=== PATIENT | male | born 1950 | race Caucasian/White ===

== ENCOUNTER → 2017-12-18 01:50 | Outpatient (CLI) | payer OTHER, SELFPAY ==
--- NOTE | 2017-12-18 01:50 | DT_ITS ---
This patient was seen during an EMR downtime December 15, 2017 - December 22, 2017. This patient may have a combination of paper and electronic documentation or all paper documentation. All documentation is viewable within the e-chart portion of [employer] for each patient visit.
[2017-12-23 05:34] LABS: ALB/GLOB Ratio 1.2 RATIO (0.9-2.4); AST(SGOT) 17 U/L (15-37); Alanine Aminotransfer ALT/SGPT 27 U/L (16-61); Albumin, Serum 3.9 g/dL (3.2-5.0); Alkaline Phosphatase 80 U/L (45-117); Anion Gap 7 (5-15); BUN 13 mg/dL (7-18); BUN/Creat Ratio 15.5 RATIO (10-20); Calcium,Total 8.7 mg/dL (8.5-10.1); Chloride 106 mmol/L (98-107); Creatinine, Serum 0.84 mg/dL (0.70-1.30); EST Glomerular Filtration Rate 97 mL/min (>60); Est Glom Filt Rate - Afr Amer 118 mL/min (>60); Globulin 3.2 g/dL (2.2-4.2); Glucose 94 mg/dL (74-106); Potassium 3.9 mmol/L (3.5-5.1); Protein, Total 7.1 g/dL (6.4-8.2); Sodium Level 142 mmol/L (136-145); Thyroid Stim Hormone (TSH) 1.54 uIU/mL (0.358-3.74)
[2017-12-23 05:51] LABS: Red Blood Count 4.94 M/mm3 (4.6-6.2); White Blood Count 6.1 K/mm3 (4.4-11.0)
[2017-12-23 05:52] LABS: Basophil% 0.2 % (0-1); Eosinophils% 3.3 % (0-5); Hematocrit 45.7 % (40-54); Lymphocyte # 1.53 X10^3/ul (4.0); Lymphocyte % 24.9 % (19-41); Mean Corpuscular Hgb 32.4 pg (27.0-32.0); Mean Corpuscular Volume 92.5 fL (80-94); Mean Platelet Vol. 10.1 fl (6.2-12.0); Monocyte% 12.2 % (0-10); Neutrophil # 3.63 X10^3/uL (2.7-7.7); Neutrophil % 59.1 % (47-70); POSITIVE COUNT NO; POSITIVE DIFFERENTIAL NO; POSITIVE MORPHOLOGY NO; Platelet Count 179 K/mm3 (150-450); RBC Distribution Width CV 12.5 % (11.6-14.6)
[2017-12-23 05:53] LABS: Absolute Lymphocyte Count 1.53 X10^3/ul (0.83-4.51); Absolute Neutrophil Count 3.6 X10^3/uL (2.0-7.7); Basophil# 0.01 X10^3/uL; Monocyte# 0.75 X10^3/uL
[2017-12-23 09:49] LABS: Vitamin D,25 Hydroxy 25.2 ng/mL (29.95-100.01)
== END ==
PROVIDERS: Family Provider Family Medicine Geriatric Medicine; PCP Family Medicine Geriatric Medicine; Visit Provider Family Medicine Geriatric Medicine
DX: E55.9 Vitamin D deficiency, unspecified (principal); R53.83 Other fatigue
CPT/HCPCS: 36415; 80053; 82306; 84443; 85025

== ENCOUNTER 2017-12-30 05:42 | Day surgery (SDC) | payer OTHER, SELFPAY ==
[2017-12-30 06:06] VITALS: BP 122/61; PULSE 54; RESP 16; TEMP 36.3; O2SAT 96; BMI 26.4
--- NOTE | 2017-12-30 06:52 | PCM.OPRPT ---
Problem List (1) Screening for intestinal cancer Status: Acute Report of Operation Date of Procedure: 12/30/17 Pre-Operative Diagnosis: Screening for intestinal cancer Post-Operative Diagnosis: Normal colonoscopy Surgery/Procedure Performed:: Colonoscopy Description of Surgical Findings:: Timeout and informed consent was obtained. 67-year-old gentleman was taken to the endoscopy suite. He was placed in a left lateral decubitus position. Throughout the procedure in aliquots he received a total of 100 mg Demerol and 2.5 mg of Versed is intravenous sedation. Digital rectal exam performed. Moderate internal hemorrhoids. 3+ enlarged smooth prostate. Flexible colonoscope inserted the rectum advanced through a tortuous sigmoid colon. With unwinding that loop the scope was advanced to the transverse colon with some transabdominal pressure cyst and then by placing the patient supine the scope was advanced to the cecum. Bowel prep was good there was some liquid stool that could be aspirated. The cecum ileocecal valve area was nicely achieved. The scope was carefully withdrawn from the cecum ascending colon transverse colon descending colon and sigmoid colon without abnormality noted. Tortuosity was noted. The scope was retroflexed within the rectum anorectal verge inspected the hemorrhoidal changes noted. Excess fluid and air was aspirated free and the procedure was completed with the patient tolerating it well. Impression Normal examination. Next screening examination recommended in 10 years. Previous colonoscopy was noted by the patient to be very remote greater than 10 years. Cc: Dr. Gutierrez Medications were given at 0630. Procedure was started 0633. The cecum was reached at 0642.21. Examination was completed at 0645.3 Charles Sosa M.D., F.A.C.S. Type of Anesthesia:: IV Sedation
[2017-12-30 06:55] VITALS: BP 122/61; BP 132/78; PULSE 66; RESP 18; TEMP 36.8; O2SAT 97
[2017-12-30 07:00] VITALS: BP 122/61; BP 129/62; PULSE 66; RESP 18; O2SAT 96
[2017-12-30 07:05] VITALS: BP 122/61; BP 129/79; PULSE 52; RESP 18; O2SAT 95
[2017-12-30 07:10] VITALS: BP 122/61; BP 132/78; PULSE 62; RESP 18; TEMP 37; O2SAT 99
[2017-12-30 07:15] VITALS: BP 122/61
== END 2017-12-30 07:59 | disposition home or self-care (01) ==
LOC: EN 05:42 → AC 05:43
PROVIDERS: Family Provider Family Medicine Geriatric Medicine; PCP Family Medicine Geriatric Medicine; Visit Provider Surgery
PROC: 0DJD8ZZ Inspection of Lower Intestinal Tract, Via Natural or Artificial Opening Endoscopic (ICD-10-PCS; CPT 45378; principal; 2017-12-30 06:25)
DX: Z12.11 Encounter for screening for malignant neoplasm of colon (principal); K59.00 Constipation, unspecified; K64.8 Other hemorrhoids; N40.0 Benign prostatic hyperplasia without lower urinary tract symptoms; I48.91 Unspecified atrial fibrillation
CPT/HCPCS: 45378; 99152; 99153; J7120

== ENCOUNTER 2018-01-12 05:24 | Day surgery (SDC) | payer OTHER, SELFPAY ==
--- NOTE | 2018-01-08 11:32 | EKG12_ITS ---
Test Reason : PRE-OP Blood Pressure : / mmHG Vent. Rate : 049 BPM Atrial Rate : 049 BPM P-R Int : 166 ms QRS Dur : 106 ms QT Int : 412 ms P-R-T Axes : 040 055 000 degrees QTc Int : 372 ms Marked sinus bradycardia with sinus arrhythmia Incomplete right bundle branch block Abnormal ECG Confirmed by ALEXANDRIA GRIGGS, BLANCO ([id number]), movie editor CHYNA ROCHE ([id number]) on 01/15/2018 3:27:44 PM Referred By: Charles Sosa Confirmed By:BLANCO IBRAHIM MD
[2018-01-08 13:26] LABS: Hematocrit 46.5 % (40-54); Hemoglobin 16.1 g/dl (13.0-16.5); Mean Corp Hgb Conc 34.6 g/gl (32-36); Mean Corpuscular Hgb 32.3 pg (27.0-32.0); Mean Corpuscular Volume 93.2 fL (80-94); Mean Platelet Vol. 10.4 fl (6.2-12.0); Platelet Count 173 K/mm3 (150-450); RBC Distribution Width CV 12.7 % (11.6-14.6); Red Blood Count 4.99 M/mm3 (4.6-6.2); White Blood Count 5.9 K/mm3 (4.4-11.0)
[2018-01-08 13:27] LABS: Scan Indicated on CBC? Y/N NO
[2018-01-08 13:39] LABS: Anion Gap 8 (5-15); BUN 13 mg/dL (7-18); Calcium,Total 8.6 mg/dL (8.5-10.1); Chloride 104 mmol/L (98-107); Creatinine, Serum 0.87 mg/dL (0.70-1.30); EST Glomerular Filtration Rate 93 mL/min (>60); Est Glom Filt Rate - Afr Amer 113 mL/min (>60); Glucose 90 mg/dL (74-106); Potassium 3.8 mmol/L (3.5-5.1); Sodium Level 141 mmol/L (136-145)
[2018-01-12] VITALS (7 sets, daily range): BP systolic 119–143; BP diastolic 72–93; PULSE 50–83; RESP 16; TEMP 36.3–37.1; O2SAT 93–98; BMI 27.1
[2018-01-12] MEDS: Cefazolin 2 GM in 0.9% Normal Saline 100 ML IV (07:11)
--- NOTE | 2018-01-12 07:15 | LIP_PTH ---
PATIENT: MONTRELL NICKERSON LOC: [facility] [place]#:[id number] AGE/SX: 67/M ROOM: RE01/12/[address]: Dr. Charles Sosa MD : [id number] BED: DIS: 01/12/2018 SPEC #: [id number] RECD: 01/12/18 09:51 STATUS: IVETH RAHCELLE #: [id number] MARTIN: 01/12/18 07:[address]: Charles Sosa DEPT: SURGICAL PATHOLOGY RECD BY: Romario Macias ENTERED: 01/12/18 10:13 SP TYPE: LIPOMA OTHR DR: Dr. Alon Gutierrez MD Tissues: Soft tissues, NOS Procedures: Surgery Specimen Level III HEADER OPERATION: Right inguinal hernia repair with mesh PRE-OP DIAGNOSIS: Right inguinal hernia TISSUE SUBMITTED: Right cord lipoma MICROSCOPIC DIAGNOSIS Right cord lipoma, excision: Fragments of benign fibrofatty tissue. AM:sp 01/13/18 MICROSCOPIC DESCRIPTION Slides are reviewed. GROSS DESCRIPTION Received in fixative is one container labeled with the patient's name and designated right cord lipoma. The specimen consists of a piece of finch- yellow focally congested piece of adipose tissue measuring 5 x 1 x 1 cm. Sections reveal yellow adipose cut surfaces without area of necrosis or cystic degeneration. Warranty Administrator sections are submitted in one cassettes. EMMANUELLE:jemima 01/12/18 TC: 1 CPT: 28955
--- NOTE | 2018-01-12 07:17 | PCM.DC.GS ---
Discharge Diet: Light diet - advance as tolerated - if you have questions about your diet instructions, please talk to you doctor. Discharge Activity: May Not Drive - for 1 week or while taking narcotic pain medicine. May shower in (days): 1 Lifting Restrictions: 10 pounds Call your doctor if your incision/area has: Continuous Slow Oozing, Sudden Increased Bleeding, Increased Pain/ Swelling, Increased Redness, Foul Smelling Discharge Call your doctor if you observe: Fever of 101 or Higher Suture Line Care: Avoid Pulling/Pushing, Avoid Pinching/Bending Additional Dressing/Incision Instructions:: Change or remove dressing in 4 days. Leave steri-strips in place for 1 week. Allergies/Adverse Reactions: Allergies No Known Allergies Allergy (Verified 01/06/18 08:57) Medications to take at Discharge Cholecalciferol (Vitamin D3) [Vitamin D3] 1,000 unit PO QODAY 12/30/17 Tamsulosin HCl [Flomax] 1 tab PO QHS 12/30/17 Docusate Sodium [Colace] 50 mg PO DAILY 01/06/18 Hydrocodone Bitart/Apap 5-325 [[place] 5MG-325MG] 1 tablet PO Q4H PRN PRN 3 Days #10 tablet 01/12/18 The following prescriptions were given: Hydrocodone Bitart/Apap 5-325 [[place] 5MG-325MG] 1 tablet PO Q4H PRN PRN 3 Days #10 tablet PRN Reason: Pain Primary Care Physician: Alon Gutierrez Chi, MD [Primary Care Provider] - Please Follow Up With: Charles Sosa MD - [phone] When: Call to make an appointment to be seen in about 10 days.
[2018-01-12] MEDS: Bupivacaine Mpf 0.5% 30 ML VIAL (08:12)
--- NOTE | 2018-01-12 08:12 | PCM.OPRPT ---
Problem List (1) Right inguinal hernia Status: Acute Report of Operation Date of Procedure: 01/12/18 Pre-Operative Diagnosis: Right inguinal hernia Post-Operative Diagnosis: Indirect right inguinal hernia with cord lipoma Surgery/Procedure Performed:: Dianna right inguinal herniorrhaphy with excision cord lipoma Description of Surgical Findings:: Timeout informed consent was obtained. 67-year-old gentleman was taken to the operating room. He was placed on the table. Ancef 2 g are given intravenously preoperatively. He underwent monitored anesthesia care local anesthetic. The right groin was sterilely prepped and draped. 1% lidocaine mixed 50-50 with 0.5% Marcaine was used as a local anesthetic. Throughout the procedure total 25 cc was used. Local was instilled. A transverse incision was created in the right groin. Sharp dissection carried down through the substance tissue. The external oblique identified as well as the external ring. The external oblique was incised the lingual nerve identified and protected. Circumferential control was obtained of the cord structures. The cord was dissected free identifying an indirect hernia Cord lipoma lipoma was identified it was dissected free and high ligated with a Vicryl. Having completely inverted the hernia then approximated the transversalis fascia from the pubic tubercle to the internal ring with a running 3-0 Ethibond. I felt that I had good securement. I then utilized a Bard mesh appreciate with keyhole size 10 x 4.5 cm lot number [id number] reference #[id number] expiry date 06/02/2022 to perform the repair. This was placed around the internal ring. It was secured to itself laterally with 3-0 Ethibond. The tails were slightly shortened and tucked beneath the external oblique. The mesh was secured to the pubic tubercle shelving edge of Poupart's and aponeurosis of the internal/external oblique with interrupted 3-0 Ethibond. Good positioning and securement was achieved. The external oblique was approximated with a running 2-0 Vicryl. Subdermal tissues approximated with interrupted 2-0 Vicryl. The skin edges proximate running septic or 4 Monocryl. Steri-Strips Telfa and OpSite dressings applied. Sponge and instrument and needle counts were reported the surgeon be correct. Specimens include cord lipoma. Drains none. Blood loss minimal. He was taken to the recovery area in satisfactory condition without apparent complication Charles Sosa M.D., F.A.C.S. Type of Anesthesia:: Local MAC Anesthesiologist: Shelly Vallejo
--- NOTE | 2018-01-12 08:16 | OP.PCM_ITS ---
Problem List (1) Right inguinal hernia Status: Acute Report of Operation Date of Procedure: 01/12/18 Pre-Operative Diagnosis: Right inguinal hernia Post-Operative Diagnosis: Indirect right inguinal hernia with cord lipoma Surgery/Procedure Performed:: Dianna right inguinal herniorrhaphy with excision cord lipoma Description of Surgical Findings:: Timeout informed consent was obtained. 67-year-old gentleman was taken to the operating room. He was placed on the table. Ancef 2 g are given intravenously preoperatively. He underwent monitored anesthesia care local anesthetic. The right groin was sterilely prepped and draped. 1% lidocaine mixed 50-50 with 0.5 % Marcaine was used as a local anesthetic. Throughout the procedure total 25 cc was used. Local was instilled. A transverse incision was created in the right groin. Sharp dissection carried down through the substance tissue. The external oblique identified as well as the external ring. The external oblique was incised the lingual nerve identified and protected. Circumferential control was obtained of the cord structures. The cord was dissected free identifying an indirect hernia Cord lipoma lipoma was identified it was dissected free and high ligated with a Vicryl. Having completely inverted the hernia then approximated the transversalis fascia from the pubic tubercle to the internal ring with a running 3-0 Ethibond. I felt that I had good securement. I then utilized a Bard mesh appreciate with keyhole size 10 x 4.5 cm lot number [id number] reference #[id number] expiry date 06/02/2022 to perform the repair. This was placed around the internal ring. It was secured to itself laterally with 3-0 Ethibond. The tails were slightly shortened and tucked beneath the external oblique. The mesh was secured to the pubic tubercle shelving edge of Poupart's and aponeurosis of the internal/external oblique with interrupted 3-0 Ethibond. Good positioning and securement was achieved. The external oblique was approximated with a running 2-0 Vicryl. Subdermal tissues approximated with interrupted 2-0 Vicryl. The skin edges proximate running septic or 4 Monocryl. Steri-Strips Telfa and OpSite dressings applied. Sponge and instrument and needle counts were reported the surgeon be correct. Specimens include cord lipoma. Drains none. Blood loss minimal. He was taken to the recovery area in satisfactory condition without apparent complication Charles Sosa M.D., F.A.C.S. Type of Anesthesia:: Local MAC Anesthesiologist: Shelly Vallejo
== END 2018-01-12 10:23 | disposition home or self-care (01) ==
LOC: SDC 05:26 → AC 05:27
PROVIDERS: Family Provider Family Medicine Geriatric Medicine; PCP Family Medicine Geriatric Medicine; Visit Provider Surgery
PROC: (CPT 49505; principal; 2018-01-12 07:00)
DX: K40.90 Unilateral inguinal hernia, without obstruction or gangrene, not specified as recurrent (principal); D17.79 Benign lipomatous neoplasm of other sites; N40.0 Benign prostatic hyperplasia without lower urinary tract symptoms; R25.1 Tremor, unspecified; G47.30 Sleep apnea, unspecified; Z85.828 Personal history of other malignant neoplasm of skin; Z87.891 Personal history of nicotine dependence; Z79.899 Other long term (current) drug therapy
CPT/HCPCS: 49505; 36415; 80048; 85027; 88304; 93005; J7120; C1781; J2405

== ENCOUNTER → 2018-10-15 14:44 | Outpatient (CLI) | payer OTHER, SELFPAY ==
[2018-01-12 05:49] VITALS: BMI 27.1
--- NOTE | 2018-10-15 14:48 | RAD_ITS ---
STUDY: X-RAY CHEST REASON FOR EXAM: Male, 68 years old. Cough, fever. TECHNIQUE: PA and lateral views of the chest. COMPARISON: June 23, 2015 FINDINGS: The lungs are clear and expanded. There is no demonstrated pleural abnormality. Normal size heart. There is stable left perihilar fullness. Normal visualized aortic arch and descending thoracic aorta. There are diffuse degenerative changes of the visualized thoracic spine. Normal visualized ribs, clavicles, and shoulders. There is no demonstrated abnormality of the visualized soft tissue structures of the upper abdomen. RAD/Chest PA and Lateral IMPRESSION: No acute cardiopulmonary process. Electronically Signed: Emi Bennett MD at 18:22 EDT Tel , Service support ,
== END ==
PROVIDERS: Family Provider Family Medicine Geriatric Medicine; PCP Family Medicine Geriatric Medicine; Referring Provider Family Medicine Geriatric Medicine; Visit Provider Family Medicine Geriatric Medicine
DX: R05 Cough (principal); R50.9 Fever, unspecified
CPT/HCPCS: 71046; 87633

== ENCOUNTER → 2019-01-25 | Outpatient (CLI) | payer OTHER, SELFPAY ==
[2018-01-12 05:49] VITALS: BMI 27.1
[2019-01-25 11:29] LABS: PSA,Total - Annual Screen 1.69 ng/mL (0.00-4.00)
== END | disposition home or self-care (01) ==
LOC: LAB.FUTURE 09:02
PROVIDERS: Family Provider Internal Medicine Rheumatology; PCP Internal Medicine Rheumatology; Referring Provider Urology; Visit Provider Urology
DX: Z12.5 Encounter for screening for malignant neoplasm of prostate (principal)
CPT/HCPCS: 36415; 84153; G0103

== ENCOUNTER → 2020-02-22 06:42 | Outpatient (CLI) | payer MEDICARE, OTHER, SELFPAY ==
[2020-02-07 13:31] VITALS: BMI 27.1
--- NOTE | 2020-02-22 06:43 | ECHOD_ITS ---
Reason For Study: Murmur Procedure This was a 2D Doppler, Color Flow transthoracic echocardiogram. Exam performed in department. Left Ventricle Normal LV size. Left ventricular systolic function is normal. The estimated ejection fraction is 60 %. No evidence for diastolic dysfunction. No regional wall motion abnormalities noted. Right Ventricle Normal RV size. Normal systolic function. Atria Normal left atrium. Normal right atrium. No doppler evidence for ASD. Mitral Valve There is no mitral annular calcification. Normal mitral valve. Mild (1+) mitral valve insufficiency. Tricuspid Valve Normal tricuspid valve. Trivial tricuspid valve insufficiency. Right ventricular systolic pressure estimated to be 21 mmHg. Aortic Valve Trisinus/trileaflet aortic valve. Mild diffuse aortic valve thickening. Pulmonic Valve The pulmonic valve is not well visualized. Great Vessels Normal aortic root. Pericardium/Pleural No pericardial effusion. MMode/2D Measurements & Calculations LVIDd: 3.8 cm IVSd: 1.0 cm Ao root diam: 3.3 cm LVIDs: 2.6 cm LVPWd: 0.96 cm RVDd: 3.4 cm FS: 30.9 % LAV(MOD-bp): 48.7 ml LA A4 area: 12.2 cm2 LA dimension(2D): 3.3 cm LAV(MOD-bp) Indexed: 25.6 ml/m2 LAV(MOD-sp2): 64.9 ml LAV(MOD-sp4): 29.6 ml RA A4 area: 12.4 cm2 Doppler Measurements & Calculations MV E max jeffry: 89.8 cm/sec Lat Peak E' Jeffry: 9.8 cm/sec Med Peak E' Jeffry: 6.5 cm/sec MV A max jeffry: 93.1 cm/sec E/E' lat: 9.2 E/E' med: 13.9 MV E/A: 0.97 Ao V2 max: 142.5 cm/sec LV V1 max: 120.8 cm/sec PA V2 max: 122.1 cm/sec Ao max P.1 mmHg LV V1 max P.8 mmHg TR max jeffry: 212.9 cm/sec TR max P.1 mmHg Interpretation Summary Left ventricular systolic function is normal. The estimated ejection fraction is 60 %. Mild (1+) mitral valve insufficiency. Trivial tricuspid valve insufficiency. Mild diffuse aortic valve thickening. Right ventricular systolic pressure estimated to be 21 mmHg. No evidence for diastolic dysfunction. Ordering Physician: Alden Albarran Referring Physician: Leobardo Pollard M.D. Performed By: Tami Mark RDCS
--- NOTE | 2020-02-22 08:48 | STRESSREP ---
Stress Test Report Date: 02-22-2020 Procedure: Exercise tolerance test/imaging study Indications: Chest pain; dyspnea on exertion; bradycardia Consent: Per the patient Procedure: The patient exercised on a Cayden protocol for 9 minutes completing Stage III achieving a peak heart rate of 130 bpm (85 % predicted maximal heart rate) with a peak blood pressure 168/72 mmHg and a peak MET capacity of 10 METs. The baseline ECG demonstrated normal sinus rhythm. The peak exercise ECG demonstrated no obvious ECG changes. There was an isolated PVC during exercise. The functional capacity was considered good. There was no complaint of chest discomfort during exercise or recovery. The examination was discontinued secondary to dyspnea. Impression: 1. Technically adequate (percent predicted maximal heart rate greater than 85%) exercise tolerance test 2. Peak exercise ECG with no obvious ECG changes 3. There was an isolated PVC during exercise 4. Nuclear images pending Myocardial perfusion imaging study: Technique: The patient was injected with 11.6 mCi of technetium 99m Cardiolite and subsequently rest SPECT Cardiolite nuclear imaging was obtained in the horizontal long, vertical long, and short axis views. The patient exercised on a Cayden protocol for 9 minutes completing Stage III achieving a peak heart rate of 130 bpm (85 % predicted maximal heart rate) with a peak blood pressure 168/72 mmHg and a peak MET capacity of 10 METs. The patient was injected with 33.9 mCi of technetium 99m Cardiolite and subsequently stress SPECT Cardiolite nuclear imaging was obtained in the horizontal long, vertical long, and short axis views. A gated Cardiolite study at peak stress was obtained. Interpretation: Rest and stress SPECT Cardiolite nuclear imaging status post realignment, normalization, and attenuation correction, demonstrates the appearance of body motion during image acquisition and status post stress the appearance of diminished tracer uptake in the mid anterior segments. There is end systolic thickening and brightening. The gated Cardiolite study demonstrates myocardial thickening and inward wall motion. The reported LVEF is 70 %. Impression: 1. Rest and stress SPECT Cardiolite nuclear imaging demonstrate the appearance of body motion during image acquisition and status post stress the appearance of diminished tracer uptake in the mid anterior segments concerning for an area of stress-induced myocardial ischemia however, shifting soft tissue attenuation/artifact from body motion during image acquisition cannot necessarily be excluded. 2. The gated Cardiolite study reports an LVEF of 70 %. This note was generated with [employer] software. It may contain incorrect words, spelling, and punctuation that were not noted in checking the note before signing.
== END ==
PROVIDERS: PCP Internal Medicine; Referring Provider Internal Medicine Cardiovascular Disease; Visit Provider Internal Medicine Cardiovascular Disease
DX: R06.00 Dyspnea, unspecified (principal); R07.9 Chest pain, unspecified
CPT/HCPCS: 78452; 93017; 93306; A9500; A4216

== ENCOUNTER 2020-03-14 08:01 | Day surgery (SDC) | payer MEDICARE, OTHER, SELFPAY ==
[2020-02-07 13:31] VITALS: BMI 27.1
--- NOTE | 2020-03-07 04:52 | HP_ITS ---
HPI HPI History of Present Illness Surgical H&P: Yes Details: MONTRELL NICKERSON, is a 69 year old white male who presents to the office today for a cardiovascular outpatient follow-up with a history of bradycardia, cardiac mumur, and chest pain now superimposed on an abnormal stress nuclear imaging study. As you recall, he had noted an episode following exertion of dull chest discomfort as he points to his precordium. He states that after he rested for period of time the symptoms seem to disappear. It did not radiate nor was it associated with any acute dyspnea, nausea, emesis, or diaphoresis. He has had no episodes of orthopnea or PND or peripheral pitting edema. There has been no near syncope or syncope. At the moment he believes he is doing well. He states he has not had recurrent chest/precordial discomfort as he noted earlier. As part of his evaluation he did undergo a transthoracic echocardiogram and a stress nuclear imaging study. The results are noted below. They were discussed with him at great length. 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 Accompanied by: Allergies No Known Allergies Allergy (Verified 03/07/20 15:28) Medications triamcinolone acetonide 55 mcg nasal spray aerosol 1 spray INTRANASAL DAILY 02/07/20 [History Confirmed 03/07/20] aspirin 81 mg tablet,delayed release 81 mg PO DAILY 03/07/20 [History Confirmed 03/07/20] clopidogrel 75 mg tablet 75 mg PO DAILY #30 tab 03/07/20 [Rx Confirmed 03/07/20] ON LICENSE OF [facility] Medical History Constipation (Acute) Right groin pain (Acute) Screening for intestinal cancer (Acute) Asymptomatic peripheral vascular disease (Chronic) Murmur, cardiac (Chronic) Fatigue (Acute) Chest pain (Acute) GERD (gastroesophageal reflux disease) (Suspected) Elevated d-dimer (Acute) Bradycardia (Acute) Fatigue (Acute) Surgical History History of colonoscopy (Acute ~12/2017) H/O hernia repair (Resolved) Family History Father CAD (coronary artery disease) Sister CAD (coronary artery disease) Social History (Updated 03/07/20 @ 16:[address] Alden Albarran MD) Smoking Status: Former smoker alcohol intake: current alcohol intake frequency: holidays/special occasions only ROS Const Const: Negative for fatigue, weakness, frequent falls, excessive sweating, weight gain or weight loss Eyes Eyes: Negative for transient loss of vision, blurry vision or change in vision ENT ENT: Negative for dizziness or balance problems Cardio Chest Pain: No Palpitations: Yes (occasional) feels like its: irregular Edema: None Muscle aches with walking: None Resp Respiratory: Negative for SOB with activity or SOB at rest GI GI: Negative vomiting or vomiting blood/hematemesis : Negative for hematuria Musc Musc: Negative for muscle aches/ myalgia, muscle weakness, joint pain or balance problems Skin Skin: Negative non-healing lesions or rash Neuro Neuro: Negative for dizziness, lightheadedness, orthostatic symptoms, frequent falls, weakness or blurry vision José Luis Hematologic/Lymphatic: Negative for easy bleeding Endo Endo: Negative for fatigue or excessive sweating Psych Psych: Negative for anxiety or depression Allergy Allergy/Immunology: Negative for hives, Negative for rash Cardiology Exam Const Appearance: cooperative, healthy appearing, comfortable, no acute distress, well developed and well groomed Nutritional Appearance: average body habitus Orientation: alert, awake and oriented x3 Head Head: normal to inspection, normocephalic and atraumatic Ears: hearing grossly normal bilaterally Nose: external nose normal Face and Sinus: face symmetric Eyes Eyelids: eyelids normal Conjunctivae: conjunctivae normal Pupils: PERRL EOM: EOM intact bilaterally Neck Neck: normal visual inspection, full ROM and no JVD Carotids: normal carotid upstroke Chest Chest inspection: normal inspection of the chest, symmetric chest movement and normal respiratory effort; negative cough Auscultation: Bilateral: Clear to Auscultation Cardio Rate: regular rate Rhythm: regular rhythm Heart sounds: S1 normal and S2 normal; negative rub or gallop Murmur: Grade 2/6, soft, mid systolic, LLSB, apex, LVOT and sternal notch GI GI: normal to inspection, soft and bowel sounds present Neuro General: alert, awake, oriented x3 and moves all extremities Skin Skin: no rashes or lesions noted Extremities Pulses: Normal: Right Posterior Tibial Pulse, Left Posterior Tibial Pulse, Right Radial Pulse, Left Radial Pulse Lower Extremity Edema: None: Bilateral Psych Psychological: normal affect Assessment & Plan 1. Abnormal stress test R94.39 Plan Normal stress nuclear imaging study. It is unclear as to whether the his findings are underlying CAD with myocardial ischemia versus possibly a somatic/motion artifact defect. Based upon his symptoms and his findings it was felt reasonable he be considered for further evaluation with a diagnostic cardiac catheterization. The procedure and risks were discussed with him, with his spouse present, at great length. At the present time, after the discussion, he stated he wanted to proceed with this evaluation. In the interim he will initiate medical therapy with aspirin a 1 mg p.o. daily and clopidogrel/Plavix at 75 mg p.o. daily. If his study is unremarkable and he has a false positive stress test then he will not necessarily need to continue antiplatelet therapy on a daily basis. He would need to continue his dietary modifications, exercise, etc. and follow-up as deemed. 2. Chest pain, unspecified type R07.9 Plan Again the patient had an episode of chest discomfort. He is undergone noninvasive valuation. This is now led to consideration for further evaluation with diagnostic cardiac catheterization. As noted above, after discussion, the patient has elected to proceed in this manner. 3. Bradycardia R00.1 Plan The patient will continue to have his heart rate followed based upon concerns of bradycardia. At the moment he is on no rate limiting medication. Depending upon his findings, if there are other medications needed, his history of bradycardia would have to be taken into consideration. Plan Detail Other Medications New: aspirin (Adult Low Dose Aspirin) 81 mg PO DAILY clopidogrel For Cardiac Cath 75 mg PO DAILY 30 tabs 3RF Discontinued: aspirin Discontinued Reason: Order Changed 325 mg PO DAILY PRN Additional Comments Thank you for allowing me to participate in the care of your patient. Please don't hesitate to call if any issues arise. This note was generated using a voice recognition system and there may be incorrect words, spelling or punctuation that were not noted when reviewing the office note prior to saving. Follow Up 01/24/21 (with PFM as scheduled) Coding Level of Care Code Off vis,est,level 5 Diagnoses Abnormal stress test R94.39 Chest pain, unspecified type R07.9 ??Chest pain type: unspecified Bradycardia R00.1 Coding Level of Care Code Off vis,est,level 5 Diagnoses Abnormal stress test R94.39 Chest pain, unspecified type R07.9 ??Chest pain type: unspecified Bradycardia R00.1 Supplemental Info Supplemental Information Echocardiogram: Interpretation Summary Left ventricular systolic function is normal. The estimated ejection fraction is 65 %. Mild (1+) mitral valve insufficiency. Trivial tricuspid valve insufficiency. Mild focal aortic valve thickening. Right ventricular systolic pressure estimated to be 18 mmHg. Echocardiogram: 02/22/2020 Interpretation Summary Left ventricular systolic function is normal. The estimated ejection fraction is 60 %. Mild (1+) mitral valve insufficiency. Trivial tricuspid valve insufficiency. Mild diffuse aortic valve thickening. Right ventricular systolic pressure estimated to be 21 mmHg. No evidence for diastolic dysfunction. DATE OF SERVICE: 06/24/2015 EXERCISE TOLERANCE TEST: The patient exercised on a Cayden protocol for 9 minutes 15 seconds completing stage 3 and 15 seconds of stage 4, achieving a peak heart rate of 141 beats per minute (89% predicted maximum heart rate) and a peak blood pressure of 182/78 mmHg and a peak MET capacity of approximately 10 METs. The baseline ECG demonstrated sinus bradycardia. The peak exercise ECG demonstrated no obvious ECG changes. There was an isolated PVC and an isolated ventricular couplet (x2) at peak exercise. The functional capacity was considered good. The patient noted vague chest discomfort with associated dyspnea peak exercise with spontaneous resolution recovery. The examination was discontinued secondary to chest discomfort. IMPRESSION: 1. Technically adequate (percent predicted maximum heart rate greater than 85%), exercise tolerance test. 2. Peak exercise ECG with no obvious ECG changes. 3. Isolated PVC and an isolated ventricular couplet (x2) at peak exercise. 4. Nuclear images pending. MYOCARDIAL PERFUSION IMAGING STUDY: TECHNIQUE: The patient was injected with 11.6 mCi of Tc99m Cardiolite and subsequently rest SPECT Cardiolite nuclear imaging was obtained in the horizontal long, vertical long and short axes views. The patient exercised on a Cayden protocol for 9 minutes 15 seconds completing stage 3 and 15 seconds of stage 4, achieving a peak heart rate of 141 beats per minute (89% predicted maximum heart rate) and a peak blood pressure of 182/78 mmHg and a peak MET capacity of 10 METs. The patient was injected with 36.2 mCi of Tc99m Cardiolite and subsequently stress SPECT Cardiolite nuclear imaging was obtained in the horizontal long, vertical long and short axes views. A gated Cardiolite study at peak stress was obtained. INTERPRETATION: Rest and stress SPECT Cardiolite nuclear imaging, status post realignment and normalization, demonstrate at rest diminished tracer uptake in portions of the basal inferoseptal/basal inferior segments, which appears to be similar and/or somewhat more prominent compared to post-stress. At rest, there is also an area of diminished tracer uptake in the mid inferior segments, which appears to improve and/or normalize following stress. At rest, there is an area of diminished tracer uptake in the mid to distal anteroseptal segments, which appears to improve and normalize following stress. There are similar type findings on the resting and stress polar map images. There is notation of end systolic thickening and brightening. The gated Cardiolite study demonstrates myocardial thickening and inward wall motion. The reported LVEF was 60%. The aforementioned findings appear compatible with the effects of shifting soft tissue attenuation/artifact and/or gastrointestinal tracer uptake/detraction being more prominent at rest as opposed to stress with no myocardial perfusion changes considered diagnostic for stress-induced myocardial ischemia or previous myocardial injury/infarction. IMPRESSION: 1. Rest and stress SPECT Cardiolite nuclear imaging demonstrate myocardial perfusion changes appearing compatible with the effects of shifting soft tissue attenuation/artifact and/or gastrointestinal tracer uptake/detraction being more prominent at rest as opposed to stress with no myocardial perfusion changes considered diagnostic for stress- induced myocardial ischemia or previous myocardial injury/infarction. 2. The gated Cardiolite study reports an LVEF of 60%. Stress Test Report Date: 02-22-2020 Procedure: Exercise tolerance test/imaging study Indications: Chest pain; dyspnea on exertion; bradycardia Consent: Per the patient Procedure: The patient exercised on a Cayden protocol for 9 minutes completing Stage III achieving a peak heart rate of 130 bpm (85 % predicted maximal heart rate) with a peak blood pressure 168/72 mmHg and a peak MET capacity of 10 METs. The baseline ECG demonstrated normal sinus rhythm. The peak exercise ECG demonstrated no obvious ECG changes. There was an isolated PVC during exercise. The functional capacity was considered good. There was no complaint of chest discomfort during exercise or recovery. The examination was discontinued secondary to dyspnea. Impression: 1. Technically adequate (percent predicted maximal heart rate greater than 85%) exercise tolerance test 2. Peak exercise ECG with no obvious ECG changes 3. There was an isolated PVC during exercise 4. Nuclear images pending Myocardial perfusion imaging study: Technique: The patient was injected with 11.6 mCi of technetium 99m Cardiolite and subsequently rest SPECT Cardiolite nuclear imaging was obtained in the horizontal long, vertical long, and short axis views. The patient exercised on a Cayden protocol for 9 minutes completing Stage III achieving a peak heart rate of 130 bpm (85 % predicted maximal heart rate) with a peak blood pressure 168/72 mmHg and a peak MET capacity of 10 METs. The patient was injected with 33.9 mCi of technetium 99m Cardiolite and subsequently stress SPECT Cardiolite nuclear imaging was obtained in the horizontal long, vertical long, and short axis views. A gated Cardiolite study at peak stress was obtained. Interpretation: Rest and stress SPECT Cardiolite nuclear imaging status post realignment, normalization, and attenuation correction, demonstrates the appearance of body motion during image acquisition and status post stress the appearance of diminished tracer uptake in the mid anterior segments. There is end systolic thickening and brightening. The gated Cardiolite study demonstrates myocardial thickening and inward wall motion. The reported LVEF is 70 %. Impression: 1. Rest and stress SPECT Cardiolite nuclear imaging demonstrate the appearance of body motion during image acquisition and status post stress the appearance of diminished tracer uptake in the mid anterior segments concerning for an area of stress-induced myocardial ischemia however, shifting soft tissue attenuation/artifact from body motion during image acquisition cannot necessarily be excluded. 2. The gated Cardiolite study reports an LVEF of 70 %. Labs LDL Cholesterol 130 mg/dL (0-130) 06/24/15 HDL Cholesterol 45 mg/dL (40-) 06/24/15 Triglycerides 74 mg/dL (-199) 06/24/15 VLDL Cholesterol 15 mg/dL (5-40) 06/24/15 Diagnostics Electrocardiogram 01/08/18 Echocardiogram 02/22/20 Stress Test Nuclear Medicine 02/22/20 Stress Test 02/22/20 Chest X-Ray 10/15/18 COVID (Procedure Consent) Procedure Criteria Procedure Criteria: Yes Elective The surgeon/proceduralist and patient have discussed in detail the risk of exposure to and/or potential harm posed by the COVID-19 virus with having a surgery/procedure at this time versus the risk of? delaying the surgery/procedure. It is not possible to know either the risk of delaying the surgery or procedure or chance of getting an infection with perfect accuracy, but a joint decision was made between the patient and the surgeon/proceduralist ?to proceed at this time with the scheduled surgery/procedure as indicated on the consent form. 03/07/20 1652 <Electronically signed by Alden haque MD> Date _ Alden Albarran MD I have re-examined the patient. There are no clinical changes since date of exam.
[2020-03-07 15:25] VITALS: BMI 26.9
--- NOTE | 2020-03-07 17:08 | RAD_ITS ---
STUDY: X-RAY CHEST REASON FOR EXAM: Male, 69 years old. Preop cardiac catheter. No chest complaints. TECHNIQUE: PA and lateral views of the chest. COMPARISON: 10/15/2018. FINDINGS: The lungs are clear and expanded. There is no demonstrated pleural abnormality. Normal size heart. Normal mediastinum and arturo. Normal visualized pulmonary arteries. Normal visualized aortic arch and descending thoracic aorta. There are diffuse degenerative changes of the visualized thoracic spine. Normal visualized ribs, clavicles, and shoulders. There is no demonstrated abnormality of the visualized soft tissue structures of the upper abdomen. RAD/Chest PA and Lateral IMPRESSION: Degenerative changes, as described above. No demonstrated acute cardiopulmonary process. There is no interval change. Electronically Signed: Domenic Tejada DO at 21:51 EDT Tel [phone], Service support ,
[2020-03-08 16:44] LABS: Hematocrit 45.5 % (40-54); Hemoglobin 15.5 g/dL (13.0-16.5); Mean Corp Hgb Conc 34.1 g/dL (32-36); Mean Corpuscular Hgb 32.1 pg (27.0-32.0); Mean Corpuscular Volume 94.2 fL (80-94); Mean Platelet Vol. 10.2 fl (6.2-12.0); Platelet Count 170 K/mm3 (150-450); RBC Distribution Width CV 12.1 % (11.6-14.6); RBC Distribution Width SD 41.8 fl (35.1-43.9); Red Blood Count 4.83 M/mm3 (4.6-6.2); White Blood Count 5.9 K/mm3 (4.4-11.0)
[2020-03-08 17:27] LABS: Anion Gap 5 (5-15); BUN 14 mg/dL (7-18); BUN/Creat Ratio 17.3 RATIO (10-20); Calcium,Total 8.8 mg/dL (8.5-10.1); Chloride 105 mmol/L (98-107); Creatinine, Serum 0.81 mg/dL (0.70-1.30); EST Glomerular Filtration Rate 101 mL/min (>60); Est Glom Filt Rate - Afr Amer 122 mL/min (>60); Glucose 90 mg/dL (74-106); Potassium 3.7 mmol/L (3.5-5.1); Sodium Level 139 mmol/L (136-145)
[2020-03-08 17:31] LABS: International Normalized Ratio 1.1; Prothrombin Time (Protime)PT. 13.4 SECONDS (11.7-14.9)
[2020-03-08 17:33] LABS: Partial Thromboplast Time 28.5 Seconds (24.1-36.2)
[2020-03-13 11:50] VITALS: BMI 26.9
--- NOTE | 2020-03-14 11:15 | CL.D_ITS ---
Patient Name: MONTRELL NICKERSON Study Date: 03/14/2020 Performing: Alden Albarran MD Ht: 66.92 inches 170 cm : 1950 Wt: 171.96 lbs 78 kg Age: 69 Gender: male BSA: 1.89 PROCEDURE(S) PERFORMED [id number]/COR/LV [id number], CORONARY OR GRAFT, INITIAL VESSEL CLINICAL PROFILE AND INDICATIONS Indications: Suspected CAD Heart Failure: None Stress/Imaging Date: 02/22/2020Stress Test with SPECT MPI: Indeterminant Angina Classification Anginal Classification w/in 2 Weeks: CCS II CAD Presentations: Stable angina. CONCLUSIONS Normal Left Ventricular End Diastolic Pressure Normal LV size, wall motion,and systolic function LVEF: by LV gram 60 % [place] Multivessel CAD RECOMMENDATIONS Risk factor modification Medical therapy Staged for FFR DESCRIPTION OF PROCEDURE The patient arrived to the procedure lab. The risks and benefits of the procedure as well as a full d escription of our services here and current unavailability of surgical backup were fully explained to the patient and/or their significant other prior to the catheterization. The Timeout was completed, verifying the correct patient and procedure. The patient's procedural site was prepped and draped in the usual fashion. Local anesthetic was given subcutaneously to right radial region with Lidocaine 2% . Using a modified Seldinger technique, arterial access was obtained via the right radial artery, a 6 Fr sheath was inserted. Right Coronary Artery selective angiography was then performed in multiple v iews using a 5 Fr. 4.0 Borger catheter. Left Coronary Artery selective angiography was performed in mu ltiple views using a 5 Fr. JL3.5 catheter. Left Ventriculography was performed in MARSH projection usin g a 5 Fr. Pigtail catheter. LV to AO pullback pressures were then recorded.The arterial sheath was pulled and a TR Band was applied for hemostasis CORONARY ANGIOGRAPHY DOMINANCE: Right Dominant LEFT HEART ASSESSMENT Left Ventricular Ejection Fraction: by LV Gram 60 % Normal LV wall motion Normal Left Ventricular End Diastolic Pressure LVEDP: 15 mmHg LEFT MAIN: Proximal: mild luminal irregularities, Distal: large; somewhat ectatic / aneurysmal appear ing with no angiographically significant appearing disease LEFT ANTERIOR DESCENDING ARTERY: MID LAD: eccentric: hazy: 50 - 75 % Stenosis CIRCUMFLEX ARTERY: PROX CIRC: Mild luminal irregularities RIGHT CORONARY ARTERY: PROX RCA: Mild luminal irregularities AORTIC ROOT: Angiographically normal COMPLICATIONS No Complications PROCEDURE MEDICATIONS Versed 1 mg IV Fentanyl 50 mcg IV Versed 1 mg IV Fentanyl 50 mcg IV Oxygen: 2 L/min via nasal cannula Adenosine drip for FFR 21.6 ml IV @ 03/14/2020 10:49:49 SUMMARY OF HEMODYNAMIC DATA Time AIR REST ECG 08:22:32 AO 134/66 (96) SA 09:54:37 LV 152/-16, 19 10:08:35 LV 149/-14, 15 10:08:41 LV 154/-20, 17 10:09:32 LV 152/-21, 14 10:09:38 LVp 148/-20, 13 10:09:43 AOp 144/59 (95) 10:09:48 Signed By Alden Albarran MD On 03/14/2020 11:14:33 Alden Albarran MD
--- NOTE | 2020-03-15 16:41 | CL.I_ITS ---
Patient Name: MONTRELL NICKERSON Study Date: 03/14/2020 Performing: Danay Gray MD Ht: 67 inches 170 cm : 1950 Wt: 172.2 lbs 78 kg Age: 69 Gender: male BSA: 1.89 PROCEDURE(S) PERFORMED [id number], CORONARY OR GRAFT, INITIAL VESSEL CLINICAL PROFILE AND CO-MORBIDITIES Indications: Suspected CAD Heart Failure: None Stress/Imaging Date: 02/22/2020 Stress Test with SPECT MPI: Indeterminant Angina Classification Anginal Classification w/in 2 Weeks: CCS II CAD Presentations: Stable angina. CONCLUSIONS FFR in the LAD was 0.94 which is consistent with stenoses that can be treated medically at this time RECOMMENDATIONS DESCRIPTION OF PROCEDURE The patient arrived to the procedure lab. The risks and benefits of the procedure as well as a full d escription of our services here and current unavailability of surgical backup were fully explained to the patient and/or their significant other prior to the catheterization. The Timeout was completed, verifying the correct patient and procedure. The patient's procedural site was prepped and draped in the usual fashion. Local anesthetic was given subcutaneously to right radial region with Lidocaine 2% Using a modified Seldinger technique,arterial access was obtained via the right radial artery, a 6Fr sheath was inserted. Right Coronary Artery selective angiography was then performed in multiple view s using a 5 Fr. 4.0 [place] catheter. Left Coronary Artery selective angiography was performed in multi ple views using a 5 Fr. JL3.5 catheter. Left Ventriculography was performed in MARSH projection using a 5 Fr. Pigtail catheter. LV to AO pullback pressures were then recorded.The images were reviewed and options discussed. A decision was then made to proceed with an Intervention, IVUS or oth er adjunct procedure. The FFR/iFR wire was inserted. Adenosine was then given per protocol. Pressures and FFR/iFR were then recorded. FFR Ratio Baseline: .97 FFR Ratio post Adenosine: .94 The FFR/iFR wire was then remove d. The arterial sheath was pulled and a TR Band was applied for hemostasis INTERVENTION INFORMATION LESION SITE: LAD (Mid) COMPLICATIONS No Complications PROCEDURE MEDICATIONS Versed 1 mg IV Fentanyl 50 mcg IV Versed 1 mg IV Fentanyl 50 mcg IV Oxygen: 2 L/min via nasal cannula Adenosine drip for FFR 21.6 ml IV @ 03/14/2020 10:49:49 SUMMARY OF HEMODYNAMIC DATA Time AIR REST ECG 08:22:32 AO 134/66 (96) SA 09:54:37 LV 152/-16, 19 10:08:35 LV 149/-14, 15 10:08:41 LV 154/-20, 17 10:09:32 LV 152/-21, 14 10:09:38 LVp 148/-20, 13 10:09:43 AOp 144/59 (95) 10:09:48 Signed By Danay Gray MD On 03/15/2020 16:40:48 Danay Gray MD
== END 2020-03-14 13:00 | disposition home or self-care (01) ==
PROVIDERS: PCP Internal Medicine; Referring Provider Internal Medicine Cardiovascular Disease; Visit Provider Internal Medicine Cardiovascular Disease
DX: R07.9 Chest pain, unspecified (principal); R94.39 Abnormal result of other cardiovascular function study; R00.1 Bradycardia, unspecified; I73.9 Peripheral vascular disease, unspecified; Z79.02 Long term (current) use of antithrombotics/antiplatelets; Z79.899 Other long term (current) drug therapy; Z87.891 Personal history of nicotine dependence
CPT/HCPCS: 36415; 71046; 80048; 85027; 85610; 85730; 93458; 93571; 99152; 99153; J0153; J7040; Q9967; C1769; C1887; C1894

== ENCOUNTER → 2020-09-05 10:42 | Outpatient (CLI) | payer MEDICARE, OTHER, SELFPAY ==
[2020-03-13 11:50] VITALS: BMI 26.9
[2020-09-05 12:19] LABS: PSA,Total - Annual Screen 5.77 ng/mL (0.00-4.00)
== END ==
PROVIDERS: PCP Internal Medicine; Referring Provider Urology; Visit Provider Urology
DX: Z12.5 Encounter for screening for malignant neoplasm of prostate (principal)
CPT/HCPCS: 36415; 84153; G0103

== ENCOUNTER → 2020-10-11 15:58 | Outpatient (CLI) | payer MEDICARE, OTHER, SELFPAY ==
[2020-03-13 11:50] VITALS: BMI 26.9
[2020-09-18 11:08] VITALS: BMI 27.6
[2020-10-11 17:31] LABS: PSA,Total - Annual Screen 1.74 ng/mL (0.00-4.00)
== END ==
PROVIDERS: PCP Internal Medicine; Referring Provider Urology; Visit Provider Urology
DX: Z12.5 Encounter for screening for malignant neoplasm of prostate (principal)
CPT/HCPCS: 36415; 84153; G0103

== ENCOUNTER 2021-05-16 05:59 | Day surgery (SDC) | payer MEDICARE, OTHER, SELFPAY ==
--- NOTE | 2021-05-07 10:00 | EKG12_ITS ---
Test Reason : PRE OP Blood Pressure : / mmHG Vent. Rate : 041 BPM Atrial Rate : 041 BPM P-R Int : 178 ms QRS Dur : 100 ms QT Int : 430 ms P-R-T Axes : 030 066 081 degrees QTc Int : 354 ms Marked sinus bradycardia with marked sinus arrhythmia Abnormal ECG Confirmed by ALEXANDRIA GRIGGS, BLANCO ([id number]), publishing editor DAVIS COSTELLO ([id number]) on 05/08/2021 11:06:14 AM Referred By: Charles Sosa Confirmed By:BLANCO IBRAHIM MD
[2021-05-07 10:28] LABS: Hematocrit 45.1 % (40-54); Hemoglobin 15.4 g/dL (13.0-16.5); Mean Corp Hgb Conc 34.1 g/dL (32-36); Mean Corpuscular Hgb 32.3 pg (27.0-32.0); Mean Corpuscular Volume 94.5 fL (80-94); Mean Platelet Vol. 9.9 fl (6.2-12.0); Platelet Count 172 K/mm3 (150-450); RBC Distribution Width CV 12.1 % (11.6-14.6); RBC Distribution Width SD 42.1 fl (35.1-43.9); Red Blood Count 4.77 M/mm3 (4.6-6.2); White Blood Count 4.5 K/mm3 (4.4-11.0)
[2021-05-07 10:37] LABS: Partial Thromboplast Time 29.2 Seconds (24.1-36.2)
[2021-05-07 11:05] LABS: Anion Gap 4 (5-15); BUN 14 mg/dL (7-18); BUN/Creat Ratio 17.4 RATIO (10-20); Calcium,Total 9.1 mg/dL (8.5-10.1); Chloride 105 mmol/L (98-107); Creatinine, Serum 0.81 mg/dL (0.70-1.30); EST Glomerular Filtration Rate 101 mL/min (>60); Est Glom Filt Rate - Afr Amer 122 mL/min (>60); Glucose 98 mg/dL (74-106); Potassium 3.9 mmol/L (3.5-5.1); Sodium Level 140 mmol/L (136-145)
[2021-05-07 11:11] LABS: AST(SGOT) 18 U/L (15-37); Alanine Aminotransfer ALT/SGPT 22 U/L (16-61); Albumin, Serum 3.8 g/dL (3.2-5.0); Alkaline Phosphatase 86 U/L (45-117); Bilirubin, Direct 0.21 mg/dL (0.00-0.30); Globulin 3.1 g/dL (2.2-4.2); Protein, Total 6.9 g/dL (6.4-8.2)
[2021-05-16] VITALS (9 sets, daily range): BP systolic 114–148; BP diastolic 52–86; PULSE 42–61; RESP 16; TEMP 36.4–36.9; O2SAT 95–100; BMI 25.6
--- NOTE | 2021-05-16 06:24 | HP.PCM_ITS ---
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: No Is patient in pain?: No Allergies atorvastatin Adverse Reaction (Severe, Verified 05/07/21 09:11) Severe myalgias Medications triamcinolone acetonide 55 mcg nasal spray aerosol 1 spray INTRANASAL DAILY 02/07/20 [History Confirmed 05/07/21] cholecalciferol (vitamin D3) 25 mcg (1,000 unit) tablet 1,000 unit PO DAILY tab 09/18/20 [History Confirmed 05/07/21] multivitamin 1 tab PO DAILY 04/05/21 [History Confirmed 05/07/21] [facility] Medical History (Updated 05/04/21 @ 14:48 by Beverly Bernal) Alcohol use Arthritis Asymptomatic peripheral vascular disease Atherosclerotic heart disease of [place] coronary artery without angina pectoris Back pain Bradycardia Cancer Cardiology follow-up encounter Chest pain Constipation Degenerative arthritis Easy bruising Elevated d-dimer Excessive bleeding Fatigue Fatigue GERD (gastroesophageal reflux disease) Heartburn High cholesterol History of echocardiogram History of left heart catheterization (LHC) (~03/14/20) History of stress test Hx of sinus bradycardia Left inguinal pain Migraine headache Murmur, cardiac Non-smoker Prostate disease Right groin pain Screening for intestinal cancer Sleep apnea Syncope Wears glasses Surgical History (Updated 05/04/21 @ 14:48 by Beverly Bernal) History of colonoscopy (~12/2017) History of inguinal hernia repair (~2017) History of umbilical hernia repair (~2011) Hx of colonoscopy Family History Father CAD (coronary artery disease) Leukemia Sister CAD (coronary artery disease) Mother Osteoporosis CVA (cerebral vascular accident) Social History Smoking Status: Former smoker how long ago did patient quit smokin + years ago alcohol intake: current alcohol intake frequency: 0-2 drinks per day Alcohol type: wine substance use type: does not use caffeine: Yes Type: coffee Number of servings: 3 HPI HPI HPI: MONTRELL NICKERSON, is a 70 M who presents to the office today for an update history and physical. Patient denies recent hospitalizations or illnesses since his last visit with our office. Patient denies recent bowel habit changes. He denies previous cardiac and pulmonary concerns. he has recently stopped taking his prophylactic aspirin. He has had a previous hernia repair on the right side and umbilical hernia. Patient's previous history per Dr. Sosa: MONTRELL NICKERSON, is a 70 M who presents to the office today for surgical consultation regarding new onset of a bulge and discomfort in his left groin. The patient does not recall a distinct accident. He is extraordinarily active. He swims daily. Many of his outside activities yard work etc. he does by hand rather than using Blowers etc. He hand mows his lawn. He is in very good condition for age 70. He notes that when he is active the left groin bulge does not seem to hurt him but that it is more uncomfortable both in the mornings and the evenings. He still is able to reduce the area. It is of additional note that he has had a remote umbilical herniorrhaphy and that was done with mesh. My most recent visit with him was on December 23, 2019 when he had noted discomfort from her previous right inguinal hernia repair from 2018. That was a Dianna repair January 12, 2018. There was an indirect right inguinal hernia and a cord lipoma. It is of additional note that he had a screening colonoscopy December 30, 2017 with follow-up in 10 years recommended. On my clinical examination of December 23, 2019 I could detect no evidence that would suggest a recurrent right inguinal hernia. Conservative measures were recommended. If need be pain specialty referral will be made. ROS General General: Yes fatigue; No weight change, appetite, colon cancer, breast cancer or weakness HEENT HEENT: No difficulty swallowing, eye injury, eye surgery, swollen glands or hoarseness Endo Endocrine: No thyroid disease, diabetes mellitus, thyroid cancer, Hair loss, heat intolerance or cold intolerance Skin Skin: Yes changing moles; No rash Musc Musculoskeletal: Yes back problems and arthritis; No rheumatoid arthritis, gout or joint pain Cardio Cardiovascular: Yes murmur; No pacemaker, heart disease, atrial fibrillation, high blood pressure, heart attack, heart stent, palpitations, shortness of breat with exertion or chest pain Psych Psychiatric: No depression, anxiety or hearing voices Resp Respiratory: No shortness of breath, Yes sleep apnea, No cough, No COPD, No asthma, No emphysema and No wheezing Gastro Gastrointestinal: No abdominal pain, No nausea or vomiting, No diarrhea, No constipation, No blood in stool, No acid reflux, Yes hemorrhoids, No ulcers, No gallbladder problem and No black,tarry stools José Luis Hematologic: No blood thinners, No blood disorders, No bleeding, No anemia and No blood clots Neuro Neurologic: No weakness Exam Const General: cooperative, healthy appearing, comfortable and no acute distress [facility] Head: normal to inspection Eyes General: appearance normal, both eyes and all related structures Neck Neck: normal visual inspection Neck mass: No Resp Effort & Inspection: normal respiratory effort Auscultation: clear to auscultation bilaterally Cardio Rate: regular rate Rhythm: regular rhythm GI Inspection: normal to inspection Palpation: hernia (left inguinal hernia, reducible ) Auscultation: normal bowel sounds Musc Cervical Spine: normal cervical lordosis Skin General: no rashes or lesions noted Neuro General: no focal motor deficits and CN's II-XI intact bilaterally Extrem General: normal to inspection Psych Appearance: grossly normal Affect: normal affect Assessment and Plan Assessment and Plan (1) Left inguinal pain: Status: Acute Plan - Betsy ALBRECHT PA-C: Dr. Sosa will plan to perform an open left inguinal hernia repair with mesh. Procedure details, risks and benefits have been reviewed. Patient has had the opportunity to ask and have questions answered. Patient verbally understands and agrees with the plan. Patient did make notation that his last hernia repair on the right side, the anesthesia was slightly rough when he was put to sleep. He states normally this is more of a gentle relaxation and the last surgery was more abrupt. Coding Level of Care Code No Charge Diagnoses Left inguinal pain R10.32 Comment Update H&P 05/07/21 9280<Electronically signed by Betsy ALBRECHT PA-C>Date Betsy ALBRECHT PA-C I had previously seen this patient in January 2021. He was very physically active for his age with swimming and walking and yard work. He wanted to delay his left inguinal hernia repair to some of those activities became less frequent. He presents now for planned Dianna left inguinal herniorrhaphy. I have assisted him previously with a similar repair on the right. He is also previously had an umbilical hernia repair with mesh. There has been no acute change in his general health. He has had an opportunity to ask and have questions answered. We will proceed as noted. Charles Sosa M.D., F.A.C.S.
[2021-05-16] MEDS: Lactated Ringers 1,000 ML 100 ML IV (06:49)
--- NOTE | 2021-05-16 07:12 | EX.PCM.DISCH ---
Discharge Instructions Procedure General Surgery Diet Discharge Diet: Light diet - advance as tolerated (if you have questions about your diet instructions, please talk to you doctor.) Activity Discharge Activity: May Not Drive (for 3-5 days or while taking narcotic pain medicine.) May shower in (days): 1 Lifting Restrictions: 10 pounds Dressing / Incision Call your doctor if your incision/area has: Continuous Slow Oozing, Sudden Increased Bleeding, Increased Pain/ Swelling, Increased Redness and Foul Smelling Discharge Call your doctor if you observe: Fever of 101 or Higher Suture Line Care: Avoid Pulling/Pushing and Avoid Pinching/Bending Additional Dressing/Incision Instructions:: Change or remove dressing in 4 days. Leave steri-strips in place for 1 week. Follow Up Care Please Follow Up With: Charles Sosa MD When: Call [phone] to make an appointment to be seen in about 10 days. Test Results: Test results from this visit will be discussed in further detail at your follow-up appointment, if applicable. Discharge Plan Admission Primary Reason for Your Visit: Left inguinal hernia Attending Provider: Charles Sosa Primary Care Provider: Leobardo Pollard Discharge Orders/Prescriptions Prescriptions: Continued triamcinolone acetonide [Nasacort] 55 mcg aerosol,spray 1 spray INTRANASAL DAILY RF: 0 cholecalciferol (vitamin D3) 25 mcg (1,000 unit) tablet 1,000 unit PO DAILY RF: 0 multivitamin Tablet 1 tab PO DAILY RF: 0 Other Ambulatory Orders: 12 Lead EKG (Routine) Timeframe: [id number] Location: None Selected Ordered By: Dr. Charles Sosa Referrals / Follow Up: Leobardo Pollard MD [Primary Care Provider] - Disposition Disposition (needs filled in before D/C Order can be placed): Home, Self Care
[2021-05-16] MEDS: Cefazolin 2 GM in 0.9% Normal Saline 100 ML IV (07:25)
--- NOTE | 2021-05-16 08:31 | OP.PCM_ITS ---
Problems Associated Problem List Diagnoses (1) Left inguinal pain: Report of Operation Date of Procedure: 05/16/21 Pre-Operative Diagnosis: Indirect left inguinal hernia Post-Operative Diagnosis: Same Surgery/Procedure Performed:: Dianna left inguinal herniorrhaphy Bard appreciate keyhole mesh. 10 x 4.5 cm. Lot number [id number], reference [id number], expiry date 07/10/2025 Description of Surgical Findings:: Timeout informed consent was obtained. 70-year-old gentleman was taken to the operating place upon the table underwent monitored anesthesia care. Clean procedure. Ancef 2 g given intravenously because of prosthetic. Left groin was sterilely prepped and draped. 1% lidocaine mixed 50-50 with 0.5% Marcaine was used as a local anesthetic. A total of 33 cc was used. A transverse incision was created in the left groin sharp dissection carried down through the subtenons tissue hemostasis and electrocautery. The external oblique was identified incised along with his fascia ileal nerve identified and protected circumferential control was obtained of the cord structures and indirect cord lipoma combined with sac was dissected free and completely inverted. The transversalis fascia from the pubic tubercle to the internal ring was imbricated with a running 3-0 Ethibond suture. The internal ring was reached secured. And a printed sheet of Bard keyhole mesh was placed was to cover the pubic tubercle direct space around the indirect hernia site and cord and it was secured to itself laterally with 3-0 Ethibond. The tails were trimmed to length and placed beneath the external oblique. Excellent positioning was achieved. The mesh was secured to the pubic tubercle the aponeurosis of the internal/external oblique and the shelving edge of Poupart's with interrupted 3-0 Ethibond. Excellent positioning and securement was achieved. The external oblique which had been opened was closed with running 3- 0 Vicryl. Skin subdermal tissues approximated up to 3-0 Vicryl. Skin edges approximated running subicular 4-0 Monocryl. Steri-Strips Telfa OpSite dressings applied. Sponge and instrument and needle counts were reported to the surgeon to be correct. Specimens none. Drains none. Blood loss minimal. The patient was taken to recovery room in satisfactory addition without apparent complication Charles Sosa M.D., F.A.C.S. Surgeon: Charles Sosa Type of Anesthesia: Local MAC Anesthesiologist: Shelly Vallejo
[2021-05-16] MEDS: HYDROcodone Bitartrate/Apap 5/325 Tablet PO (10:10)
== END 2021-05-16 12:24 | disposition home or self-care (01) ==
LOC: SDC 06:01 → AC 06:01
PROVIDERS: Anesthesiology; PCP Internal Medicine; Referring Provider Surgery; Visit Provider Surgery
PROC: (CPT 49505; principal; 2021-05-16 07:15)
DX: K40.90 Unilateral inguinal hernia, without obstruction or gangrene, not specified as recurrent (principal); M19.90 Unspecified osteoarthritis, unspecified site; I25.10 Atherosclerotic heart disease of native coronary artery without angina pectoris; K21.9 Gastro-esophageal reflux disease without esophagitis; Z87.891 Personal history of nicotine dependence
CPT/HCPCS: 00830; 49505; 36415; 80048; 80076; 85027; 85610; 85730; 93005; J7120; C1781; J2405

== ENCOUNTER → 2021-11-07 | Outpatient (CLI) | payer MEDICARE, OTHER, SELFPAY ==
[2021-11-07 17:11] LABS: Hematocrit 44.2 % (40-54); Hemoglobin 15.3 g/dL (13.0-16.5); Mean Corp Hgb Conc 34.6 g/dL (32-36); Mean Corpuscular Hgb 32.8 pg (27.0-32.0); Mean Corpuscular Volume 94.8 fL (80-94); Mean Platelet Vol. 10.4 fl (6.2-12.0); Platelet Count 170 K/mm3 (150-450); RBC Distribution Width CV 12.4 % (11.6-14.6); RBC Distribution Width SD 42.7 fl (35.1-43.9); Red Blood Count 4.66 M/mm3 (4.6-6.2); White Blood Count 5.6 K/mm3 (4.4-11.0)
[2021-11-07 17:54] LABS: Anion Gap 4 (5-15); BUN 16 mg/dL (7-18); BUN/Creat Ratio 20.5 RATIO (10-20); Calcium,Total 9.2 mg/dL (8.5-10.1); Chloride 104 mmol/L (98-107); Creatinine, Serum 0.78 mg/dL (0.70-1.30); EST Glomerular Filtration Rate 105 mL/min (>60); Est Glom Filt Rate - Afr Amer 127 mL/min (>60); Glucose 66 mg/dL (74-106); Magnesium 2.5 mg/dL (1.6-2.6); Potassium 3.9 mmol/L (3.5-5.1); Sodium Level 139 mmol/L (136-145); T4 Total, Thyroxin 9.1 ug/dL (4.5-12.1)
== END | disposition home or self-care (01) ==
LOC: LAB 16:09
PROVIDERS: PCP Internal Medicine; Referring Provider Internal Medicine Cardiovascular Disease; Visit Provider Internal Medicine Cardiovascular Disease
DX: R06.02 Shortness of breath (principal); I49.9 Cardiac arrhythmia, unspecified; R53.83 Other fatigue
CPT/HCPCS: 36415; 80048; 83735; 84436; 84443; 85027

== ENCOUNTER → 2021-11-26 | Outpatient (CLI) | payer MEDICARE, OTHER, SELFPAY | END | disposition home or self-care (01) | LOC: PSN 09:02 | PROVIDERS: PCP Internal Medicine; Visit Provider Internal Medicine Cardiovascular Disease | DX: I49.9 Cardiac arrhythmia, unspecified (principal); I25.10 Atherosclerotic heart disease of native coronary artery without angina pectoris; R01.1 Cardiac murmur, unspecified | CPT/HCPCS: 93225; 93226 ==

== ENCOUNTER 2022-03-10 10:43 | Emergency (ER) | payer MEDICARE, OTHER, SELFPAY ==
[2022-03-10 10:43] VITALS: BP 158/58; PULSE 45; RESP 18; TEMP 36.7; O2SAT 100; BMI 24.7
--- NOTE | 2022-03-10 10:57 | EKG12_ITS ---
Test Reason : Blood Pressure : / mmHG Vent. Rate : 043 BPM Atrial Rate : 043 BPM P-R Int : 184 ms QRS Dur : 100 ms QT Int : 458 ms P-R-T Axes : 020 029 061 degrees QTc Int : 387 ms Marked sinus bradycardia Abnormal ECG Confirmed by ALBIN GRIGGS, EZ ([id number]), senior editor ALICIA BRYAN ([id number]) on 03/12/2022 6:20:14 AM Referred By: JIM Confirmed By:EZ TALAMANTES MD
--- NOTE | 2022-03-10 10:57 | CT_ITS ---
STUDY: CTA CHEST REASON FOR EXAM: Male, 71 years old. Chest and back pain RADIATION DOSAGE (If Supplied By Facility): CTDIvol = ( 11.71 ) mGy, DLP = ( 415.80 ) mGycm TECHNIQUE: The examination was performed with the intravenous administration of IV 100mL Isovue-370. Post-processing of the angiographic images was performed, with multiplanar reformation and 3D reconstruction. Individualized dose optimization techniques were used for this CT. COMPARISON: 06/23/2015, chest x-ray earlier today FINDINGS: Normal enhancement of the main pulmonary artery and right and left pulmonary arteries. Normal enhancement of the bilateral peripheral pulmonary arteries. There is no demonstrated pulmonary embolism. Normal thoracic aorta and visualized great vessels. There is no demonstrated aortic dissection. Normal heart and pericardium. Normal mediastinum. Normal hilar regions. Normal visualized trachea and bronchi. The lungs are well expanded. Mild bilateral apical scarring. Normal pleura. Normal chest wall structures. Normal osseous structures. Normal visualized upper abdomen. CT/CTA Chest W/WO Contrast IMPRESSION: Normal CTA chest examination, without a demonstrated pulmonary embolism or arterial dissection. Electronically Signed: Romario Alex MD at 12:09 EDT ,
--- NOTE | 2022-03-10 10:59 | EX.ED.DYSGE1 ---
HPI History of Present Illness Chief Complaint: General Illness Narrative Narrative: 71-year-old male presents with his because of intrascapular back pain that he has had for the last few weeks but has been increasing over the last few days to the point where it is almost constant. He has past medical history of bradycardia, with irregular heart rhythm. He states that he is unsure if he has sick sinus syndrome but is seeing an educational therapy teacher in [place] and is due to have a pacemaker placed. He became concerned because over the last few days he has had intrascapular pain that has been worsening with exertion. Sometimes it sharp and stabbing and other times can be dull and achy. It seems to be worse with different activities that he does. He has had nausea with it, but no extreme shortness of breath or diaphoresis. He has not vomited. He denies any leg swelling. No other exacerbating or alleviating factors except for it seems to be worse with his exertional activities. 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 He and his are concerned about his heart. [facility] Medical History Alcohol use Arthritis Asymptomatic peripheral vascular disease Atherosclerotic heart disease of [place] coronary artery without angina pectoris Back pain Bradycardia Cancer Cardiology follow-up encounter Chest pain Constipation Degenerative arthritis Easy bruising Elevated d-dimer Excessive bleeding Fatigue Fatigue GERD (gastroesophageal reflux disease) Heartburn High cholesterol History of echocardiogram History of left heart catheterization (LHC) (~03/14/20) History of stress test Hx of sinus bradycardia Idioventricular rhythm Left inguinal hernia Left inguinal hernia Left inguinal pain Migraine headache Murmur, cardiac Non-smoker Prostate disease Right groin pain Screening for intestinal cancer Sinus bradycardia Sleep apnea Syncope Wears glasses Home Medications triamcinolone acetonide 55 mcg nasal spray aerosol (Nasacort) 1 spray intranasal DAILY 02/07/20 [History Last Taken Unknown] cholecalciferol (vitamin D3) 25 mcg (1,000 unit) tablet 1,000 unit PO DAILY 09/18/20 [History Last Taken Unknown] multivitamin 1 tab PO DAILY 04/05/21 [History Last Taken Unknown] Allergy/AdvReac Type Severity Reaction Status Date / Time atorvastatin AdvReac Severe Severe Verified 03/10/22 10:45 myalgias Family History Father CAD (coronary artery disease) Leukemia Sister CAD (coronary artery disease) Mother Osteoporosis CVA (cerebral vascular accident) Surgical History History of colonoscopy (~12/2017) History of hernia repair History of inguinal hernia repair (~2017) History of umbilical hernia repair (~2011) Hx of colonoscopy Social History Smoking Status: Former smoker how long ago did patient quit smokin + years ago alcohol intake: current alcohol intake frequency: 0-2 drinks per day Alcohol type: wine substance use type: does not use caffeine: Yes Type: coffee Number of servings: 3 ROS ROS ED ROS Narrative Constitutional: No fever, no chills. HEENT: No sore throat. No neck pain. No loss of vision. No rhinorrhea. Cardiovascular: No chest pain, but intrascapular back pain. No palpitations. No pedal edema. Respiratory: No cough, no shortness of breath. Abdominal: No abdominal pain. Mild nausea. No vomiting. Genitourinary: No dysuria. No hematuria. Musculoskeletal: No myalgias. No arthralgias. Neurologic: No headaches. No dizziness. No lightheadedness. Skin: No rash. No change in color. Psychiatric: No depression. No anxiety. EXAM Physical Exam Narrative Exam Narrative: Afebrile. Vital signs noted. HEENT: Normocephalic. Atraumatic. PERRL, EOMI. Neck soft and supple. No point tenderness or step off. Cardiovascular: Positive bradycardia in the 40s, no murmurs, rubs, or gallops appreciated. Respiratory: No tachypnea. Lungs clear to auscultation bilaterally. Gastrointestinal: Abdomen soft, nontender, with normoactive bowel sounds. No rebound or guarding. Neurological: Awake. Alert. Nonfocal, nonlateralizing. Skin: No rash. Normal color. No pallor. Musculoskeletal: No pedal edema. Full range of motion extremities. Const Vital Signs: 03/10/22 10:43 03/10/22 10:59 03/10/22 11:00 Temperature 98.1 F Temperature Source Temporal Pulse Rate 45 L Respiratory Rate 18 Respiratory Effort Normal Non-Labored Respiratory Pattern Normal Blood Pressure 158/58 H Blood Pressure Mean 91 Pulse Ox 100 Oxygen Delivery Method Room Air Room Air Oxygen Flow Rate (L/min) 99 03/10/22 12:56 Temperature Temperature Source Pulse Rate 44 L Respiratory Rate 16 Respiratory Effort Respiratory Pattern Blood Pressure 137/47 H Blood Pressure Mean Pulse Ox 98 Oxygen Delivery Method Oxygen Flow Rate (L/min) MDM MDM MDM Narrative Medical decision making narrative: Comprehensive work-up was pursued. I will obtain an EKG along with basic laboratory work including troponins/high-sensitivity. With his intrascapular back pain, I am more concerned about any type of aortic dissection versus aneurysm. I will obtain CTA imaging of his chest. EKG interpreted by myself shows sinus bradycardia at [address] changes. Chest x-ray interpreted by myself in 1 view shows no acute process. His CBC is grossly normal with a normal white count of 5.0 and hemoglobin 16.1, normal platelet count of 158. Electrolyte panel is grossly unremarkable. High-sensitivity troponin is 7 but not elevated above 72. As this is greater than a 6-hour troponin because he has been having the back pain for days to weeks, I feel he has been ruled out by biomarkers. CTA of the chest shows no evidence of pulmonary embolism and no aneurysm of his thoracic aorta, or dissection. At this point in time, I feel he can be discharged safely home with follow-up. He will follow-up with his import manager and his educational therapy teacher. He does state that he wore a Holter monitor before and his bradycardia was as low as the 20s. He has a sustainable blood pressure currently. His thoracic intrascapular pain may be secondary to a musculoskeletal problem. Return instructions to the emergency department were reviewed. Patient and are comfortable with the plan. Disposition is discharged home in stable condition. Lab Data Attestation: I reviewed the patient's lab results. Labs: Laboratory Results - last 24 hr 03/10/22 03/10/22 11:05 11:05 WBC 5.0 RBC 4.94 Hgb 16.1 Hct 46.3 MCV 93.7 MCH 32.6 H MCHC 34.8 RDW Std Deviation 43.4 RDW Coeff of Swapnil 12.7 Plt Count 158 MPV 9.9 Immature Gran % (Auto) 0.400 Neut % (Auto) 60.9 Lymph % (Auto) 23.9 [place] % (Auto) 12.2 H Eos % (Auto) 2.2 Baso % (Auto) 0.4 Absolute Neuts (auto) 3.1 Absolute Lymphs (auto) 1.20 Nucleated RBC % 0 Sodium 139 Potassium 4.1 Chloride 105 Carbon Dioxide 31.0 Anion Gap 3 L BUN 13 Creatinine 0.85 Estim Creat Clear Calc 75.60 Est GFR (MDRD) Af Amer 114 Est GFR (MDRD) Non-Af 94 BUN/Creatinine Ratio 15.3 Glucose 103 Calcium 9.2 Troponin I High Sens 7 Radiography Diagnostic Testing: Clinical Impression(s) from Imaging Studies Chest CTA 03/10/22 10:57 IMPRESSION: Normal CTA chest examination, without a demonstrated pulmonary embolism or arterial dissection. Electronically Signed: Romario Alex MD at 12:09 EDT Reading Location ID and State: [email or web address] / [place] [employer] Tel , Service support , Chest X-Ray 03/10/22 11:45 IMPRESSION: Normal x-ray examination of the chest. Electronically Signed: Romario Alex MD at 12:02 EDT Reading Location ID and State: [email or web address] / [place] Tel , Service support , Discharge Plan Triage Chief Complaint: General Illness ED Provider: Sandro Chen Dx/Rx/DC Orders Clinical Impression: Bradycardia, Interscapular pain, Back pain Instructions: ED Bradycardia, ED Pain, Acute, Uncertain Cause Prescriptions: No Action triamcinolone acetonide [Nasacort] 55 mcg aerosol,spray 1 spray INTRANASAL DAILY Rx Instructions: administer into each nostril cholecalciferol (vitamin D3) 25 mcg (1,000 unit) tablet 1,000 unit PO DAILY multivitamin Tablet 1 tab PO DAILY Primary Care Provider: Leobardo Pollard Referrals: Alden Albarran MD [Med Staff - Active Staff] - 1 Day Leobardo Pollard MD [Primary Care Provider] - As soon as possible Disposition Disposition: Home, Self Care Discharge Date/Time: 03/10/22 12:57
[2022-03-10] MEDS: Aspirin 81 MG TAB.CHEW 324 MG PO (11:02)
[2022-03-10] MEDS: 0.9% Normal Saline 1,000 ML 1000 ML IV (11:13)
[2022-03-10 11:14] LABS: Absolute Neutrophil Count 3.1 X10^3/uL (2.0-7.7); Basophil# 0.02 X10^3/uL; Basophil% 0.4 % (0-1); Eosinophil# 0.11 X10^3/uL; Eosinophils% 2.2 % (0-5); Hematocrit 46.3 % (40-54); Hemoglobin 16.1 g/dL (13.0-16.5); Lymphocyte % 23.9 % (19-41); Mean Corp Hgb Conc 34.8 g/dL (32-36); Mean Corpuscular Hgb 32.6 pg (27.0-32.0); Mean Corpuscular Volume 93.7 fL (80-94); Mean Platelet Vol. 9.9 fl (6.2-12.0); Monocyte# 0.61 X10^3/uL; Monocyte% 12.2 % (0-10); NRBC Flagged by Analyzer 0 % (0-5); Neutrophil # 3.06 X10^3/uL (2.7-7.7); Neutrophil % 60.9 % (47-70); Platelet Count 158 K/mm3 (150-450); RBC Distribution Width CV 12.7 % (11.6-14.6); RBC Distribution Width SD 43.4 fl (35.1-43.9); Red Blood Count 4.94 M/mm3 (4.6-6.2)
[2022-03-10 11:34] LABS: Anion Gap 3 (5-15); BUN 13 mg/dL (7-18); BUN/Creat Ratio 15.3 RATIO (10-20); Calcium,Total 9.2 mg/dL (8.5-10.1); Chloride 105 mmol/L (98-107); Creatinine, Serum 0.85 mg/dL (0.70-1.30); EST Glomerular Filtration Rate 94 mL/min (>60); Est Glom Filt Rate - Afr Amer 114 mL/min (>60); Glucose 103 mg/dL (74-106); Potassium 4.1 mmol/L (3.5-5.1); Sodium Level 139 mmol/L (136-145); Troponin-I HS (w/2H Reflex) 7 pg/mL (3.0-78.0)
--- NOTE | 2022-03-10 11:45 | RAD_ITS ---
STUDY: X-RAY CHEST REASON FOR EXAM: Male, 71 years old. chest pain TECHNIQUE: Single AP portable view of the chest. COMPARISON: 03/07/2020 FINDINGS: The lungs are clear and expanded. There is no demonstrated pleural abnormality. Normal size heart. Normal mediastinum and arturo. Normal visualized pulmonary arteries. Normal visualized aortic arch and descending thoracic aorta. Normal visualized thoracic spine. Normal visualized ribs, clavicles, and shoulders. There is no demonstrated abnormality of the visualized soft tissue structures of the upper abdomen. RAD/Chest 1 View (Portable) IMPRESSION: Normal x-ray examination of the chest. Electronically Signed: Romario Alex MD at 12:02 EDT ,
[2022-03-10 12:56] VITALS: BP 137/47; PULSE 44; RESP 16; O2SAT 98
[2022-03-10 13:09] LABS: Reflex Troponin-HS? (from REC) Y
== END 2022-03-10 12:57 | disposition home or self-care (01) ==
PROVIDERS: Emergency Provider Emergency Medicine; PCP Internal Medicine; Visit Provider Emergency Medicine
DX: R00.1 Bradycardia, unspecified (principal); M54.9 Dorsalgia, unspecified; I25.10 Atherosclerotic heart disease of native coronary artery without angina pectoris; E78.00 Pure hypercholesterolemia, unspecified; R11.0 Nausea; M19.90 Unspecified osteoarthritis, unspecified site; Z87.891 Personal history of nicotine dependence
CPT/HCPCS: 71045; 71275; 80048; 84484; 85025; 93005; 96360; 96361; 99284; J7030; Q9967; A4216

== ENCOUNTER → 2022-03-26 | Outpatient (CLI) | payer MEDICARE, OTHER, SELFPAY ==
--- NOTE | 2022-03-26 08:11 | STRESSREP ---
Stress Test Report Date: Procedure: Exercise tolerance test/imaging study Indications: Chest pain; CAD; cardiac dysrhythmia; preoperative cardiovascular evaluation Consent: Per the patient Procedure: The patient exercised on a Cayden protocol for 10 minutes and 30 seconds completing Stage III and 1 minute and 30 seconds of Stage IV achieving a peak heart rate of 117 bpm (78% predicted maximal heart rate) with a peak blood pressure 164/70 mmHg and a peak MET capacity of 13 METs. The baseline ECG demonstrated marked sinus bradycardia. The peak exercise ECG demonstrated no obvious ECG changes. There was a rare PVC during exercise. The functional capacity was considered good. There was mild chest discomfort at peak exercise with spontaneous resolution and recovery. The examination was discontinued secondary to fatigue. Impression: 1. Technically inadequate (percent predicted maximal heart rate less than 85%) exercise tolerance test 2. Peak exercise ECG with no obvious ECG changes the heart rate achieved 3. There was a rare PVC during exercise 4. Nuclear images pending Myocardial perfusion imaging study: Technique: The patient was injected with 11.8 mCi of technetium 99m Cardiolite and subsequently rest SPECT Cardiolite nuclear imaging was obtained in the horizontal long, vertical long, and short axis views. The patient exercised on a Cayden protocol for 10 minutes and 30 seconds minutes completing Stage III and 1 minute and 30 seconds of Stage IV achieving a peak heart rate of 117 bpm (78% predicted maximal heart rate) with a peak blood pressure 164/70 mmHg and a peak MET capacity of 13 METs. The patient was injected with 32.3 mCi of technetium 99m Cardiolite and subsequently stress SPECT Cardiolite nuclear imaging was obtained in the horizontal long, vertical long, and short axis views. A gated Cardiolite study at peak stress was obtained. Interpretation: Rest and stress SPECT Cardiolite nuclear imaging status post realignment, normalization, and attenuation correction, demonstrates the appearance of relative uniform tracer uptake and myocardial perfusion appearing within normal limits. There is end systolic thickening and brightening. The gated Cardiolite study demonstrates myocardial thickening and inward wall motion. The reported LVEF is 68%. Impression: 1. Rest and stress SPECT Cardiolite nuclear imaging demonstrate relative uniform tracer uptake and myocardial perfusion appearing within normal limits at the heart rate achieved. 2. The gated Cardiolite study reports an LVEF of 68%. This note was generated with [employer] software. It may contain incorrect words, spelling, and punctuation that were not noted in checking the note before signing.
== END | disposition home or self-care (01) ==
PROVIDERS: PCP Internal Medicine; Referring Provider Internal Medicine Cardiovascular Disease; Visit Provider Internal Medicine Cardiovascular Disease
DX: I25.10 Atherosclerotic heart disease of native coronary artery without angina pectoris (principal); R07.9 Chest pain, unspecified
CPT/HCPCS: 78452; 93017; A9500; A4216

== ENCOUNTER 2022-05-23 18:00 | Observation (INO) | payer MEDICARE, OTHER, SELFPAY ==
[2022-05-16 10:42] LABS: Bacteria 0 SEEN /hpf (None Seen); Mucous, Urine 0 SEEN /hpf (<or=2+); Red Blood Cells-Urine 0 SEEN /hpf (0-5); Squamous Epithelial Cells - UA 0 SEEN /hpf (0-5); White Blood Cells 0 SEEN /hpf (0-5)
[2022-05-16 11:33] LABS: Hematocrit 44.7 % (40-54); Hemoglobin 15.8 g/dL (13.0-16.5); Mean Corp Hgb Conc 35.3 g/dL (32-36); Mean Corpuscular Hgb 33.3 pg (27.0-32.0); Mean Corpuscular Volume 94.1 fL (80-94); Mean Platelet Vol. 10.7 fl (6.2-12.0); Platelet Count 163 K/mm3 (150-450); RBC Distribution Width CV 12.5 % (11.6-14.6); RBC Distribution Width SD 42.9 fl (35.1-43.9); Red Blood Count 4.75 M/mm3 (4.6-6.2); White Blood Count 8.5 K/mm3 (4.4-11.0)
[2022-05-16 11:35] LABS: Color, Urine Yellow (Yellow); Glucose, Dipstick Normal (Normal); Ketone-Dipstick Negative (Negative); Leukocyte Esterase-Dipstick Negative /ul (Negative); Nitrite-Dipstick Negative (Negative); Occult Blood-Urine Negative /ul (Negative); Protein-Dipstick Negative (Negative); Specific Gravity, Urine 1.005 (1.002-1.030); Urine Bilirubin Dipstick Negative (Negative); Urine Clarity Sl. Cloudy (Clear); Urine Urobilinogen Normal (Normal)
[2022-05-16 12:02] LABS: Anion Gap 3 (5-15); BUN 15 mg/dL (7-18); BUN/Creat Ratio 18.7 RATIO (10-20); Calcium,Total 9.1 mg/dL (8.5-10.1); Chloride 104 mmol/L (98-107); EST Glomerular Filtration Rate 101 mL/min (>60); Est Glom Filt Rate - Afr Amer 122 mL/min (>60); Glucose 98 mg/dL (74-106); Sodium Level 138 mmol/L (136-145)
[2022-05-16 12:29] LABS: Prothrombin Time (Protime)PT. 13.1 SECONDS (11.7-14.9)
[2022-05-22 10:29] VITALS: BMI 24.7
[2022-05-23] VITALS (12 sets, daily range): BP systolic 116–136; BP diastolic 54–77; PULSE 48–63; RESP 16–20; TEMP 36–36.7; O2SAT 96–100; BMI 24.3
--- NOTE | 2022-05-23 13:58 | EX.PACEMAKER ---
Pacemaker Procedure Note Pacemaker Procedure Note Diagnosis: SYMPTOMATIC BRADYCARDIA - DUAL CHAMBER PACEMAKER Preoperative diagnosis implantation of DUAL CHAMBER PACEMAKER Postoperative diagnosis same as above After informed consent and IV antibiotics the patient was brought to the [facility] [place] catheterization laboratory. The LEFT side of the chest was prepped and draped in the usual sterile manner. The patient was sedated with intermittent boluses of IV Versed and fentanyl as well as subcutaneous 1% lidocaine. An incision was made inferior to the clavicle to accommodate the size of the hardware device. The pocket was created using blunt and Bovie dissection. Hemostasis was obtained. Using the Seldinger technique the axillary vein was cannulated twice and guidewires were advanced under fluoroscopic guidance. Over the guidewire a sheath was advanced. Through this sheath, the electrode was positioned under fluoroscopic guidance into the right ventricle and was actively fixated. Once actively fixated, the lead was tested to check for proper sensing, capture threshold, impedance and to exclude diaphragmatic stimulation. The second sheath was inserted and through this sheath, an atrial lead was positioned under fluoroscopic guidance and actively fixated in right atrial appendage. Once actively fixated, the lead was tested to check for proper sensing, capture threshold, impedance and to exclude diaphragmatic stimulation. Once the leads were implanted and all electrical parameters were confirmed to be functioning normally with appropriate values, the leads were then sutured to the pectoralis muscle with 2-0 silk on the Silastic collar ?2. The sponge and needle count were correct. Hemostasis was obtained. Antibiotic solution was used to flush the pocket. The new device was brought to the field. The leads were placed in the appropriate position of the header of the device and were secured by the setscrews and confirmed by the tug test. The device and the leads were then placed in the pocket. Pocket was closed with a deep layer of running 2-0 Vicryl, superficial layer of running 4-0 Vicryl and skin with Steri-Strips that were covered with a rolled 4 x 4's and Tegaderm. The patient left the lab with the device programmed to chronic parameters. There were no complications. Implanted system is a dual chamber [employer] pacemaker Lead and device serial and model numbers are available in the chart documents provided by the device company mortician supplies sales representative procedure summary.
--- NOTE | 2022-05-23 18:10 | RAD_ITS ---
STUDY: X-RAY CHEST REASON FOR EXAM: Male, 71 years old. do within 1-2 hours of conclusion of procedure TECHNIQUE: XR Chest 1 View COMPARISON: 8. FINDINGS: There is atherosclerotic calcification of the aortic arch with tortuosity. There are diffuse degenerative changes of the visualized thoracic spine. There is degenerative osteoarthritis of the bilateral shoulders. There is no demonstrated pleural abnormality. There is a left sided pacemaker batterypack. Normal size heart. Normal mediastinum and arturo. Normal visualized pulmonary arteries. There is no demonstrated abnormality of the visualized soft tissue structures of the upper abdomen. RAD/Chest 1 View (Portable) IMPRESSION: There are no acute findings. Electronically Signed: Anthony Cano MD at 18:41 EST ,
[2022-05-23] MEDS: Acetaminophen 325 MG Tablet PO (18:17)
--- NOTE | 2022-05-23 19:14 | PN.CARD_ITS ---
Subjective Subjective The patient is now status post PPM placement. He appears to be resting comfortably. Objective Data Vital Signs: Vital Signs Temp Pulse Resp BP Pulse Ox O2 Del Method 98.1 F 60 16 130/54 H 100 Room Air 05/23/22 15:52 05/23/22 18:30 05/23/22 16:30 05/23/22 18:30 05/23/22 17:14 05/23/22 17:14 Oxygen Delivery Method Room Air Weight: 159 lb 13.362 oz Body Mass Index (BMI) 24.3 Intake & Output: Intake and Output for Last 24 Hours 05/21/22 05/22/22 05/23/22 23:59 23:59 23:59 Intake Total 420 / 420 Output Total 500 / 500 Balance -80 / -80 Lab / Micro Data Result Diagrams: 05/16/22 10:40 05/16/22 10:40 Cardiology Labs/Tests Rhythm: Electronic atrial paced rhythm; intermittent electronic ventricular paced rhythm Radiography Diagnostic Testing: Radiology Impression Chest X-Ray 05/23/22 18:10 IMPRESSION: There are no acute findings. Electronically Signed: Anthony Cano MD at 18:41 EST Reading Location ID and State: [facility] / [place] , Service support , Physical Exam Const alert, oriented x3, no apparent distress and healthy appearing Orientation / Consciousness: awake HEENT normocephalic, head/scalp atraumatic and hearing grossly normal bilaterally Eyes PERRL, EOMs intact bilaterally, conjunctivae normal and no scleral icterus Neck full ROM, supple and no JVD Carotids: normal carotid upstroke Chest Chest: left pectoral incision Resp normal respiratory effort and clear to auscultation bilaterally Cardio regular rate, regular rhythm, S1 normal heart sound and S2 normal heart sound Heart Sounds: murmur systolic II/ soft mid left sternal border, LVOT and sternal notch GI normal to inspection, nondistended, normoactive bowel sounds Extremity no pedal edema Skin no rashes or lesions noted Psych mental status grossly normal Assessment & Plan Assessment/Plan (1) Sick sinus syndrome: PLAN: The patient has a history of cardiovascular cardiac dysrhythmias and conduction system issues thought compatible with an underlying sick sinus syndrome. He is now status post permanent pacemaker placement. He will continue to be monitored. He will continue with his pacemaker follow-up. (2) S/P placement of cardiac pacemaker: PLAN: The patient underwent permanent pacemaker placement this day by Dr. Colon. He received an he [employer] Essentio MR PPM the dual-chamber device) without obvious complication. He will continue with post pacemaker follow-up. (3) Atherosclerotic heart disease of [place] coronary artery without angina pectoris: QUALIFIERS: [place] vs. transplanted heart: [place] heart Qualified Code(s): I25.10 - Atherosclerotic heart disease of [place] coronary artery without angina pectoris PLAN: The patient does have a history of underlying CAD. He has been evaluated for this noninvasively and invasively. He has not required revascularization therapy. He will continue risk factor modification medical therapy as deemed appropriate. He has chosen to do this naturally based upon diet and activity and avoid medications thus far. Addt'l Comments The patient's case has been discussed and reviewed with the patient. This note was generated using a voice recognition system and there may be in correct words, spelling or punctuation that were not noted when reviewing the office note prior to saving. Procedure Criteria Type of Procedure Procedure Type: Elective Elective Risks - COVID COVID Risk Discussion: The surgeon/proceduralist and patient have discussed in detail the risk of exposure to and/or potential harm posed by the COVID-19 virus with having a surgery/procedure at this time versus the risk of delaying the surgery/procedure. It is not possible to know either the risk of delaying the surgery or procedure or chance of getting an infection with perfect accuracy, but a joint decision was made between the patient and the surgeon/proceduralist to proceed at this time with the scheduled surgery/procedure as indicated on the consent form.
[2022-05-24 03:00] VITALS: PULSE 60
[2022-05-24 04:26] VITALS: BP 151/73; PULSE 60; RESP 20; TEMP 36.4; O2SAT 98
[2022-05-24] MEDS: Acetaminophen 325 MG Tablet PO ×2 (04:27→10:12)
--- NOTE | 2022-05-24 05:10 | RAD_ITS ---
EXAM: XR CHEST, 2 VIEWS CLINICAL INDICATION: Post permanant ICD/Pacemaker -- inspiration/expiration. Arms Down. Wet read to MD TECHNIQUE: Frontal and lateral views of the chest. This report was created using [employer] report generation technology. COMPARISON: XR Chest dated 05/23/2022 FINDINGS: LUNGS AND PLEURAL SPACES: Normal. No consolidation or edema. No pneumothorax. No effusion. HEART: Stable normal heart size. MEDIASTINUM: No mediastinal or hilar mass. BONES/JOINTS: No acute abnormality. SOFT TISSUES: Normal. TUBES, LINES AND DEVICES: Automatic implantable cardioverter defibrillator (AICD). RAD/Chest PA and Lateral IMPRESSION: No acute cardiopulmonary abnormality. No interval change. Electronically Signed: Jose Enrique Coats MD at 9:31 EST ,
--- NOTE | 2022-05-24 05:55 | EKG12_ITS ---
Test Reason : AM EKG Blood Pressure : / mmHG Vent. Rate : 060 BPM Atrial Rate : 060 BPM P-R Int : 172 ms QRS Dur : 104 ms QT Int : 408 ms P-R-T Axes : 000 021 073 degrees QTc Int : 408 ms Electronic atrial pacemaker Confirmed by ALBIN GRIGGS, ALDEN ([id number]), technical editor DAVIS COSTELLO ([id number]) on 05/29/2022 8:00:40 AM Referred By: Alden Talamantes Confirmed By:ALDEN TALAMANTES MD
[2022-05-24 06:33] LABS: Absolute Lymphocyte Count 1.03 X10^3/uL (0.83-4.51); Absolute Neutrophil Count 5.2 X10^3/uL (2.0-7.7); Basophil# 0.03 X10^3/uL; Basophil% 0.4 % (0-1); Eosinophils% 1.4 % (0-5); Hematocrit 44.8 % (40-54); Hemoglobin 15.6 g/dL (13.0-16.5); Lymphocyte # 1.03 X10^3/ul (0.83-4.51); Lymphocyte % 14.7 % (19-41); Mean Corp Hgb Conc 34.8 g/dL (32-36); Mean Corpuscular Hgb 32.4 pg (27.0-32.0); Mean Corpuscular Volume 92.9 fL (80-94); Mean Platelet Vol. 10.3 fl (6.2-12.0); Monocyte# 0.66 X10^3/uL; Monocyte% 9.4 % (0-10); NRBC Flagged by Analyzer 0 % (0-5); Neutrophil # 5.15 X10^3/uL (2.7-7.7); Neutrophil % 73.8 % (47-70); Platelet Count 160 K/mm3 (150-450); RBC Distribution Width SD 41.1 fl (35.1-43.9); Red Blood Count 4.82 M/mm3 (4.6-6.2)
[2022-05-24 06:55] LABS: Anion Gap 6 (5-15); BUN 15 mg/dL (7-18); BUN/Creat Ratio 20.6 RATIO (10-20); Calcium,Total 8.8 mg/dL (8.5-10.1); Chloride 105 mmol/L (98-107); Creatinine, Serum 0.73 mg/dL (0.70-1.30); EST Glomerular Filtration Rate 113 mL/min (>60); Est Glom Filt Rate - Afr Amer 137 mL/min (>60); Glucose 98 mg/dL (74-106); Potassium 3.7 mmol/L (3.5-5.1); Sodium Level 140 mmol/L (136-145)
[2022-05-24 07:00] VITALS: PULSE 61
--- NOTE | 2022-05-24 09:16 | DCINST_ITS ---
Discharge Instructions Diet Discharge Diet: Low fat / Low cholesterol Activity Lifting Restrictions: Please see written post pacemaker instructions Additional Activity Instructions:: Please see written post pacemaker instructions Dressing / Incision Call your doctor if your incision/area has: - (Please see written post pacemaker instructions) Call your doctor if you observe: Fever of 101 or Higher, Fainting spells, Chest pain, Increased palpitations (irregular heartbeat) and Uncontrolled pain Suture Line Care: Avoid Pulling/Pushing Additional Dressing/Incision Instructions:: Please see written post pacemaker instructions Follow Up Care Please Follow Up With: Nishi Soto When: 06/04/2022 at 10:00 AM Test Results: Test results from this visit will be discussed in further detail at your follow- up appointment, if applicable. Discharge Plan Admission Admit Date/Time: 05/23/22 18:00 Primary Reason for Your Visit: PPM Attending Provider: Alden Albarran Primary Care Provider: Leobardo Pollard Discharge Orders/Prescriptions Prescriptions: Continued triamcinolone acetonide [Nasacort] 55 mcg aerosol,spray 1 spray INTRANASAL DAILY PRN (Reason: Congestion) Rx Instructions: administer into each nostril cholecalciferol (vitamin D3) 25 mcg (1,000 unit) tablet 1,000 unit PO DAILY multivitamin Tablet 1 tab PO DAILY ascorbic acid (vitamin C) 1,000 mg tablet 1 g PO DAILY calcium carbonate 600 mg calcium (1,500 mg) tablet 600 mg PO DAILY folic acid 400 mcg tablet 0.4 mg PO DAILY Referrals / Follow Up: Leobardo Pollard MD [Primary Care Provider] - Alden Albarran MD [Med Staff - Active Staff] - Disposition Disposition (needs filled in before D/C Order can be placed): Home, Self Care
--- NOTE | 2022-05-24 09:21 | PCM.DC.SUM ---
Providers Date of Admission: 05/23/22 Date of Discharge: 05/24/22 Primary Care Physician: Dr. Leobardo Pollard MD Reason For Visit: PACEMAKER INSERT Diagnosis Discharge Diagnosis (1) Sick sinus syndrome: Status: Acute Code(s): I49.5 - Sick sinus syndrome Plan: The patient has a history of cardiovascular cardiac dysrhythmias and conduction system issues thought compatible with an underlying sick sinus syndrome. He is now status post permanent pacemaker placement. He will continue to be monitored. He will continue with his pacemaker follow-up. (2) S/P placement of cardiac pacemaker: Status: Acute Code(s): Z95.0 - Presence of cardiac pacemaker Plan: The patient underwent permanent pacemaker placement this day by Dr. Colon. He received an he [employer] Essentio MR PICKENS PPM the dual-chamber device) without obvious complication. He will continue with post pacemaker follow-up. (3) Atherosclerotic heart disease of [place] coronary artery without angina pectoris: Status: Chronic Code(s): I25.10 - Atherosclerotic heart disease of [place] coronary artery without angina pectoris Qualifiers: [place] vs. transplanted heart: [place] heart Qualified Code(s): I25.10 - Atherosclerotic heart disease of [place] coronary artery without angina pectoris Plan: The patient does have a history of underlying CAD. He has been evaluated for this noninvasively and invasively. He has not required revascularization therapy. He will continue risk factor modification medical therapy as deemed appropriate. He has chosen to do this naturally based upon diet and activity and avoid medications thus far. Medications at Discharge Home Medications cholecalciferol (vitamin D3) 25 mcg (1,000 unit) tablet 1,000 unit PO DAILY 09/18/20 multivitamin 1 tab PO DAILY 04/05/21 ascorbic acid (vitamin C) 1,000 mg tablet 1 g PO DAILY 05/01/22 calcium carbonate 600 mg calcium (1,500 mg) tablet 600 mg PO DAILY 05/01/22 folic acid 400 mcg tablet 0.4 mg PO DAILY 05/01/22 triamcinolone acetonide 55 mcg nasal spray aerosol (Nasacort) 1 spray intranasal DAILY PRN Congestion 05/01/22 Hospital Course Procedures - (Permanent pacemaker placement: Dual-chamber) Summary of Care Provided Minutes Spent on Discharge: 45 Physical Exam Const alert, oriented x3, no apparent distress, healthy appearing and well nourished General Appearance: cooperative, comfortable, well kempt and well developed Orientation / Consciousness: awake HEENT normocephalic, head/scalp atraumatic and hearing grossly normal bilaterally Eyes PERRL, EOMs intact bilaterally, conjunctivae normal and no scleral icterus Neck full ROM, supple and no JVD Carotids: normal carotid upstroke Chest Chest: left pectoral incision Resp normal respiratory effort and clear to auscultation bilaterally Cardio regular rate, regular rhythm, S1 normal heart sound and S2 normal heart sound Palpation: normal PMI Rate: regular rate Rhythm: regular rhythm Heart Sounds: murmur systolic II/ soft mid left sternal border, LVOT and sternal notch GI normal to inspection, nondistended, normoactive bowel sounds Extremity no pedal edema Skin no rashes or lesions noted Neuro oriented x3, moves all extremities, no focal motor deficits and no sensory deficits noted Psych mental status grossly normal Weight / BMI Weight Weight: 159 lb 13.362 oz Body Mass Index (BMI) 24.3 ABG / Lab / Microbiology Data Result Diagrams: 05/24/22 06:17 05/24/22 06:17 Laboratory: Laboratory Results - last 24 hr 05/24/22 06:17: WBC 7.0, RBC 4.82, Hgb 15.6, Hct 44.8, MCV 92.9, MCH 32.4 H, MCHC 34.8, RDW Std Deviation 41.1, RDW Coeff of Swapnil 12.0, Plt Count 160, MPV 10.3, Immature Gran % (Auto) 0.300, Neut % (Auto) 73.8 H, Lymph % (Auto) 14.7 L, [place] % (Auto) 9.4, Eos % (Auto) 1.4, Baso % (Auto) 0.4, Absolute Neuts (auto) 5.2, Absolute Lymphs (auto) 1.03, Nucleated RBC % 0 05/24/22 06:17: Sodium 140, Potassium 3.7, Chloride 105, Carbon Dioxide 29.0, Anion Gap 6, BUN 15, Creatinine 0.73, Estim Creat Clear Calc 66.50, Est GFR (MDRD) Af Amer 137, Est GFR (MDRD) Non-Af 113, BUN/Creatinine Ratio 20.6 H, Glucose 98, Calcium 8.8 Radiography Diagnostic Testing: Radiology Impression Chest X-Ray 05/23/22 18:10 IMPRESSION: There are no acute findings. Electronically Signed: Anthony Cano MD at 18:41 EST , D/C Instructions Discharge Diet: Low fat / Low cholesterol Additional Activity Instructions: Please see written post pacemaker instructions Call your doctor if your incision/area has: - (Please see written post pacemaker instructions) Call your doctor if you observe: Fever of 101 or Higher, Fainting spells, Chest pain, Increased palpitations (irregular heartbeat) and Uncontrolled pain Suture Line Care: Avoid Pulling/Pushing Additional Dressing/Incision Instructions: Please see written post pacemaker instructions Please Follow Up With: Nishi Soto When: 06/04/2022 at 10:00 AM Meaningful Use Info Meaningful Use Diagnoses (Choose all that apply): None applicable Discharge Plan Admission Admit Date/Time: 05/23/22 18:00 Primary Reason for Your Visit: PPM Attending Provider: Alden Albarran Primary Care Provider: Leobardo Pollard Discharge Orders/Prescriptions Prescriptions: Continued triamcinolone acetonide [Nasacort] 55 mcg aerosol,spray 1 spray INTRANASAL DAILY PRN (Reason: Congestion) Rx Instructions: administer into each nostril cholecalciferol (vitamin D3) 25 mcg (1,000 unit) tablet 1,000 unit PO DAILY multivitamin Tablet 1 tab PO DAILY ascorbic acid (vitamin C) 1,000 mg tablet 1 g PO DAILY calcium carbonate 600 mg calcium (1,500 mg) tablet 600 mg PO DAILY folic acid 400 mcg tablet 0.4 mg PO DAILY Referrals / Follow Up: Alden Albarran MD [Med Staff - Active Staff] - Leobardo Pollard MD [Primary Care Provider] - Disposition Disposition (needs filled in before D/C Order can be placed): Home, Self Care
--- NOTE | 2022-05-24 09:25 | CASEMGMT ---
RN REJI NOTE: Pt being discharged today. RN CM to room. Introduced self and role. @ bedside. Pt and deny having discharge planning needs or concerns. Roger MAJANON BRAD MENDOZA
== END 2022-05-24 09:19 | disposition home or self-care (01) ==
LOC: CLSP 18:33 → PCU 18:33
PROVIDERS: Admitting Provider Internal Medicine Cardiovascular Disease; PCP Internal Medicine; Referring Provider Internal Medicine Cardiovascular Disease; Visit Provider Internal Medicine Cardiovascular Disease
DX: Z45.018 Encounter for adjustment and management of other part of cardiac pacemaker (principal); I49.5 Sick sinus syndrome; Z79.899 Other long term (current) drug therapy; I25.10 Atherosclerotic heart disease of native coronary artery without angina pectoris; M19.90 Unspecified osteoarthritis, unspecified site; K21.9 Gastro-esophageal reflux disease without esophagitis; E78.00 Pure hypercholesterolemia, unspecified; Z86.79 Personal history of other diseases of the circulatory system; Z86.2 Personal history of diseases of the blood and blood-forming organs and certain disorders involving the immune mechanism; R01.1 Cardiac murmur, unspecified; Z87.891 Personal history of nicotine dependence; R00.1 Bradycardia, unspecified
CPT/HCPCS: 33208; 36415; 71045; 71046; 80048; 81001; 85025; 85027; 85610; 93005; 99152; 99153; 99218; J7050; C1894; G0378

== ENCOUNTER → 2023-03-05 | Outpatient (CLI) | payer MEDICARE, OTHER, SELFPAY | END | disposition home or self-care (01) | LOC: PSN 07:49 | PROVIDERS: PCP Internal Medicine; Referring Provider Nurse Practitioner Family; Visit Provider Nurse Practitioner Family | DX: Z95.0 Presence of cardiac pacemaker (principal) | CPT/HCPCS: 93225; 93226 ==

== ENCOUNTER 2023-11-01 10:24 | Emergency (ER) | payer MEDICARE, OTHER, SELFPAY ==
[2023-11-01 10:24] VITALS: BP 155/54; PULSE 60; RESP 16; TEMP 36.2; O2SAT 100; BMI 25.3
--- NOTE | 2023-11-01 10:35 | EKG12_ITS ---
Test Reason : PALPS Blood Pressure : / mmHG Vent. Rate : 060 BPM Atrial Rate : 060 BPM P-R Int : 232 ms QRS Dur : 104 ms QT Int : 396 ms P-R-T Axes : 005 001 059 degrees QTc Int : 396 ms Atrial-paced rhythm with prolonged AV conduction Abnormal ECG Confirmed by Ab Oconnor ([id number]), copy editor ALICIA BRYAN ([id number]) on 11/03/2023 9:50:28 AM Referred By: DEVIN/STEPHANY Confirmed By:Ab Oconnor
--- NOTE | 2023-11-01 10:35 | RAD_ITS ---
INDICATION: chest pain EXAMINATION/TECHNIQUE: X-RAY - XR Chest 1 View COMPARISON: No relevant prior comparison study available FINDINGS: LINES/DEVICES: There is a dual-lead cardiac pacer device leads with intact leads terminating within the expected region of the right atrium and right ventricle. LUNGS: No consolidation, edema or effusion. No pneumothorax. MEDIASTINUM AND CARDIOVASCULAR STRUCTURES: Cardiac silhouette not enlarged. Central airways and mediastinal contour are unremarkable. BONES AND SOFT TISSUES: Unremarkable. RAD/Chest 1 View (Portable) IMPRESSION: No radiographic evidence of acute cardiopulmonary disease. Electronically Signed: Emi Bennett MD at 11:17 EDT ,
--- NOTE | 2023-11-01 10:48 | EX.ED.DYSGE1 ---
HPI History of Present Illness Chief Complaint: Palpitations Informant: patient Onset/Context/Timing Onset: Days Context: Gradual Onset Timing: Intermittent Current Severity: Gone Maximum Severity: Mild Narrative Narrative: 73-year-old male history of sick sinus syndrome. He has had a pacemaker placed May 2022. He just recently had his pacemaker interrogated on 10/15/2023 and everything was good. And the battery was not 100% with 8 more years of life expectancy of the pacemaker. He states he has been feeling fine. Denies any recent illness. No nausea, vomiting or diarrhea. No fever or chills. No chest pain or melena. States when he is ending in the exertional situation he just does not feel like the pacemaker might be keeping up. He says if he is to walk he does fine but is to walk an incline he gets short of breath. But denies any chest pain. Prior similar symptoms: No Recent Illness/Hospitalization: No PFSH PFSH Medical History Alcohol use Arthritis Asymptomatic peripheral vascular disease Atherosclerotic heart disease of [place] coronary artery without angina pectoris Back pain Bradycardia Cancer Cardiology follow-up encounter Chest pain Constipation Degenerative arthritis Easy bruising Elevated d-dimer Excessive bleeding Fatigue Fatigue GERD (gastroesophageal reflux disease) Heartburn High cholesterol History of echocardiogram History of left heart catheterization (LHC) (~03/14/20) History of stress test Hx of sinus bradycardia Idioventricular rhythm Left inguinal hernia Left inguinal hernia Left inguinal pain Migraine headache Murmur, cardiac Non-smoker Presence of permanent cardiac pacemaker (~05/23/22) Prostate disease Right groin pain Screening for intestinal cancer Sick sinus syndrome Sinus bradycardia Sleep apnea Syncope Wears glasses Home Medications cholecalciferol (vitamin D3) 25 mcg (1,000 unit) tablet 1,000 unit PO DAILY 09/18/20 [History Last Taken Unknown] multivitamin 1 tab PO DAILY 04/05/21 [History Last Taken Unknown] ascorbic acid (vitamin C) 1,000 mg tablet 1 g PO DAILY 05/01/22 [History Last Taken Unknown] calcium carbonate 600 mg PO DAILY 05/01/22 [History Last Taken Unknown] folic acid 400 mcg tablet 0.4 mg PO DAILY 05/01/22 [History Last Taken Unknown] Allergy/AdvReac Type Severity Reaction Status Date / Time atorvastatin AdvReac Severe Severe Verified 11/01/23 10:27 myalgias Family History Father CAD (coronary artery disease) Leukemia Sister CAD (coronary artery disease) Mother Osteoporosis CVA (cerebral vascular accident) Surgical History History of colonoscopy (~12/2017) History of hernia repair History of inguinal hernia repair (~2017) History of umbilical hernia repair (~2011) Hx of colonoscopy S/P placement of cardiac pacemaker Social History Smoking Status: Former smoker how long ago did patient quit smokin + years ago alcohol intake: current alcohol intake frequency: 0-2 drinks per day Alcohol type: wine substance use type: does not use caffeine: Yes Type: coffee Number of servings: 3 ROS ROS ED ROS Narrative Denies recent illness. He has exertional dyspnea at times. Review of Systems ROS Unobtainable: Denies due to encephalopathy Constitutional Constitutional ED: Denies chills or fever(s) Eyes Eyes: Denies blurry vision ENT ENT ED: Denies ear pain Cardiovascular Cardiovascular: Denies chest pain Respiratory/Chest Respiratory/Chest: Reports dyspnea and dyspnea on exertion; Denies cough Gastrointestinal Gastrointestinal: Denies abdominal pain Genitourinary Genitourinary ED: Denies dysuria or hematuria Musculoskeletal Musculoskeletal: Denies arthralgias, back pain, myalgias or neck pain Integumentary Denies abscess or Abrasions Neurologic Neurologic: Denies headache(s) Psychiatric Psychiatric: Denies anxiety or depression Endocrine Endocrinology: Denies cold intolerance Hematologic/Lymphatic Hematologic/Lymphatic: Reports none Allergic/Immunologic Allergic/Immunologic ED: Denies mouth swelling, tongue swelling or urticaria EXAM Physical Exam Narrative Exam Narrative: Well-appearing 73-year-old male. Vital signs are stable afebrile. Pulse ox 100% on room air no signs of hypoxia. H EENT exam normal. Neck nontender no JVD. Lungs clear to auscultation bilaterally. Heart regular rhythm paced at 60. Left-sided pacemaker. Abdomen soft nontender. Normal bowel sounds no peritoneal signs. Moving all 4 extremities. Calves are nontender without edema or cords. Equal symmetrical radial pulses. Neurologically is awake and alert with no focal motor deficit. Currently he is symptom-free and has a benign normal exam. Const Vital Signs: 11/01/23 10:24 11/01/23 10:24 11/01/23 10:43 Temperature 97.2 F L Temperature Source Temporal Pulse Rate 60 Respiratory Rate 16 Respiratory Effort Normal Blood Pressure 155/54 H Blood Pressure Mean 87 Pulse Ox 100 Oxygen Delivery Method Room Air Room Air Positive well nourished and well developed; Negative for obese, cachectic, contractures or unkempt General Appearance ED: well developed and NAD; Negative for unkempt, cachectic, contractures, cyanotic, diaphoretic or pallor Nutritional Appearance: Negative for cachectic or obese HEENT Reports moist mucous membranes; Denies dry mucous membranes Negative for trauma or tenderness Mouth ED: No dry mucous membranes Mouth: No dry mucous membranes Eyes PERRL and EOMs intact bilaterally General Eye ED: Negative for pale conjunctiva, scleral icterus or other Neck no lymphadenopathy, supple and no JVD General: Negative for tenderness Lymph Lymphatic: Negative for other Chest Wall inspection of chest normal and palpation of chest normal Chest: Negative for other Resp normal respiratory effort and clear to auscultation bilaterally Effort and Inspection: Negative for retractions Auscultation: Negative for rales, rhonchi, wheezes or diminished lung sounds Cardio regular rate, regular rhythm, S1 normal heart sound, S2 normal heart sound and no murmurs Palpation: Negative for palpable S3 or palpable S4 Rate: Negative for bradycardia or tachycardic Rhythm: Negative for abnormal rhythm GI normal to inspection, nondistended, normoactive bowel sounds, non-tender, non-distended and no masses Inspection: Negative for abdominal distention Auscultation: normoactive bowel sounds Palpation: soft; Negative for tender or guarding Back/Spine no CVA tenderness General Back: Negative for CVA tenderness Cervical Spine: Negative for cervical spine tenderness Thoracic Spine / Upper Back: Negative for thoracic spinal tenderness or paraspinal muscle tenderness Lumbar Spine / Lower Back: Negative for lumbar spinal tenderness Extremity normal to inspection General Extremety ED: Negative for edema or tenderness General Extremity: Negative for edema Neuro oriented x3 and CN's II-XII intact bilaterally Sensorium / Orientation: alert; Negative for orientation impaired, lethargic or stuporous Motor Exam: strength 5/5 throughout Psych mental status grossly normal Appearance: Negative for unkempt Attitude: No agitated Mood & Affect: Negative for depressed, anxious or tearful Skin no rashes or lesions noted, no wounds and skin turgor normal General Skin Exam: Negative for jaundice or pallor Lesions: No lesion noted Rashes: No rashes noted Trauma: Negative for abrasion Wounds: Negative for wounds noted MDM MDM MDM Narrative Medical decision making narrative: Well-appearing 73-year-old male with a pacemaker is having some exertional dyspnea. No chest pain. Denies recent illness. Had a recent pacemaker evaluation was unremarkable about 2 to 3 weeks ago. Repeat exam patient is doing well at 12 PM. We went over all his test results. He is comfortable being discharged home. He will follow-up with the [email or web address] pacemaker personnel and the pacemaker clinic here to see if they can work on adjusting his pacemaker for demand settings when he needs it with exertion. He also knows that that does not improve the problem he may need a stress test but he had one several years ago which was negative. He is not having any chest pain with exertion. History & Record Review Discussion w/independent historian: Patient and Family (Accompanied by his [id number].) Additional record(s) reviewed:: Prior inpatient record, Prior outpatient record, Prior ED visit and Prior labs Lab Data Attestation: I reviewed the patient's lab results. Lab results narrative: CBC normal. White count of 6. H&H is 16 and 48. Platelets 181. Electrolytes unremarkable. Gap 4. Normal BUN and creatinine is 0.86. Glucose 116. Troponin 6. Chest x-ray unremarkable. EKG paced. Labs: Laboratory Results - last 24 hr 11/01/23 10:40 WBC 6.6 RBC 5.20 Hgb 16.3 Hct 48.4 MCV 93.1 MCH 31.3 MCHC 33.7 RDW Std Deviation 42.2 RDW Coeff of Swapnil 12.3 Plt Count 181 MPV 9.5 Immature Gran % (Auto) 0.500 Neut % (Auto) 64.4 Lymph % (Auto) 21.1 [place] % (Auto) 9.9 Eos % (Auto) 3.5 Baso % (Auto) 0.6 Absolute Neuts (auto) 4.2 Absolute Lymphs (auto) 1.38 Nucleated RBC % 0 Sodium 139 Potassium 4.1 Chloride 107 Carbon Dioxide 28.0 Anion Gap 4 L BUN 17 Creatinine 0.86 Estim Creat Clear Calc 75.12 Est GFR (MDRD) Af Amer 112 Est GFR (MDRD) Non-Af 93 BUN/Creatinine Ratio 19.7 Glucose 116 H Calcium 8.9 Troponin I High Sens 6 Radiography Chest X-Ray - ED: 1 View, Read by ED Physician, Read by Radiologist, Heart, Lungs, Mediastinum, Bony Structures, No Acute Disease and Chronic Changes Diagnostic Testing: Clinical Impression(s) from Imaging Studies Chest X-Ray 11/01/23 10:35 IMPRESSION: No radiographic evidence of acute cardiopulmonary disease. Electronically Signed: Emi Bennett MD at 11:17 EDT , Chest x-ray, portable, single view, interpreted by myself and the radiologist shows no acute abnormality. Normal cardiac silhouette. Normal lung peters. Left-sided pacemaker. No effusions. Rhythm Strip Rhythm Strip: paced Rate: 60 Ectopy: None EKG Initial EKG: Attestation: I personally reviewed and interpreted this EKG as follows: Interpretation: Sinus Rhythm and No Acute Injury Pattern Comments: Paced rhythm rate is 60 no acute signs of ME or ischemia. Discharge Plan Triage Chief Complaint: Palpitations ED Provider: Austin Sullivan Dx/Rx/DC Orders Clinical Impression: History of pacemaker, Exertional dyspnea Instructions: ED Dyspnea Prescriptions: No Action cholecalciferol (vitamin D3) 25 mcg (1,000 unit) tablet 1,000 unit PO DAILY multivitamin Tablet 1 tab PO DAILY ascorbic acid (vitamin C) 1,000 mg tablet 1 g PO DAILY calcium carbonate 600 mg calcium (1,500 mg) tablet 600 mg PO DAILY folic acid 400 mcg tablet 0.4 mg PO DAILY Primary Care Provider: Leobardo Pollard Referrals: Ab Oconnor MD [Med Staff - Active Staff] - As soon as possible Leobardo Pollard MD [Primary Care Provider] - Activity Restrictions/Additional Instructions: Your labs, EKG, chest x-ray exam and they were all normal. Call and follow-up with the pacemaker clinic on Friday morning. They may have to adjust your settings so you have a higher heart rate with exertion. That may be the cause of your exertional shortness of breath. If that does not work you may need a stress test. Follow-up with your educational speech language clinician. If you start having exertional chest pain you need to return to be reevaluated. Disposition Disposition: Home, Self Care
[2023-11-01 10:54] LABS: Absolute Lymphocyte Count 1.38 X10^3/uL (0.83-4.51); Absolute Neutrophil Count 4.2 X10^3/uL (2.0-7.7); Basophil# 0.04 X10^3/uL; Basophil% 0.6 % (0-1); Eosinophil# 0.23 X10^3/uL; Eosinophils% 3.5 % (0-5); Hematocrit 48.4 % (40-54); Hemoglobin 16.3 g/dL (13.0-16.5); Lymphocyte # 1.38 X10^3/ul (0.83-4.51); Lymphocyte % 21.1 % (19-41); Mean Corp Hgb Conc 33.7 g/dL (32-36); Mean Corpuscular Hgb 31.3 pg (27.0-32.0); Mean Corpuscular Volume 93.1 fL (80-94); Mean Platelet Vol. 9.5 fl (6.2-12.0); Monocyte# 0.65 X10^3/uL; Monocyte% 9.9 % (0-10); NRBC Flagged by Analyzer 0 % (0-5); Neutrophil # 4.22 X10^3/uL (2.7-7.7); Neutrophil % 64.4 % (47-70); Platelet Count 181 K/mm3 (150-450); RBC Distribution Width CV 12.3 % (11.6-14.6); RBC Distribution Width SD 42.2 fl (35.1-43.9); White Blood Count 6.6 K/mm3 (4.4-11.0)
[2023-11-01 11:07] LABS: Anion Gap 4 (5-15); BUN 17 mg/dL (7-18); BUN/Creat Ratio 19.7 RATIO (10-20); Calcium,Total 8.9 mg/dL (8.5-10.1); Chloride 107 mmol/L (98-107); Creatinine, Serum 0.86 mg/dL (0.70-1.30); EST Glomerular Filtration Rate 93 mL/min (>60); Est Glom Filt Rate - Afr Amer 112 mL/min (>60); Estimated Creatinine Clearance 75.12 ml/min; Glucose 116 mg/dL (74-106); Potassium 4.1 mmol/L (3.5-5.1); Sodium Level 139 mmol/L (136-145); Troponin-I HS 6 pg/mL (3.0-78.0)
[2023-11-01 11:24] VITALS: BP 134/78; PULSE 60; RESP 18; O2SAT 95
[2023-11-01 12:00] VITALS: PULSE 60; RESP 14; O2SAT 96
[2023-11-01 12:11] VITALS: BP 134/78; PULSE 60; RESP 18; TEMP 36.4; O2SAT 100
== END 2023-11-01 12:13 | disposition home or self-care (01) ==
PROVIDERS: Emergency Provider Emergency Medicine; PCP Internal Medicine; Visit Provider Emergency Medicine
DX: R06.09 Other forms of dyspnea (principal); R00.2 Palpitations; Z95.0 Presence of cardiac pacemaker; Z87.891 Personal history of nicotine dependence; K21.9 Gastro-esophageal reflux disease without esophagitis; E78.00 Pure hypercholesterolemia, unspecified
CPT/HCPCS: 71045; 80048; 84484; 85025; 93005; 99284; A4216

== ENCOUNTER → 2023-12-16 | Outpatient (CLI) | payer MEDICARE, OTHER, SELFPAY ==
--- NOTE | 2023-12-16 10:00 | ECHOD_ITS ---
Reason For Study: DYSPNEA Procedure This was a 2D Doppler, Color Flow transthoracic echocardiogram. Exam performed in department. Left Ventricle Normal LV size. Left ventricular systolic function is normal. The left ventricular ejection fraction is 65 %. No regional wall motion abnormalities noted. Right Ventricle Normal RV size. ICD or pacer leads identified within the right ventricle. Normal systolic function. Atria Normal left atrium. Normal right atrium. Mitral Valve Normal mitral valve. Tricuspid Valve Normal tricuspid valve. Mild tricuspid valve insufficiency. Pulmonary artery systolic pressure is 22 mmHg. Aortic Valve Trisinus/trileaflet aortic valve. Pulmonic Valve Normal pulmonic valve. Great Vessels Normal aortic root. The pulmonary artery is normal size. Inferior vena cava collapse with respiration. Pericardium/Pleural No pericardial effusion. MMode/2D Measurements & Calculations LVIDd: 4.1 cm IVSd: 1.1 cm LVOT diam: 2.1 cm LVIDs: 2.6 cm LVPWd: 0.85 cm LVOT area: 3.6 cm2 RVDd: 3.5 cm FS: 37.0 % Ao root diam: 3.9 cm LAV(MOD-bp): 47.2 ml LVAd ap4: 30.4 cm2 LAV(MOD-bp) Indexed: 25.1 ml/m2 LVLd ap4: 8.0 cm LAV(MOD-sp2): 58.2 ml EDV(MOD-sp4): 91.8 ml LAV(MOD-sp4): 34.1 ml EDV(sp4-el): 97.5 ml LVAs ap4: 14.7 cm2 LVLs ap4: 6.8 cm ESV(MOD-sp4): 26.9 ml ESV(sp4-el): 27.0 ml EF(MOD-sp4): 70.7 % EF(sp4-el): 72.3 % LVAd ap2: 30.1 cm2 SV(MOD-sp4): 64.9 ml SV(MOD-sp2): 64.5 ml LVLd ap2: 8.4 cm EDV(MOD-sp2): 88.3 ml EDV(sp2-el): 91.8 ml LVAs ap2: 13.7 cm2 LVLs ap2: 6.6 cm ESV(MOD-sp2): 23.8 ml ESV(sp2-el): 24.2 ml EF(MOD-sp2): 73.1 % SV(sp4-el): 70.5 ml LA dimension(2D): 3.8 cm LA A4 area: 13.8 cm2 RA A4 area: 13.0 cm2 TAPSE: 2.1 cm Time Measurements MV dec time: 0.24 sec Doppler Measurements & Calculations MV E max jeffry: 93.9 cm/sec Lat Peak E' Jeffry: 11.3 cm/sec Med Peak E' Jeffry: 8.3 cm/sec MV A max jeffry: 83.3 cm/sec E/E' lat: 8.3 E/E' med: 11.3 MV E/A: 1.1 Ao V2 max: 154.1 cm/sec LV V1 max: 131.5 cm/sec MV dec slope: 384.1 cm/sec2 Ao max P.5 mmHg LV V1 max P.9 mmHg Ao V2 mean: 104.5 cm/sec LV V1 mean P.9 mmHg Ao mean P.1 mmHg LV V1 mean: 92.9 cm/sec Ao V2 VTI: 36.2 cm LV V1 VTI: 31.1 cm AV (velocity ratio): 0.86 MIKA(I,D): 3.1 cm2 MIKA(V,D): 3.1 cm2 SV(LVOT): 112.2 ml PA V2 max: 144.8 cm/sec TR max jeffry: 218.6 cm/sec PA max PG (full): 6.2 mmHg TR max P.1 mmHg PA V2 mean: 87.1 cm/sec PA mean PG (full): 2.4 mmHg ECHO/Echo Complete Interpretation Summary Normal LV size. Left ventricular systolic function is normal. The left ventricular ejection fraction is 65 %. Structurally normal valves. Ordering Physician: Fredy Rosenthal Referring Physician: Leobardo Pollard M.D. Performed By: Katlin Mendez RDCS
== END | disposition home or self-care (01) ==
LOC: CVS 09:55
PROVIDERS: PCP Internal Medicine; Referring Provider Nurse Practitioner Family; Visit Provider Nurse Practitioner Family
DX: R06.09 Other forms of dyspnea (principal); I49.5 Sick sinus syndrome; I25.10 Atherosclerotic heart disease of native coronary artery without angina pectoris; Z95.0 Presence of cardiac pacemaker
CPT/HCPCS: 93306

== ENCOUNTER 2024-02-07 16:28 | Observation (INO) | payer MEDICARE, OTHER, SELFPAY ==
[2024-02-07 16:28] VITALS: BP 139/63; PULSE 59; RESP 18; TEMP 36.6; O2SAT 97; BMI 26.5
--- NOTE | 2024-02-07 16:59 | EKG12_ITS ---
Test Reason : NUERO Blood Pressure : / mmHG Vent. Rate : 060 BPM Atrial Rate : 060 BPM P-R Int : 240 ms QRS Dur : 100 ms QT Int : 400 ms P-R-T Axes : 000 003 076 degrees QTc Int : 400 ms Atrial-paced rhythm with prolonged AV conduction Low voltage QRS Abnormal ECG Confirmed by FRANCISCO JAVIER GRIGGS, ROSANNA ([id number]), industrial editor DORON LANGFORD ([id number]) on 02/10/2024 2:17:20 PM Referred By: Confirmed By:JOHNNY MCINTYRE MD
--- NOTE | 2024-02-07 17:00 | RAD_ITS ---
INDICATION: chest pain EXAMINATION/TECHNIQUE: X-RAY - XR Chest 1 View COMPARISON: November 01, 2023 FINDINGS: LINES/DEVICES: There is a dual-lead cardiac pacer device in place with intact leads terminating within the expected region of the right atrium and right ventricle. LUNGS: No consolidation, edema or effusion. No pneumothorax. MEDIASTINUM AND CARDIOVASCULAR STRUCTURES: Cardiac silhouette not enlarged. Central airways and mediastinal contour are unremarkable. BONES AND SOFT TISSUES: Unremarkable. RAD/Chest 1 View (Portable) IMPRESSION: No radiographic evidence of acute cardiopulmonary disease. Electronically Signed: Emi Bennett MD at 17:24 EDT ,
--- NOTE | 2024-02-07 17:01 | EX.ED.DYSGE1 ---
HPI History of Present Illness Chief Complaint: Numb/Ting Informant: patient and spouse/S.O. Narrative Narrative: Patient presents with tingling in his left arm. Goes from his shoulder down to his wrist. Today it has occurred about 5 times and was exertional every time with light exertion while he was pushing his lawnmower around the yard. He states he would get this from time to time in the past 5 weeks or so, but it seems random, and without any chest discomfort or lightheadedness, and he would be able to get it to go away with doing things and moving around including his left arm. Today however, he would put his arm on his mower and push it and then mcc through the strip start getting the tingling in his left arm and feel lightheaded and dyspneic. He would rest and it would go away after several minutes. This occurred 5 different times before he decided to come to the emergency department (it is friday). In addition he has a history of feeling an occasional palpitation that feels like a missed beat followed by a prominent 1, and that has been much more frequent in the last 2 or 3 days. Denies any syncope. States he has a pacemaker due to SSS, and he had a heart cath couple years ago that showed a blockage but had good collateral flow and he is being treated medically and they are watching this, he has had no stents. The patient also states that his doctor's office contacted him 4 weeks ago or so regarding the fact that his pacemaker transmitted information to their office regarding an episode of ventricular tachycardia that was captured. The patient states that he believes he was asymptomatic with this, whenever it occurred. [facility] Medical History Presence of permanent cardiac pacemaker (~05/23/22) Sick sinus syndrome Sinus bradycardia Idioventricular rhythm Left inguinal hernia Left inguinal hernia Wears glasses Cancer Alcohol use Prostate disease Arthritis High cholesterol Easy bruising Excessive bleeding Back pain Migraine headache Syncope Heartburn Non-smoker History of echocardiogram History of stress test Hx of sinus bradycardia Cardiology follow-up encounter Sleep apnea Degenerative arthritis Left inguinal pain Atherosclerotic heart disease of [place] coronary artery without angina pectoris History of left heart catheterization (LHC) (~03/14/20) Constipation Right groin pain Screening for intestinal cancer Fatigue Asymptomatic peripheral vascular disease Murmur, cardiac Fatigue Chest pain GERD (gastroesophageal reflux disease) Elevated d-dimer Bradycardia Home Medications ?Medication ?Instructions ?Recorded ?Last Taken ?Type cholecalciferol (vitamin D3) 25 1,000 unit PO DAILY 09/18/20 Unknown History mcg (1,000 unit) tablet multivitamin 1 tab PO DAILY 04/05/21 Unknown History ascorbic acid (vitamin C) 1,000 mg 1 g PO DAILY 05/01/22 Unknown History tablet calcium carbonate 600 mg PO DAILY 05/01/22 Unknown History folic acid 400 mcg tablet 0.4 mg PO DAILY 05/01/22 Unknown History Allergy/AdvReac Type Severity Reaction Status Date / Time atorvastatin AdvReac Severe Severe Verified 02/07/24 16:28 myalgias Family History Father CAD (coronary artery disease) Leukemia Sister CAD (coronary artery disease) Mother Osteoporosis CVA (cerebral vascular accident) Surgical History History of bilateral cataract extraction History of colonoscopy (~12/2017) History of hernia repair History of inguinal hernia repair (~2017) History of umbilical hernia repair (~2011) Hx of colonoscopy S/P placement of cardiac pacemaker Social History Smoking Status: Former smoker how long ago did patient quit smokin + years ago alcohol intake: current alcohol intake frequency: 0-2 drinks per day Alcohol type: wine substance use type: does not use caffeine: Yes Type: coffee Number of servings: 3 ROS ROS ED Constitutional Constitutional ED: Denies chills, fever(s) or sweats Eyes Eyes: Denies change in vision or diplopia ENT ENT ED: Denies rhinorrhea or sore throat Cardiovascular Cardiovascular: Reports as per HPI, lightheadedness and palpitations; Denies chest pain or syncope Respiratory/Chest Respiratory/Chest: Denies cough or dyspnea Gastrointestinal Gastrointestinal: Denies abdominal pain, diarrhea, nausea or vomiting Genitourinary Genitourinary ED: Denies dysuria or hematuria Musculoskeletal Musculoskeletal: Denies back pain or neck pain Integumentary Denies abscess or rash Neurologic Neurologic: Reports paresthesias LUE; Denies headache(s) or weakness Psychiatric Psychiatric: Denies anxiety or suicidal thoughts EXAM Physical Exam Const Vital Signs: 02/07/24 16:28 02/07/24 16:59 Temperature 97.9 F Temperature Source Temporal Pulse Rate 59 L Respiratory Rate 18 Blood Pressure 139/63 H Blood Pressure Mean 88 Pulse Ox 97 Oxygen Delivery Method Room Air Room Air Positive well nourished and well developed General Appearance ED: well developed and NAD HEENT Reports moist mucous membranes normocephalic and atraumatic Eyes PERRL and EOMs intact bilaterally Neck full ROM and supple Neck Narrative: Not able to elicit any neurologic symptoms with moving head/neck around. Resp normal respiratory effort and clear to auscultation bilaterally Cardio regular rate and regular rhythm Heart Sounds: murmur systolic I/ soft left sternal border Peripheral Pulses: pulses 2+ throughout and radial pulses present bilateral 2+ (And symmetric) GI non-tender and non-distended Auscultation: normoactive bowel sounds Palpation: soft Back/Spine no CVA tenderness General Back: other FROM Extremity normal to inspection General Extremety ED: Negative for edema, pulses abnormal or tenderness General Extremity: Negative for edema or pulses abnormal Neuro oriented x3, CN's II-XII intact bilaterally and no sensory deficits noted Neuro Narrative: No focal neurologic deficits subjectively or objectively at this time. Sensorium / Orientation: awake and alert Motor Exam: strength 5/5 throughout Psych mental status grossly normal Skin no rashes or lesions noted and no wounds MDM MDM MDM Narrative Medical decision making narrative: Rest patient has no symptoms and is doing well now. His EKG shows atrial pacing but is otherwise unremarkable, no repolarization abnormalities, his initial troponin measurement is normal at 7. He was given aspirin 324 mg. Chest x-ray 1 view of mitral rotation is normal. Vital signs are stable arrest. I discussed with Dr. Gray, he agrees with admitting him and he will consult. Advises heparin only if his second set of enzymes are elevated. History & Record Review Additional record(s) reviewed:: Prior outpatient record (last cardiology visit, 11/14/23) Lab Data Attestation: I reviewed the patient's lab results. Labs: Laboratory Results - last 24 hr 02/07/24 17:00 WBC 5.8 RBC 4.72 Hgb 15.0 Hct 43.6 MCV 92.4 MCH 31.8 MCHC 34.4 RDW Std Deviation 42.7 RDW Coeff of Swapnil 12.5 Plt Count 162 MPV 9.5 Immature Gran % (Auto) 0.500 Neut % (Auto) 62.9 Lymph % (Auto) 22.6 [place] % (Auto) 10.3 H Eos % (Auto) 3.4 Baso % (Auto) 0.3 Absolute Neuts (auto) 3.7 Absolute Lymphs (auto) 1.32 Nucleated RBC % 0 Sodium 138 Potassium 4.1 Chloride 107 Carbon Dioxide 27.0 Anion Gap 4 L BUN 17 Creatinine 0.85 Estim Creat Clear Calc 73.44 Est GFR (MDRD) Af Amer 114 Est GFR (MDRD) Non-Af 94 BUN/Creatinine Ratio 20.0 Glucose 132 H Calcium 9.1 Troponin I High Sens 7 Radiography Diagnostic Testing: Clinical Impression(s) from Imaging Studies Chest X-Ray 02/07/24 17:00 IMPRESSION: No radiographic evidence of acute cardiopulmonary disease. Electronically Signed: Emi Bennett MD at 17:24 EDT Reading Location ID and State: [facility] / [place] Tel , Service support , Rhythm Strip Rhythm Strip: atrial pacing Rate: 60 Ectopy: None EKG Initial EKG: Attestation: I personally reviewed and interpreted this EKG as follows: Management Discussion w/another healthcare provider: Hospitalist and [employer] Crop [employer] (cardiology) Discharge Plan Triage Chief Complaint: Numb/Ting Other Complaint: Dizziness ED Provider: Dallas Nolasco Dx/Rx/DC Orders Clinical Impression: Anginal equivalent Prescriptions: No Action cholecalciferol (vitamin D3) 25 mcg (1,000 unit) tablet 1,000 unit PO DAILY multivitamin Tablet 1 tab PO DAILY ascorbic acid (vitamin C) 1,000 mg tablet 1 g PO DAILY calcium carbonate 600 mg calcium (1,500 mg) tablet 600 mg PO DAILY folic acid 400 mcg tablet 0.4 mg PO DAILY Primary Care Provider: Leobardo Pollard Referrals: Leobardo Pollard MD [Primary Care Provider] - Print Language: Green[place]ic Disposition Disposition: Acute Care [facility]
[2024-02-07] MEDS: Aspirin 81 MG TAB.CHEW 324 MG PO (17:09)
[2024-02-07 17:10] LABS: Absolute Lymphocyte Count 1.32 X10^3/uL (0.83-4.51); Absolute Neutrophil Count 3.7 X10^3/uL (2.0-7.7); Basophil# 0.02 X10^3/uL; Basophil% 0.3 % (0-1); Eosinophils% 3.4 % (0-5); Hematocrit 43.6 % (40-54); Lymphocyte # 1.32 X10^3/ul (0.83-4.51); Lymphocyte % 22.6 % (19-41); Mean Corp Hgb Conc 34.4 g/dL (32-36); Mean Corpuscular Hgb 31.8 pg (27.0-32.0); Mean Corpuscular Volume 92.4 fL (80-94); Mean Platelet Vol. 9.5 fl (6.2-12.0); Monocyte% 10.3 % (0-10); NRBC Flagged by Analyzer 0 % (0-5); Neutrophil # 3.66 X10^3/uL (2.7-7.7); Neutrophil % 62.9 % (47-70); Platelet Count 162 K/mm3 (150-450); RBC Distribution Width CV 12.5 % (11.6-14.6); RBC Distribution Width SD 42.7 fl (35.1-43.9); Red Blood Count 4.72 M/mm3 (4.6-6.2); White Blood Count 5.8 K/mm3 (4.4-11.0)
[2024-02-07 17:29] LABS: Anion Gap 4 (5-15); BUN 17 mg/dL (7-18); Calcium,Total 9.1 mg/dL (8.5-10.1); Chloride 107 mmol/L (98-107); Creatinine, Serum 0.85 mg/dL (0.70-1.30); EST Glomerular Filtration Rate 94 mL/min (>60); Est Glom Filt Rate - Afr Amer 114 mL/min (>60); Estimated Creatinine Clearance 73.44 ml/min; Glucose 132 mg/dL (74-106); Potassium 4.1 mmol/L (3.5-5.1); Sodium Level 138 mmol/L (136-145); Troponin-I HS (w/2H Reflex) 7 pg/mL (3.0-78.0)
[2024-02-07 17:54] VITALS: BP 137/78; PULSE 60; RESP 18; O2SAT 94
--- NOTE | 2024-02-07 18:02 | PCM.HP.STD ---
HPI - General General Date of Admission: 02/07/24 Date of Service: 02/07/24 Chief Complaint: Exertional dyspnea, Lightheadedness, Diaphoresis, LUE Paresthesias. HPI Narrative The patient is a 73 y/o M w/ PMHx: Hx Sick Sinus Syndrome s/p pacemaker status, Migraine Headaches, GERD, Nonobstructive CAD, Former tobacco use, BEVERLY who presents to the [facility] ED on 02/07/2024 with history of being outside in the hot weather using a lawnmower approximately 3 to 4 hours prior to ED arrival with onset then of dizziness as well as left-sided upper extremity numbness with dyspnea, improving with rest prompting eventual ED evaluation to be cautious. In the past several weeks he notes that he is had this from time to time with no chest discomfort or lightheadedness with improvement even just with moving reportedly. He notes that when he was pushing his mower today aside from the paresthesias and lightheadedness he also became dyspneic and when he would rest it would dissipate and occurred approximately 5 times before eventually decided to present to the ED for evaluation. He does report occasional palpitations. He does report that with a couple of the prior episodes he did have transient nausea without emesis and diaphoresis but not with the episodes today prior to decision to present to the ED. He notes he has remained very active and swims routinely. Workup in the ED included T97.9, heart rate 59, BP 139/63, respiratory rate 18, 97% on room air, CBC with WC 5.8, hemoglobin 15, platelet 162 without marked shift, BMP with glucose 132 otherwise unremarkable, troponin 7, chest x-ray with no acute cardiopulmonary finding, EKG with atrial pacing with no acute evidence of ischemia. ED discussed case with cardiology given atypical presentation and Dr. Gray will evaluate patient. Per ED report he noted administration of therapeutic heparin drip only if enzymes become elevated. In the ED patient ministered full-strength aspirin therapy. [facility] Medical History Presence of permanent cardiac pacemaker (~05/23/22) Sick sinus syndrome Sinus bradycardia Idioventricular rhythm Left inguinal hernia Left inguinal hernia Wears glasses Cancer Alcohol use Prostate disease Arthritis High cholesterol Easy bruising Excessive bleeding Back pain Migraine headache Syncope Heartburn Non-smoker History of echocardiogram History of stress test Hx of sinus bradycardia Cardiology follow-up encounter Sleep apnea Degenerative arthritis Left inguinal pain Atherosclerotic heart disease of [place] coronary artery without angina pectoris History of left heart catheterization (LHC) (~03/14/20) Constipation Right groin pain Screening for intestinal cancer Fatigue Asymptomatic peripheral vascular disease Murmur, cardiac Fatigue Chest pain GERD (gastroesophageal reflux disease) Elevated d-dimer Bradycardia Home Medications ?Medication ?Instructions ?Recorded ?Last Taken ?Type cholecalciferol (vitamin D3) 25 1,000 unit PO DAILY 09/18/20 Unknown History mcg (1,000 unit) tablet multivitamin 1 tab PO DAILY 04/05/21 Unknown History ascorbic acid (vitamin C) 1,000 mg 1 g PO DAILY 05/01/22 Unknown History tablet calcium carbonate 600 mg PO DAILY 05/01/22 Unknown History folic acid 400 mcg tablet 0.4 mg PO DAILY 05/01/22 Unknown History Allergy/AdvReac Type Severity Reaction Status Date / Time atorvastatin AdvReac Severe Severe Verified 02/07/24 16:28 myalgias Family History Father CAD (coronary artery disease) Leukemia Sister CAD (coronary artery disease) Mother Osteoporosis CVA (cerebral vascular accident) Surgical History History of bilateral cataract extraction S/P placement of cardiac pacemaker History of hernia repair Hx of colonoscopy History of inguinal hernia repair (~2017) History of umbilical hernia repair (~2011) History of colonoscopy (~12/2017) Social History Smoking Status: Former smoker how long ago did patient quit smokin + years ago alcohol intake: current alcohol intake frequency: 0-2 drinks per day Alcohol type: wine substance use type: does not use caffeine: Yes Type: coffee Number of servings: 3 ROS ROS Narrative Admission Review of Systems: CONSTITUTIONAL: No weight loss, fever, chills, + weakness or fatigue. HEENT: + Lightheadedness, dizziness. Eyes: No visual loss, blurred vision, double vision or yellow sclerae. Ears, Nose, Throat: No hearing loss, sneezing, congestion, runny nose or sore throat. SKIN: No rash or itching, lesions, wounds. CARDIOVASCULAR: + Occasional palpitations, exertional dyspnea with lightheadedness/dizziness as noted. No chest pain, chest pressure or chest discomfort, edema, orthopnea, syncopal events. RESPIRATORY: + Exertional dyspnea. No cough or sputum, wheezing, hemoptysis. GASTROINTESTINAL: + Transient nausea. No anorexia, vomiting or diarrhea, abdominal pain, melena, BRBPR. GENITOURINARY: No dysuria, frequency, urgency or retention. NEUROLOGICAL: + Positional left upper extremity paresthesias, lightheadedness, dizziness, chronic history of migraine headache. No syncope, paralysis, ataxia, numbness or tingling in the extremities, focal weakness, change in bowel or bladder control, seizure. MUSCULOSKELETAL: + muscle, back pain, joint pain or stiffness. HEMATOLOGIC: No anemia. + Easy bleeding/bruising. ENDOCRINOLOGIC: + reports of sweating. No cold or heat intolerance. No polyuria or polydipsia. ALLERGIES: No history of asthma, hives, eczema or rhinitis. Vital Signs Vital Signs Vital Signs: 02/07/24 16:28 02/07/24 16:59 02/07/24 17:54 Temperature 97.9 F Temperature Source Temporal Pulse Rate 59 L 60 Respiratory Rate 18 18 Blood Pressure 139/63 H 137/78 H Blood Pressure Mean 88 97 Pulse Ox 97 94 Oxygen Delivery Method Room Air Room Air Room Air Weight Weight: 169 lb 8.568 oz Body Mass Index (BMI) 26.5 Physical Exam Narrative Physical Examination: General: Awake, alert, oriented x 3 and cooperative, seated upright in the ED bed, fatigued otherwise no acute distress Skin: Normal color, normal turgor, no icterus, no cyanosis except occasional staged ecchymoses, abrasion. HEENT: AT/NC, EOMI, PERRLA, MMM, no carotid bruits or JVD noted. Lungs: Diminished, greater bases, appropriate effort, no rales, ronchi or wheezing. Heart: Mildly bradycardic with regular rhythm; no gallop, rub audible, + SM. Abdomen: Soft, NTTP, ND, normal BS, no HSM. Extremities: No cyanosis, clubbing, or edema. Neurological: Patient awake, alert, oriented as noted, cognitive function intact; pupils equally reactive to light and accommodation, cranial nerves grossly normal, moving all 4 extremities, no focal deficits, currently sensation appropriate left upper extremity, strength preserved. Psychiatric: Affect appears fatigued otherwise normal, no acute evidence of depressive or anxiety feelings. Results Lab / Micro Data 02/07/24 17:00 02/07/24 17:00 Labs: Laboratory Results - last 24 hr 02/07/24 17:00: WBC 5.8, RBC 4.72, Hgb 15.0, Hct 43.6, MCV 92.4, MCH 31.8, MCHC 34.4, RDW Std Deviation 42.7, RDW Coeff of Swapnil 12.5, Plt Count 162, MPV 9.5, Immature Gran % (Auto) 0.500, Neut % (Auto) 62.9, Lymph % (Auto) 22.6, [place] % (Auto) 10.3 H, Eos % (Auto) 3.4, Baso % (Auto) 0.3, Absolute Neuts (auto) 3.7, Absolute Lymphs (auto) 1.32, Nucleated RBC % 0, Sodium 138, Potassium 4.1, Chloride 107, Carbon Dioxide 27.0, Anion Gap 4 L, BUN 17, Creatinine 0.85, Estim Creat Clear Calc 73.44, Est GFR (MDRD) Af Amer 114, Est GFR (MDRD) Non-Af 94, BUN/Creatinine Ratio 20.0, Glucose 132 H, Calcium 9.1, Troponin I High Sens 7 Rhythm Strip Rhythm Strip: atrial pacing Rate: 60 Ectopy: None Imaging Radiology Impression Chest X-Ray 02/07/24 17:00 IMPRESSION: No radiographic evidence of acute cardiopulmonary disease. Electronically Signed: Emi Bennett MD at 17:24 EDT , Assessment & Plan Assessment/Plan (1) Anginal equivalent: PLAN: Plan The patient is a 73 y/o M w/ PMHx: Hx Sick Sinus Syndrome s/p pacemaker status, Migraine Headaches, GERD, Nonobstructive CAD, Former tobacco use, BEVERLY who presents to the [facility] ED on 02/07/2024 with history of being outside in the hot weather using a lawnmower approximately 3 to 4 hours prior to ED arrival with onset then of dizziness as well as left-sided upper extremity numbness with dyspnea, improving with rest. #1. Transient dizziness, lightheadedness, exertional dyspnea with left-sided upper extremity atypical sensation/paresthesias concerning for anginal equivalent: EKG in ED atrial paced rhythm with no acute evidence of ischemia, CXR w/ no acute cardiopulmonary findings, initial trop 7. Will admit to PCU, place on a monitored bed to assure no acute myocardial infarction with serial cardiac enzymes and EKGs. Echocardiogram requested. Will request interrogation of pacemaker device additionally. Magnesium level requested. FLP in AM. Cardiology consultation initiated per ED and will continue therefore at this time will defer immediately ordering stress testing and await their input and recommendation. #2. Sick sinus syndrome: Status post pacemaker status, reportedly had pacemaker accelerometer turned off by [facility] per most recent cardiology note 11/14/2023, encourage continued outpatient follow-up with cardiology and interrogation as previously arranged with last noted report 01/14/2024, repeat interrogation requested as noted. #3. Nonobstructive CAD: Continue aspirin, per current list not on statin therapy (severe myalgia side effect listed) or any hypertensive medicines including BRADLEY inhibitor/ARB or beta-susan therapy (likely secondary to bradycardic history reported in chart). FLP in AM. Magnesium level requested. #4. Former tobacco use: Encourage continued tobacco cessation. #5. GERD: Will have as needed Mylanta regimen. #6. Migraine headaches: Noted history, not on any chronic regimen, no recent significant headaches reported. #7. BEVERLY: CPAP nightly. #8. DVT prophylaxis: Lovenox. #9. CODE status: Patient FERNANDO is his who is present and living will is currently in place. Discussed CODE status at length including difference between FULL code, DNR-CCA and DNR-CC status. Following discussions about the differences in these status, requested Full Code status. Advanced Care Planning Face to Face Time: 16 minutes. Charges/Coding Visit Charges Inpatient E&M: 74400 Init Hosp L2 Procedures Hospitalists Procedures: 70923 Advncd Care Plan 30 Min
[2024-02-07 18:36] VITALS: BP 163/66; PULSE 60; RESP 18; TEMP 36.6; O2SAT 97
[2024-02-07 18:51] LABS: Magnesium 2.3 mg/dL (1.6-2.6)
[2024-02-07 19:05] LABS: Reflex Troponin-HS? (from REC) Y
[2024-02-07 19:57] LABS: Troponin-I HS 8 pg/mL (3.0-78.0)
[2024-02-07 20:05] VITALS: BMI 26.2
[2024-02-07 20:16] VITALS: BP 156/71; PULSE 60; RESP 16; TEMP 36.3; O2SAT 99
--- NOTE | 2024-02-07 22:22 | EKG12_ITS ---
Test Reason : CP ADMIT Blood Pressure : / mmHG Vent. Rate : 060 BPM Atrial Rate : 060 BPM P-R Int : 256 ms QRS Dur : 102 ms QT Int : 400 ms P-R-T Axes : 000 006 070 degrees QTc Int : 400 ms Atrial-paced rhythm with prolonged AV conduction Low voltage QRS Abnormal ECG When compared with ECG of 07-FEB-2024 17:11, MANUAL COMPARISON REQUIRED, DATA IS UNCONFIRMED Confirmed by FRANCISCO JAVIER GRIGGS, ROSANNA ([id number]), magazine editor ALICIA BRYAN ([id number]) on 02/13/2024 9:48:24 AM Referred By: RICH Confirmed By:JOHNNY MCINTYRE MD
--- NOTE | 2024-02-07 22:24 | CPS ---
PATIENT REFUSED PAP THERAPY FOR THE NIGHT. PATIENT STATED HE DOESN'T WEAR ONE AT HOME, AND HAS NEVER BEEN DIAGNOSED WITH SLEEP APNEA.
[2024-02-07 23:00] VITALS: PULSE 80
[2024-02-08 00:13] LABS: Troponin-I HS 6 pg/mL (3.0-78.0)
[2024-02-08 02:15] VITALS: BP 134/54; PULSE 62; RESP 12; TEMP 36.4; O2SAT 98
[2024-02-08 05:13] LABS: Absolute Lymphocyte Count 1.22 X10^3/uL (0.83-4.51); Absolute Neutrophil Count 2.9 X10^3/uL (2.0-7.7); Basophil# 0.03 X10^3/uL; Basophil% 0.6 % (0-1); Eosinophil# 0.19 X10^3/uL; Eosinophils% 3.8 % (0-5); Hemoglobin 14.7 g/dL (13.0-16.5); Lymphocyte # 1.22 X10^3/ul (0.83-4.51); Lymphocyte % 24.6 % (19-41); Mean Corp Hgb Conc 34.2 g/dL (32-36); Mean Corpuscular Hgb 31.7 pg (27.0-32.0); Mean Corpuscular Volume 92.9 fL (80-94); Mean Platelet Vol. 9.8 fl (6.2-12.0); Monocyte# 0.62 X10^3/uL; Monocyte% 12.5 % (0-10); NRBC Flagged by Analyzer 0 % (0-5); Neutrophil # 2.88 X10^3/uL (2.7-7.7); Neutrophil % 58.1 % (47-70); Platelet Count 146 K/mm3 (150-450); RBC Distribution Width CV 12.4 % (11.6-14.6); RBC Distribution Width SD 42.2 fl (35.1-43.9); Red Blood Count 4.63 M/mm3 (4.6-6.2)
[2024-02-08 05:39] LABS: ALB/GLOB Ratio 1.3 RATIO (0.9-2.4); AST(SGOT) 18 U/L (15-37); Alanine Aminotransfer ALT/SGPT 20 U/L (16-61); Albumin, Serum 3.4 g/dL (3.2-5.0); Alkaline Phosphatase 79 U/L (45-117); Anion Gap 4 (5-15); BUN 17 mg/dL (7-18); BUN/Creat Ratio 21.9 RATIO (10-20); Calcium,Total 8.6 mg/dL (8.5-10.1); Chloride 107 mmol/L (98-107); Cholesterol 157 mg/dL (200); Creatinine, Serum 0.78 mg/dL (0.70-1.30); EST Glomerular Filtration Rate 104 mL/min (>60); Est Glom Filt Rate - Afr Amer 126 mL/min (>60); Estimated Creatinine Clearance 78.03 ml/min; Globulin 2.6 g/dL (2.2-4.2); Glucose 92 mg/dL (74-106); High Density Lipoprotein 42 mg/dL; Potassium 3.6 mmol/L (3.5-5.1); Sodium Level 139 mmol/L (136-145); Triglycerides 71 mg/dL; Very Low Density Lipoprotein 14 mg/dL (5-40)
[2024-02-08 06:00] VITALS: BMI 26.2
[2024-02-08 07:29] VITALS: O2SAT 94
[2024-02-08 08:01] VITALS: BP 130/70; PULSE 60; RESP 18; TEMP 36.7; O2SAT 99
[2024-02-08] MEDS: Aspirin E.C. 81 MG Tablet PO (08:06)
--- NOTE | 2024-02-08 10:41 | DCINST_ITS ---
Discharge Instructions Diet Discharge Diet: No restrictions (limit cholesterol) Activity Discharge Activity: Return to Normal Activity May resume sexual activity in: No Restrictions Follow Up Care Test Results: Test results from this visit will be discussed in further detail at your follow- up appointment, if applicable. Discharge Plan Admission Admit Date/Time: 02/07/24 18:04 Primary Reason for Your Visit: Dyspnea, left arm paresthesias Attending Provider: Medardo Jiménez Primary Care Provider: Leobardo Pollard Consulting Providers: Ayesha Bueno Instructions Additional Instructions / Restrictions: Your medical reception specialist office will call you to schedule your stress test, if you do not hear from them by Friday of this week, contact them Discharge Orders/Prescriptions Prescriptions: New pravastatin 20 mg tablet 20 mg PO DAILY Qty: 30 1RF ezetimibe [Zetia] 10 mg tablet 10 mg PO DAILY Qty: 30 1RF Continued cholecalciferol (vitamin D3) 25 mcg (1,000 unit) tablet 1,000 unit PO DAILY multivitamin Tablet 1 tab PO DAILY ascorbic acid (vitamin C) 1,000 mg tablet 1 g PO DAILY calcium carbonate 600 mg calcium (1,500 mg) tablet 600 mg PO DAILY folic acid 400 mcg tablet 0.4 mg PO DAILY Referrals / Follow Up: Leobardo Pollard MD [Primary Care Provider] - See Referral Note (At your neck scheduled office visit) Disposition Disposition (needs filled in before D/C Order can be placed): Home, Self Care
--- NOTE | 2024-02-08 10:44 | PCM.DC.SUM ---
Providers Date of Admission: 02/07/24 Date of Discharge: 02/08/24 Primary Care Physician: Dr. Leobardo Pollard MD Reason For Visit: ANGINAL EQUIVALENT Diagnosis Discharge Diagnosis (1) Anginal equivalent: Status: Acute Code(s): I20.89 - Other forms of angina pectoris Plan 1. Dyspnea-etiology unclear #2 left forearm paresthesias-etiology unclear #3 coronary artery disease #4 hyperlipidemia Medications at Discharge Home Medications cholecalciferol (vitamin D3) 25 mcg (1,000 unit) tablet 1,000 unit PO DAILY supplement 09/18/20 multivitamin 1 tab PO DAILY supplement 04/05/21 ascorbic acid (vitamin C) 1,000 mg tablet 1 g PO DAILY supplement 05/01/22 calcium carbonate 600 mg PO DAILY supplement 05/01/22 folic acid 400 mcg tablet 0.4 mg PO DAILY supplement 05/01/22 ezetimibe 10 mg tablet (Zetia) 10 mg PO DAILY #30 tabs 02/08/24 pravastatin 20 mg tablet 20 mg PO DAILY #30 tabs 02/08/24 Hospital Course Operations None Procedures None Summary of Care Provided Minutes Spent on Discharge: 31 Hospital Course: This 73-year-old white male was seen in the emergency room at [facility] with complaints of tingling in his left forearm, patient also complained of lightheadedness as though he was going to pass out and he also complained of dyspnea. This occurred when the patient was mowing the lawn yesterday. Patient denied any actual chest pain, he denied any pain in his neck or jaw. Workup in the emergency room included cardiac enzymes which were unremarkable, EKG showed an atrial paced rhythm, CBC was unremarkable, chest x-ray was unremarkable, and chemistry panel was unremarkable. Cardiology was contacted by the emergency room physician, he advised admitting the patient and cycling the cardiac enzymes and cardiology agreed to see him in consultation. There was some question whether the patient's symptoms were anginal equivalent, this examiner did not feel that this was the case after examining the patient and reviewing his medical record. The etiology of the patient's left forearm paresthesias was unclear. Patient's cardiac enzymes remain normal during his hospitalization, he did not have any more episodes of dyspnea, lightheadedness, or tingling in his left arm. On 02/08/2024, patient was seen and examined: On examination he appeared in good health and spirits. Vital signs as documented. Skin warm and dry and without overt rashes. Neck without JVD, neck was supple, trachea midline, thyroid was normal. Lungs clear bilaterally, normal air movement was noted. Heart exam notable for regular rhythm, normal sounds and absence of murmurs, rubs or gallops. Abdomen unremarkable and without evidence of organomegaly, masses, or abdominal aortic enlargement. Bowel sounds are present, abdomen is not distended. Extremities nonedematous, no cyanosis was noted, no clubbing was noted. Neuro: Cranial nerves II through XII are grossly intact, no focal motor deficits were noted, sensation to light touch and pinprick intact, motor exam 5/5 throughout. Psych: Patient is alert and oriented x3, he does not appear anxious or depressed, he does not appear agitated. Patient requested discharge home on 02/08/2024, I discussed the case with cardiology and they were not against this. Patient knows he has to have an outpatient stress test performed and he does not want to stay in the hospital to have it done on 02/09/2024. Patient and the patient's are aware that there is some risk to this but that he may get the stress test performed as an outpatient. Cardiology did not feel there was a need to see the patient before he left the hospital, on 01/31/2024, patient was discharged home in stable condition. As a further note, I agreed to contact the patient's practice management consultant on 02/09/2024 and arrange for them to call the patient to set up an outpatient stress test. I also talked to the patient at length about the fact that he did have hyperlipidemia and he did have a history of coronary artery disease although it was nonocclusive in the past, I discussed this with the patient and the patient's and I recommended the patient go on something for hyperlipidemia-his LDL cholesterol that was drawn during this hospitalization was 101, patient has agreed to try Pravachol 20 mg once a day along with Zetia 10 mg once a day. Weight / BMI Weight Weight: 75.9 kg Body Mass Index (BMI) 26.2 ABG / Lab / Microbiology Data 02/08/24 04:40 02/08/24 04:40 Laboratory: Laboratory Results - last 24 hr 02/07/24 17:00: WBC 5.8, RBC 4.72, Hgb 15.0, Hct 43.6, MCV 92.4, MCH 31.8, MCHC 34.4, RDW Std Deviation 42.7, RDW Coeff of Swapnil 12.5, Plt Count 162, MPV 9.5, Immature Gran % (Auto) 0.500, Neut % (Auto) 62.9, Lymph % (Auto) 22.6, [place] % (Auto) 10.3 H, Eos % (Auto) 3.4, Baso % (Auto) 0.3, Absolute Neuts (auto) 3.7, Absolute Lymphs (auto) 1.32, Nucleated RBC % 0, Sodium 138, Potassium 4.1, Chloride 107, Carbon Dioxide 27.0, Anion Gap 4 L, BUN 17, Creatinine 0.85, Estim Creat Clear Calc 73.44, Est GFR (MDRD) Af Amer 114, Est GFR (MDRD) Non-Af 94, BUN/Creatinine Ratio 20.0, Glucose 132 H, Calcium 9.1, Magnesium 2.3, Troponin I High Sens 7 02/07/24 19:19: Troponin I High Sens 8 02/07/24 23:05: Troponin I High Sens 6 02/08/24 04:40: WBC 5.0, RBC 4.63, Hgb 14.7, Hct 43.0, MCV 92.9, MCH 31.7, MCHC 34.2, RDW Std Deviation 42.2, RDW Coeff of Swapnil 12.4, Plt Count 146 L, MPV 9.8, Immature Gran % (Auto) 0.400, Neut % (Auto) 58.1, Lymph % (Auto) 24.6, [place] % (Auto) 12.5 H, Eos % (Auto) 3.8, Baso % (Auto) 0.6, Absolute Neuts (auto) 2.9, Absolute Lymphs (auto) 1.22, Nucleated RBC % 0, Sodium 139, Potassium 3.6, Chloride 107, Carbon Dioxide 28.0, Anion Gap 4 L, BUN 17, Creatinine 0.78, Estim Creat Clear Calc 78.03, Est GFR (MDRD) Af Amer 126, Est GFR (MDRD) Non-Af 104, BUN/Creatinine Ratio 21.9 H, Glucose 92, Calcium 8.6, Total Bilirubin 0.40, AST 18, ALT 20, Alkaline Phosphatase 79, Total Protein 6.0 L, Albumin 3.4, Globulin 2.6, Albumin/Globulin Ratio 1.3, Triglycerides 71, Cholesterol 157, LDL Cholesterol 101, VLDL Cholesterol 14, HDL Cholesterol 42 Radiography Diagnostic Testing: Radiology Impression Chest X-Ray 02/07/24 17:00 IMPRESSION: No radiographic evidence of acute cardiopulmonary disease. Electronically Signed: Emi Bennett MD at 17:24 EDT , D/C Instructions Discharge Diet: No restrictions (limit cholesterol) May resume sexual activity in: No Restrictions Meaningful Use Info Meaningful Use Meaningful Use Diagnoses (Choose all that apply): None applicable Ischemic Stroke Statin Dosing Therapy Reference: STATIN DOSE THERAPY REFERENCE: * Patients > 75 years receive moderate or high dose statin therapy. * Patients 75 years or YOUNGER should receive HIGH intensity statin dose unless contraindicated. You will be required to document reason for non-treatment if statin daily dose does not meet guidelines. HIGH DOSE STATIN THERAPY DAILY Atorvastatin > than or = to 40 mg Rosuvastatin > than or = to 20 mg Amlodipine + Atorvastatin > than or = to 2.5/40 mg Ezetimibe + Simvastatin 10/80 mg Simvastatin 80mg Discharge Plan Admission Admit Date/Time: 02/07/24 18:04 Primary Reason for Your Visit: Dyspnea, left arm paresthesias Attending Provider: Medardo Jiménez Primary Care Provider: Leobardo Pollard Consulting Providers: Ayesha Bueno Instructions Additional Instructions / Restrictions: Your practice management consultant office will call you to schedule your stress test, if you do not hear from them by Friday of this week, contact them Discharge Orders/Prescriptions Prescriptions: New pravastatin 20 mg tablet 20 mg PO DAILY Qty: 30 1RF ezetimibe [Zetia] 10 mg tablet 10 mg PO DAILY Qty: 30 1RF Continued cholecalciferol (vitamin D3) 25 mcg (1,000 unit) tablet 1,000 unit PO DAILY multivitamin Tablet 1 tab PO DAILY ascorbic acid (vitamin C) 1,000 mg tablet 1 g PO DAILY calcium carbonate 600 mg calcium (1,500 mg) tablet 600 mg PO DAILY folic acid 400 mcg tablet 0.4 mg PO DAILY Referrals / Follow Up: Leobardo Pollard MD [Primary Care Provider] - See Referral Note (At your neck scheduled office visit) Disposition Disposition (needs filled in before D/C Order can be placed): Home, Self Care Charges/Coding Visit Charges Inpatient E&M: 73776 Disch Hosp >30min
== END 2024-02-08 10:44 | disposition home or self-care (01) ==
LOC: ED 18:43 → PCU 18:50
PROVIDERS: Admitting Provider Family Medicine; Emergency Provider Emergency Medicine; PCP Internal Medicine; Visit Provider Internal Medicine
DX: I25.118 Atherosclerotic heart disease of native coronary artery with other forms of angina pectoris (principal); I49.5 Sick sinus syndrome; Z87.891 Personal history of nicotine dependence; E78.00 Pure hypercholesterolemia, unspecified; K21.9 Gastro-esophageal reflux disease without esophagitis; Z95.0 Presence of cardiac pacemaker; G47.33 Obstructive sleep apnea (adult) (pediatric); Z79.899 Other long term (current) drug therapy
CPT/HCPCS: 36415; 71045; 80048; 80053; 80061; 83735; 84484; 85025; 93005; 94668; 99221; 99252; 99285; A4216; G0378; G0463

== ENCOUNTER → 2024-02-11 | Outpatient (CLI) | payer MEDICARE, OTHER, SELFPAY ==
--- NOTE | 2024-02-12 14:35 | STRESSREP_ITS ---
Stress Test Report Date: 02/11/24 Procedure: Exercise tolerance test/imaging study Indications: [Nonsustained V. tach] Consent: Per the patient Procedure: The patient exercised on a [place] protocol for 11 minutes and 10 seconds achieving a peak heart rate of 120 bpm (81% predicted maximal heart rate) with a peak blood pressure 160/80 mmHg and a peak MET capacity of 13.4 METs. The baseline ECG demonstrated normal sinus rhythm. The peak exercise ECG demonstrated normal sinus rhythm with occasional PACs and PVCs with 1 3 beat run of nonsustained V. tach. No significant ischemic changes. EKG during recovery revealed no significant ischemic changes [There were no cardiac dysrhythmias pretest, during exercise, or recovery]. The functional capacity was considered excellent for age. Patient had 4/10 chest pain at peak exercise. The examination was discontinued secondary to shortness of breath, chest pressure. Impression: 1. Inability to reach 85% of maximal age-predicted heart rate decreases the sensitivity of this test 2. Stress test is negative for exercise-induced EKG changes of ischemia 3. The test test is positive for exercise-induced chest pain 4. Functional capacity is excellent for age 5. Nuclear images pending Myocardial perfusion imaging study: Technique: The patient was injected with 13.1 mCi of technetium 99m Cardiolite and subsequently rest SPECT Cardiolite nuclear imaging was obtained in the horizontal long, vertical long, and short axis views. The patient exercised on a [place] protocol. Please see above for details. The patient was injected with 41 mCi of technetium 99m Cardiolite and subsequently stress SPECT Cardiolite nuclear imaging was obtained in the horizontal long, vertical long, and short axis views. A gated Cardiolite study at peak stress was obtained. Interpretation: Rest and stress SPECT Cardiolite nuclear imaging status post realignment, normalization, and attenuation correction, demonstrates no evidence of significant ischemia or infarction. The gated Cardiolite study demonstrates no significant regional wall motion abnormalities. The reported LVEF is greater t aguilar 70%. Impression: 1. There is no evidence of significant ischemia or infarction. 2. The gated Cardiolite study reports an LVEF of greater than 70%. This note was generated with [employer] software. It may contain incorrect words, spelling, and punctuation that were not noted in checking the note before signing.
== END | disposition home or self-care (01) ==
LOC: CVS 07:00
PROVIDERS: PCP Internal Medicine; Referring Provider Nurse Practitioner Family; Visit Provider Nurse Practitioner Family
DX: I47.29 Other ventricular tachycardia (principal); I25.10 Atherosclerotic heart disease of native coronary artery without angina pectoris; R06.02 Shortness of breath; Z95.0 Presence of cardiac pacemaker
CPT/HCPCS: 78452; 93017; A9500; A4216

== ENCOUNTER → 2024-07-28 | Outpatient (CLI) | payer MEDICARE, OTHER, SELFPAY ==
--- NOTE | 2024-07-28 08:44 | CT_ITS ---
STUDY: CT ABDOMEN AND PELVIS WITHOUT CONTRAST REASON FOR EXAM: Male, 73 years old. Hematuria -- no h/o hematuria prior to last night''s event. Dysuria. Frequent urination. RADIATION DOSAGE (If Supplied By Facility): CTDIvol = ( 7.38 ) mGy, DLP = ( 342.84 ) mGycm TECHNIQUE: Transaxial images were obtained from the dome of the diaphragm to the symphysis pubis without oral contrast, and without intravenous contrast. Sagittal and coronal images were reconstructed. Individualized dose optimization techniques were used for this CT. COMPARISON: None. FINDINGS: The visualized lung bases are unremarkable. A dual-chamber pacemaker is seen. No significant coronary artery calcification present. Normal liver. Normal gallbladder and extrahepatic biliary system. Normal spleen. Normal pancreas. Normal bilateral adrenal glands. Normal right kidney. There is a 1.7 cm x 1.1 cm hypodense nodule in the posterior aspect of the left kidney suggestive of a small cyst. Tiny nonobstructive left intrarenal calculus in the lower pole calyx. Normal visualized stomach. Normal small intestine. Normal colon. The appendix is visualized and appears normal. There is scattered atherosclerotic calcification of the abdominal aorta, without a demonstrated aneurysm. Normal inferior vena cava. Normal retroperitoneum. Mild degree of diffuse bladder wall thickening. Prostatic enlargement with indentation at the bladder base. The prostate measures 3.9 cm x 5.6 cm. Central prostatic calcifications are seen. Normal abdominal wall. There are diffuse degenerative changes of the visualized lumbar spine. Mild retrolisthesis of L3 on L4. CT/Abdomen/Pelvis without Cont IMPRESSION: Findings she has a very small cyst in the posterior aspect of the left kidney. Tiny nonobstructive left intrarenal calculus. Mild degree of diffuse bladder wall thickening and prostatic enlargement with indentation of the bladder base. Electronically Signed: David Almanza MD at 9:33 EST ,
== END | disposition home or self-care (01) ==
PROVIDERS: PCP Internal Medicine; Referring Provider Physician Assistant; Visit Provider Physician Assistant
DX: R31.9 Hematuria, unspecified (principal); R30.0 Dysuria
CPT/HCPCS: 74176; 87086

== ENCOUNTER → 2024-09-01 | Outpatient (CLI) | payer MEDICARE, OTHER, SELFPAY ==
--- NOTE | 2024-09-01 16:08 | CT_ITS ---
PROCEDURE: ABDOMEN/PELVIS WITH CONTRAST REASON FOR EXAM: Gross hematuria. Prior hernia repair. TECHNIQUE: Abdomen and pelvis CT with intravenous contrast. No oral contrast. IV CONTRAST: 97 mL of Isovue-300. COMPARISON: Comparison is made with prior study dated July 28, 2024. FINDINGS: Lung bases: Clear Liver: Unremarkable. Gallbladder: Unremarkable. Spleen: Unremarkable. Pancreas: Unremarkable. Adrenals: Unremarkable. Kidneys: Stable 1.4 cm cyst in the posterior lower pole of the left kidney. Tiny punctate calcification in the lower pole of the left kidney. Bladder: Mild degree of bladder wall thickening. Stable enlargement of the prostate with indentation of the bladder base. Central prostatic calcifications. Reproductive Organs: Unremarkable. Bowel: Scattered sigmoid diverticula. Appendix: Normal. Lymph nodes: No suspicious lymph node enlargement. Vasculature: Mild diffuse atherosclerotic calcifications are noted. Peritoneum / Retroperitoneum: No ascites. No free air. Bones: Degenerative changes of the spine. CT/Abdomen/Pelvis WITH Contrast IMPRESSION: Small left renal cyst. Nonobstructive punctate calculus in a lower pole calyx of the left kidney. Prostatic enlargement with indentation of the bladder base. Mild degree of nata dder wall thickening. One or more dose reduction techniques were used (e.g., Automated exposure contr ol, adjustment of the mA and/or kV according to patient size, use of iterative reconstruction technique). Reading Location: [id number]
== END | disposition home or self-care (01) ==
LOC: CT 15:55
PROVIDERS: PCP Internal Medicine; Referring Provider Urology; Visit Provider Urology
DX: R31.0 Gross hematuria (principal)
CPT/HCPCS: 74177

== ENCOUNTER → 2024-10-28 | Outpatient (CLI) | payer MEDICARE, OTHER, SELFPAY ==
[2024-10-28 13:10] LABS: Absolute Lymphocyte Count 1.73 X10^3/uL (0.83-4.51); Absolute Neutrophil Count 1.4 X10^3/uL (2.0-7.7); Basophil# 0.03 X10^3/uL; Basophil% 0.8 % (0-1); Eosinophils% 2.6 % (0-5); Hematocrit 42.9 % (40-54); Hemoglobin 15.1 g/dL (13.0-16.5); Lymphocyte # 1.73 X10^3/ul (0.83-4.51); Lymphocyte % 44.8 % (19-41); Mean Corp Hgb Conc 35.2 g/dL (32-36); Mean Corpuscular Hgb 32.6 pg (27.0-32.0); Mean Corpuscular Volume 92.7 fL (80-94); Mean Platelet Vol. 9.6 fl (6.2-12.0); Monocyte# 0.61 X10^3/uL; Monocyte% 15.8 % (0-10); NRBC Flagged by Analyzer 0 % (0-5); Neutrophil # 1.38 X10^3/uL (2.7-7.7); Neutrophil % 35.7 % (47-70); POSITIVE MORPHOLOGY YES; Platelet Count 145 K/mm3 (150-450); RBC Distribution Width CV 12.8 % (11.6-14.6); RBC Distribution Width SD 43.6 fl (35.1-43.9); Red Blood Count 4.63 M/mm3 (4.6-6.2); White Blood Count 3.9 K/mm3 (4.4-11.0)
[2024-10-28 13:14] LABS: Differential Indicated SCAN CRITERIA MET
[2024-10-28 13:51] LABS: Anion Gap 9 (5-15); BUN 13 mg/dL (4-19); BUN/Creat Ratio 14.4 RATIO (10-20); Calcium,Total 9.1 mg/dL (7.6-11.0); Carbon Dioxide 26.9 mmol/L (21.0-32.0); Chloride 103 mmol/L (98-108); Creatinine, Serum 0.88 mg/dL (0.70-1.20); EST Glomerular Filtration Rate 91 (>60); Glucose 142 mg/dL (70-99); Potassium 4.2 mmol/L (3.3-5.1); Pro- Brain NATRIURETIC PEPTIDE 66 pg/mL (<=900); Sodium Level 139 mmol/L (133-145)
[2024-10-28 14:08] LABS: Reactive Lymphocyte 1+
== END | disposition home or self-care (01) ==
LOC: LAB 12:38
PROVIDERS: PCP Internal Medicine; Referring Provider Nurse Practitioner Family; Visit Provider Nurse Practitioner Family
DX: R42 Dizziness and giddiness (principal); R07.89 Other chest pain; R06.02 Shortness of breath; R53.83 Other fatigue; I25.10 Atherosclerotic heart disease of native coronary artery without angina pectoris
CPT/HCPCS: 36415; 80048; 83880; 85025

== ENCOUNTER → 2024-12-20 | Outpatient (CLI) | payer MEDICARE, OTHER, SELFPAY ==
--- NOTE | 2024-12-20 14:05 | PCM.CR.HP2 ---
CR - History & Physical General Arrival date:: 12/20/24 Arrival time:: 14:05 Date of Referral:: 12/09/24 Date of CR Evaluation:: 12/20/24 Referring Physician: Dr. Youssef Primary Diagnosis: PCI History of Present Cardiac Event Onset Date PTCA or coronary stenting:: Yes (onset 11/30/2024) Vessel: LAD Medications Ambulatory Orders ?Medication ?Instructions ?Recorded multivitamin 1 tab PO DAILY supplement 04/05/21 ascorbic acid (vitamin C) 1,000 mg 1 g PO DAILY supplement 05/01/22 tablet calcium carbonate 600 mg PO DAILY supplement 05/01/22 folic acid 400 mcg tablet 0.4 mg PO DAILY supplement 05/01/22 cholecalciferol (vitamin D3) 25 2,000 unit PO DAILY supplement 05/19/24 mcg (1,000 unit) tablet aspirin 81 mg tablet,delayed 81 mg PO QDAY #90 tabs 12/16/24 release (Adult Aspirin Regimen) clopidogrel 75 mg tablet 75 mg PO QDAY 12/16/24 ezetimibe 10 mg tablet 10 mg PO QDAY 12/16/24 Allergies Allergies atorvastatin Adverse Reaction (Severe, Verified 12/16/24 11:02) Severe myalgias rosuvastatin Adverse Reaction (Severe, Verified 12/16/24 11:02) muscle pain and leg fatigue Sleep Disorder Evaluation Hx of Sleep Apnea: Yes Do you snore loudly (louder than talking or can be heard through closed doors)?: No Do you often feel tired/ fatigued/ sleepy during daytime?: No Has anyone observed you stop breathing during sleep?: No History of Hypertension (for STOP score): No STOP Results: Negative Advanced Directives Advanced Directives Do you have a Healthcare Power of [employer] Supervisor?: Yes Living Will: Yes Advance Directives Information Provided: No Advance Directives on File: No Past Medical History Covid-19 Screening Physicial Symptoms Other Clinical Concerns Exposure Risk Pertinent Comorbidities 65 years or older:: Yes Has a serious heart condition:: Yes Past Medical Illness Medical History Hematuria Anginal equivalent Presence of permanent cardiac pacemaker (~05/23/22) Sick sinus syndrome Sinus bradycardia Idioventricular rhythm Left inguinal hernia Left inguinal hernia Wears glasses Cancer Alcohol use Prostate disease Arthritis High cholesterol Easy bruising Excessive bleeding Back pain Migraine headache Syncope Heartburn Non-smoker History of echocardiogram History of stress test Hx of sinus bradycardia Cardiology follow-up encounter Sleep apnea Degenerative arthritis Left inguinal pain Atherosclerotic heart disease of [place] coronary artery without angina pectoris History of left heart catheterization (LHC) (~03/14/20) Constipation Right groin pain Screening for intestinal cancer Fatigue Asymptomatic peripheral vascular disease Murmur, cardiac Fatigue Chest pain GERD (gastroesophageal reflux disease) Elevated d-dimer Bradycardia Past Surgical History Surgical History Stented coronary artery (11/30/24) History of bilateral cataract extraction S/P placement of cardiac pacemaker History of hernia repair Hx of colonoscopy History of inguinal hernia repair (~2017) History of umbilical hernia repair (~2011) History of colonoscopy (~12/2017) Surgical History: no surgical history Family History Summary Family History Father CAD (coronary artery disease) Leukemia Sister CAD (coronary artery disease) Mother Osteoporosis CVA (cerebral vascular accident) Social History Alcohol Use Alcohol Usage: Yes (rare) Occupation Occupation (List type of work in comments):: Retired Social Environment Status Marital Status: Current Living Arrangements Living Environment:: Spouse Children How many children do you have?: 2 Do any of your children live nearby?: Yes Safety Do you feel safe in your surroundings?: Yes Assistance Do you need any assistance at home?: no Review of Systems Review of Systems Hints Review of Present Symptoms: Reports PVD, Heart Arrhythmia/Irregularities, Appetite - Normal, Appetite - Special Diet and Sleep - Normal; Denies Shortness of Breath at Rest, Shortness of Breath with Exertion, Operative Discomfort, Angina, Wound Healing, Dizziness/Lightheadedness, Fatigue or Sexual Changes Pain Is Patient Pain Free?: Yes Risk Factor Assessment Chief Complaint Chief Complaint: PCI Vital Signs Pulse Ox: 99 Blood Pressure: 130/62 Pulse Pulse Rate: 60 Pulse Rhythm: Regular Obesity Height: 5 ft 7 in Weight:: 166 lb Weight in Pounds: 166.0 lbs Body Mass Index (BMI): 25.9 Physical Inactivity Physical Inactivity: Reg Exercise 30 min/day Risk Stratification Risk Guidelines: Lowest Risk: Risk Factor for Smoking, Moderate Risk: Risk Factor for Diabetes, Risk Factor for Obesity, Risk Factor for Hypertension, Risk Factor for Sedentary Lifestyle and Risk Factor for Depression and Highest Risk: Risk Factor for Dyslipidemia For Smoking Smoking Risk Guidelines For Dyslipidemia Dyslipidemia Risk Guidelines For Diabetes Mellitus Diabetes Risk Guidelines For Obesity/Overweight Obesity/Overweight Risk Guidelines For Hypertension Hypertension Risk Guidelines For Sedentary Lifestyle Sedentary Lifestyle Risk Guidelines For Depression Depression Risk Guidelines Family History Family History Father CAD (coronary artery disease) Leukemia Sister CAD (coronary artery disease) Mother Osteoporosis CVA (cerebral vascular accident) Motivation Motivation to Participate On a scale of 1 to 10, how prepared are you to commit to attending program?: 8 What do you see as barriers to successfully being able to complete the program?: nothing What do you see as the benefits of succesfully completing the program? In other words, what do you hope to get out of participating in the program?: heart being on a monitor Are there issues you are dealing with that will interfere with completing the program?: no Do you have a spouse or signficant other, family or friends who will help support you to complete the program?: yes
--- NOTE | 2024-12-20 14:12 | CR.ITP_ITS ---
Diagnosis General Information Admitting Diagnosis: PCI Personal Learning Style:: Audio/Visual Barriers to Learning: Cognitive/Learning Impairment, Cultural/Spiritual, Decreased Motivation, Emotional/Anxiety, Hearing Impairment, Language, Low Literacy, Mental Status, No Barriers, Physical Condition/Sensory Deficit and Vision Impairment Stage of change r/t lifestyle modifications:: Contemplation Gave educational material for:: Treating Heart Disease, How The Heart Works, What it means to have Heart Disease, How Coronary Artery Disease is Diagnosed, Heart Procedures, What Heart Medications Do, Risk Factors & Modifications, Living an Active Life, Nutrition, Emotions & Heart Disease, Stress Management & Relaxation and Sleep Disorders & Heart Disease Education/Goals Cardiac Rehabilitation Goals Personal Goals: Initial Assessment: Improve energy level, Improve knowledge of cardiac disease, Improve muscle strength and endurance and Control risk factors (learn risk factor modification) Scale for measuring improvement of personal goals Diagnosis & Disease Process Outcomes/Goals: Pt IDs own risk factors & lifestyle modifications by Session 10, Verbalizes symptoms of angina & response by session 3., Pt independently manages and Other Additional Outcomes/Goals: Plan/Interventions: Assist Pt to ID & engage in lifestyle modification to reduce CVD risk, Instruct on individual risk factors, Review symptoms of angina & emergency actions, Review secondary diagnosis & identify educational needs. and Other see comment 30 day Reassessments:: Not Met 30 day Reassessments:: Not Met 30 day Reassessments:: Not Met 30 day Reassessments:: Not Met Final Reassessments:: Not Met Safety Referral to Physical Therapy: No Referral to [facility] Case Management: No Fall Risk Assessed:: Yes Assistive Devices:: None Exercise - Initial Assessment Visit Date of Eval: 12/20/24 (initial eval ) Mets: Pre-: >3 METS for 30 minutes by discharge, >5 METS for 30 minutes by discharge, >7 METS for 30 minutes by discharge and Unable to meet goal due to: (see comment below) Physician Prescribed Exercise Modalities: Treadmill, Rower, Schwinn Airdyne AD-7, SciFit Stepper, SciFit Pro- II Ergometer and SciFit Lateral Fire Protection Engineering Technician Frequency: 3x/week for 12 weeks [36 sessions] Intensity: 60-80% of age predicted maximum heart rate reserve Duration: 30 - 45 minutes Current METSs:: 3 Target Heart Rate:: 95-110 Resting Blood Pressure: 130/62 EKG Type: atrial paced w/ prolonged AV conduction Outcomes & Goals Goals:: Verbalizes understanding of THR, RPE & goal METS by session 6, Documents in home exercise log/reports 30 min aerobic 5 day/wk by DC, Demonstrates accurate pulse taking by DC and Other additional outcome/goals: see below Intervention & Plan Exercise Program Goals: Instruct on personal THR & RPE, Instruct on MET level & personal MET goal, Show patient to take own pulse /validate performance until accurate, Instruct on home exercise and Other additional plan/int Physical Activity Home Exercise Physical Activity - Home Exercise: Safe Exercise, Warm-up, Self-monitoring, Cool-Down, Home Exercise > 30 min Daily and Sitting Time <3 hours/daily Outcomes & Goals Outcomes/Goals: Demonstrates correct Warm-up/exercise Cool-Down (S3) if = 2.5 METs, Verbalizes symptoms of exercise intolerance by Session 3 (S3), Demonstrate safe equipment use (S3) & follows exercise prescrition (6) and Other: See below Intervention & Plan Plan/Intervention: Instruct warm-up & cool-down if exercising at > 2 METs, Instruct on symptoms of exercise intolerance & actions to take, Instruct & monitor on saf, Assess intial functional capacity & safety risk and Other See below Nutrition - Initial Assessment Program Goals Nutrition Program Goals Patient has diagnosis of Hyperlipidemia (ICD E78)?: Yes Visit Date of Eval: 12/20/24 (initial eval ) Cholesterol/Lipids (Other Core Measures) Determine presence & major risk factors that modify LDL goal: Hypertension or hypertensive medication, Low HDL cholesterol <40 mg/dL*, Family history of premature CHD in Male < 55 years: female <65 yearsFa and Age men > 45 years; women >/= 55 years Outcomes/Goals: Pt IDs own risk factors & lifestyle modifications by Session 10, Verbalizes symptoms of angina & response by session 3., Pt independently manages and Other Additional Outcomes/Goals: Intervention/Plan: Advocate for lipid panel cholesterol medication if applicable, Instruct on personal lipid levels & lipid goals/NCEP guidelines, Instruct on cholesterol and Other additional plan/int Referral to dietitian:: No Diabetes (Other Core Measures) Diabetes Type: Not Applicable Weight Mgt (Other Care) Height: 5 ft 7 in Weight:: 166 lb BMI: 25.9 Diagnosis Overweight/Obesity BMI> 30% ICD-10 E66: No Diagnosis High BMI/Morbid Obesity BMI> 35% ICD-10 Z68: No Outcomes/Goals: Pt sets, maintains & shows weight loss goal & trend during rehab and Other additional outcomes/goals Intervention/Plan: Instruct on ideal BMI & set weight loss goal w/patient, Assist pt to ID & incorporate diet changes for weight loss by S9, Refer to Structured Weight Loss program as appropriate, Encourage goal of using 250- 300dcal per session for weight loss and Other additional plan/interventions Healthy Eating Habits Will attend diet classes:: Yes Outcomes/Goals:: Consume diet rich in vegs,fruits,whole grain/high fiber,fish,lean meat, Limit sat/trans fats,cholesterol & added salts & sugars and Other additional outcome/goals: Intervention/Plan:: Assess current eating habits and Other Additional plan/interventions Education Gave educational materials for:: Signs & symptoms of hypoglycemia, Signs & sy mptoms of hyperglycemia, Relate diabetes to coronary artery disease and Healthy eating Core - Initial Assessment Visit Date of Eval: 12/20/24 (initial eval ) Medication Compliance Preventative Medication(s):: Aspirin and Clopidogrel/P2Y12 inhibit H/O mental health issues: depression, anxiety, or addiction?: No Doesn?t believe in the benefits of treatment?: No Believes medications are unnecessary or harmful?: No Has a concern about medication side effects?: No Expresses concern over the cost of medications?: No Outcomes/Goals: Verbalizes medications,desired effect & common side effects @ DC, Pt self-reports following medication regimen, Keeps card in wallet w/medications listed by DC and Other additional outcome/goals: Interventions/plans: Instruct on medication effects & side effects, Review medication list w/patient every two weeks, Instruct importance of taking meds as ordered & assist problem solving and Other additional Tobacco Use Tobacco Use: Non-smoker Hypertension Resting Blood Pressure:: 130/62 [place] [employer] Hypertension Guidelines Outcomes/Goals: Able to verbalize/achieve optimal blood pressure <130/80, Incorporates diet changes & exercise for blood pressure control by DC and Other additional outcomes/goals Interventions/plan: Instruct on optimal blood pressure, hypertension & medications, Instruct on effects of sodium, alcohol, stress, exercise &hypertension and Other additional plan/interventions Tobacco Cessation Referral Smoking Cessation Referral:: No Individual Education/Counseling:: No Education Schedule Given:: Yes Psychosocial - Initial Assess VIsit Date of Eval: 12/20/24 (initial eval ) History of previous Mental disease:: No Target Goals Target Goals Psychosocial Test Tool Used:: PHQ-9 Questionnaire phq-9 Severity See PHQ-9 Score: 1 Referral to Behavioral Health PS - Interventions: Yes: Attend Stress Management Classes Outcomes/Goals: See list Psychosocial Outcomes/Goals:: ID's personal stressors & 2 strategies to manage stress by discharge and Other Additional outcome/goals: Intervention/Plan: See List Interventions/Plan:: Assess stressors,coping strategies & signs of derpression on admission, Instruct/assist pt to develop coping & personal stress Mgt strategies, Refer to Behavioral Health if appropriate, Refer to Physician if appropriate, Instruct patient to recognize signs & symptoms of depression, Instruct patient to recog and Other additional plan/intervention Patient Health Questionnaire PHQ-9 Screening Initial Assessment: 1. Little interest or pleasure in doing things: Not at all 2. Feeling down, depressed, or hopeless: Not at all 3. Trouble falling or staying asleep, or sleeping too much: Not at all 4. Feeling tired or having little energy: Several days 5. Poor appetite or overeating: Not at all 6. Feeling bad about yourself -- or that you are a failure or have let yourself or your family down: Not at all 7. Trouble concentrating on things, such as reading the newspaper or watching television: Not at all 8. Moving or speaking so slowly that other people could have noticed. Or the opposite - being so fidgety or restless that you have been moving around a lot more than usual: Not at all 9. Thoughts that you would be better off , or of hurting yourself in some way: Not at all How difficult have these problems made it for you to do your work, take care of things at home, or get along with other people?: Not difficult at all Total Score: 1 IKE-[employer] SV Test Statements CAD is a disease of the arteries in the heart: True Examples of risk factors for heart disease: True Angina is chest pain or discomfort: False The benefits of resistance training include: True Eating more meat and dairy products: False Anti-platelet medications such as aspirin are important: True The only effective way to manage stress: False An exercise warm-up slowly increases heart rate: I Don't Know Prepared, processed foods usually have high sodium: True Depression is common after a heart attack: I Don't Know The statin medications lower cholesterol: True To control blood pressure, lower the amount of sodium: True If someone gets chest discomfort during walking: False Transfats are partially hydrogenated vegetable oils: True Sleep apnea that is not treated increases the risk: True To control cholesterol, one should become a vegetarian: I Don't Know Someone knows if he/she is exercising at the right level: I Don't Know Diabetes cannot be prevented with exercise & health eating: False Stress is a large risk for heart attack: True A diet that can help lower blood pressure is rich in: True Total Score Total Correct Responses: 13 Self-Efficacy 6-Item Scale Initial Assessment: We would like to know how confident you are in doing certain activities. Please select your confidence level for: Fatigue Select Number: 9 Physical Discomfort or Pain Select Number: 9 Emotional Distress Select Number: 9 Other Symptoms or Health Problems Select Number: 8 Different Tasks and Activities Select Number: 10 Medication Select Number: 10 Total Score:: 9 Nutrition Survey Nutrition Survey Instructions Scoring Instructions Nutrition Survey Initial: Have you lost >10 lbs over the past 2 months without trying?: No Are you following a special diet at home for diabetes, low fat, or low salt?: Yes Are you interested in meeting with a dietitian for help understanding your diet?: No Do you eat less than 3 meals a day?: No Do you eat fatty meats (good, sausage, ribs, etc), fried foods, desserts, large amounts of salad dressings, margarine, butter, or cheese most days?: Yes Do you have food allergies? [Enter types in comment field]: No Do you eat in restaurants more than 3 times a week?: No Do you season food with salt, seasoning salt, or garlic salt?: Yes Do you used canned, boxed, frozen meals, or soups, seasoning packets?: No Total Score:: 3 Exercise - 30-day Assessment Physician Prescribed Exercise Modalities: Treadmill, Rower, Pauloinn Airdyne AD-7, SciFit Stepper, SciFit Pro- II Ergometer and SciFit Lateral Fire Protection [employer] Technician Exercise - 60-day Assessment Physician Prescribed Exercise Modalities: Treadmill, Rower, Schwinn Airdyne AD-7, SciFit Stepper, SciFit Pro- II Ergometer and SciFit Lateral [employer] Protection [employer] Technician Exercise - 90-day Assessment Physician Prescribed Exercise Modalities: Treadmill, Rower, Schwinn Airdyne AD-7, SciFit Stepper, SciFit Pro- II Ergometer and SciFit Lateral [place] Exercise - Final/Discharge Physician Prescribed Exercise Modalities: Treadmill, GarrickerJose Airdyne AD-7, SciFit Stepper, SciFit Pro- II Ergometer and SciFit Lateral [place] Frequency: 3x/week for 12 weeks [36 sessions] Intensity: 60-80% of age predicted maximum heart rate reserve Current METSs:: 3 Target Heart Rate:: 95-110 Nutrition - 30-Day Assessment Weight Mgt (Other Care) Height: 5 ft 7 in Weight:: 166 lb BMI: 25.9 Nutrition - 60-Day Assessment Weight Mgt (Other Care) Height: 5 ft 7 in Weight:: 166 lb BMI: 25.9 Core - Final Assessment Hypertension Resting Blood Pressure:: 130/62 [place] [employer] Hypertension Guidelines Core - 60-Day Assessment Hypertension Resting Blood Pressure:: 130/62 [place] [employer] Hypertension Guidelines Psychosocial - 30-Day Assess Target Goals Target Goals Referral to Behavioral Health PS - Interventions: Yes: Attend Stress Management Classes Psychosocial - 60-Day Assess Target Goals Target Goals Referral to Behavioral Health PS - Interventions: Yes: Attend Stress Management Classes Psychosocial - 90-Day Assess Target Goals Target Goals Referral to Behavioral Health PS - Interventions: Yes: Attend Stress Management Classes Psychosocial - Final Assessmen Target Goals Target Goals Psychosocial Test phq-9 Severity See PHQ-9 Score: 1 Referral to Behavioral Health PS - Interventions: Yes: Attend Stress Management Classes Nutrition - 90-Day Assessment Weight Mgt (Other Care) Height: 5 ft 7 in Weight:: 166 lb BMI: 25.9 Nutrition - Final Assessment Program Goals Patient has diagnosis of Hyperlipidemia (ICD E78)?: Yes Weight Mgt (Other Care) Height: 5 ft 7 in Weight:: 166 lb BMI: 25.9
[2024-12-20 14:26] VITALS: BP 130/62; PULSE 60; O2SAT 99
[2024-12-20 15:06] VITALS: BP 130/62; BMI 25.9
[2024-12-20 15:07] VITALS: BMI 25.9
== END | disposition home or self-care (01) ==
PROVIDERS: PCP Internal Medicine
DX: Z95.5 Presence of coronary angioplasty implant and graft (principal)

== ENCOUNTER 2025-01-10 10:15 | Outpatient (RCR) | payer MEDICARE, OTHER, SELFPAY ==
[2024-12-20 15:06] VITALS: BMI 25.9
== END 2025-01-10 23:59 ==
LOC: CR 10:15
PROVIDERS: PCP Internal Medicine
DX: Z95.5 Presence of coronary angioplasty implant and graft (principal)
CPT/HCPCS: 93798

== ENCOUNTER 2025-01-28 20:52 | Emergency (ER) | payer MEDICARE, OTHER, SELFPAY ==
[2025-01-18 08:01] VITALS: BMI 25.7
[2025-01-28 20:54] VITALS: BP 117/60; PULSE 60; RESP 14; TEMP 36.7; O2SAT 98; BMI 25.9
[2025-01-28 22:32] LABS: Hematocrit 41.9 % (40-54); Hemoglobin 14.7 g/dL (13.0-16.5); Immature Granulocytes Count 0.020 X10^3/uL (0.0-0.0); Mean Corp Hgb Conc 35.1 g/dL (32-36); Mean Corpuscular Volume 91.3 fL (80-94); Mean Platelet Vol. 9.6 fl (6.2-12.0); NRBC Flagged by Analyzer 0 % (0-5); Platelet Count 159 K/mm3 (150-450); RBC Distribution Width CV 12.8 % (11.6-14.6); RBC Distribution Width SD 42.5 fl (35.1-43.9); Red Blood Count 4.59 M/mm3 (4.6-6.2); White Blood Count 5.1 K/mm3 (4.4-11.0)
--- NOTE | 2025-01-28 22:32 | RAD_ITS ---
PROCEDURE: CHEST PA AND LATERAL 01/28/2025 REASON FOR EXAM: CHEST PAIN TECHNIQUE: CHEST PA AND LATERAL COMPARISON: 02/07/2024 FINDINGS: Normal heart size. Status post coronary stenting. Unremarkable cardiac device. Well inflated lungs. No consolidation, effusion, or pneumothorax. RAD/Chest PA and Lateral IMPRESSION: No acute findings Reading Location: [facility]-
[2025-01-28 22:44] VITALS: O2SAT 100
[2025-01-28 22:54] VITALS: BP 142/73; PULSE 60; RESP 19; O2SAT 99
[2025-01-28 23:09] LABS: Anion Gap 10 (5-15); BUN 14 mg/dL (4-19); BUN/Creat Ratio 18.2 RATIO (10-20); Calcium,Total 9.3 mg/dL (7.6-11.0); Carbon Dioxide 25.8 mmol/L (21.0-32.0); Chloride 103 mmol/L (98-108); Estimated Creatinine Clearance 76.89 ml/min (50-250); Glucose 139 mg/dL (70-99); Potassium 4.4 mmol/L (3.3-5.1); Troponin T High Sensitivity 9 ng/L (<=22)
--- NOTE | 2025-01-28 23:32 | EX.ED.GENINJ ---
HPI History of Present Illness Chief Complaint: Other, Pain/Inj Narrative Narrative: Chief complaint and HPI: Neck pain. 74-year-old male with past medical history of sick sinus syndrome with permanent pacemaker, CAD, status post PCI in November on Plavix and aspirin. Presents for evaluation of neck pain. Patient states since this morning he has been having intermittent neck pain that radiates into his shoulders. States it is sharp. States he was leaving cardiac rehab when he developed a brief episode of lightheadedness, palpitations, shortness of breath while walking to his car. He states he has history of this in the past which is not abnormal for him. States he was concerned it may be his heart which is why he presents for evaluation. Patient is currently asymptomatic. He denies any fever, chills, URI symptoms, shortness of breath, cough, chest pain abdominal pain, nausea, vomiting. Review of systems: See HPI Medications: As listed on the chart Allergies: As listed on the chart PFSH: Per chart Vital signs: As listed on the chart. Reviewed. Physical exam: Gen: A&O x3, NAD Head: Normocephalic, atraumatic Eyes: No sclera icterus, conjunctiva clear ENT: Moist mucous membranes Neck: Trachea midline, No JVD CV: RRR, no murmurs, no peripheral edema, + pacemaker Resp: Lungs CTA BL, no w/r/c GI: Abd soft, non-distended, non-tender, no r/r/g Musc: Full ROM, no deformity, superior portion of the trapezius muscle is tender to palpation on the right-recreates his pain, radial pulses +2 bilaterally Skin: Warm, dry Neuro: Alert, oriented, grossly intact, sensation intact Psych: Cooperative, appropriate mood and affect [facility] Medical History Hematuria Anginal equivalent Presence of permanent cardiac pacemaker (~05/23/22) Sick sinus syndrome Sinus bradycardia Idioventricular rhythm Left inguinal hernia Left inguinal hernia Wears glasses Cancer Alcohol use Prostate disease Arthritis High cholesterol Easy bruising Excessive bleeding Back pain Migraine headache Syncope Heartburn Non-smoker History of echocardiogram History of stress test Hx of sinus bradycardia Cardiology follow-up encounter Sleep apnea Degenerative arthritis Left inguinal pain Atherosclerotic heart disease of [place] coronary artery without angina pectoris History of left heart catheterization (LHC) (~03/14/20) Constipation Right groin pain Screening for intestinal cancer Fatigue Asymptomatic peripheral vascular disease Murmur, cardiac Fatigue Chest pain GERD (gastroesophageal reflux disease) Elevated d-dimer Bradycardia Home Medications ?Medication ?Instructions ?Recorded ?Last Taken ?Type multivitamin 1 tab PO DAILY supplement 04/05/21 Unknown History ascorbic acid (vitamin C) 1,000 mg 1 g PO DAILY supplement 05/01/22 Unknown History tablet calcium carbonate 600 mg PO DAILY supplement 05/01/22 Unknown History folic acid 400 mcg tablet 0.4 mg PO DAILY supplement 05/01/22 Unknown History cholecalciferol (vitamin D3) 25 2,000 unit PO DAILY supplement 05/19/24 Unknown History mcg (1,000 unit) tablet aspirin 81 mg tablet,delayed 81 mg PO QDAY #90 tabs 12/16/24 Unknown Rx release (Adult Aspirin Regimen) clopidogrel 75 mg tablet 75 mg PO QDAY 12/16/24 Unknown History ezetimibe 10 mg tablet 10 mg PO QDAY 12/16/24 Unknown History Allergy/AdvReac Type Severity Reaction Status Date / Time atorvastatin AdvReac Severe Severe Verified 01/28/25 20:54 myalgias rosuvastatin AdvReac Severe muscle Verified 01/28/25 20:54 pain and leg fatigue Family History Father CAD (coronary artery disease) Leukemia Sister CAD (coronary artery disease) Mother Osteoporosis CVA (cerebral vascular accident) Surgical History Stented coronary artery (11/30/24) History of bilateral cataract extraction S/P placement of cardiac pacemaker History of hernia repair Hx of colonoscopy History of inguinal hernia repair (~2017) History of umbilical hernia repair (~2011) History of colonoscopy (~12/2017) Social History Smoking Status: Former smoker how long ago did patient quit smokin + years ago alcohol intake: current alcohol intake frequency: 0-2 drinks per day Alcohol type: wine substance use type: does not use caffeine: Yes Type: coffee Number of servings: 3 EXAM Physical Exam Const Vital Signs: 01/28/25 20:54 01/28/25 22:42 01/28/25 22:44 Temperature 98.0 F Temperature Source Oral Pulse Rate 60 Respiratory Rate 14 Respiratory Effort Normal Non-Labored Respiratory Pattern Normal Blood Pressure 117/60 Blood Pressure Mean 79 Pulse Ox 98 100 Oxygen Delivery Method Room Air Room Air 01/28/25 22:54 01/29/25 00:00 Temperature Temperature Source Pulse Rate 60 60 Respiratory Rate 19 H 16 Respiratory Effort Respiratory Pattern Blood Pressure 142/73 H 156/82 H Blood Pressure Mean 96 106 Pulse Ox 99 99 Oxygen Delivery Method Room Air Room Air MDM MDM MDM Narrative Medical decision making narrative: 74-year-old male with past medical history of sick sinus syndrome with permanent pacemaker, CAD, status post PCI in November on Plavix and aspirin presents for evaluation of intermittent neck pain and a brief episode of lightheadedness, palpitations, shortness of breath. Currently asymptomatic. Was concerned for his heart which is why he presented. 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 Has been taking all of his medication. On chart review, and unable to find the records for his cardiac catheterization. Differential diagnosis includes but is not limited to myofascial spasm, electrolyte abnormality, dehydration, JESUSITA, arrhythmia, PE, suspect less likely ACS as patient had no chest pain and just recently had a cardiac catheterization. Patient currently asymptomatic therefore no treatment ordered. He had protocol labs ordered in triage which I agree with. I did add on a D-dimer and will interrogate his pacemaker. EKG and chest x-ray reviewed see below. CBC unremarkable without leukocytosis or anemia. BMP unremarkable. Troponin unremarkable x 2. D-dimer unremarkable. Pacemaker interrogation without any cardiac events. On reevaluation, patient is still asymptomatic. I suspect his neck pain is secondary to a myofascial spasm. Recommended Tylenol, rest, heating pad as needed. Follow-up with primary care physician. No clear etiology for his episode of lightheadedness, palpitations, shortness of breath. States he has a history of this in the past. Recommend following up with his PCP. Low suspicion for ACS as patient has had an unremarkable cardiac workup and just recently had a cardiac catheterization in November. He has been taking all of his medication. Him and his are updated of all the results and the plan. They confirmed understand the plan. Return precautions explained. Patient stable to discharge home. EKG: Interpreted by me/EM physician: EKG shows atrial paced rhythm with prolonged AV conduction. Heart rate 60. No acute ischemic changes Diagnostic: Interpreted by me/EM physician: Chest x-ray without pneumonia, effusion, cardiomegaly, pneumothorax. Radiology in agreement. Impression: 1. Episodic neck pain, suspect myofascial spasm 2. Brief episode of lightheadedness, palpitations, shortness of breath-unclear etiology Lab Data Labs: Laboratory Results - last 24 hr 01/28/25 01/28/25 22:24 23:30 WBC 5.1 RBC 4.59 L Hgb 14.7 Hct 41.9 MCV 91.3 MCH 32.0 MCHC 35.1 RDW Std Deviation 42.5 RDW Coeff of Swapnil 12.8 Plt Count 159 MPV 9.6 Immature Gran % (Auto) 0.400 Neut % (Auto) 62.0 Lymph % (Auto) 22.5 [place] % (Auto) 11.2 H Eos % (Auto) 3.5 Baso % (Auto) 0.4 Absolute Neuts (auto) 3.2 Absolute Lymphs (auto) 1.15 Nucleated RBC % 0 D-Dimer Quant (PE/DVT) 0.35 Sodium 139 Potassium 4.4 Chloride 103 Carbon Dioxide 25.8 Anion Gap 10 BUN 14 Creatinine 0.78 Estim Creat Clear Calc 76.89 Est GFR (MDRD) Non-Af 94 BUN/Creatinine Ratio 18.2 Glucose 139 H Calcium 9.3 Troponin T High Sens 9 Troponin T Hi Sens 2 Hr 12 Radiography Diagnostic Testing: Clinical Impression(s) from Imaging Studies Chest X-Ray 01/28/25 22:32 IMPRESSION: No acute findings Reading Location: [place] [id number] Discharge Plan Triage Chief Complaint: Other, Pain/Inj Other Complaint: General Illness ED Provider: Carlito Anderson Dx/Rx/DC Orders Clinical Impression: Neck pain Instructions: ED Neck Pain Prescriptions: No Action cholecalciferol (vitamin D3) 25 mcg (1,000 unit) tablet 2,000 unit PO DAILY multivitamin Tablet 1 tab PO DAILY ascorbic acid (vitamin C) 1,000 mg tablet 1 g PO DAILY calcium carbonate 600 mg calcium (1,500 mg) tablet 600 mg PO DAILY folic acid 400 mcg tablet 0.4 mg PO DAILY ezetimibe 10 mg tablet 10 mg PO QDAY Rx Instructions: Hasn't started yet. Waiting for side effects from rosuvastatin to resolve aspirin [Adult Aspirin Regimen] 81 mg tablet,delayed release (DR/EC) 81 mg PO QDAY Qty: 90 3RF clopidogrel 75 mg tablet 75 mg PO QDAY Primary Care Provider: Leobardo Pollard Referrals: Leobardo Pollard MD [Primary Care Provider] - 3-5 Days Activity Restrictions/Additional Instructions: I suspect your neck pain is secondary to a muscle spasm. Recommend Tylenol, rest, heating pad as needed. Follow-up with your primary care physician. Return back to the ED if symptoms change or worsen. Print Language: Romansh Disposition Disposition: Home, Self Care
--- OUTSIDE RECORDS SUMMARY | 2025-01-28 23:49 | XMS RPT_ITS | CCD ---
Author Organization [facility] Care Team Providers Care Human Geography Instructor Name Role Phone Alden Albarran MD Unavailable Germán Pablo Unavailable Unavailable Leobardo Pollard MD Primary Care Provider Alden Albarran Unavailable Dr. Leobardo Pollard Primary Care Provider Dr. Leobardo Pollard Referring Provider HELIO Trivedi Attending Provider Leobardo Pollard MD Primary Care Provider Alden Albarran Unavailable Dr. Leobardo Pollard Primary Care Provider Dr. Leobardo Pollard Referring Provider Velia Zambrano Attending Provider Unavailable Dr. Alden Albarran Attending Provider Dr. Alden Albarran Referring Provider Dr. Alden Albarran Other Provider Alden Albarran Unavailable ALDEN ALBARRAN Referring Unavailable LEOBARDO POLLADR Primary Care Unavailable AMANDA LOPEZ Attending Unavailable LEOBARDO POLLARD Primary Care Unavailable GREGORY WASSERMAN Attending Unavailable LEOBARDO POLLARD Primary Care Unavailable AMANDA LOPEZ Admitting Unavailable AMANDA LOPEZ Attending Unavailable Dr. Leobardo Pollard Primary Care Provider Dr. Leobardo Pollard Referring Provider Dr. Alden Albarran Attending Provider Dr. Alden Albarran Referring Provider Deion, Dr. Ruano Other Provider Nishi Soto Attending Provider Unavailable Deion, Dr. Ruano Admit Provider [phone] Leobardo Pollard MD Primary Care Provider Deion, Alden F Unavailable Atul, Dr. Booth Primary Care Provider Dr. Goran Ariza Attending Provider [phone] Annita, Dr. Zimmer Referring Provider [phone] LEOBARDO POLLARD Primary Care Unavailable JACOB BENJAMIN Referring Unavailable Atul, Dr. Booth Primary Care Provider Dr. Goran Ariza Attending Provider [phone] Annita, Dr. Zimmer Referring Provider [phone] Leobardo Pollard MD Primary Care Provider Deion GRIGGS, Alden F Unavailable Monica BATT PACKER.Kathie SCOTT Unavailable Leobardo Pollard MD Primary Care Provider KATHIE MORENO Attending Unavailable ATUL, LEOBARDO Hernandez Primary Care Unavailable POLLARDLEOBARDO SANTOS Referring Unavailable POLLARD, LEOBARDO Hernandez Primary Care Unavailable LEOBARDO POLLARD Attending Unavailable ATUL, LEOBARDO Hernandez Primary Care Unavailable LEOBARDO POLLARD Referring Unavailable POLLARD, LEOBARDO Hernandez Primary Care Unavailable ATUL, LEOBARDO Hernandez Attending Unavailable ATUL, LEOBARDO Hernandez Primary Care Unavailable POLLARD, LEOBARDO Hernandez Attending Unavailable POLLARD, LEOBARDO Hernandez Primary Care Unavailable KATHIE MORENO Referring Unavailable POLLARD, LEOBARDO Hernandez Primary Care Unavailable KATHIE MORENO Referring Unavailable LEOBARDO POLLARD Primary Care Unavailable Dr. Leobardo Pollard MD Primary Care Provider Nikhil GRIGGS, Dr. Salvador Harley Attending Provider Nikhil GRIGGS, Dr. Salvador Harley Referring Provider Annita GRIGGS, Dr. Zimmer Attending Provider Roof LOGGING CREW SUPERVISOR-C, Fredy H Attending Provider Roof LOGGING CREW SUPERVISOR-C, Fredy Hernandez Referring Provider Atul GRIGGS, Dr. Booth Referring Provider Nishi Soto Attending Provider Unavailable DIONNA GREER Attending Provider [phone] DIONNA GREER Referring Provider [phone] SATHYA HORTON Attending Unavailable LEOBARDO POLLARD Referring Unavailable LEOBARDO POLLARD Primary Care Unavailable LEOBARDO POLLARD Primary Care Unavailable MOODISPAWALDEN Referring Unavailable MOODISPAWALDEN Attending Unavailable MOODALDEN MORAN Referring Unavailable MOODISPAW, ALDEN Sorensen Attending Unavailable LEOBARDO POLLARD Primary Care Unavailable MOODALDEN MORAN Referring Unavailable LALO YOUSSEF Attending Unavailable LALO YOUSSEF Admitting Unavailable Atul GRIGGS, Dr. Booth Primary Care Provider Annita GRIGGS, Dr. Zimmer Referring Provider [phone] Atul GRIGGS, Dr. Booth Referring Provider Salvador Tejeda Referring Unavailable Salvador Tejeda Attending Unavailable Leobardo Pollard Primary Care Unavailable Goran Ariza Attending Unavailable Goran Ariza Referring Unavailable Leobardo Pollard Primary Care Unavailable Leobardo Pollard Referring Unavailable Roof LOGGING CREW SUPERVISOR, Fredy H Attending Unavailable Leobardo Pollard Primary Care Unavailable Leobardo Pollard Referring Unavailable Ernie Dorado Attending Unavailable Leobardo Pollard Primary Care Unavailable Roof LOGGING CREW SUPERVISOR, Fredy Hernandez Attending Unavailable Leobardo Pollard Primary Care Unavailable Roof LOGGING CREW SUPERVISOR, Fredy H Referring Unavailable Ernie Dorado Referring Unavailable Ernie Dorado Attending Unavailable Leobardo Pollard Primary Care Unavailable White, Ayesha L Consulting Unavailable White, Ayesha L Admitting Unavailable Tereletsky, Medardo Attending Unavailable Pollard, Leobardo Primary Care Unavailable Pollard, Leobardo Primary Care Unavailable VIVEK, MAR Referring Unavailable VIVEK, MAR Attending Unavailable Pollard, Leobardo Primary Care Unavailable Annita, Millington Attending Unavailable Pollard, Leobardo Primary Care Unavailable VIVEK, MAR Referring Unavailable VIVEK, MAR Attending Unavailable Pollard, Leobardo Primary Care Unavailable VIVEK, MAR Referring Unavailable VIVEK, MAR Attending Unavailable Pollard, Leobardo Primary Care Unavailable Annita, Goran Attending Unavailable Annita, Millington Attending Unavailable Annita, Millington Referring Unavailable Pollard, Leobardo Primary Care Unavailable Roof LOGGING CREW SUPERVISOR, Fredy H Referring Unavailable Nagajothi, Nagapradee Attending Unavailabl e Pollard, Leobardo Primary Care Unavailable Nagajothi, Nagapradee Attending Unavailabl e Pollard, Leobardo Primary Care Unavailable Roof LOGGING CREW SUPERVISOR, Fredy H Consulting Unavailable Roof LOGGING CREW SUPERVISOR, Fredy H Referring Unavailable White, Ayesha L Attending Unavailable Pollard, Leobardo Primary Care Unavailable White, Ayesha L Consulting Unavailable White, Ayesha L Admitting Unavailable Pollard, Leobardo Primary Care Unavailable Tereletsky, Medardo Attending Unavailable Tereletsky, Medardo Consulting Unavailable Annita, Millington Referring Unavailable Annita, Goran Attending Unavailable Pollard, Leobardo Primary Care Unavailable Roof LOGGING CREW SUPERVISOR, Fredy H Attending Unavailable Pollard, Leobardo Referring Unavailable Pollard, Leobardo Primary Care Unavailable Annita, Goran Attending Unavailable Annita, Milling[place] Referring Unavailable Pollard, Leobardo Primary Care Unavailable Roof LOGGING CREW SUPERVISOR, Fredy H Referring Unavailable Roof LOGGING CREW SUPERVISOR, Fredy H Attending Unavailable Pollard, Leobardo Primary Care Unavailable Allergies Allergy Classification Reported Allergen(s) Allergy Type Date of Onset Reaction(s) Facility (20 sources) atorvastatin; Translations: [ATORVASTATIN] Drug Allergy 09-18-2020 Myalgia [facility] Work Phone: (8 sources) atorvastatin Drug Allergy 09-18-2020 Myalgia [facility] (8 sources) rosuvastatin; Translations: [ROSUVASTATIN] Drug Allergy 12-08-2024 Myalgia [facility] (1 source) atorvastatin Drug Allergy 12-16-2024 [facility] Repository (1 source) rosuvastatin Drug Allergy 12-16-2024 [facility] Repository Medications Current Medications Medication Drug Class(es) Dates Sig (Normalized) Sig (Original) amoxicillin 875 mg oral tablet (1 source) Penicillin-class Antibacterial Start: 11-23-2021 End: 11-30-2021 take 1 tablet by mouth twice daily amoxicillin (AMOXIL) 875 mg tablet Take 1 tablet by mouth twice daily for 7 days. 14 tablet 0 11/23/2021 11/30/2021 Active Comment on above: Take 1 tablet by ahmet th twice daily for 7 days. ascorbic acid 1000 mg oral tablet (20 sources) Start: 05-01-2022 take 1 g by mouth once daily Ascorbic Acid (Vitamin C) 1,000 mg tablet Active 1 g PO DAILY May 01, 2022 12:00am supplement Start: 05-01-2022 take 1 g by mouth once daily A scorbic Acid (Vitamin C) Active 1 GM PO DAILY May 01, 2022 12:00am Start: 05-01-2022 take 1 g by mouth once daily A scorbic Acid (Vitamin C) Active 1 GM PO DAILY April 30, 2022 11:00pm Start: 09-18-2020 End: 01-30-2021 take 1 g by mouth once daily Ascorbic Acid (Vitamin C) 1,000 mg tablet Discontinued 1 g PO DAILY September 18, 2020 1:00am January 30, 2021 1:49pm Start: 09-18-2020 End: 01-30-2021 take 1 g by mouth once daily Ascorbic Acid (Vitamin C) Discontinued 1 GM PO DAILY September 18, 2020 1:00am January 30, 2021 1:49pm - Worsening control - Counseled on healthy diet and regular exercise - See #4. Leobardo Pollard MD [facility] 12-08-2024 History of Present illness Narrative This note was created using [employer]. Subjective Montrell Mancuso is a 74 year old male here with his . His arteriosclerotic heart disease progressed and he saw Dr. Albarran at [facility] who referred him for heart catheterization and MALORIE to the LAD. He noted significant improvement in stamina and leg weakness immediately. He was scheduled to start cardiac rehab. He again did not tolerate Crestor and will start Zetia when Crestor side effects resolve. Review of Systems Constitutional: Negative for fatigue and fever. HENT: Positive for nosebleeds. Respiratory: Negative for shortness of breath. Cardiovascular: Negative for chest pain, palpitations and leg swelling. Gastrointestinal: Positive for constipation. Negative for abdominal pain. Genitourinary: Negative for difficulty urinating. Musculoskeletal: Positive for myalgias. Negative for arthralgias. Skin: Positive for wound. Neurological: Negative for dizziness and headaches. ACTIVE PROBLEM LIST Mixed Hyperlipidemia Actinic Keratosis Vitamin D Deficiency Chronic Bilateral Low Back Pain Without Sciatica History of Umbilical Hernia Repair Osteoarthrosis Asymptomatic Peripheral Vascular Disease Atrioventricular Block Cardiac Pacemaker in Situ Statin Myopathy Coronary Artery Disease Involving [place] Coronary Artery of [place] Heart Without Angina Pectoris S/P Drug Eluting Coronary Stent Placement Social History Tobacco Use Smoking status: Former Current packs/day: 0.00 Types: Cigarettes Quit date: 06/24/1967 Years since quittin.4 Smokeless tobacco: Never Vaping Use Vaping status: Never Used Substance Use Topics Alcohol use: Yes Alcohol/week: 3.0 standard drinks of alcohol Types: 3 Cans of Beer (12oz) per week Drug use: No Current Outpatient Medications Medication Sig ezetimibe (ZETIA) 10 mg tablet Take 10 mg by mouth once daily. (Patient taking differently: Take 10 mg by mouth once daily. Currently Held) Aspirin 81 mg tab Take 81 mg by mouth once daily. clopidogrel (PLAVIX) 75 mg tablet Take 75 mg by mouth once daily. folic acid 400 mcg tablet Take 400 mcg by mouth once daily. [id number] (CALTRATE 600-D PLUS MINERALS) 600 mg calcium- 800 unit-50 mg tab Take 1 tablet by mouth once daily. Multivitamin capsule Take 1 capsule by mouth once daily. Cholecalciferol, Vitamin D3, 25 mcg (1,000 unit) cap Take 1,000 Units by mouth once daily. Ascorbic Acid 1,000 mg tablet Take 1,000 mg by mouth once daily. triamcinolone acetonide (NASACORT) 55 mcg nasal inhaler Use 2 Sprays in the nose once daily. No current facility-administered medications for this visit. Objective BP 130/68 Pulse 60 Resp 12 Ht 167.6 cm (5' 6) Wt 75.7 kg (166 lb 14.2 oz) BMI 26.94 kg/m Physical Exam Constitutional: General: He is not in acute distress. HENT: Nose: No congestion or rhinorrhea. Comments: Dried scant blood left nares. Eyes: Conjunctiva/sclera: Conjunctivae normal. Cardiovascular: Rate and Rhythm: Normal rate and regular rhythm. Heart sounds: No murmur heard. No gallop. Pulmonary: Breath sounds: Normal breath sounds. Musculoskeletal: Right lower leg: No edema. Left lower leg: No edema. Skin: Comments: 5 mm healing abrasion right forearm. Right forearm with resolving ecchymosis. Neurological: General: No focal deficit present. Mental Status: He is alert. Assessment and Plan 1. Medicare annual wellness visit, subsequent - ICD9: V70.0, ICD10: Z00.00 (primary diagnosis) - See wellness visit. 2. Screening for depression - ICD9: V79.0, ICD10: Z13.31 - DEPRESSION SCREENING 3. Encounter for screening examination for other mental health and behavioral disorders - ICD9: V79.8, ICD10: Z13.39 - ANXIETY SCREENING 4. 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 5. Abrasion of right upper extremity, initial encounter - ICD9: 912.0, ICD10: S40.811A - Healing. 6. Coronary artery disease involving lower [place] coronary artery of [place] heart without angina pectoris - ICD9: 414.01, ICD10: I25.10 - Noted. Follow up with cardiology at [facility]. 7. S/P drug eluting coronary stent placement - ICD9: V45.82, ICD10: Z95.5 - See above. DAPT x 6 months. 8. Mixed hyperlipidemia - ICD9: 272.2, ICD10: E78.2 - Worsening control - Counseled on healthy diet and regular exercise - See #4. Leobardo Pollard MD Images from the original note were not included. Montrell Mancuso is a 74 year old male here for a Medicare wellness visit. Medicare Health Risk Assessment General Health Fair Exercise: Minutes/Day 40 min Exercise: Days/Week 5 days Alcohol: Daily Use 2-4 times a month Alcohol: Drinks/Day 1 or 2 Alcohol: 6 or more drinks Never Feel off balance Yes Concerns: Teeth/Dentures No Concerns: Sexual function No Troubled by feelings None of the above Frequency: Eating healthy diet Nearly every day ADLs requiring help None of the above Safety precautions in home/vehicle Yes Smoke, vape, chews tobacco No Difficulty hearing Yes Difficulty seeing No Current Providers Specialists: I have reviewed specialist-related care of the patient in the medical record. Current care team: Patient Care Team: Leobardo Pollard MD as PCP - General Kathie Moreno APRN.[employer] as Software Computer Specialist (Internal Medicine) Outside specialists seen: Alden Albarran MD (Cardiology-[facility]) León Olivas MD (Ophthalmology) Marlon Savage MD (Dermatology) Medical/Family history review Reviewed and updated problem list, medical/surgical/family/social history, medications, and allergies. Opioid use review Opioid Medications (last 90 days) No data to display Anxiety/Depression screening PHQ-2 Score: 0 (Lower risk for depression) DANO-2 Score: 0 (Lower risk for anxiety) Recommendation: no further intervention at this time Cognitive screening Cognitive screening reviewed and No further action needed (score 3-5). Functional Observation Was the patient's Timed Up & Go test unsteady or >= 12 seconds? No Advance Care Planning Patient was not able to provide a surrogate decision maker or written advance directives Measurements BP 130/68 Pulse 60 Resp 12 Ht 167.6 cm (5' 6) Wt 75.7 kg (166 lb 14.2 oz) BMI 26.94 kg/m Vision Screening: Follows with optometry/ophthalmology Right: 20/30 Left: 20/ 40 Both: 20/50 Assessment/Plan Medicare annual wellness visit, subsequent (Z00.00) - Counseled on healthy diet and regular exercise - Fall avoidance information provided - Personalized prevention plan provided documented in this encounter [facility] 12-08-2024 Note HNO ID: [id number] Author: LEOBARDO POLLARD MD Service: ? Author Type: Physician Type: Progress Notes Filed: 12/08/2024 09:47 Note Text: Montrell Mancuso is a 74 year old male here for a Medicare wellness visit. Medicare Health Risk Assessment General Health Fair Exercise: Minutes/Day 40 min Exercise: Days/Week 5 days Alcohol: Daily Use 2-4 times a month Alcohol: Drinks/Day 1 or 2 Alcohol: 6 or more drinks Never Feel off balance Yes Concerns: Teeth/Dentures No Concerns: Sexual function No Troubled by feelings None of the above Frequency: Eating healthy diet Nearly every day ADLs requiring help None of the above Safety precautions in home/vehicle Yes Smoke, vape, chews tobacco No Difficulty hearing Yes Difficulty seeing No Current Providers Specialists: I have reviewed specialist-related care of the patient in the medical record. Current care team: Patient Care Team: Leobardo Pollard MD as PCP - General Kathie Moreno APRN.TYLER as Software Computer Specialist (Internal Medicine) Outside specialists seen: Alden Albarran MD (Cardiology-[facility]) León Olivas MD (Ophthalmology) Marlon Savage MD (Dermatology) Medical/Family history review Reviewed and updated problem list, medical/surgical/family/social history, medications, and allergies. Opioid use review Opioid Medications (last 90 days) No data to display Anxiety/Depression screening PHQ-2 Score: 0 (Lower risk for depression) DANO-2 Score: 0 (Lower risk for anxiety) Recommendation: no further intervention at this time Cognitive screening Cognitive screening reviewed and No further action needed (score 3-5). Functional Observation Was the patient's Timed Up AND Go test unsteady or >= 12 seconds? No Advance Care Planning Patient was not able to provide a surrogate decision maker or written advance directives Measurements BP 130/68 Pulse 60 Resp 12 Ht 167.6 cm (5' 6) Wt 75.7 kg (166 lb 14.2 oz) BMI 26.94 kg/m? Vision Screening: Follows with optometry/ophthalmology Right: 20/30 Left: 20/ 40 Both: 20/50 Assessment/Plan Medicare annual wellness visit, subsequent (Z00.) - Counseled on healthy diet and regular exercise - Fall avoidance information provided - Personalized prevention plan provided [facility] 11-30-2024 Miscellaneous Notes Discharge instructions and printed AVS reviewed with patient by BRAD Mccollum and [place], [employer], all questions answered. Pt verbalizes understanding. IV dc'd with no difficulty and catheter tip intact. Telemetry dc'd. VS stable at time of discharge. Patient being discharged to home by w/c with spouse. No patient belongings left at bedside. Post procedure recovery without events. Right radial site without bleeding or hematoma, palpable radial pulses. Ambulates prior to DC without difficulty. Walked in flores, no dizziness Preliminary Report - Brief Cardiac Catheterization Procedure Note Montrell Mancuso ([id number]) Pre Procedural Diagnosis Atherosclerosis of lower [place] coronary artery of [place] heart with angina pectoris [I25.119] Sinus bradycardia [R00.1] Presence of cardiac pacemaker [Z95.0] Post Procedural Diagnosis Obstructive CAD Procedure Performed Left heart catheterization, Coronary angiogram, Percutaneous coronary intervention, and IVUS Access Site/Hemostasis Right radial, artery, TR Compression Band Findings Left Ventricular End Diastolic Pressure: Elevated Left Ventricular Ejection Fraction: Not assessed Preliminary Results of Angiography Obstructive CAD Percutaneous Coronary Intervention Drug eluting stent, left anterior descending, Number of Stents 1 Intraprocedure Anticoagulation Heparin Post-procedure Anticoagulation If anticoagulation is indicated per primary team, may restart 4 hours after hemostasis has been achieved Estimated Blood Loss Minimal Complications None Admission Does patient need to be admitted: No Surgeon Surgeons and Role: * Aries Wise MD - Primary * Jabier Hernandez MD - Fellow * DAMIR Prieto - Fellow Procedural Staff Automation Sales Manager: Danii Harris RN Sedation Nurse: Karthik Anand RN Documenter: Lawanda Mijares RN Full report to follow DAMIR Prieto November 30, 2024 9:49 AM Cosigned by Aries Wise MD at 11/30/2024 10:30 AM EDT 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 You are to arrive at [facility] on the 1st floor at 6:00 AM You may use spreader parking ($10) or park in the [facility] just past the [place] ($3). There is a walkway from the 2nd floor of the garage into the [place] Lobby. You are to have nothing to eat after MIDNIGHT You may drink CLEAR liquids up to the time you arrive for the procedure. (water, juice, clear soda, tea, coffee NO CREAMERS). ++++++++++++++++++++++++++++++++++ +++++++++++++++++++++++++++++++ MEDICATIONS: YOU ARE TO TAKE YOUR MEDICATIONS YOU NORMALLY WOULD. ++++++++++++++++++++++++++++++++++ +++++++++++++++++++++++++++++++ PLEASE BRING A COMPLETE AND ACCURATE LIST OF ALL THE MEDICATIONS THAT YOU TAKE ON A REGULAR BASIS. BRING AN OVERNIGHT BAG JUST IN CASE YOU HAVE TO SPEND THE NIGHT. JUST ESSENTIALS YOU WOULD NEED FOR BED. YOU ARE HAVING A LEFT HEART CATH - Expect to be at the hospital 6 - 8 hrs. If you get a stent, you may have to stay the night. ++++++++++++++++++++++++++++++++++ ++++++++++++++++++++++++++++++++ IF YOU HAVE SLEEP APNEA AND YOU REQUIRE CPAP, bring it with you. ++++++++++++++++++++++++++++++++++ ++++++++++++++++++++++++++++++++ If you have a contrast dye or iodine allergy or if you are on Coumadin also called (Warfarin) or any other major blood thinners like Eliquis, Xarelto, Pradaxa and it was NOT addressed during scheduling, please call NOW to notify the lab ([phone]). You may receive sedation during your procedure and will not be permitted to drive yourself home. You will not be allowed to drive for 24-48 hrs. You will need a friend or family member to accompany you home (a taxi or bus is not acceptable). Failure to have a responsible person on discharge will result in cancellation of your procedure. Labs: LABS DONE 11/09/2024. YOU MAY BE TOLD BY ANOTHER DEPARTMENT THAT YOU WILL RECEIVE A REMINDER CALL THE DAY BEFORE YOUR PROCEDURE, BUT YOU WILL NOT RECEIVE A REMINDER CALL. IF YOU HAVE ANY QUESTIONS REGARDING THE PROCEDURE CALL US AT : [phone] THANK YOU, KIMBERLEY SALINAS Wholesale And Retail Merchant Scheduling The above instructions were given to patient verbally over the phone AND VIA MY CHART. CLICK THE LINK BELOW FOR A VIDEO EXPLANATION OF THE CARDIAC CATH PROCEDURE AND OUT PATIENT PROCESS. [email or web address] documented in this encounter [facility] 11-30-2024 Nurse Note Discharge instructions and printed AVS reviewed with patient by BRAD Mccollum and TYLER Dalal, all questions answered. Pt verbalizes understanding. IV dc'd with no difficulty and catheter tip intact. Telemetry dc'd. VS stable at time of discharge. Patient being discharged to home by w/c with spouse. No patient belongings left at bedside. Post procedure recovery without events. Right radial site without bleeding or hematoma, palpable radial pulses. Ambulates prior to DC without difficulty. [facility] encounter Note Spoke with patient and spouse results/recommendations reviewed. Patient is allergic to atorvastatin and cannot take that as the lipid medication. Will make provider aware for further advisement/recommendations. [facility] 11-30-2024 Miscellaneous Notes Spoke with patient and spouse results/recommendations reviewed. Patient is allergic to atorvastatin and cannot take that as the lipid medication. Will make provider aware for further advisement/recommendations. ----- Message from Alden Albarran MD sent at 11/30/2024 11:02 AM EDT ----- Regarding: Cardiac Cath: Please update the patient that the [facility] cardiac lab specialist contacted me about his cardiac cath findings and the need for a PCI / stent to the LAD. He will need to continue aspirin therapy and the additional therapy such as ticagrelor/Brilinta. Also, he needs to initiate lipid-lowering therapy such as atorvastatin starting at 40 mg a day. He will need to have a future lipid lab performed in approximately 3 months. He should continue with his plans for his future outpatient cardiovascular follow-up as well. Thank you. documented in this encounter [facility] 11-30-2024 Telephone encounter Note ----- Message from Alden Albarran MD sent at 11/30/2024 11:02 AM EDT ----- Regarding: Cardiac Cath: Please update the patient that the [facility] cardiac lab specialist contacted me about his cardiac cath findings and the need for a PCI / stent to the LAD. He will need to continue aspirin therapy and the additional therapy such as ticagrelor/Brilinta. Also, he needs to initiate lipid-lowering therapy such as atorvastatin starting at 40 mg a day. He will need to have a future lipid lab performed in approximately 3 months. He should continue with his plans for his future outpatient cardiovascular follow-up as well. Thank you. [facility] of Present illness Narrative Images from the original note were not included. [facility] Note: Non-Verbal Med Rec [facility] received the following discharge prescription(s): Total cost is $4.59. I have reviewed the Discharge Rx Reconciliation Report. The discharge prescription(s) will be tubed to the patient on 11/30/2024. Fern Barrett RPH Specialty ([place]) [phone] [facility] [phone] [facility] [phone] [facility] Bedside Delivery [phone] [place] [phone] [facility] Bedside Delivery [phone] [place] [phone] [place] [phone] Inpatient Cardiopulmonary Rehab Consultation AND Activity Session Completed. RN approved, as tolerated, and patient agreeable to visit. Patient reports feeling fine without complaints. Activity Session Vitals: 11/30/24 1114 11/30/24 1118 11/30/24 1121 Vital Signs Pulse (Heart Rate) 60 (rest) -- 60 (post-amb) Heart Rate Source Monitor -- Monitor BP 125/57 131/61 (patient reported to experiencing dizziness with first initial steps) 134/63 MAP (mmHg) 86 mmHg 88 mmHg 91 mmHg BP Method Automatic Automatic Automatic BP Location Left arm Left arm Left arm BP Position Sitting Sitting Sitting O2 Sat (%) 97 % -- 97 % O2 Device room air -- room air Activity/Level of Assistance Amb in room/CGA-min Ax1 Ambulation Distance (feet) 5 Symptoms Noted During/After Activity dizziness Positioning Supine HOB, call light within reach TR band, telemetry all intact upon leaving the room Activity session details: Patient agreeable to activity at this time, reporting that he walks 45 minutes daily with his . Patient was able to transfer from supine to EOB with min A and cueing to ensure pressure remains off of radial site. When starting to ambulate, patient experienced side stepping to right requiring Ax1 for balance assistance. At this time he states I guess I am more dizzy than my usual. Patient BP rechecked, stable. Upon second stand, he endorsed same dizziness and assisted patient back into bed. RN notified/aware. Encouraged continued ambulation and discussed appropriate activity progression. Patient participation in outpatient cardiac rehab was discussed. Patient is interested in participating in rehab at their local facility: [facility]. Discharge education provided to the patient. Printed materials Provided/Reviewed: Care After Cardiac Cath - Wrist Site Handout. Patient s questions/concerns were addressed and topics below were discussed. 1. Pathophysiology of CAD/FL 2. Left Heart Cath 3. Target Lipid Profile 4. Heart Healthy Dietary Guidelines 5. Cardiac Medications 6. Signs/Symptoms to Monitor/Report 7. Risk Factor Modification/Reduction 8. Activity Guidelines/Recommendations 9. Tobacco Cessation We will continue to follow up with patient as needed until discharge for education review and activity progression. Celsa Ferreira MS ([id number]) Inpatient Cardiopulmonary & Vascular Rehab documented in this encounter [facility] 11-30-2024 Hospital course Narrative Images from the original note were not included. Discharge Summary Name: Montrell Mancuso Age: 74 y.o. Birthday: 1950 Admit Date: 11/30/2024 5:52 AM Discharge Date: 11/30/2024 Discharge Time: 1630 Discharge Unit: IPR Admission Information Admitting Physician: Lalo Youssef DO Discharge Information Discharge Physician: ARIES WISE MD Problem List Active Hospital Problems Diagnosis S/P drug eluting coronary stent placement Resolved Hospital Problems No resolved problems to display. Brief Summary of Hospital Course for Discharge Summary: Mr. Montrell Mancuso is a pleasant 74 y.o. male with a past medical history of CAD and symptomatic sinus bradycardia s/p PPM who presented for a scheduled coronary angiogram for further evaluation of CP and SOB. The coronary angiogram was performed via right radial approach and resulted in IVUS-guided PCI of the mid-LAD with placement of one (1) drug-eluting stent. Discussed with Dr. Wise, and ticagrelor cost-prohibitive so will plan to load with clopidogrel 600 mg x1 on 12/01/24 followed by 75 mg daily uninterrupted thereafter for a minimum of 6 months, longer if tolerated and is to continue aspirin 81 mg daily lifelong. Patient reports previous intolerance to atorvastatin, uncertain dose, due to myalgias. Recommend outpatient discussion regarding lipid management. Cardiac rehab consult placed. On day of discharge Mr. Montrell Mancuso remained chest pain free and was able to ambulate with cardiac rehab without incident. He was discharged to home in stable condition. Outpatient follow up with family physician in 7-10 days, with arc welder in 4-6 weeks and with outpatient cardiac rehab. Upon discharge: Vitals: 11/30/24 1330 11/30/24 1345 11/30/24 1400 11/30/24 1415 BP: 119/60 149/64 Pulse: 60 60 60 60 Resp: Temp: TempSrc: SpO2: 98% 98% Weight: Height: PHYSICAL EXAM: Constitutional: He is oriented and in no distress. Chest: Respiratory effort is normal. The breath sounds are normal. The lungs are clear without rales or rhonchi. Cardiovascular: No JVD is present. Normal rate & regular rhythm; S1 normal, S2 normal. Exam reveals no gallop and no friction rub. No murmur is heard. Abdomen: Soft, non-tender, non-distended. +BS. Extremities: There is no peripheral edema. There is no stasis dermatitis. Peripheral pulses preserved. Neurological: He is alert and oriented to person, place and time. Procedure site: Right radial site with dressing in place. No bleeding, bruit or hematoma present. Pulses preserved. Time spent on this discharge was greater than 30 minutes. Summary of last selected lab results and date obtained: Lab Results Component Value Date WBC 6.07 11/09/2024 HGB 14.9 11/09/2024 HCT 42.6 11/09/2024 PLATELET 161 11/09/2024 MCV 93.8 11/09/2024 Lab Results Component Value Date SODIUM 141 11/09/2024 POTASSIUM 3.8 11/09/2024 CHLORIDE 102 11/09/2024 CO2 27 11/09/2024 BUN 18 11/09/2024 CREATSERUM 0.87 11/09/2024 No results found for: ALT, TRANSFERASEA, AST, GGT, GAMMAGT, ALKPHOS, BILITOTAL, BILIDIRECT Brief Summary of Labs for Discharge Summary: Discharge Orders AMB REFERRAL TO CARDIAC REHAB Current Outpatient Meds: Medication List for when you go home START taking these medications Morning Afternoon Evening Bedtime As Needed Clopidogrel 75 MG TABS Take 8 tablets (600 mg) by mouth once on 12/01/2024 at 9am followed by 1 tablet daily starting on 12/02/2024. Commonly known as: PLAVIX Take 8 tablets (600 mg) by mouth once on 12/01/2024 at 9am followed by 1 tablet daily starting on 12/02/2024. CONTINUE taking these medications Morning Afternoon Evening Bedtime As Needed Aspirin [address] tablet Take 1 tablet by mouth daily. For diagnoses: Atherosclerosis of [place] coronary artery of [place] heart with angina pectoris, Sinus bradycardia, Presence of cardiac pacemaker Last time this was given: Ask your nurse or doctor 1 tablet Follow-up: Leobardo Pollard MD [address] [facility] [id number] Follow up: Please call and schedule a follow-up appointment to be seen in 7-10 days. Other [facility]- Pulmonary & Cardiac Rehab [address] [facility] [address] Schedule an appointment as soon as possible for a visit in 1 week(s) You've been referred to cardiac rehab. Please call if you have any questions Upcoming Appointments (up to five)-Some appointments for Medical Center outpatient clinics or diagnostic testing locations are not displayed below Provider Department Dept Phone 12/31/2024 3:30 PM Sath[facility] [place] Arrive at: Arrive to 1st Floor Registration Desk [phone] 06/02/2025 1:30 PM Alden Albarran [facility] [place] Arrive at: Arrive to 1st Floor Registration Desk [phone] Cosigned by Aries Wise MD at 11/30/2024 5:50 PM EDT documented in this encounter [facility] 11-30-2024 Nurse Note Walked in flores, no dizziness [facility] 11-30-2024 Hospital Discharge instructions TIERA Hammond - 11/30/2024 10:07 AM EDT Care after Cardiac Catheterization What to expect: For up to a week after your procedure, your wrist/leg site may be sore, tender and have some bruising. You may have a small lump at the site, that should not get larger. If located at the wrist it should go away after 7 to 10 days, if located at the leg you may have this for 2 or 3 weeks. You may have a small amount of oozing from the site when the scab comes off. Care of your wrist/leg site: You may shower 24 hours after your procedure and remove the bandage over your wrist/leg site. Gently clean the site each day with soap and water and then pat dry. Do not scrub the site. Do NOT soak your wrist site in water for 3 days after procedure or until the wrist site is fully healed. Do NOT soak your leg site in water for 7 days after the procedure or until leg site is fully healed. This means no soaking in the sink, bath tub, hot tub, swimming pool or other places where your wrist/leg site would be under water. After you remove the bandage, you can cover the site with a bandaid for the next day or two if your clothes rub the site. Otherwise, leave the site uncovered. Do NOT put any lotions, powders or ointments on the site for 7 days or until the site is fully healed. Check the site each day for any change in redness, swelling, bruising and drainage. Activity limits for wrist: If the procedure was performed through your wrist, do NOT lift, push, or pull more than 5 pounds for 7 days or until the site is healed. A gallon of milk weighs just over 8 pounds. Limit twisting and bending the wrist site for 3 days. No driving for 24 hours after the procedure unless directed by your doctor. Activity limits for leg: If the procedure was performed through your leg, do NOT lift, push, or pull more than 8 to 10 pounds for 7 days or until the site is healed. A gallon of milk weighs just over 8 pounds. Avoid movements and activities that may cause strain on the leg site. This could include straining when having a bowel movement, bending, squatting, doing yard work, playing sports or lifting, pushing or pulling more than 10 pounds. No [address] or sexual activity for 48 hours after the procedure. Food and drink: You can return to your usual diet, but caffeine and alcohol should be avoided for 24 hours. We recommend a heart healthy diet that is low in saturated fat, sodium, and added sugar to help control cholesterol in your blood, blood pressure, and fluid retention. Drink 6 to 8 cups of water each of the next 2 days to help flush the contrast medicine or dye from your body after the procedure, unless your doctor directed you to limit your fluids. Cardiac Rehab Guidelines: If a referral has been made to your local program, we encourage your participation in outpatient Cardiac Rehab. Follow Cardiac Rehab guidelines for progression of your activity. If you are smoker, we strongly encourage you to stop smoking. For more information: The [employer] Quit Line is . If you have heart failure, we recommend that you weigh yourself every day at about the same time wearing similar clothes. Call your doctor if you gain more than 2 pounds in 48 hours or gain more than 5 pounds in one week. Call your doctor if you have: More redness, swelling, bruising, pain or drainage at the wrist/leg site. White or yellow drainage with an odor from the wrist/leg site. Call 911 or get emergency care if you have: Wrist/leg site bleeding that does not stop after applying direct pressure for 15 minutes. Chest pain, shortness of breath or any unusual symptoms including chills, fever, nausea, vomiting, memory problems, confusion, numbness, muscle weakness, trouble swallowing, problems speaking, dizziness, or unsteadiness. Follow-up resources: To schedule or reschedule an appointment or procedure: -Cardiology Central Scheduling at [phone] or [phone] For general questions or concerns about your discharge instructions: days between 8 AM and 5 PM call: - [facility] Cardiac medical laboratory scientist at - [facility] medical laboratory scientist at After 5 PM, on weekends, or if you are not able to reach your doctor, call the [facility] hook and eye machine operator at and ask for the Cardiology attending doctor car sales consultant. For prescription refills please call your primary care provider or outpatient arc welder. Protect Your Stent A stent is a wire cage that holds the blood vessel open. You had 1 stent(s) placed in the blood vessel(s) of your: Heart Your stent type(s): drug releasing Medicines to prevent clotting of the stent Antiplatelet medicines prevent platelets in the blood from clumping or clotting to block the stent. These medicines include: Clopidogrel, brand name Plavix Prasugrel, brand name Effient Ticagrelor, brand name Brilinta The amount of time you are on this medicine will depend on your stent and your condition. Aspirin helps to keep your blood from clotting. You may need to take aspirin for the rest of your life to protect your stent from clotting. Risk of bleeding or clotting of stent Taking these medicines to protect your stent from clotting puts you at risk for more bleeding if you have a cut or surgery. Not taking these medicines puts you at risk for your stent to clot and block blood flow, which could cause serious injury or . ALWAYS check with the doctor who placed the stent before you stop taking your antiplatelet medicine or aspirin. Protect yourself If you have bleeding that you cannot control or is severe, call the doctor who started the antiplatelet medicine or go to the nearest emergency room. Know where your stent or stents are in your body and what medicines you are taking. Carry a card in your wallet or purse that has the information written down about your care and treatment, so you have it with you. If you have a history of heart failure, heart attack or stroke, or have a stent in your heart, you should avoid use of non-steroidal anti-inflammatory drugs (NSAIDs), such as ibuprofen (Advil, Motrin) or naproxen sodium (Aleve). These drugs may increase your risk of another heart attack or stroke. Use acetaminophen (Tylenol) for pain, fever, colds or headaches as needed. Be sure to tell all of your doctors, including your eye doctor and dentist, that you have a stent. Tell them you are taking antiplatelet medicine or aspirin. Aspirin therapy should not be stopped if you have a stent unless the surgeon and the doctor who placed the stent agree to stop it. documented in this encounter [facility] 11-30-2024 Surgery Postoperative evaluation and management note Preliminary Report - Brief Cardiac Catheterization Procedure Note Montrell Mancuso ([id number]) Pre Procedural Diagnosis Atherosclerosis of [place] coronary artery of [place] heart with angina pectoris [I25.119] Sinus bradycardia [R00.1] Presence of cardiac pacemaker [Z95.0] Post Procedural Diagnosis Obstructive CAD Procedure Performed Left heart catheterization, Coronary angiogram, Percutaneous coronary intervention, and IVUS Access Site/Hemostasis Right radial, artery, TR Compression Band Findings Left Ventricular End Diastolic Pressure: Elevated Left Ventricular Ejection Fraction: Not assessed Preliminary Results of Angiography Obstructive CAD Percutaneous Coronary Intervention Drug eluting stent, left anterior descending, Number of Stents 1 Intraprocedure Anticoagulation Heparin Post-procedure Anticoagulation If anticoagulation is indicated per primary team, may restart 4 hours after hemostasis has been achieved Estimated Blood Loss Minimal Complications None Admission Does patient need to be admitted: No Surgeon Surgeons and Role: * Aries Wise MD - Primary * Jabier Hernandez MD - Fellow * DAMIR Prieto - Fellow Procedural Staff Automation Sales Manager: Danii Harris RN Sedation Nurse: Karthik Anand RN Documenter: Lawanda Mijares RN Full report to follow DAMIR Prieto November 30, 2024 9:49 AM Cosigned by Aries Wise MD at 11/30/2024 10:30 AM EDT [facility] 11-30-2024 History and physical note PRE-CATH H&P UPDATE Patient seen and examined by me on day of procedure. Agree with H&P as documented by Dr. Albarran on 11/09/24, there are no significant updates or changes. Montrell Mancuso is a 74 y.o. male with a history of CAD and symptomatic sinus bradycardia s/p PPM. This cardiac catheterization is being done to investigate CP and SOB. He does not use PDE-4 inhibitors. Allergies, Laboratory Studies: is allergic to atorvastatin. Lab Results Component Value Date CREATSERUM 0.87 11/09/2024 No results found for: INR, PTT Lab Results Component Value Date WBC 6.07 11/09/2024 HGB 14.9 11/09/2024 HCT 42.6 11/09/2024 PLATELET 161 11/09/2024 MCV 93.8 11/09/2024 Estimated GFR: Estimated Creatinine Clearance: 71 mL/min (by C-G formula based on SCr of 0.87 mg/dL). Additionally: Surgery Scheduled in the next 12 months: No History of pathologic bleeding: No Potential barriers to dual antiplatelet therapy: No Allergy to contrast dye: No @CRCL@ Access concerns: No Anticipated access will be RRA or RFA. Consent and sedation assessment completed at the time of the procedure. Will proceed with left heart catheterization with coronary angiography. Kendrick Brown MD Fellow, Cardiovascular Medicine Cosigned by Aries Wise MD at 11/30/2024 8:20 AM EDT [facility] Work Phone: 11-30-2024 History and physical note PRE-CATH H&P UPDATE Patient seen and examined by me on day of procedure. Agree with H&P as documented by Dr. Albarran on 11/09/24, there are no significant updates or changes. Montrell Mancuso is a 74 y.o. male with a history of CAD and symptomatic sinus bradycardia s/p PPM. This cardiac catheterization is being done to investigate CP and SOB. He does not use PDE-4 inhibitors. Allergies, Laboratory Studies: is allergic to atorvastatin. Lab Results Component Value Date CREATSERUM 0.87 11/09/2024 No results found for: INR, PTT Lab Results Component Value Date WBC 6.07 11/09/2024 HGB 14.9 11/09/2024 HCT 42.6 11/09/2024 PLATELET 161 11/09/2024 MCV 93.8 11/09/2024 Estimated GFR: Estimated Creatinine Clearance: 71 mL/min (by C-G formula based on SCr of 0.87 mg/dL). Additionally: Surgery Scheduled in the next 12 months: No History of pathologic bleeding: No Potential barriers to dual antiplatelet therapy: No Allergy to contrast dye: No @CRCL@ Access concerns: No Anticipated access will be RRA or RFA. Consent and sedation assessment completed at the time of the procedure. Will proceed with left heart catheterization with coronary angiography. Kendrick Brown MD Fellow, Cardiovascular Medicine Cosigned by Aries Wise MD at 11/30/2024 8:20 AM EDT documented in this encounter [facility] 11-15-2024 Telephone encounter Note Received fax from [facility] with Heart Cath report. Fax stating that they will work to find the information to be able to get images pushed over from their [facility] department. Placed in Dr. Albarran's folder for review. [facility] 11-15-2024 Miscellaneous Notes Received fax from [facility] with Heart Cath report. Fax stating that they will work to find the information to be able to get images pushed over from their [facility] department. Placed in Dr. Albarran's folder for review. Faxed release to [facility] requesting Heart cath images from 03/14/2020. Faxed to [phone] Images from the original note were not included. Spoke with pt about above results and recommendations. Verbalized understanding. Pt wanting to know if after the cath you would be able to compare to previous cath done in [place] to be able to tell him if the artery noted in previous cath is worse. (Below is a snippet of the results in media tab. Images from the original note were not included. Labs: Received: Today Alden Albarran MD [facility] Pool Please let Mr. Mancuso know that his labs with respect to Hg level, potassium / magnesium levels, renal function, thyroid function, and his total CHOL, HDL, and TRIG levels are within normal limits. His LDL level was mildly elevated. The plan at this time is to proceed with the cardiac catheterization and depending upon the results further recommendations can be made. My chart message sent. documented in this encounter [facility] 11-12-2024 Telephone encounter Note Faxed release to [facility] requesting Heart cath images from 03/14/2020. Faxed to [phone] [facility] 11-12-2024 Miscellaneous Notes Faxed release to [facility] requesting Heart cath images from 03/14/2020. Faxed to [phone] Images from the original note were not included. Spoke with pt about above results and recommendations. Verbalized understanding. Pt wanting to know if after the cath you would be able to [facility] to be able to tell him if the artery noted in previous cath is worse. (Below is a snippet of the results in media tab. Images from the original note were not included. Labs: Received: Today Alden Albarran MD [facility] Triage Pool Please let Mr. Mancuso know that his labs with respect to Hg level, potassium / magnesium levels, renal function, thyroid function, and his total CHOL, HDL, and TRIG levels are within normal limits. His LDL level was mildly elevated. The plan at this time is to proceed with the cardiac catheterization and depending upon the results further recommendations can be made. My chart message sent. documented in this encounter [facility] 11-11-2024 Telephone encounter Note Images from the original note were not included. Spoke with pt about above results and recommendations. Verbalized understanding. Pt wanting to know if after the cath you would be able to compare [facility] to be able to tell him if the artery noted in previous cath is worse. (Below is a snippet of the results in media tab. [facility] 11-10-2024 Telephone encounter Note Received more records from [place]. Placed in scanning. [facility] 11-10-2024 Miscellaneous Notes Received more records from [place]. Placed in scanning. Received records. Placed in scanning. Placed on Dr Albarran's desk. Images from the original note were not included. Future Appointment: Received: Today MD Akira Ordoñez Triage [place] Please request copies of the patients [facility] [facility] records (notes, ECGs, echo reports, stress test reports, cardiac cath reports, pacemaker procedure / reports, etc.) in anticipation of his upcoming visit. ( ). Thank you. Faxed request documented in this encounter [facility] 11-10-2024 Telephone encounter Note Images from the original note were not included. Labs: Received: Today MD Akira Ordoñez Triage [place] Please let Mr. Mancuso know that his labs with respect to Hg level, potassium / magnesium levels, renal function, thyroid function, and his total CHOL, HDL, and TRIG levels are within normal limits. His LDL level was mildly elevated. The plan at this time is to proceed with the cardiac catheterization and depending upon the results further recommendations can be made. My chart message sent. 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 You are to arrive at [facility] on the 1st floor at 6:00 AM You may use spreader parking ($10) or park in the [facility] just past the [facility] ($3). There is a walkway from the 2nd floor of the garage [facility] You are to have nothing to eat after MIDNIGHT You may drink CLEAR liquids up to the time you arrive for the procedure. (water, juice, clear soda, tea, coffee NO CREAMERS). ++++++++++++++++++++++++++++++++++ +++++++++++++++++++++++++++++++ MEDICATIONS: YOU ARE TO TAKE YOUR MEDICATIONS YOU NORMALLY WOULD. ++++++++++++++++++++++++++++++++++ +++++++++++++++++++++++++++++++ PLEASE BRING A COMPLETE AND ACCURATE LIST OF ALL THE MEDICATIONS THAT YOU TAKE ON A REGULAR BASIS. BRING AN OVERNIGHT BAG JUST IN CASE YOU HAVE TO SPEND THE NIGHT. JUST ESSENTIALS YOU WOULD NEED FOR BED. YOU ARE HAVING A LEFT HEART CATH - Expect to be at the hospital 6 - 8 hrs. If you get a stent, you may have to stay the night. ++++++++++++++++++++++++++++++++++ ++++++++++++++++++++++++++++++++ IF YOU HAVE SLEEP APNEA AND YOU REQUIRE CPAP, bring it with you. ++++++++++++++++++++++++++++++++++ ++++++++++++++++++++++++++++++++ If you have a contrast dye or iodine allergy or if you are on Coumadin also called (Warfarin) or any other major blood thinners like Eliquis, Xarelto, Pradaxa and it was NOT addressed during scheduling, please call NOW to notify the lab ([phone]). You may receive sedation during your procedure and will not be permitted to drive yourself home. You will not be allowed to drive for 24-48 hrs. You will need a friend or family member to accompany you home (a taxi or bus is not acceptable). Failure to have a responsible person on discharge will result in cancellation of your procedure. Labs: LABS DONE 11/09/2024. YOU MAY BE TOLD BY ANOTHER DEPARTMENT THAT YOU WILL RECEIVE A REMINDER CALL THE DAY BEFORE YOUR PROCEDURE, BUT YOU WILL NOT RECEIVE A REMINDER CALL. IF YOU HAVE ANY QUESTIONS REGARDING THE PROCEDURE CALL US AT : [phone] THANK YOU, KIMBERLEY SALINAS Wholesale And Retail Merchant Scheduling The above instructions were given to patient verbally over the phone AND VIA MY CHART. CLICK THE LINK BELOW FOR A VIDEO EXPLANATION OF THE CARDIAC CATH PROCEDURE AND OUT PATIENT PROCESS. [email or web address] [facility] 11-09-2024 Evaluation + Plan note Associated Problem(s): Cardiac murmur He does have a cardiac murmur. He has had previous echocardiograms demonstrating findings c/w aortic valve sclerosis without obvious significant stenosis. [facility] 11-09-2024 Miscellaneous Notes Associated Problem(s): Cardiac murmur He does have a cardiac murmur. He has had previous echocardiograms demonstrating findings c/w aortic valve sclerosis without obvious significant stenosis. Associated Problem(s): Presence of cardiac pacemaker The patient has had his PPM checked via [facility]. He states that the pacemaker has been functioning appropriately. Associated Problem(s): Sinus bradycardia He has a history of symptoms sinus bradycardia. He is on no rate limiting medications. He does have a PPM in place. He states he has done better with his PPM since his accelerometer was turned off. 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 He does have underlying documented CAD. He has undergone relatively recent noninvasive studies as noted. At this time, it would be reasonable to start medical therapy with aspirin 81 mg a day. Also, he will be asked to proceed with further definitive evaluation with a repeat cardiac catheterization procedure. Depending upon the procedure, he may or may not require additional cardiovascular studies / therapy. documented in this encounter [facility] 11-09-2024 Evaluation + Plan note Associated Problem(s): Presence of cardiac pacemaker The patient has had his PPM checked via [facility]. He states that the pacemaker has been functioning appropriately. [facility] 11-09-2024 Evaluation + Plan note Associated Problem(s): Sinus bradycardia He has a history of symptoms sinus bradycardia. He is on no rate limiting medications. He does have a PPM in place. He states he has done better with his PPM since his accelerometer was turned off. 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 He does have underlying documented CAD. He has undergone relatively recent noninvasive studies as noted. At this time, it would be reasonable to start medical therapy with aspirin 81 mg a day. Also, he will be asked to proceed with further definitive evaluation with a repeat cardiac catheterization procedure. Depending upon the procedure, he may or may not require additional cardiovascular studies / therapy. [facility] 11-09-2024 History of Present illness Narrative Images from the original note were not included. Referring provider: Alden Albarran MD Primary care provider: Leobardo Pollard MD (General) Dear Dr. Pollard, I had the pleasure of seeing your patient, Montrell Mancuso, at the [facility] at [facility] on 11/09/2024. I have reviewed pertinent outside medical records available at this time regarding this patient. As you recall, you referred this 74 y.o. male to our attention for underlying CAD, symptomatic sinus bradycardia, s/p PPM placement. Chief Complaint Patient presents with New Patient Establishing care. Occasional dull pain in buttocks and legs. Pain comes and goes while walking. PT states having uncomfortable feeling in chest, light headedness, and SOB while exerting energy. Not consistent. When happens Pt states their pulse fades on left arm. Issues with the hand extremities due to Raynuads. HPI: History of Present Illness The patient is a 74-year-old male presenting for a new cardiovascular consultation at [facility]. He has a history of underlying coronary artery disease (CAD), classified as nonobstructive, and symptomatic sinus bradycardia, for which he underwent permanent pacemaker implantation. His previous cardiovascular care was provided by the [facility] in [place], [place]. He is accompanied by his spouse. He had an outpatient cardiovascular visit on 05/19/2024 in [place], [place]. At that time it appeared everything was thought to be stable based upon his information. However, he states that he still has symptoms. He notes when he exerts himself such as walking across the parking lot and or pushing his lawnmower up an incline he does form a centralized chest discomfort as well as noting shortness of breath and dyspnea. He states he will then feel very tired and fatigued. He will have to stop and rest. He notes there are other occasions he can do these activities without significant concerns. He has not complained of ongoing orthopnea or PND or worsening peripheral pitting edema. He has not had near-syncope or syncope. He states that he does get dizzy at times. Sometimes he feels he asked to stabilize himself so that he will not follow over. He has undergone various cardiovascular studies in the past. It appears that he has had in December of 2023 a transthoracic echocardiogram that demonstrated preserved LV systolic function/LVEF with no hemodynamically significant valvular disease. He had a stress myocardial perfusion study performed in January of 2024. At that time he reportedly reached 81% predicted maximal heart rate. At the heart rate achieved, there was no report of any obvious electrocardiographic changes or myocardial perfusion changes periods he had good functional capacity exercising just over 11 minutes on the Cayden protocol. Of note, he states he does not believe he can do that now. He had a cardiac catheterization in 03/14/2020 at [facility]. The results demonstrate underlying CAD which underwent evaluation with FFR. The findings were considered negative and the patient continued with medical therapy. He has had permanent pacemaker follow-up. He states he pacemaker does not to his knowledge has been functioning appropriately. The patient has been on aspirin in the past. He stopped it for no obvious reason. He has been on atorvastatin in the past. He had concerns of myalgias and stopped the medication. He states he has been evaluated by his [facility] PCP. He states he was diagnosed with PAD of the lower extremities based upon his symptoms. He does not recall any specific studies or being placed on an medications. He had an ECG in the office today. It demonstrated an atrial paced rhythm with no acute cardiovascular findings. Historical information was reviewed in the medical record. The following historical elements were reviewed by a provider in the specific IS peters and updated as appropriate: Allergies Allergen Reactions Atorvastatin Myalgia Outpatient Encounter Medications as of 11/09/2024 Medication Sig Dispense Refill Aspirin [address] tablet Take 1 tablet by mouth daily. No facility-administered encounter medications on file as of 11/09/2024. Past Medical History: Diagnosis Date Arthritis Pacemaker 2022 Raynaud disease 02/29/2020 No past surgical history on file. History reviewed. No pertinent family history. Social History Socioeconomic History Marital status: Spouse name: Not on file Number of children: Not on file Years of education: Not on file Highest education level: Not on file Occupational History Not on file Tobacco Use Smoking status: Former Current packs/day: 0.00 Types: Cigarettes Quit date: 1969 Years since quittin.3 Smokeless tobacco: Never Vaping Use Vaping status: Never Used Substance and Sexual Activity Alcohol use: Yes Alcohol/week: 1.0 - 2.0 standard drink of alcohol Types: 1 - 2 Standard drinks or equivalent per week Comment: 1-2 occasional Drug use: Never Sexual activity: Not on file Other Topics Concern Not on file Social History Narrative Not on file Social Drivers of Health Financial Resource Strain: Low Risk (11/21/2021) Received from [facility] Overall Financial Resource Strain (CARDIA) Difficulty of Paying Living Expenses: Not very hard Food Insecurity: No Food Insecurity (11/21/2021) Received from [facility] Hunger Vital Sign Worried About Running Out of Food in the Last Year: Never true Ran Out of Food in the Last Year: Never true Transportation Needs: No Transportation Needs (11/21/2021) Received from [facility] PRAPARE - Transportation Lack of Transportation (Medical): No Lack of Transportation (Non-Medical): No Physical Activity: Sufficiently Active (12/05/2023) Received from [facility] Exercise Vital Sign Days of Exercise per Week: 5 days Minutes of Exercise per Session: 40 min Stress: Unknown (11/21/2021) Received from [facility] [employer] [employer] Occup[employer] - Occupational Stress Questionnaire Feeling of Stress : Patient declined Social Connections: Socially Integrated (11/21/2021) Received from [facility] Social Connection and Isolation Panel [NHANES] Frequency of Communication with Friends and Family: More than three times a week Frequency of Social Gatherings with Friends and Family: Once a week Attends [employer] Services: More than 4 times per year Active Member of Clubs or Organizations: Yes Attends Club or Organization Meetings: More than 4 times per year Marital Status: Personal Safety: Not on file Housing Stability: Low Risk (11/21/2021) Received from [facility] Housing Stability Vital Sign Unable to Pay for Housing in the Last Year: No Number of Places Lived in the Last Year: 1 Unstable Housing in the Last Year: No Review of Systems Cardiovascular: Positive for chest pain and dyspnea on exertion. Negative for claudication, cyanosis, irregular heartbeat, leg swelling, near-syncope, orthopnea, palpitations, paroxysmal nocturnal dyspnea and syncope. Neurological: Positive for dizziness. On physcial exam today, the vital signs are as follows: Vitals: 11/09/24 1515 BP: 134/68 Pulse: 60 Weight: 78.3 kg (172 lb 9.6 oz) Height: 1.702 m (5' 7) Body mass index is 27.03 kg/m . Physical Exam Vitals and nursing note reviewed. Exam conducted with a web design intern present (Spouse.). Constitutional: Appearance: Normal appearance. He is well-developed, well-groomed and overweight. HENT: Head: Normocephalic and atraumatic. Cardiovascular: Rate and Rhythm: Normal rate and regular rhythm. No extrasystoles are present. Chest Wall: PMI is not displaced. No thrill. Pulses: Carotid pulses are 2+ on the right side and 2+ on the left side. Radial pulses are 2+ on the right side and 2+ on the left side. Posterior tibial pulses are 2+ on the right side and 2+ on the left side. Heart sounds: S1 normal and S2 normal. Murmur heard. Systolic murmur is present with a grade of 2/6. No friction rub. No gallop. Comments: 2/6 systolic murmur @ LLSB / LVOT area. Pulmonary: Effort: Pulmonary effort is normal. Breath sounds: Normal breath sounds. Abdominal: General: Bowel sounds are normal. Palpations: Abdomen is soft. Musculoskeletal: General: Normal range of motion. Cervical back: Normal range of motion and neck supple. Right lower leg: No edema. Left lower leg: No edema. Skin: General: Skin is warm and dry. Neurological: General: No focal deficit present. Mental Status: He is alert. Psychiatric: Mood and Affect: Mood normal. Relevant diagnostic data includes the following: I have independently reviewed the following reports and/or images/tracings: as noted below. Supplemental Information: HOLTER 03/05/2023 [facility] There were a total of 67941 beats recorded over the 24 hour period. Normal sinus rhythm with paced rhythm. The average heart rate was 61 BPM. Minimum heart rate was 58 BPM at 12:46 AM, sinus bradycardia. Maximum heart rate was 92 BPM at 14:45 PM, sinus rhythm. The longest R-R interval was 1.2 seconds at 0831 AM. There were a total of 121 premature supraventricular ectopic isolated beats, comprising 0.1% of the total QRS complexes. No runs noted. There were a total of 424 premature ventricular ectopic isolated beats, comprising 0.5% of the total QRS complexes. 8 tripleets, 7 couplets, 2 interpolated beats. No runs noted. No atrial fibrillation noted. The patient kept a diary with 2 symptoms of feeling heavy and one felling of lightheaded which did not correlate with scan. ECHOCARDIOGRAM 02/22/2020 [facility] 12/16/2023 [facility] Normal LV size LV systolic function is normal LVEF is 65% Structurally normal valves MYOCARDIAL PERFUSION STUDY 03/26/2022 [facility] 02/11/2024 [facility] Impression: Inability to reach 85% of maximal age-predicted heart rate decreases the sensitivity of this test. Stress test is negative for exercise-induced EKG changes of ischemia. The test is positive for exercise-induced chest pain. Functional capcity is exxcellent for age. Nuclear images p ending Impression: There is no evidence of significant ischemia or infarction. The gated Cardiolite study reportes an LVEF of greater than 70%. Of note: Cayden protocol: 11 minutes and 10 seconds Peak HR: 120 bpm (81% PMHR) Peak BP: 160/80 mmHg Peak MET: 13.4 METS CARDIAC CATHETERIZATION 03/14/2020 [facility] Normal left ventricular end diastolic pressure LVEDP: 15 mmHg Normal LV size, wall motion, and systolic function LVEF: by LV gram: 60% LM: Proximal: mild luminal irregularities; Distal: large, somewhat ectatic / aneurysmal appearing with no angiographically significant appearing disease LAD: Mid: eccentric: hazy: 50-75% stenosis LCX: Proximal: mild luminal irregularities RCA: Proximal: mild luminal irregularities Aortic root: angiographically normal FFR: LAD: 0.94: consistent with stenosis that can be treated medially CXR 08/04/2024 [facility] Lines, tubes, and devices: Left transvenous pacemaker with leads projecting over the right-sided cardiac chambers. Lungs and pleura: No consolidation. No lung mass. No pleural effusion. No pneumothorax. Cardiomediastinal silhouette: Stable cardiomediastinal silhouette. Bones and soft tissues: Degenerative changes are present within the thoracic spine. Exam End: 08/04/24 10:20 DEVICE EVALUATION 08/23/2022 [facility] 02/07/2024 [employer] Date: 05/23/2022 Mode: DDD Lower Rate Limits: 60 ppm Maximum Tracking Rare: 130 ppm In summary, Mr. Mancuso is managed today for the following issues: Atherosclerosis of lower elwha coronary artery of lower elwha heart with angina pectoris The symptoms are concerning for angina pectoris. He does have underlying documented CAD. He has undergone relatively recent noninvasive studies as noted. At this time, it would be reasonable to start medical therapy with aspirin 81 mg a day. Also, he will be asked to proceed with further definitive evaluation with a repeat cardiac catheterization procedure. Depending upon the procedure, he may or may not require additional cardiovascular studies / therapy. Sinus bradycardia He has a history of symptoms sinus bradycardia. He is on no rate limiting medications. He does have a PPM in place. He states he has done better with his PPM since his accelerometer was turned off. Presence of cardiac pacemaker The patient has had his PPM checked via [facility]. He states that the pacemaker has been functioning appropriately. Cardiac murmur He does have a cardiac murmur. He has had previous echocardiograms demonstrating findings c/w aortic valve sclerosis without obvious significant stenosis. I have ordered the following: Diagnoses and all orders for this visit: Atherosclerosis of lower elwha coronary artery of lower elwha heart with angina pectoris - KS ECG ROUTINE ECG W/LEAST 12 LDS W/I&R - CASE REQUEST - CARDIAC CATH - CHEM 6 (LYTES, BUN CREA); Future - CBC, EDIF, PLATELET; Future - MAGNESIUM; Future - TSH; Future - LIPID PANEL W CALCULATED LDL; Future Sinus bradycardia - KS ECG ROUTINE ECG W/LEAST 12 LDS W/I&R - CHEM 6 (LYTES, BUN CREA); Future - CBC, EDIF, PLATELET; Future - MAGNESIUM; Future - TSH; Future Presence of cardiac pacemaker - KS ECG ROUTINE ECG W/LEAST 12 LDS W/I&R Cardiac murmur The above was discussed with the patient and his spouse. He was agreeable to this approach. He states he would like to schedule a future [facility] outpatient cardiovascular visit. This can be altered in the future if needed. We will plan on Return in about 6 months (around 05/11/2025).. If I can be of any further assistance, please do not hesitate to contact me. Sincerely, Alden Albarran MD, [facility] Senior Chemical Process Engineer - Clinical Division of Cardiovascular Medicine Department of Internal Medicine [facility] Please be aware that portions of this note may have been completed with a voice recognition software system and an artificial intelligence system with the knowledge and approval of the patient. Despite efforts to edit the note mis-transcribed words may still be present. Patient has verified full name and . REHANA documentation tool explained to patient. Patient accepted the use of REHANA documentation tool during today's visit. Montrell Mancuso was offered and declined a Medical Explosive Ordnance Handler for this exam/procedure/test 11/09/2024. 12 Lead EKG performed per provider's order, per policy, and given to deion for interpretation. Medical web design intern offered to patient prior to sensitive procedure and patient declined documented in this encounter [facility] 11-03-2024 Telephone encounter Note Received records. Placed in scanning. Placed on Dr Albarran's desk. [facility] Telephone encounter Note Images from the original note were not included. Future Appointment: Received: Today Alden Albarran MD [facility] Pool Please request copies of the patients [facility] records (notes, ECGs, echo reports, stress test reports, cardiac cath reports, pacemaker procedure / reports, etc.) in anticipation of his upcoming visit. ( ). Thank you. Faxed request [facility] 10-05-2024 Instructions Leobardo Pollard MD - 10/05/2024 11:56 AM EDT We discussed your symptoms of congestion, cough, fatigue, and ear discomfort: - Your symptoms are consistent with a viral illness. No signs of pneumonia were found during the exam. - Rest and allow the illness to run its course. This may take about a week. - Stay hydrated by drinking plenty of fluids. - Engage in light activity as tolerated to avoid deconditioning. For example, you may try playing your guitar or doing light household tasks as you feel able. - Continue using Tussin DM for your cough as needed. An additional expectorant is not necessary at this time. - Monitor your symptoms. If you develop a fever, worsening symptoms, or do not improve after a week, please contact our office. We discussed your right ear discomfort: - There is some fluid in your right middle ear, likely related to your history of a collapsed eustachian tube. This does not appear to be infected at this time. - If your ear pain worsens or you notice any new symptoms, please let us know. Please keep me updated on your progress. documented in this encounter [facility] 10-05-2024 Note HNO ID: [id number] Author: LEOBARDO POLLARD MD Service: ? Author Type: Physician Type: Progress Notes Filed: 10/05/2024 12:02 Note Text: This note was created using NoteWriter. Subjective Montrell Mancuso is a 74 year old male. The patient consented to the use of ambient AI software for draft documentation of the visit consistent with [facility]?s Notice of Privacy Practices. Montrell is a 74-year-old male presenting with URI symptoms and fatigue. Montrell reports onset of symptoms last , initially feeling well in the morning but experiencing malaise by the afternoon. Overnight, he developed significant congestion and rhinorrhea, followed by a dry cough that persisted for several days. As of this morning, the cough has started to produce phlegm. He also reports feeling washed out and experiencing lightheadedness when walking from the waiting room to the examination room. He has had no energy to engage in usual activities, such as playing the guitar, and only managed to do the dishes last night for the first time in 5 days. He performed a home COVID-19 test on Friday, which was negative. He has not been in contact with anyone known to be ill, but suspects possible exposure to individuals with similar symptoms. He denies fever, but notes that his temperature has been slightly elevated from his baseline of 97?F. He has experienced intermittent chills, including this morning, but denies diaphoresis. He denies any gastrointestinal symptoms or dyspnea, but has not engaged in activities that would typically induce shortness of breath. He has been taking aspirin for the first 3 days of illness, then switched to Tylenol, including an extra strength dose this morning. He has also been using Tussin DM for cough relief. He denies otalgia, but reports a history of fluid in the right ear due to a collapsed eustachian tube, which has caused some sensitivity to touch. He had a sore throat at the onset of symptoms, likely due to drainage, but this has improved over the past 1-2 days. Review of Systems Per HPI. ACTIVE PROBLEM LIST Mixed Hyperlipidemia Bph With Obstruction/Lower Urinary Tract Symptoms Actinic Keratosis Asymptomatic Varicose Veins Vitamin D Deficiency Ashd (Arteriosclerotic Heart Disease) Chronic Bilateral Low Back Pain Without Sciatica History of Umbilical Hernia Repair Osteoarthrosis Asymptomatic Peripheral Vascular Disease (Hcc) Atrioventricular Block Sinus Node Dysfunction (Hcc) Cardiac Pacemaker in Situ Elevated Psa Social History Tobacco Use Smoking status: Former Current packs/day: 0.00 Types: Cigarettes Quit date: 06/24/1967 Years since quittin.3 Smokeless tobacco: Never Vaping Use Vaping status: Never Used Substance Use Topics Alcohol use: Yes Alcohol/week: 3.0 standard drinks of alcohol Types: 3 Cans of Beer (12oz) per week Drug use: No Current Outpatient Medications Medication Sig folic acid 400 mcg tablet Take 400 mcg by mouth once daily. [id number] (CALTRATE 600-D PLUS MINERALS) 600 mg calcium- 800 unit-50 mg tab Take 1 tablet by mouth once daily. Multivitamin capsule Take 1 capsule by mouth once daily. Cholecalciferol, Vitamin D3, 25 mcg (1,000 unit) cap Take 1,000 Units by mouth once daily. Ascorbic Acid 1,000 mg tablet Take 1,000 mg by mouth once daily. triamcinolone acetonide (NASACORT) 55 mcg nasal inhaler Use 2 Sprays in the nose once daily. albuterol HFA (PROVENTIL HFA, VENTOLIN HFA) 90 mcg/actuation inhaler Inhale 2 Puffs as instructed every 6 hours as needed for wheezing/shortness of breath. (Patient not taking: Reported on 07/28/2024) No current facility-administered medications for this visit. Objective BP 126/70 (BP Site: Left Arm, BP Position: Sitting, BP Cuff Size: Large Adult) Pulse 60 Temp 36.6 ?C (97.9 ?F) (Temporal) Wt 76.4 kg (168 lb 6.9 oz) SpO2 (!) 9% BMI 26.38 kg/m? Physical Exam Constitutional: General: He is not in acute distress. Appearance: He is not ill-appearing or diaphoretic. HENT: Right Ear: No drainage. No middle ear effusion. Tympanic membrane is injected. Tympanic membrane is not perforated or bulging. Left Ear: Tympanic membrane normal. No drainage. Nose: Congestion present. No rhinorrhea. Right Sinus: No maxillary sinus tenderness or frontal sinus tenderness. Left Sinus: No maxillary sinus tenderness or frontal sinus tenderness. Mouth/Throat: Pharynx: Posterior oropharyngeal erythema present. No oropharyngeal exudate. Cardiovascular: Heart sounds: Normal heart sounds. Pulmonary: Breath sounds: No wheezing, rhonchi or rales. Abdominal: Palpations: Abdomen is soft. Tenderness: There is no abdominal tenderness. Lymphadenopathy: Cervical: No cervical adenopathy. Neurological: Mental Status: He is alert. Assessment and Plan 1. Viral upper respiratory tract infection - ICD9: 465.9, ICD10: J06.9 (primary (more content not included)... [facility] 10-05-2024 History of Present illness Narrative This note was created using [employer]. Subjective Montrell Mancuso is a 74 year old male. The patient consented to the use of [employer] software for draft documentation of the visit consistent with [facility] s Notice of Privacy Practices. Montrell is a 74-year-old male presenting with URI symptoms and fatigue. Montrell reports onset of symptoms last , initially feeling well in the morning but experiencing malaise by the afternoon. Overnight, he developed significant congestion and rhinorrhea, followed by a dry cough that persisted for several days. As of this morning, the cough has started to produce phlegm. He also reports feeling washed out and experiencing lightheadedness when walking from the waiting room to the examination room. He has had no energy to engage in usual activities, such as playing the guitar, and only managed to do the dishes last night for the first time in 5 days. He performed a home COVID-19 test on Friday, which was negative. He has not been in contact with anyone known to be ill, but suspects possible exposure to individuals with similar symptoms. He denies fever, but notes that his temperature has been slightly elevated from his baseline of 97 F. He has experienced intermittent chills, including this morning, but denies diaphoresis. He denies any gastrointestinal symptoms or dyspnea, but has not engaged in activities that would typically induce shortness of breath. He has been taking aspirin for the first 3 days of illness, then switched to Tylenol, including an extra strength dose this morning. He has also been using Tussin DM for cough relief. He denies otalgia, but reports a history of fluid in the right ear due to a collapsed eustachian tube, which has caused some sensitivity to touch. He had a sore throat at the onset of symptoms, likely due to drainage, but this has improved over the past 1-2 days. Review of Systems Per HPI. ACTIVE PROBLEM LIST Mixed Hyperlipidemia Bph With Obstruction/Lower Urinary Tract Symptoms Actinic Keratosis Asymptomatic Varicose Veins Vitamin D Deficiency Ashd (Arteriosclerotic Heart Disease) Chronic Bilateral Low Back Pain Without Sciatica History of Umbilical Hernia Repair Osteoarthrosis Asymptomatic Peripheral Vascular Disease (Hcc) Atrioventricular Block Sinus Node Dysfunction (Hcc) Cardiac Pacemaker in Situ Elevated Psa Social History Tobacco Use Smoking status: Former Current packs/day: 0.00 Types: Cigarettes Quit date: 06/24/1967 Years since quittin.3 Smokeless tobacco: Never Vaping Use Vaping status: Never Used Substance Use Topics Alcohol use: Yes Alcohol/week: 3.0 standard drinks of alcohol Types: 3 Cans of Beer (12oz) per week Drug use: No Current Outpatient Medications Medication Sig folic acid 400 mcg tablet Take 400 mcg by mouth once daily. [id number] (CALTRATE 600-D PLUS MINERALS) 600 mg calcium- 800 unit-50 mg tab Take 1 tablet by mouth once daily. Multivitamin capsule Take 1 capsule by mouth once daily. Cholecalciferol, Vitamin D3, 25 mcg (1,000 unit) cap Take 1,000 Units by mouth once daily. Ascorbic Acid 1,000 mg tablet Take 1,000 mg by mouth once daily. triamcinolone acetonide (NASACORT) 55 mcg nasal inhaler Use 2 Sprays in the nose once daily. albuterol HFA (PROVENTIL HFA, VENTOLIN HFA) 90 mcg/actuation inhaler Inhale 2 Puffs as instructed every 6 hours as needed for wheezing/shortness of breath. (Patient not taking: Reported on 07/28/2024) No current facility-administered medications for this visit. Objective BP 126/70 (BP Site: Left Arm, BP Position: Sitting, BP Cuff Size: Large Adult) Pulse 60 Temp 36.6 C (97.9 F) (Temporal) Wt 76.4 kg (168 lb 6.9 oz) SpO2 (!) 9% BMI 26.38 kg/m Physical Exam Constitutional: General: He is not in acute distress. Appearance: He is not ill-appearing or diaphoretic. HENT: Right Ear: No drainage. No middle ear effusion. Tympanic membrane is injected. Tympanic membrane is not perforated or bulging. Left Ear: Tympanic membrane normal. No drainage. Nose: Congestion present. No rhinorrhea. Right Sinus: No maxillary sinus tenderness or frontal sinus tenderness. Left Sinus: No maxillary sinus tenderness or frontal sinus tenderness. Mouth/Throat: Pharynx: Posterior oropharyngeal erythema present. No oropharyngeal exudate. Cardiovascular: Heart sounds: Normal heart sounds. Pulmonary: Breath sounds: No wheezing, rhonchi or rales. Abdominal: Palpations: Abdomen is soft. Tenderness: There is no abdominal tenderness. Lymphadenopathy: Cervical: No cervical adenopathy. Neurological: Mental Status: He is alert. Assessment and Plan 1. Viral upper respiratory tract infection - ICD9: 465.9, ICD10: J06.9 (primary diagnosis) - Discussed viral etiology and rationale for treatment. - Symptomatic treatment with prn analgesia - Supportive care with fluids and rest 2. Dysfunction of right eustachian tube - ICD9: 381.81, ICD10: H69.91 - Stable. Leobardo Pollard MD documented in this encounter [facility] 08-05-2024 Telephone encounter Note I called Montrell regarding Covid infection. He was feeling better, and afebrile. This is day 5. Shared medical decision making was done regarding Paxlovid, and we agreed to manage symptomatically at this point. [facility] 08-05-2024 Miscellaneous Notes I called Montrell regarding Covid infection. He was feeling better, and afebrile. This is day 5. Shared medical decision making was done regarding Paxlovid, and we agreed to manage symptomatically at this point. documented in this encounter [facility] 08-04-2024 History of Present illness Narrative Radiology Service Progress Note PATIENT NAME: Montrell Mancuso DATE OF SERVICE: August 04, 2024 TIME: 10:15 AM PATIENT IDENTITY VERIFICATION COMPLETED USING TWO (2) IDENTIFIERS: Name and Date of confirmed by patient verbally. FALL SCREENING: Has the patient had 2 falls in the last year or 1 fall with injury or currently using an Ambulatory Assistive Device (Walker, Cane, Wheelchair, Crutches, etc.)? No PATIENT GENDER DATA: Assigned male at PATIENT RELEVANT IMPLANT DATA REVIEWED: Not Applicable PATIENT PRESENTS WITH AN IMPLANTABLE OR ATTACHED PROPOSAL MANAGER WRITER: No RADIOLOGY DEPARTMENT: General X-ray: Exam(s) Completed: Chest X-Ray PERIPHERAL IV DATA: Not applicable SIGNED BY: RT Consuelo(Archana) August 04, 2024 10:15 AM documented in this encounter [facility] 08-04-2024 Note HNO ID: [id number] Author: DESON GRANT RT (R) Service: Radiology Author Type: Technologist Type: Progress Notes Filed: 08/04/2024 10:21 Note Text: Radiology Service Progress Note PATIENT NAME: Montrell Mancuso DATE OF SERVICE: August 04, 2024 TIME: 10:15 AM PATIENT IDENTITY VERIFICATION COMPLETED USING TWO (2) IDENTIFIERS: Name and Date of confirmed by patient verbally. FALL SCREENING: Has the patient had 2 falls in the last year or 1 fall with injury or currently using an Ambulatory Assistive Device (Walker, Cane, Wheelchair, Crutches, etc.)? No PATIENT GENDER DATA: Assigned male at PATIENT RELEVANT IMPLANT DATA REVIEWED: Not Applicable PATIENT PRESENTS WITH AN IMPLANTABLE OR ATTACHED PROPOSAL MANAGER WRITER: No RADIOLOGY DEPARTMENT: General X-ray: Exam(s) Completed: Chest X-Ray PERIPHERAL IV DATA: Not applicable SIGNED BY: ALYX Cordero) August 04, 2024 10:15 AM [facility] 08-04-2024 Note HNO ID: [id number] Author: KATHIE MORENO APRN.[employer] Service: ? Author Type: Nurse Practitioner Type: Progress Notes Filed: 08/04/2024 10:04 Note Text: CC: Patient presents with: Nasal Congestion: Cough x 3 days HPI: Motnrell Mancuso is a 73 year old male who presents to the office with above complaint Symptoms began three days ago and include: Temperature elevation: Yes low grade Chills: Yes Cough: Yes, sputum has been dark red Shortness of breath: No Fatigue: Yes Muscle aches: Yes Headache: No New loss of smell or taste: No Sore throat: No Nasal congestion: Yes Rhinorrhea: Yes clear nasal drainage with streaks of blood Nausea and/or vomiting: No Diarrhea: No Other Associated symptoms: decreased appetite and weakness PMH: Non-contributory OTC meds/remedies that patient has tried: acetaminophen. Exposures: Sick contacts? Yes Family or close contacts with confirmed/probable COVID-19 in last 14 days? No Home COVID test: no Review of Systems Constitutional: Negative for unexpected weight change. Respiratory: Negative for wheezing. Cardiovascular: Negative for chest pain, palpitations and leg swelling. Neurological: Positive for light-headedness. Negative for dizziness and syncope. PAST MEDICAL HISTORY Diagnosis Date Actinic keratosis 01/10/2010 Dr. Vanessa Zepeda Acute prostatitis 10/15/2016 PSA elevation ASHD (arteriosclerotic heart disease) 04/27/2020 Dr. Albarran Atrioventricular block Benign neoplasm of colon BPH with obstruction/lower urinary tract symptoms 06/25/2005 Bradycardia Cardiac murmur Cardiac pacemaker in situ 05/24/2022 Chest pain Chronic otitis media of right ear 12/03/2018 Dr. Td Peace, tympanostomy. Constipation Degenerative arthritis Elevated d-dimer Elevated PSA 12/10/2023 GERD (gastroesophageal reflux disease) Hemorrhage of gastrointestinal tract, unspecified Hemorrhage of rectum and anus History of basal cell carcinoma (BCC) of skin 2017 [facility] Hypertrophy of prostate with urinary obstruction and other lower urinary tract symptoms (LUTS) 06/25/2005 Internal hemorrhoids without mention of complication Left inguinal pain Lung nodules 09/05/2015 Mixed hyperlipidemia Hyperlipidemia Peripheral vascular disease (HCC) Right groin pain Sinus bradycardia Sinus node dysfunction (HCC) Sleep apnea Supraventricular premature beats 06/25/2005 Unspecified essential hypertension Essential hypertension Vitamin D deficiency 02/09/2019 PAST SURGICAL HISTORY Procedure Laterality Date COLONOSCOPY 12/30/2017 , [facility] COLONOSCOPY FLX DX W/COLLJ SPEC WHEN PFRMD 12/13/2010 Colonoscopy COLSC FLX W/RMVL OF TUMOR POLYP LESION SNARE TQ 02/09/2008 INGUINAL HERNIA REPAIR HX Right 01/11/2018 LEFT HEART CATH,PERCUTANEOUS 03/14/[facility] PACEMAKER INSERTION DUAL CHAMB 05/23/2022 REMV CATARACT EXTRACAP,INSERT LENS Bilateral 06/2023 REPAIR INGUINAL HERNIA Left 05/16/2021 [facility] UMBILICAL HERNIA AGE 5 YRS/> INCARCERATED 09/05/2011 umbilical STRESS TEST 02/22/2020 [facility] TYMPANOSTOMY LOCAL/TOPICAL ANESTHESIA Right 2017 Dr. Peace ALLERGIES Atorvastatin MEDICATIONS folic acid 400 mcg tablet Take 400 mcg by mouth once daily. [id number] (CALTRATE 600-D PLUS MINERALS) 600 mg calcium- 800 unit-50 mg tab Take 1 tablet by mouth once daily. Multivitamin capsule Take 1 capsule by mouth once daily. Cholecalciferol, Vitamin D3, 25 mcg (1,000 unit) cap Take 1,000 Units by mouth once daily. Ascorbic Acid 1,000 mg tablet Take 1,000 mg by mouth once daily. triamcinolone acetonide (NASACORT) 55 mcg nasal inhaler Use 2 Sprays in the nose once daily. albuterol HFA (PROVENTIL HFA, VENTOLIN HFA) 90 mcg/actuation inhaler Inhale 2 Puffs as instructed every 6 hours as needed for wheezing/shortness of breath. (Patient not taking: Reported on 07/28/2024) FAMILY HISTORY Problem Relation Age of Onset Arthritis Mother osteo GI Mother diverticultis Osteoporosis Mother Stroke Mother Cancer Father leukemia Heart Father bicuspid aortic valve Coronary Artery Disease Father Heart disease Sister valve replacement Stroke Sister Heart disease Brother Valve surgery Coronary Artery Disease Brother has coronary stents No Known Problems Brother Heart Paternal Grandfather Social History Tobacco Use Smoking status: Former Current packs/day: 0.00 Types: Cigarettes Quit date: 06/24/1967 Years since quittin.1 Smokeless tobacco: Never Vaping Use Vaping status: Never Used Substance Use Topics Alcohol use: Yes Alcohol/week: 3.0 standard drinks of alcohol Types: 3 Cans of Beer (12oz) per week Drug use: No BP 122/70 Pulse (!) 59 Temp 36.9 ?C (98.5 ?F) (Temporal) Resp 16 Wt 76.5 kg (168 lb 10.4 oz) SpO2 98% BMI 26.41 kg/m? Physical Exam Vitals reviewed. Co (more content not included)... [facility] 08-04-2024 History of Present illness Narrative CC: Patient presents with: Nasal Congestion: Cough x 3 days HPI: Montrell Mancuso is a 73 year old male who presents to the office with above complaint Symptoms began three days ago and include: Temperature elevation: Yes low grade Chills: Yes Cough: Yes, sputum has been dark red Shortness of breath: No Fatigue: Yes Muscle aches: Yes Headache: No New loss of smell or taste: No Sore throat: No Nasal congestion: Yes Rhinorrhea: Yes clear nasal drainage with streaks of blood Nausea and/or vomiting: No Diarrhea: No Other Associated symptoms: decreased appetite and weakness PMH: Non-contributory OTC meds/remedies that patient has tried: acetaminophen. Exposures: Sick contacts? Yes Family or close contacts with confirmed/probable COVID-19 in last 14 days? No Home COVID test: no Review of Systems Constitutional: Negative for unexpected weight change. Respiratory: Negative for wheezing. Cardiovascular: Negative for chest pain, palpitations and leg swelling. Neurological: Positive for light-headedness. Negative for dizziness and syncope. PAST MEDICAL HISTORY Diagnosis Date Actinic keratosis 01/10/2010 Dr. Vanessa Zepeda Acute prostatitis 10/15/2016 PSA elevation ASHD (arteriosclerotic heart disease) 04/27/2020 Dr. Albarran Atrioventricular block Benign neoplasm of colon BPH with obstruction/lower urinary tract symptoms 06/25/2005 Bradycardia Cardiac murmur Cardiac pacemaker in situ 05/24/2022 Chest pain Chronic otitis media of right ear 12/03/2018 Dr. Td Peace, tympanostomy. Constipation Degenerative arthritis Elevated d-dimer Elevated PSA 12/10/2023 GERD (gastroesophageal reflux disease) Hemorrhage of gastrointestinal tract, unspecified Hemorrhage of rectum and anus History of basal cell carcinoma (BCC) of skin 2017 [facility] Hypertrophy of prostate with urinary obstruction and other lower urinary tract symptoms (LUTS) 06/25/2005 Internal hemorrhoids without mention of complication Left inguinal pain Lung nodules 09/05/2015 Mixed hyperlipidemia Hyperlipidemia Peripheral vascular disease (HCC) Right groin pain Sinus bradycardia Sinus node dysfunction (HCC) Sleep apnea Supraventricular premature beats 06/25/2005 Unspecified essential hypertension Essential hypertension Vitamin D deficiency 02/09/2019 PAST SURGICAL HISTORY Procedure Laterality Date COLONOSCOPY 12/30/2017 , [facility] COLONOSCOPY FLX DX W/COLLJ SPEC WHEN PFRMD 12/13/2010 Colonoscopy COLSC FLX W/RMVL OF TUMOR POLYP LESION SNARE TQ 02/09/2008 INGUINAL HERNIA REPAIR HX Right 01/11/2018 LEFT HEART CATH,PERCUTANEOUS 03/14/2020 [facility] PACEMAKER INSERTION DUAL CHAMB 05/23/2022 REMV CATARACT EXTRACAP,INSERT LENS Bilateral 06/2023 REPAIR INGUINAL HERNIA Left 05/16/2021 [facility] UMBILICAL HERNIA AGE 5 YRS/> INCARCERATED 09/05/2011 umbilical STRESS TEST 02/22/2020 [facility] TYMPANOSTOMY LOCAL/TOPICAL ANESTHESIA Right 2017 Dr. Peace ALLERGIES Atorvastatin MEDICATIONS folic acid 400 mcg tablet Take 400 mcg by mouth once daily. [id number] (CALTRATE 600-D PLUS MINERALS) 600 mg calcium- 800 unit-50 mg tab Take 1 tablet by mouth once daily. Multivitamin capsule Take 1 capsule by mouth once daily. Cholecalciferol, Vitamin D3, 25 mcg (1,000 unit) cap Take 1,000 Units by mouth once daily. Ascorbic Acid 1,000 mg tablet Take 1,000 mg by mouth once daily. triamcinolone acetonide (NASACORT) 55 mcg nasal inhaler Use 2 Sprays in the nose once daily. albuterol HFA (PROVENTIL HFA, VENTOLIN HFA) 90 mcg/actuation inhaler Inhale 2 Puffs as instructed every 6 hours as needed for wheezing/shortness of breath. (Patient not taking: Reported on 07/28/2024) FAMILY HISTORY Problem Relation Age of Onset Arthritis Mother osteo GI Mother diverticultis Osteoporosis Mother Stroke Mother Cancer Father leukemia Heart Father bicuspid aortic valve Coronary Artery Disease Father Heart disease Sister valve replacement Stroke Sister Heart disease Brother Valve surgery Coronary Artery Disease Brother has coronary stents No Known Problems Brother Heart Paternal Grandfather Social History Tobacco Use Smoking status: Former Current packs/day: 0.00 Types: Cigarettes Quit date: 06/24/1967 Years since quittin.1 Smokeless tobacco: Never Vaping Use Vaping status: Never Used Substance Use Topics Alcohol use: Yes Alcohol/week: 3.0 standard drinks of alcohol Types: 3 Cans of Beer (12oz) per week Drug use: No BP 122/70 Pulse (!) 59 Temp 36.9 C (98.5 F) (Temporal) Resp 16 Wt 76.5 kg (168 lb 10.4 oz) SpO2 98% BMI 26.41 kg/m Physical Exam Vitals reviewed. Constitutional: General: He is not in acute distress. Appearance: He is ill-appearing. He is not toxic-appearing. HENT: Head: Normocephalic and atraumatic. Right Ear: Tympanic membrane normal. Left Ear: Tympanic membrane normal. Nose: Mucosal edema and congestion present. Right Nostril: No epistaxis. Left Nostril: No epistaxis. Mouth/Throat: Lips: Experiment. Mouth: Mucous membranes are moist. Pharynx: Oropharynx is clear. Postnasal drip present. Eyes: Conjunctiva/sclera: Conjunctivae normal. Cardiovascular: Rate and Rhythm: Normal rate and regular rhythm. Heart sounds: Normal heart sounds. No murmur heard. Pulmonary: Effort: Pulmonary effort is normal. Breath sounds: Normal breath sounds. No wheezing, rhonchi or rales. Skin: General: Skin is warm and dry. Neurological: Mental Status: He is alert. Psychiatric: Mood and Affect: Mood normal. ASSESSMENT/PLAN: 1. Acute cough - ICD9: 786.2, ICD10: R05.1 (primary diagnosis) Differentials include pneumonia or viral URI Stat work-up with: - XR CHEST 2V FRONTAL/LAT - COMPLETE BLOOD COUNT - BASIC METABOLIC PANEL - COVID & INFLUENZA A/B & RSV PCR, ROUTINE Follow-up and further recommendations pending results If COVID is positive patient would be interested in treating with Paxlovid which he has taken previously and had no ill effects 2. Hemoptysis - ICD9: 786.30, ICD10: R04.2 Possibly from post nasal drainage/dry mucous membranes. See plan above - XR CHEST 2V FRONTAL/LAT - COMPLETE BLOOD COUNT - BASIC METABOLIC PANEL - COVID & INFLUENZA A/B & RSV PCR, ROUTINE 3. Weakness - ICD9: 780.79, ICD10: R53.1 As above - COVID & INFLUENZA A/B & RSV PCR, ROUTINE Prescription instructions reviewed with patient as applicable. Potential red flag symptoms discussed with the patient. Reviewed appropriate action plan to take if red flag symptoms occur. Patient agreeable to treatment plan. Kathie Moreno APRN.[employer] documented in this encounter [facility] 08-04-2024 Telephone encounter Note Patient calling with complaints of respiratory sx's that began Friday08/01/24, including a scratchy throat and cough with a burning sensation in his chest. Other sx's that have occurred since then include nasal congestion, cough with dark red tinged sputum, temp of 99-100, fatigue, chills, mild postural dizziness at times. Denies chest pain or pressure but does state some discomfort in left side area but does not hurt when he coughs. Denies SOB. Urinating well. No hematuria or penile discharge, as he had recently. Reports drinking well, appetite might be a little less. No N/V/D. Reports has home Pulse Oximeter and SpO2 on Friday was 98-99%. Reports since then his SpO2 does drop down to 92-94% but does normalize after slow deep breaths. Talking in full sentences during call. No distress noted. Pt has not tested himself for covid-out of home tests. States he has ahd known exposure to others that have been recently ill. In-person appt made for thorough evaluation. Appt made with Batool Emerson CNP for this morning. Pt aware to proceed to nearest ER for severe sx's as discussed. Danyelle Prescott RN [facility] 08-04-2024 Miscellaneous Notes Patient calling with complaints of respiratory sx's that began Friday08/01/24, including a scratchy throat and cough with a burning sensation in his chest. Other sx's that have occurred since then include nasal congestion, cough with dark red tinged sputum, temp of 99-100, fatigue, chills, mild postural dizziness at times. Denies chest pain or pressure but does state some discomfort in left side area but does not hurt when he coughs. Denies SOB. Urinating well. No hematuria or penile discharge, as he had recently. Reports drinking well, appetite might be a little less. No N/V/D. Reports has home Pulse Oximeter and SpO2 on Friday was 98-99%. Reports since then his SpO2 does drop down to 92-94% but does normalize after slow deep breaths. Talking in full sentences during call. No distress noted. Pt has not tested himself for covid-out of home tests. States he has ahd known exposure to others that have been recently ill. In-person appt made for thorough evaluation. Appt made with Batool Emerson CNP for this morning. Pt aware to proceed to nearest ER for severe sx's as discussed. Danyelle Prescott RN documented in this encounter [facility] 07-28-2024 Note HNO ID: [id number] Author: LEOBARDO POLLARD MD Service: ? Author Type: Physician Type: Progress Notes Filed: 07/28/2024 17:54 Note Text: This note was created using [employer]. Subjective Montrell Mancuso is a 73 year old male was here with his spouse. He was awakened early this AM with dysuria and gross hematuria. He had 12 to 15 drops of bright red blood noted. No other symptoms were noted. [facility] where his urinalysis showed blood and nothing else. CT scan of the abdomen and pelvis was ordered, and he was instructed to follow up here with results. Urine culture was sent. CT scan showed a very small cyst of the left kidney, a tiny non obstructive left infrarenal calculus, mild degree of diffuse bladder thickening; prostate enlargement with indentation of the bladder base. Review of Systems Constitutional: Negative for chills, diaphoresis and fever. Gastrointestinal: Negative for abdominal pain, nausea and vomiting. Genitourinary: Positive for penile discharge. Negative for difficulty urinating, flank pain, genital sores and testicular pain. ACTIVE PROBLEM LIST Mixed Hyperlipidemia Bph With Obstruction/Lower Urinary Tract Symptoms Actinic Keratosis Asymptomatic Varicose Veins Vitamin D Deficiency Ashd (Arteriosclerotic Heart Disease) Chronic Bilateral Low Back Pain Without Sciatica History of Umbilical Hernia Repair Osteoarthrosis Asymptomatic Peripheral Vascular Disease (Hcc) Atrioventricular Block Sinus Node Dysfunction (Hcc) Cardiac Pacemaker in Situ Elevated Psa Social History Tobacco Use Smoking status: Former Current packs/day: 0.00 Types: Cigarettes Quit date: 06/24/1967 Years since quittin.1 Smokeless tobacco: Never Vaping Use Vaping status: Never Used Substance Use Topics Alcohol use: Yes Alcohol/week: 3.0 standard drinks of alcohol Types: 3 Cans of Beer (12oz) per week Drug use: No Current Outpatient Medications Medication Sig folic acid 400 mcg tablet Take 400 mcg by mouth once daily. [id number] (CALTRATE 600-D PLUS MINERALS) 600 mg calcium- 800 unit-50 mg tab Take 1 tablet by mouth once daily. Multivitamin capsule Take 1 capsule by mouth once daily. Cholecalciferol, Vitamin D3, 25 mcg (1,000 unit) cap Take 1,000 Units by mouth once daily. Ascorbic Acid 1,000 mg tablet Take 1,000 mg by mouth once daily. triamcinolone acetonide (NASACORT) 55 mcg nasal inhaler Use 2 Sprays in the nose once daily. albuterol HFA (PROVENTIL HFA, VENTOLIN HFA) 90 mcg/actuation inhaler Inhale 2 Puffs as instructed every 6 hours as needed for wheezing/shortness of breath. (Patient not taking: Reported on 07/28/2024) No current facility-administered medications for this visit. Objective BP 128/64 (BP Site: Left Arm, BP Position: Sitting, BP Cuff Size: Large Adult) Pulse 60 Temp 37.2 ?C (98.9 ?F) (Temporal) Resp 16 Wt 77 kg (169 lb 12.1 oz) BMI 26.59 kg/m? Physical Exam Constitutional: Appearance: He is not ill-appearing. Pulmonary: Effort: Pulmonary effort is normal. Abdominal: Palpations: Abdomen is soft. There is no mass. Tenderness: There is no abdominal tenderness. There is no right CVA tenderness or left CVA tenderness. Hernia: There is no hernia in the left inguinal area or right inguinal area. Genitourinary: Penis: Circumcised. Discharge present. Testes: Right: Mass, tenderness or swelling not present. Left: Mass, tenderness or swelling not present. Comments: Scant blood discharge. Lymphadenopathy: Lower Body: No right inguinal adenopathy. No left inguinal adenopathy. Neurological: Mental Status: He is alert. 07/28/2024 UROL PROSTATE HEALTH MEN OVER 40 INCOMPLETE EMPTYING 5-ALMOST ALWAYS FREQUENCY 3-ABOUT HALF THE TIME INTERMITTENCY 5-ALMOST ALWAYS URGE TO URINATE 3-ABOUT HALF THE TIME WEAK STREAM 3-ABOUT HALF THE TIME STRAINING 0-NOT AT ALL URINATING AT NIGHT 3-(3) TIMES Total 22 SYMPTOM SCORE 20-35 SEVERE BOTHER SCORE DUE TO URINARY SYMPTOMS 3- MIXED Test results pertinent to today's visit were reviewed and discussed with the patient. Assessment and Plan 1. Gross hematuria - ICD9: 599.71, ICD10: R31.0 (primary diagnosis) - I suspect this is related to BPH and bladder wall thickening on CT. - I doubt UTI. There was no concern for STI. Urine culture sent at [facility]. Ordering provider or myself can address if positive. Fluids recommended. I stressed need for urology and likely cystoscopy. 2. Elevated PSA - ICD9: 790.93, ICD10: R97.20 - He will do lab ordered last summer. 3. BPH with obstruction/lower urinary tract symptoms - ICD9: 600.01, 599.69, ICD10: N40.1, N13.8 - We discussed tamsulosin. Discussed medication dosage, usage, goals of therapy, and side effects. He preferred to wait till his urology consultation. He sees Dr. Tejeda 08/16/24. Leobardo Pollard MD [facility] 07-28-2024 History of Present illness Narrative This note was created using [employer]. Subjective Montrell Mancuso is a 73 year old male was here with his spouse. He was awakened early this AM with dysuria and gross hematuria. He had 12 to 15 drops of bright red blood noted. No other symptoms were noted. [facility] where his urinalysis showed blood and nothing else. CT scan of the abdomen and pelvis was ordered, and he was instructed to follow up here with results. Urine culture was sent. CT scan showed a very small cyst of the left kidney, a tiny non obstructive left infrarenal calculus, mild degree of diffuse bladder thickening; prostate enlargement with indentation of the bladder base. Review of Systems Constitutional: Negative for chills, diaphoresis and fever. Gastrointestinal: Negative for abdominal pain, nausea and vomiting. Genitourinary: Positive for penile discharge. Negative for difficulty urinating, flank pain, genital sores and testicular pain. ACTIVE PROBLEM LIST Mixed Hyperlipidemia Bph With Obstruction/Lower Urinary Tract Symptoms Actinic Keratosis Asymptomatic Varicose Veins Vitamin D Deficiency Ashd (Arteriosclerotic Heart Disease) Chronic Bilateral Low Back Pain Without Sciatica History of Umbilical Hernia Repair Osteoarthrosis Asymptomatic Peripheral Vascular Disease (Hcc) Atrioventricular Block Sinus Node Dysfunction (Hcc) Cardiac Pacemaker in Situ Elevated Psa Social History Tobacco Use Smoking status: Former Current packs/day: 0.00 Types: Cigarettes Quit date: 06/24/1967 Years since quittin.1 Smokeless tobacco: Never Vaping Use Vaping status: Never Used Substance Use Topics Alcohol use: Yes Alcohol/week: 3.0 standard drinks of alcohol Types: 3 Cans of Beer (12oz) per week Drug use: No Current Outpatient Medications Medication Sig folic acid 400 mcg tablet Take 400 mcg by mouth once daily. [id number] (CALTRATE 600-D PLUS MINERALS) 600 mg calcium- 800 unit-50 mg tab Take 1 tablet by mouth once daily. Multivitamin capsule Take 1 capsule by mouth once daily. Cholecalciferol, Vitamin D3, 25 mcg (1,000 unit) cap Take 1,000 Units by mouth once daily. Ascorbic Acid 1,000 mg tablet Take 1,000 mg by mouth once daily. triamcinolone acetonide (NASACORT) 55 mcg nasal inhaler Use 2 Sprays in the nose once daily. albuterol HFA (PROVENTIL HFA, VENTOLIN HFA) 90 mcg/actuation inhaler Inhale 2 Puffs as instructed every 6 hours as needed for wheezing/shortness of breath. (Patient not taking: Reported on 07/28/2024) No current facility-administered medications for this visit. Objective BP 128/64 (BP Site: Left Arm, BP Position: Sitting, BP Cuff Size: Large Adult) Pulse 60 Temp 37.2 C (98.9 F) (Temporal) Resp 16 Wt 77 kg (169 lb 12.1 oz) BMI 26.59 kg/m Physical Exam Constitutional: Appearance: He is not ill-appearing. Pulmonary: Effort: Pulmonary effort is normal. Abdominal: Palpations: Abdomen is soft. There is no mass. Tenderness: There is no abdominal tenderness. There is no right CVA tenderness or left CVA tenderness. Hernia: There is no hernia in the left inguinal area or right inguinal area. Genitourinary: Penis: Circumcised. Discharge present. Testes: Right: Mass, tenderness or swelling not present. Left: Mass, tenderness or swelling not present. Comments: Scant blood discharge. Lymphadenopathy: Lower Body: No right inguinal adenopathy. No left inguinal adenopathy. Neurological: Mental Status: He is alert. 07/28/2024 URO PROSTATE HEALTH MEN OVER 40 INCOMPLETE EMPTYING 5-ALMOST ALWAYS FREQUENCY 3-ABOUT HALF THE TIME INTERMITTENCY 5-ALMOST ALWAYS URGE TO URINATE 3-ABOUT HALF THE TIME WEAK STREAM 3-ABOUT HALF THE TIME STRAINING 0-NOT AT ALL URINATING AT NIGHT 3-(3) TIMES Total 22 SYMPTOM SCORE 20-35 SEVERE BOTHER SCORE DUE TO URINARY SYMPTOMS 3- MIXED Test results pertinent to today's visit were reviewed and discussed with the patient. Assessment and Plan 1. Gross hematuria - ICD9: 599.71, ICD10: R31.0 (primary diagnosis) - I suspect this is related to BPH and bladder wall thickening on CT. - I doubt UTI. There was no concern for STI. Urine culture sent at [facility]. Ordering provider or myself can address if positive. Fluids recommended. I stressed need for urology and likely cystoscopy. 2. Elevated PSA - ICD9: 790.93, ICD10: R97.20 - He will do lab ordered last summer. 3. BPH with obstruction/lower urinary tract symptoms - ICD9: 600.01, 599.69, ICD10: N40.1, N13.8 - We discussed tamsulosin. Discussed medication dosage, usage, goals of therapy, and side effects. He preferred to wait till his urology consultation. He sees Dr. Tejeda 08/16/24. Leobardo Pollard MD documented in this encounter [facility] 07-28-2024 Telephone encounter Note Patient's and patient calls and reports that patient has been having burning with urination and blood in urine. Patient was seen at [facility] at 6 am and the urine test had showed blood. STAT CT scan was ordered for patient had patient had this done at [facility]. Patient was told by provider at [facility] that he needed to see provider as soon as possible due to CT scan results. states that results showed sm cyst in left kidney, calcium deposits on kidney, and enlarged prostate. Appointment scheduled with Dr. Pollard today 07/28/2024. Sindy Jones RN [facility] 07-28-2024 Miscellaneous Notes Patient's and patient calls and reports that patient has been having burning with urination and blood in urine. Patient was seen at [facility] at 6 am and the urine test had showed blood. STAT CT scan was ordered for patient had patient had this done at [facility]. Patient was told by provider at [facility] that he needed to see provider as soon as possible due to CT scan results. states that results showed sm cyst in left kidney, calcium deposits on kidney, and enlarged prostate. Appointment scheduled with Dr. Pollard today 07/28/2024. Sindy Jones RN documented in this encounter [facility] 02-08-2024 Note [facility] Medical Records Department [address] [place] [address] Discharge Summary 02/08/24 1044 MR#: [id number] Acct: [id number] Name: MONTRELL MANCUSO Rep #: [id number] : 1950 73 From: Medardo Jiménez DO PCP: Dr. Leobardo Pollard MD Status:DIS MITZI Location: [place] [address] Providers Date of Admission: 02/07/24 Date of Discharge: 02/08/24 Primary Care Physician: Dr. Leobardo Pollard MD Reason For Visit: ANGINAL EQUIVALENT Diagnosis Discharge Diagnosis (1) Anginal equivalent: Status: Acute Code(s): I20.89 - Other forms of angina pectoris Plan 1. Dyspnea-etiology unclear #2 left forearm paresthesias-etiology unclear #3 coronary artery disease #4 hyperlipidemia Medications at Discharge Home Medications cholecalciferol (vitamin D3) 25 mcg (1,000 unit) tablet 1,000 unit PO DAILY supplement 09/18/20 multivitamin 1 tab PO DAILY supplement 04/05/21 ascorbic acid (vitamin C) 1,000 mg tablet 1 g PO DAILY supplement 05/01/22 calcium carbonate 600 mg PO DAILY supplement 05/01/22 folic acid 400 mcg tablet 0.4 mg PO DAILY supplement 05/01/22 ezetimibe 10 mg tablet (Zetia) 10 mg PO DAILY #30 tabs 02/08/24 pravastatin 20 mg tablet 20 mg PO DAILY #30 tabs 02/08/24 Hospital Course Operations None Procedures None Summary of Care Provided Minutes Spent on Discharge: 31 Hospital Course: This 73-year-old white male was seen in the emergency room at [facility] with complaints of tingling in his left forearm, patient also complained of lightheadedness as though he was going to pass out and he also complained of dyspnea. This occurred when the patient was mowing the lawn yesterday. Patient denied any actual chest pain, he denied any pain in his neck or jaw. Workup in the emergency room included cardiac enzymes which were unremarkable, EKG showed an atrial paced rhythm, CBC was unremarkable, chest x-ray was unremarkable, and chemistry panel was unremarkable. Cardiology was contacted by the emergency room physician, he advised admitting the patient and cycling the cardiac enzymes and cardiology agreed to see him in consultation. There was some question whether the patient's symptoms were anginal equivalent, this examiner did not feel that this was the case after examining the patient and reviewing his medical record. The etiology of the patient's left forearm paresthesias was unclear. Patient's cardiac enzymes remain normal during his hospitalization, he did not have any more episodes of dyspnea, lightheadedness, or tingling in his left arm. On 02/08/2024, patient was seen and examined: On examination he appeared in good health and spirits. Vital signs as documented. Skin warm and dry and without overt rashes. Neck without JVD, neck was supple, trachea midline, thyroid was normal. Lungs clear bilaterally, normal air movement was noted. Heart exam notable for regular rhythm, normal sounds and absence of murmurs, rubs or gallops. Abdomen unremarkable and without evidence of organomegaly, masses, or abdominal aortic enlargement. Bowel sounds are present, abdomen is not distended. Extremities nonedematous, no cyanosis was noted, no clubbing was noted. Neuro: Cranial nerves II through XII are grossly intact, no focal motor deficits were noted, sensation to light touch and pinprick intact, motor exam 5/5 throughout. Psych: Patient is alert and oriented x3, he does not appear anxious or depressed, he does not appear agitated. Patient requested discharge home on 02/08/2024, I discussed the case with cardiology and they were not against this. Patient knows he has to have an outpatient stress test performed and he does not want to stay in the hospital to have it done on 02/09/2024. Patient and the patient's are aware that there is some risk to this but that he may get the stress test performed as an outpatient. Cardiology did not feel there was a need to see the patient before he left the hospital, on 01/31/2024, patient was discharged home in stable condition. As a further note, I agreed to contact the patient's arc welder on 02/09/2024 and arrange for them to call the patient to set up an outpatient stress test. I also talked to the patient at length about the fact that he did have hyperlipidemia and he did have a history of coronary artery disease although it was nonocclusive in the past, I discussed this with the patient and the patient's and I recommended the patient go on something for hyperlipidemia-his LDL cholesterol that was drawn during this hospitalization was 101, patient has agreed to try Pravachol 20 mg once a day along with Zetia 10 mg once a day. Weight / BMI Weight Weight: 75.9 kg Body Mass Index (BMI) 26.2 ABG / Lab / Microbiology Data 02/08/24 04:40 02/08/24 04:40 Laboratory: Laboratory Results - last 24 hr (more content not included)... [facility] 12-25-2023 Telephone encounter Note Pt given results and recommendations below. 1)Pt has not seen Dr. Tejeda for a while and will get apt booked. 2) He will repeat PSA in 6 months. 3) Pt tried a statin in the past and had problems with muscle aches and he had to stop it. 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 1) Please double vitamin D supplementation. 2) Consider statin medication to lower cholesterol for prevention of cardiac events. 3) Are you still seeing Dr. Tejeda for prostate? Consider repeating PSA in 6 months. Written by Leobardo Pollard MD on 12/10/2023 1:07 PM EDT [facility] 12-25-2023 Miscellaneous Notes Pt given results and recommendations below. 1)Pt has not seen Dr. Tejeda for a while and will get apt booked. 2) He will repeat PSA in 6 months. 3) Pt tried a statin in the past and had problems with muscle aches and he had to stop it. 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 1) Please double vitamin D supplementation. 2) Consider statin medication to lower cholesterol for prevention of cardiac events. 3) Are you still seeing Dr. Tejeda for prostate? Consider repeating PSA in 6 months. Written by Leobardo Pollard MD on 12/10/2023 1:07 PM EDT documented in this encounter [facility] 12-08-2023 History of Present illness Narrative This note was created using Me[employer] T[employer]. Subjective Patient presents with: Medicare Wellness Exam Recheck Montrell Mancuso is a 73 year old male here with spouse. He noted less tolerance to cold with his fingers and toes changing colors. He was brusing more easily. He had an episode of prolonged fatigue, dyspnea, and palpitations lasting several weeks this spring but then resolved with no specific treatment. He saw his arc welder beginning of this month, and no other testing was recommended since symptoms resolved. Review of Systems Constitutional: Negative for appetite change, fatigue and unexpected weight change. Respiratory: Negative for cough, shortness of breath and wheezing. Cardiovascular: Negative for chest pain, palpitations and leg swelling. Gastrointestinal: Negative for diarrhea, nausea and vomiting. Genitourinary: Negative for difficulty urinating and dysuria. Musculoskeletal: Negative for arthralgias and myalgias. Neurological: Negative for dizziness and headaches. ACTIVE PROBLEM LIST Mixed Hyperlipidemia Bph With Obstruction/Lower Urinary Tract Symptoms Actinic Keratosis Asymptomatic Varicose Veins Vitamin D Deficiency Ashd (Arteriosclerotic Heart Disease) Chronic Bilateral Low Back Pain Without Sciatica History of Umbilical Hernia Repair Osteoarthrosis Asymptomatic Peripheral Vascular Disease (Hcc) Atrioventricular Block Sinus Node Dysfunction (Hcc) Cardiac Pacemaker in Situ Current Outpatient Medications Medication Sig albuterol HFA (PROVENTIL HFA, VENTOLIN HFA) 90 mcg/actuation inhaler Inhale 2 Puffs as instructed every 6 hours as needed for wheezing/shortness of breath. [id number] (CALTRATE 600-D PLUS MINERALS) 600 mg calcium- 800 unit-50 mg tab Take 1 tablet by mouth once daily. Multivitamin capsule Take 1 capsule by mouth once daily. Cholecalciferol, Vitamin D3, 25 mcg (1,000 unit) cap Take 1,000 Units by mouth once daily. Ascorbic Acid 1,000 mg tablet Take 1,000 mg by mouth once daily. triamcinolone acetonide (NASACORT) 55 mcg nasal inhaler Use 2 Sprays in the nose once daily. No current facility-administered medications for this visit. Objective BP 132/62 (BP Site: Left Arm, BP Position: Sitting, BP Cuff Size: Regular Adult) Pulse 60 Temp 36.7 C (98.1 F) Resp 12 Ht 170.2 cm (5' 7) Wt 78.5 kg (173 lb) SpO2 99% BMI 27.10 kg/m Physical Exam Constitutional: Appearance: Normal appearance. HENT: Head: Normocephalic. Nose: Nose normal. Mouth/Throat: Mouth: Mucous membranes are moist. Pharynx: Oropharynx is clear. Eyes: General: No scleral icterus. Conjunctiva/sclera: Conjunctivae normal. Cardiovascular: Rate and Rhythm: Normal rate and regular rhythm. Heart sounds: No murmur heard. No gallop. Pulmonary: Effort: No respiratory distress. Breath sounds: No wheezing or rales. Abdominal: Palpations: Abdomen is soft. Tenderness: There is no abdominal tenderness. Musculoskeletal: Right lower leg: No edema. Left lower leg: No edema. Lymphadenopathy: Cervical: No cervical adenopathy. Neurological: General: No focal deficit present. Assessment and Plan 1. Medicare annual wellness visit, subsequent - ICD9: V70.0, ICD10: Z00.00 (primary diagnosis) See wellness note. 2. Raynaud's phenomenon without gangrene - ICD9: 443.0, ICD10: I73.00 Likely benign. - PVR ANK PRESS SARBJIT VAS LAB - COMPLETE BLOOD COUNT - COMPREHENSIVE METABOLIC PANEL - SEDIMENTATION RATE, WESTERGREN - C-REACTIVE PROTEIN 3. Easy bruising - ICD9: 782.7, ICD10: R23.3 - Observe only. 4. Mixed hyperlipidemia - ICD9: 272.2, ICD10: E78.2 - Control undetermined, due for labs - Counseled on healthy diet and regular exercise - LIPID PANEL BASIC 5. Vitamin D deficiency - ICD9: 268.9, ICD10: E55.9 Recheck. - VITAMIN D 25 HYDROXY 6. Screening for prostate cancer - ICD9: V76.44, ICD10: Z12.5 The meaning of a false positive PSA and false negative PSA has been discussed, and the patient indicates their understanding of the limitations of this screening test. - PSA/PROSTATE SPECIFIC ANTIGEN SCREENING 7. Sinus node dysfunction (HCC) - ICD9: 427.81, ICD10: I49.5 Stable per cardiology. Leobardo Pollard MD Images from the original note were not included. Montrell Mancuso is a 73 year old male here for a Medicare wellness visit. Medicare Health Risk Assessment General Health Fair Exercise: Minutes/Day 40 min Exercise: Days/Week 5 days Alcohol: Daily Use 4 or more times a week Alcohol: Drinks/Day 1 or 2 Alcohol: 6 or more drinks Never Feel off balance Yes Concerns: Teeth/Dentures No Concerns: Sexual function No Troubled by feelings None of the above Frequency: Eating healthy diet Nearly every day ADLs requiring help None of the above Safety precautions in home/vehicle Yes Smoke, vape, chews tobacco No Difficulty hearing Yes Difficulty seeing No Current Providers Specialists: I have reviewed specialist-related care of the patient in the medical record. Current care team: Patient Care Team: Leobardo Pollard MD as PCP - General Outside specialists seen: León Olivas MD-- Ophthalmology. Ab Oconnor MD-- Cardiology, Heart Group. Jacob Benjamin MD-- Dermatology. Td Peace MD-- ENT Marlon Savage MD-- Dermatology. Medical/Family history review Reviewed and updated problem list, medical/surgical/family/social history, medications, and allergies. Opioid use review Opioid Medications (last 90 days) No data to display Depression screening Depression Screening PHQ-2 Score 12/05/2023 0 Depression screening tool completed and reviewed. Based on score and interview, patient is not at risk for depression. Screening tool discussed with patient, and I recommended no further intervention at this time. Cognitive screening Mini Cog Score: 5 Cognitive screening reviewed and No further action needed (score 3-5). Functional Observation Was the patient's Timed Up & Go test unsteady or ? 12 seconds? No Advance Care Planning Patient did not wish or was not able to name a surrogate decision maker or provide an advance care plan Measurements BP 132/62 Pulse 60 Temp 98.1 Resp 12 Ht 5' 7 (1.70m) Wt 173 lb (78.5kg) SpO2 99% BMI 27.09 kg/(m^2). Vision Screening: Follows with optometry/ophthalmology Assessment/Plan Medicare annual wellness visit, subsequent (Z00.00) - Counseled on healthy diet and regular exercise - Fall avoidance information provided - Personalized prevention plan provided - Health maintenance reviewed. Vaccines recommended. Shingrix Vaccine(1 of 2) Never done RSV Vaccine(1 - 1-dose 60+ series) Never done DTaP,Tdap,Td Vaccine(2 - Td or Tdap) due on 11/29/2016 Covid-19 Vaccine(2022- season) due on 09/27/2023 documented in this encounter [facility] 12-05-2023 Instructions Leobardo Pollard MD - 12/05/2023 3:43 PM EDT VACCINES RECOMMENDED. Shingrix Vaccine(1 of 2) Never done RSV Vaccine(1 - 1-dose 60+ series) Never done DTaP,Tdap,Td Vaccine(2 - Td or Tdap) due on 11/29/2016 Covid-19 Vaccine( season) due on 09/27/2023 documented in this encounter [facility] 05-01-2023 History of Present illness Narrative JACOB BENJAMIN MD [facility] [place] [facility]: nail changes HPI: Montrell Mancuso is a 72 year old year old male, who presents for nail dystrophy of b/l hands and feet including all 20 nails Symptoms have been ongoing and the nail(s) were last normal 1-2 years ago . he reports the following symptoms: Lifting of the nails off the distal lateral nail bed of the right and left lateral nail fold.. Nails are generally staying the same.. he has not had prior treatments. No associated pain with these changes. History of Vegetarian diet since 2007 in the setting of dyslipidemia. History of Raynaud's diagnosed by PCP. Patient additionally with history of nerve pain involving the right lower extremity. Notably the patient reports it as phantom pain. Patient with previous MCV of 96 on previous blood test in 07/2021. Nail history: Professional nail services (manicure/pedicure): No Which nails were affected first: All 20 nails History of trauma: No Last visit to a manager of organizational development: 3 months ago. PAST DERM HISTORY: H/O skin cancer: Yes basal cell carcinoma/squamous cell carcinoma . H/O atypical nevi:No H/O lichen planus: No H/o psoriasis: No FHX melanoma or skin cancer: No FHX of abnormal nails: No ROS: Joint pain: Yes PAST MEDICAL HISTORY Diagnosis Date Actinic keratosis 01/10/2010 Dr. Vanessa Zepeda Acute prostatitis 10/15/2016 PSA elevation ASHD (arteriosclerotic heart disease) 04/27/2020 Dr. Albarran Atrioventricular block Benign neoplasm of colon BPH with obstruction/lower urinary tract symptoms 06/25/2005 Bradycardia CAD (coronary artery disease) Cardiac murmur Cardiac pacemaker in situ 05/24/2022 Chest pain Chronic otitis media of right ear 12/03/2018 Dr. Td Peace, tympanostomy. Constipation Degenerative arthritis Elevated d-dimer GERD (gastroesophageal reflux disease) Hemorrhage of gastrointestinal tract, unspecified Hemorrhage of rectum and anus History of basal cell carcinoma (BCC) of skin 2018 [facility] Hypertrophy of prostate with urinary obstruction and other lower urinary tract symptoms (LUTS) 06/25/2005 Internal hemorrhoids without mention of complication Left inguinal pain Lung nodules 09/05/2015 Mixed hyperlipidemia Hyperlipidemia Peripheral vascular disease (HCC) Right groin pain Sinus bradycardia Sinus node dysfunction (HCC) Sleep apnea Supraventricular premature beats 06/25/2005 Unspecified essential hypertension Essential hypertension Vitamin D deficiency 02/09/2019 Current Outpatient Medications Medication Sig albuterol HFA (PROVENTIL HFA, VENTOLIN HFA) 90 mcg/actuation inhaler Inhale 2 Puffs as instructed every 6 hours as needed for wheezing/shortness of breath. [id number] (CALTRATE 600-D PLUS MINERALS) 600 mg calcium- 800 unit-50 mg tab Take 1 tablet by mouth once daily. Multivitamin capsule Take 1 capsule by mouth once daily. Cholecalciferol, Vitamin D3, 25 mcg (1,000 unit) cap Take 1,000 Units by mouth once daily. Ascorbic Acid 1,000 mg tablet Take 1,000 mg by mouth once daily. triamcinolone acetonide (NASACORT) 55 mcg nasal inhaler Use 2 Sprays in the nose once daily. No current facility-administered medications for this visit. PE: Gen: The patient is alert and oriented and is well appearing and in no apparent distress. A focused examination of the upper and lower extremities including the hands, feet and all nails was performed and noted to be significant for the following findings. -Trachyonychia of all 20 nails -No changes in the mucosal surface A/P: 72 year old male presenting with: 1. Trachonychia - in the setting of Raynaud's phenomena. Patient without signs symptoms of alopecia areata, psoriasis, lichen planus or thyroid disease. Patient with previous lab workup in 2021 - TSH WNL, CBC WNL, Vit D low - s/p Vitamin D treatment -Discussed with patient role of OTC hand moisturizers with patient -Discussed with patient wet work, hobbies associated with friction can worsen condition -Discussed with patient that OTC supplements including biotin can alter critical labs such as troponin and TSH, therefore we do not recommend supplementation at this time -Will follow up vitamin d level, start supplementation if <30 2. Neuropathy -wide differential dx, but given symptoms and in the setting of diet this could represent vitamin b12 deficiency -Will plan to follow up vitamin b12 testing Storm Scanlon LPN I, Medardo Tang, the [facility] fellow was present for the patient encounter I agree with the Chief Complaint, ROS, and Past Histories independently gathered by the clinical unit support representative and the remaining scribed note accurately describes my personal service to the patient. No stigmata of connective tissue disease such as scleroderma, systemic lupus erythematosus at this point to warrant additional serologies. However, these findings may evolve slowly over time and so additional rheumatologic workup may be indicated if arthritis, skin thickening, or other signs / symptoms develop. I have seen and evaluated Mr. Mancuso as well as developed and discussed the assessment and plan with the Fellow. I have reviewed the Fellow's note and agree with the history and physical examination as described, as well as the assessment and plan of care. The Fellow's note was annotated by me as needed to reflect my direct input. I spent a total of 50 minutes on the date of the service which included preparing to see the patient, [id number] patient care, completing clinical documentation, obtaining and/or reviewing separately obtained history, performing a medically appropriate examination, counseling and educating the patient/family/caregiver, ordering medications, tests, or procedures, communicating with other HCPs (not separately reported), and care coordination (not separately reported). Jacob Benjamin MD documented in this encounter [facility] 12-25-2022 History of Present illness Narrative POPULATION HEALTH NAVIGATION OUTREACH Action/I [facility] [employer] MESSAGE SENT ANNUAL MEDICARE WELLNESS ADVANCE DIRECTIVE DISCUSSION due on 07/14/2022 Patient Identified by Name and : NO Outreach Outcome/Action Unable to reach patient: Left message [employer] message sent Did you use a PCP flex slot to schedule this appointment? No Reason for Outreach [facility] Payer: Payor: MEDICARE / Plan: MEDICARE A AND B / Product Type: Medicare / Care Gap Reviewed:: Annual Wellness visit Reminder: Reminder note to check Health Maintenance for items below Health Maintenance items due: SHINGRIX VACCINE(1 of 2) Never done DTAP,TDAP,TD(2 - Td or Tdap) due on 11/29/2016 COVID-19 VACCINE(6 - Booster for Moderna series) due on 02/06/2022 ADVANCE DIRECTIVE DISCUSSION due on 07/14/2022 DEPRESSION ASSESSMENT due on 07/14/2022 LDL CHOLESTEROL due on 08/01/2022 Navigation Signature: Sherin Arciniega MA December 25, 2022 11:53 AM documented in this encounter [facility] 09-11-2022 History of Present illness Narrative POPULATION HEALTH NAVIGATION OUTREACH Action/September 11, 2022 10:25 AM HCC Gaps I73.9 - Asymptomatic peripheral vascular disease (HCC) - [id number] Last Billed 05/01/2022 I49.5 - Sinus node dysfunction (HCC) - [id number] Last Billed 05/01/2022 ROCKY with Leobardo Pollard MD on May 01, 2022 Medicare Wellness Care Gaps due: ~Influenza Outcome: Message left My chart sent Patient Identified by Name and : NO Outreach Outcome/Action Unable to reach patient: Left message MyChart message sent Did you use a PCP flex slot to schedule this appointment? N/A Reason for Outreach HCC or suspected condition Payer: Payor: MEDICARE / Plan: MEDICARE A AND B / Product Type: Medicare / Care Gap Reviewed:: Annual Wellness visit Flu Vaccine Reminder: Reminder note to check Health Maintenance for items below Health Maintenance items due: SHINGRIX VACCINE(1 of 2) Never done DTAP,TDAP,TD(2 - Td or Tdap) due on 11/29/2016 INFLUENZA(1) due on 03/14/2022 ADVANCE DIRECTIVE DISCUSSION due on 07/14/2022 DEPRESSION ASSESSMENT due on 07/14/2022 LDL CHOLESTEROL due on 08/01/2022 Navigation Signature: Avis Bolanos MA September 11, 2022 10:24 AM documented in this encounter [facility] 05-14-2022 Evaluation note Diagnosis Onset Date Presence of permanent cardia c pacemaker May, acute Sick sinus syndrome acute Sinus bradycardia acute [facility] Work Phone: 1(981) 391-146711-01-2022 Evaluation note* Diagnosis Onset Date Resolution Status Admit Date Presence of permanent cardia c pacemaker May, acute December 16, 2024 10:29am Sick sinus syndrome acute December 16, 2024 10:29am Atherosclerotic heart diseas e of [place] coronary artery without angina pectoris chronic December 10:29am [facility] Work Phone: 1(847) 624-774611-01-2022 Evaluation note* Diagnosis Onset Date Resolution Status Admit Date Presence of permanent cardia c pacemaker May, acute December 16, 2024 10:26am Sick sinus syndrome acute December 16, 2024 10:26am Sinus bradycardia acute December 10:26am Presence of permanent cardia c pacemaker May, acute December 16, 2024 10:29am Sick sinus syndrome acute December 16, 2024 10:29am Atherosclerotic heart diseas e of [place] coronary artery without angina pectoris chronic December 10:29am [facility] Work Phone: 1(328) 898-623110-19-2022 Instructions* Patient Instructions* Leobardo Pollard MD - 05/01/2022 9:17 AM EDT Recombinant shingles vaccine (Shingrix) is recommended; 2 doses 2-6 months apart. Please read information, check with your insurance, and schedule vaccination at your local pharmacy. A prescription is not required. If you are certain you have coverage to receive this vaccine in the office, we can schedule this for you. Get Tdap booster. Have you ever planned for future healthcare decisions with a power of associate attorney, living will, or advance directives? Yes. Have you shared those records with your doctor? No and No. Please bring a copyto your next appointment or email to [facility] History of Present illness Narrative* Leobardo Pollard MD - 05/01/2022 8:59 AM EDT Medicare Yearly Visit Medical B eligibilty date 03/14/2019 Date of last exam 04/30/2021 PAST MEDICAL HISTORY Diagnosis Date Actinic keratosis 01/10/2010 Dr. Vanessa Zepeda Acute prostatitis 10/15/2016 PSA elevation ASHD (arteriosclerotic heart disease) 04/27/2020 Dr. 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 Td Peace, tympanostomy. Constipation Degenerative arthritis Elevated d-dimer GERD (gastroesophageal reflux disease) Hemorrhage of gastrointestinal tract, unspecified Hemorrhage of rectum and anus History of basal cell carcinoma (BCC) of skin 2017 [facility] Hypertrophy of prostate with urinary obstruction and other lower urinary tract symptoms (LUTS) 06/25/2005 Internal hemorrhoids without mention of complication Left inguinal pain Lung nodules 09/05/2015 Mixed hyperlipidemia Hyperlipidemia Peripheral vascular disease (HCC) Right groin pain Sinus bradycardia Sinus node dysfunction (HCC) Sleep apnea Supraventricular premature beats 06/25/2005 Unspecified essential hypertension Essential hypertension Vitamin D deficiency 02/09/2019 PAST SURGICAL HISTORY Procedure Laterality Date CARDIAC CATH 03/15/2020 [facility] COLON[facility] 12/30/2017 , [facility] COLONOSCOPY FLX DX W/COLLJ SPEC WHEN PFRMD 12/13/2010 Colonoscopy COLSC FLX W/RMVL OF TUMOR POLYP LESION SNARE TQ 02/09/2008 INGUINAL HERNIA REPAIR HX Right 01/11/2018 LEFT HEART CATH,PERCUTANEOUS 03/14/2020 REPAIR INGUINAL HERNIA Left 05/16/2021 [facility] UMBILICAL HERNIA AGE 6 YRS/> INCARCERATED 09/05/2011 umbilical STRESS TEST 02/22/2020 [facility] TYMPANOSTOMY LOCAL/TOPICAL ANESTHESIA Right 2017 Dr. Peace ALLERGIES: Atorvastatin Medications reviewed: Yes FAMILY HISTORY Problem Relation Age of Onset Arthritis Mother osteo GI Mother diverticultis Osteoporosis Mother Stroke Mother Cancer Father leukemia Heart Father bicuspid aortic valve Coronary Artery Disease Father Heart disease Sister valve replacement Stroke Sister Heart disease Brother Coronary Artery Disease Brother has coronary stents Heart Paternal Grandfather SOCIAL HISTORY: Social History Tobacco Use Smoking status: Former Types: Cigarettes Quit date: 06/24/1967 Years since quittin.8 Smokeless tobacco: Never Vaping Use Vaping Use: Never used Substance Use Topics Alcohol use: Yes Alcohol/week: 7.5 standard drinks Types: 3 Cans of Beer (12oz) per week Drug use: No Montrell likes to exercise by swimming 5 days per week. He watches his diet for sodium, low fat and low cholesterol. List of current specialists seen: Dr. Albarran, cardiology. Dr. Heather Peace, ENT. Dr. Tejeda, urology. Dr. Olivas, ophthalmology. End of Live Planning discussed including patients advanced directive wishes: Yes I am willing to follow Montrell's advanced directives. Copy needed. PHQ-2 / Depression screen He in the past two weeks denies having felt down, depressed, hopeless, or with little interest or pleasure in doing things. Functional Ability/Safety Screen 1. Was the patient's timed Up and Go test unsteady or longer than 30 seconds? No 2. Does the patient need help with the phone, transportation, shopping,preparing meals, housework, laundry, medications or managing money? No 3. Does your home have rugs in the hallway, lack of grab bars in the bathroom, lack of handrails onthe stairs or have poor lighting? No Hearing Evaluation: normal PHYSICAL EXAM BP 144/76 Pulse (!) 52 Resp 14 Ht 170.2 cm (5' 7) Wt 71.2 kg (157 lb) BMI 24.59 kg/m Alert and oriented X 3: YES Body mass index is 24.59 kg/m . Visual acuity: see vision tab. ASSESSMENT/PLAN: 71 year old male The following prevention plan was discussed during the office visit and provided to the patient: - Counseled on healthy diet and regular exercise - Vaccines recommended COVID-19 and Influenza. Tdap and Shingrix at pharmacy. - Depression screening - Glaucoma screening - He is scheduled for vaccines at his local pharmacy. 1. Medicare annual wellness visit, subsequent - ICD9: V70.0, ICD10: Z00.00 (primary diagnosis) See above. - ADVANCE CARE PLAN DISCUSSION 2. Asymptomatic peripheral vascular disease (HCC) - ICD9: 443.9, ICD10: I73.9 Reviewed. 3. Sinus node dysfunction (HCC) - ICD9: 427.81, ICD10: I49.5 He will follow up with his local arc welder as procedure kept getting postponed. Leobardo Pollard MD documented [facility] NoteHNO ID: [id number] Author: Gregory Wasserman APRN.[employer] Service: ? Author Type: Nurse Practitioner Type: Progress Notes Filed: 04/05/2022 12:43 PM Note Text: [facility] Electrophysiology PRIMARY CARE PHYSICIAN: Leobardo Pollard [address] [place] [address] CHIEF COMPLAINT: History and physical update for permanent pacemaker implantation with Dr. Lopez on 04/09/2022. HISTORY OF PRESENT ILLNESS (copied from Dr. Lopez's office note on 02/15/2022): Mr. 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 Albarran. Mr. Mancuso states he has experienced episodes of lightheadedness, feeling weak. He states when he feels weak he has trouble feeling his pulse, not necessarily slow rate just difficult to feel. Some days when this has occurred he feels worse after standing up. He experiences loss of energy at the end of a swimming exercise. He swims several times a week for exercise and feels like he loses energy toward the end, this has happened on at least two occasions. Cardiac testing was completed in 02/2020, including echocardiogram (unremarkable) and a stress test. He achieved 85% MPHR with the stress test, 130 bpm, 10 METs. He underwent cardiac monitoring, a 48 hour ambulatory Holter monitor, 12/27/2021. This revealed some bradycardia. He is referred for evaluation. He has not experienced near syncope or syncope. I have confirmed and edited as necessary, the PFSH and ROS obtained by others. Interval History: Montrell is a pleasant 71-year-old gentleman who presents today for history and physical update prior to permanent pacemaker implantation with Dr. Lopez on 04/09/2022. Overall patient indicates he feels pretty well but has intermittent spells of lightheadedness with slight balance issue. Explained to patient that permanent pacemaker implantation should relieve the symptoms. Discussed twelve-lead results which indicated a ventricular rate of 48 and noted sinus arrhythmia. Lengthy discussion was had regarding what to expect pre-/intra-/post permanent pacemaker implantation. Advised patient to eat and drink well day prior to procedure with nothing after midnight. Encouraged him to take his medications with small sips of water prior to coming in day of procedure. Logistical review of pacemaker implantation explained in depth. Patient aware he will receive general anesthesia and stay overnight in the [facility]. Discussed discharge process the following morning with regards to PA/lateral chest x-ray result as well as device check. Covered discharge restrictions including 6-week lifting restriction, 1 week driving restriction, keeping site dry for a week, as well as device follow-up. 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 Attempted to diffuse his frustration giving examples of individuals who have played golf and we typically advise them to not play until the following season. Discussed potential lead dislodgment ramifications with vigorous above shoulder activity. Patient remained frustrated and verbalized he felt he would lose his muscle given his age. At that point I suggested alternatives. Specifically no restriction on ambulation. Stated that bicycling is typically acceptable as arm level is below shoulders. Patient stated I did not understand and that he participates in frequent push-ups, sit ups, and stretching. I advised him specifically after 6 weeks sit ups should be just fine however upper body lifting including push-ups specifically like swimming should be restricted for 6 months. Showed both patient and spouse pacemaker device model. Patient mentioned he played [employer] and had a show coming up. I advised him as it is not above shoulder level and this would likely be suitable. At this time patient apologized and mentioned he was not directing his frustration at me. I empathized and told him I understand his frustration with the restrictions. He seemed calmer after I advised him in 6 months he would be able to resume his usual activities. Medications, allergies, and medical history reviewed in great detail with patient. They verbalized a desire to move forward with procedure and have no further questions at this time. I have answered all their questions to their apparent satisfaction. They did thank me for my time and patience. In an attempt to comfort I informed them both that I will be the provider discharging them the day after the procedure all the restrictions will be in writing and we can rehash them then. PAST MEDICAL HISTORY Diagnosis Date Actinic keratosis 01/10/2010 Dr. Vanessa Zepeda Acute prostatitis 10/15/2016 PSA elevation ASHD (arteriosclerotic heart disease) 04/27/2020 Dr. Ramsey (more content not included)...[facility]09-23-2022 History of Present illness Narrative* Gregory Wasserman APRN.[employer] - 04/05/2022 11:00 AM EDT [facility] Cardiology Electrophysiology PRIMARY CARE PHYSICIAN: Leobardo Pollard [address] [place] [address] CHIEF COMPLAINT: History and physical update for permanent pacemaker implantation with Dr. Lopez on 04/09/2022. HISTORY OF PRESENT ILLNESS (copied from Dr. Lopez's office note on 02/15/2022): Mr. Mancuso is a 71 year old male who presents today with his for evaluation of bradycardia,referral from his arc welder Dr. Albarran. Mr. Mancuso states he has experienced episodes of lightheadedness, feeling weak. He states when he feels weak he has trouble feeling his pulse, not necessarily slow rate just difficult to feel. Some days when this has occurred he feels worse after standing up. He experiences loss of energy at the end of a swimming exercise. He swims several times a week for exercise and feels like he loses energy toward the end, this has happened on at least twooccasions. Cardiac testing was completed in 02/2020, including echocardiogram (unremarkable) and a stress test. He achieved 85% MPHR with the stress test, 130 bpm, 10 METs. He underwent cardiac monitoring, a 48 hour ambulatory Holter monitor, 12/27/2021. This revealed some bradycardia. He is referred for evaluation. He has not experienced near syncope or syncope. I have confirmed and edited as necessary, the PFSH and ROS obtained by others. Interval History: Montrell is a pleasant 71-year-old gentleman who presents today for history and physical update prior to permanent pacemaker implantation with Dr. Lopez on 04/09/2022. Overall patient indicates he feels pretty well but has intermittent spells of lightheadedness with slight balance issue. Explained to patient that permanent pacemaker implantation should relieve the symptoms. Discussed twelve-lead results which indicated a ventricular rate of 48 and noted sinus arrhythmia. Lengthy discussion was had regarding what to expect pre-/intra-/post permanent pacemaker implantation. Advised patient to eat and drink well day prior to procedure with nothing after midnight. Encouraged him to take his medications with small sips of water prior to coming in day of procedure. Logisticalreview of pacemaker implantation explained in depth. Patient aware he will receive general anesthesia and stay overnight in the [facility]. Discussed discharge process the following morning with regards to PA/lateral chest x-ray result as well as device check. Covered discharge restrictions including 6-week lifting restriction, 1 week driving restriction, keeping site dry for a week, as well as device follow-up. 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 Attempted to diffuse his frustration giving examples of individuals who have played golf and we typically advise them to not play until the following season.Discussed potential lead dislodgment ramifications with vigorous above shoulder activity. Patient remained frustrated and verbalized he felt he would lose his muscle given his age. At that point I suggested alternatives. Specifically no restriction on ambulation. Stated that bicycling is typically acceptable as arm level is below shoulders. Patient stated I did not understand and that he participates in frequent push-ups, sit ups, and stretching. I advised him specifically after 6 weeks sit upsshould be just fine however upper body lifting including push-ups specifically like swimming should be restricted for 6 months. Showed both patient and spouse pacemaker device model. Patient mentioned he played [employer] and had a show coming up. I advised him as it is not above shoulder level and this would likely be suitable. At this time patient apologized and mentioned he was not directing his frustration at me. I empathized and told him I understand his frustration with the restrictions. He seemed calmer after I advised him in 6 months he would be able to resume his usual activities. Medications, allergies, and medical history reviewed in great detail with patient. They verbalized a desire to move forward with procedure and have no further questions at this time. I have answered all their questions to their apparent satisfaction. They did thank me for my time and patience. In an attempt to comfort I informed them both that I will be the provider discharging them the day after the procedure all the restrictions will be in writing and we can rehash them then. PAST MEDICAL HISTORY Diagnosis Date Actinic keratosis 01/10/2010 Dr. Vanessa Zepeda Acute prostatitis 10/15/2016 PSA elevation ASHD (arteriosclerotic heart disease) 04/27/2020 Dr. 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 Td Peace, tympanostomy. Constipation Degenerative arthritis Elevated d-dimer GERD (gastroesophageal reflux disease) Hemorrhage of gastrointestinal tract, unspecified Hemorrhage of rectum and anus History of basal cell carcinoma (BCC) of skin 2017 [facility] Hypertrophy of prostate with urinary obstruction and other lower urinary tract symptoms (LUTS) 06/25/2005 Internal hemorrhoids without mention of complication Left inguinal pain Lung nodules 09/05/2015 Mixed hyperlipidemia Hyperlipidemia Peripheral vascular disease (HCC) Right groin pain Sinus bradycardia Sleep apnea Supraventricular premature beats 06/25/2005 Unspecified essential hypertension Essential hypertension Vitamin D deficiency 02/09/2019 PAST SURGICAL HISTORY Procedure Laterality Date CARDIAC CATH 03/15/2020 [facility] 12/30/2017 , [facility] COLONOSCOPY FLX DX W/COLLJ SPEC WHEN PFRMD 12/13/2010 Colonoscopy COLSC FLX W/RMVL OF TUMOR POLYP LESION SNARE TQ 02/09/2008 INGUINAL HERNIA REPAIR HX Right 01/11/2018 LEFT HEART CATH,PERCUTANEOUS 03/14/2020 REPAIR INGUINAL HERNIA Left 05/16/2021 RPR UMBILICAL HERNIA AGE 6 YRS/> INCARCERATED 09/05/2011 umbilical STRESS TEST 02/22/2020 [facility] TYMPANOSTOMY LOCAL/TOPICAL ANESTHESIA Right 2016 Dr. Peace Social History Tobacco Use Smoking status: Former Types: Cigarettes Quit date: 06/24/1967 Years since quittin.8 Smokeless tobacco: Never Vaping Use Vaping Use: Never used Substance Use Topics Alcohol use: Yes Alcohol/week: 7.5 standard drinks Types: 3 Cans of Beer (12oz) per week Drug use: No Family History Problem Relation Age of Onset Arthritis Mother osteo GI Mother diverticultis Osteoporosis Mother Stroke Mother Cancer Father leukemia Heart Father bicuspid aortic valve Coronary Artery Disease Father Heart disease Sister valve replacement Stroke Sister Heart disease Brother Coronary Artery Disease Brother has coronary stents Heart Paternal Grandfather ALLERGIES Allergen Reactions Atorvastatin Myalgia MEDICATIONS: albuterol HFA (PROVENTIL HFA, VENTOLIN HFA) 90 mcg/actuation inhaler Inhale 2 Puffs as instructed every 6 hours as needed for wheezing/shortness of breath. [id number] (CALTRATE 600-D PLUS MINERALS) 600 mg calcium- 800 unit-50 mg tab Take 1 tablet by mouth once daily. Multivitamin capsule Take 1 capsule by mouth once daily. Cholecalciferol, Vitamin D3, (VITAMIN D) 25 mcg (1,000 unit) cap Take 1,000 Units by mouth once daily. Ascorbic Acid (VITAMIN C) 1,000 mg tablet Take 1,000 mg by mouth once daily. triamcinolone acetonide (NASACORT) 55 mcg nasal inhaler Use 2 Sprays in the nose once daily. REVIEW OF SYSTEMS: Review of Systems Constitutional: Negative for chills, fatigue and fever. Respiratory: Negative for apnea, cough, chest tightness, shortness of breath and wheezing. Cardiovascular: Negative for chest pain, palpitations and leg swelling. Gastrointestinal: Negative for abdominal distention, abdominal pain, constipation, diarrhea, nauseaand vomiting. Genitourinary: Negative for difficulty urinating, dysuria and hematuria. Musculoskeletal: Negative for arthralgias. Neurological: Positive for light-headedness. Negative for dizziness, weakness and headaches. Psychiatric/Behavioral: Negative for agitation, behavioral problems, confusion and suicidal ideas. PHYSICAL EXAMINATION: There were no vitals taken for this visit. Physical Exam Constitutional: Appearance: Normal appearance. Cardiovascular: Rate and Rhythm: Regular rhythm. Bradycardia present. Pulses: Normal pulses. Radial pulses are 2+ on the right side and 2+ on the left side. Heart sounds: Normal heart sounds, S1 normal and S2 normal. Comments: Sinus bradycardia with sinus arrhythmia with a ventricular rate of 48. Pulmonary: Effort: Pulmonary effort is normal. Breath sounds: Normal breath sounds. Abdominal: General: Bowel sounds are normal. Palpations: Abdomen is soft. Musculoskeletal: Right lower leg: No edema. Left lower leg: No edema. Skin: General: Skin is warm and dry. Neurological: Mental Status: He is alert and oriented to person, place, and time. Psychiatric: Mood and Affect: Mood normal. Behavior: Behavior normal. CARDIOVASCULAR MEDICINE TESTING: Electrocardiogram 02/15/2022 Marked sinus bradycardia with a ventricular rate of 48. KS interval 0.186. QRS duration 0.100. QT/QTc 0.434/0.387. I have personally reviewed the Electrocardiogram. PLAN AND RECOMMENDATIONS: ASSESSMENT/PLAN: 1. Bradycardia - ICD9: 427.89, ICD10: R00.1 (primary diagnosis) Twelve-lead performed in February at last office visit with Dr. Lopez revealed marked sinus bradycardia with ventricular rate of 48 and appropriate intervals. Historically speaking EKG from 05/07/2021 revealed marked sinus bradycardia with marked sinus arrhythmia with a ventricular rate of 41. KS interval 0.178, QRS duration 0.100, and QT/QTc 0.430/0.354. No follow-ups on file. Gregory Wasserman APRN.[employer] documented in this encounterPark[facility] Nurse Note* Pinky Sinclair MA - 04/05/2022 10:57 AM EDT Patient denies any cardiac issues or symptoms. documented in this encounterParkview Health [facility]09-07-2022 Miscellaneous Notes* Telephone Encounter - Lori Barakat - 03/20/2022 3:04 PM EDT Patient is scheduled for a PPM Implant on 04/[address] Lopez. The hospital will call the day before between 2-5pm with your arrival time. Patient should not eat or drink after midnight the day before the procedure. Patient will need a minibus driver when released from the hospital. You will stay overnight for observation. Patient should continue to take medications as prescribed the morning of the procedure with just a sip of water unless otherwise instructed. H&P Update on 04/05 with Gregory Wasserman at 11am Spoke with patient and he verbalized understanding of all instructions Lori Barakat documented in this encounterParkview Health [facility]08-23-2022 Miscellaneous Notes* Telephone Encounter - Amanda Lopez MD - 03/05/2022 7:15 PM EDT Contacted Mr. Mancuso to discuss his bradycardia and his symptoms. I have reviewed the available information including Holter monitoring as well as additional information from Dr. Albarran (EKGs).I have also discussed the case with Dr. Albarran. Mr. Mancuso clearly has bradycardia with severely slow rates even during wakeful periods --- rates to 30s and even high 20s bpm range. He feels poorly, has intermittent lightheadedness and overall fatigue, effort intolerance. We do not have absolute clear symptom-rhythm correlation, as he did not complete the diary section of the Holter monitoring. He clearly has sinus node dysfunction and cardiac pacing is indicated, although I did caution Mr. Mancuso that we cannot guarantee that all of his symptoms will be alleviated with cardiac pacing. However, I think it is reasonable to expect substantial improvement. So from my standpoint a pacemaker is indicated and likely beneficial, with favorable risk:benefit. I had a detailed discussion with Mr. Mancuso regarding my evaluation and recommendations. After our discussion, Mr. Mancuso expressed his understanding and I answered all his questions to his apparent satisfaction. He agrees to proceed as outlined, did want to think about my recommendations prior to making a final decision but a few hours after our telephone encounter he did call the office back to inform me that he wishes to proceed with a pacemaker. A dual- chamber pacemaker would be appropriate for sinus node dysfunction and maintain AV synchrony. INFORMED CONSENT The risks, benefits and anticipated outcomes of the procedure, the risks and benefits of the alternatives to the procedure and the roles and tasks of the personnel to be involved were discussed with the patient. Consent for the procedure and agreement to proceed has been obtained. I verify that I personally obtained the consent. My office will be contacting Mr. Mancuso to schedule the procedure. Amanda Lopez MD March 05, 2022 7:21 PM documented in this encounterParkview Health [facility]08-23-2022 Miscellaneous Notes* Telephone Encounter - Carlito Nice - 03/05/2022 5:09 PM EDT Returned pt's call and left vm notifying pt that his msg was fwd to Dr. Lopez and the EP [place] - our office will reach out to schedule once hospital coordinates a date (per EP [place]) Carlito Nice March 05, 2022 5:11 PM * Telephone Encounter - Carlito Nice - 03/05/2022 1:21 PM EDT Pt called and left msg on clerical vm box -- pt stated he just spoke to Dr. Lopez this morningregarding a possible Pacemaker procedure and was instructed to callback with his decision. Pt advised that he has decided to go through with the procedure and proceed w/ scheduling same. Msg fwd to EP [place] for review and scheduling Carlito Nice March 05, 2022 1:23 PM documented in this encounterParkview Health [facility]08-22-2022 Miscellaneous Notes* Telephone Encounter - Justa Vivas RN - 03/04/2022 3:44 PM EDT Received a call from spouse who is asking when Montrell will be scheduled for a pacemaker? Did you want Montrell to schedule an appointment to discuss the procedure? Justa Vivas RN documented in this encounterParkview Health [facility]08-05-2022 NoteHNO ID: [id number] Author: Amanda Lopez MD Service: ? Author Type: Physician Type: Progress Notes Filed: 02/21/2022 9:53 PM Note Text: PRIMARY CARE PHYSICIAN: Leobardo Pollard [address] [place] [address] REFERRING PHYSICIAN: Alden Albarran MD ([facility]) [address] [address] Patient Care Team: Leobardo Pollard MD as PCP - General Alden Albarran (Cardiology) CHIEF COMPLAINT: Evaluation of bradycardia HISTORY OF PRESENT ILLNESS: Mr. 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 Albarran. Mr. Mancuso states he has experienced episodes of lightheadedness, feeling weak. He states when he feels weak he has trouble feeling his pulse, not necessarily slow rate just difficult to feel. Some days when this has occurred he feels worse after standing up. He experiences loss of energy at the end of a swimming exercise. He swims several times a week for exercise and feels like he loses energy toward the end, this has happened on at least two occasions. Cardiac testing was completed in 02/2020, including echocardiogram (unremarkable) and a stress test. He achieved 85% MPHR with the stress test, 130 bpm, 10 METs. He underwent cardiac monitoring, a 48 hour ambulatory Holter monitor, 12/27/2021. This revealed some bradycardia. He is referred for evaluation. He has not experienced near syncope or syncope. I have confirmed and edited as necessary, the PFSH and ROS obtained by others. PAST MEDICAL HISTORY Diagnosis Date Actinic keratosis 01/10/2010 Dr. Vanessa Zepeda Acute prostatitis 10/15/2016 PSA elevation ASHD (arteriosclerotic heart disease) 04/27/2020 Dr. 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 Td Peace, tympanostomy. Constipation Degenerative arthritis Elevated d-dimer GERD (gastroesophageal reflux disease) Hemorrhage of gastrointestinal tract, unspecified Hemorrhage of rectum and anus History of basal cell carcinoma (BCC) of skin 2018 [facility] Hypertrophy of prostate with urinary obstruction and other lower urinary tract symptoms (LUTS) 06/25/2005 Internal hemorrhoids without mention of complication Left inguinal pain Lung nodules 09/05/2015 Mixed hyperlipidemia Hyperlipidemia Peripheral vascular disease (HCC) Right groin pain Sinus bradycardia Sleep apnea Supraventricular premature beats 06/25/2005 Unspecified essential hypertension Essential hypertension Vitamin D deficiency 02/09/2019 PAST SURGICAL HISTORY Procedure Laterality Date CARDIAC CATH 03/15/2020 [facility] COLONOS[facility] 12/30/2017 , [facility] COLONOSCOPY FLX DX W/COLLJ SPEC WHEN PFRMD 12/13/2010 Colonoscopy COLSC FLX W/RMVL OF TUMOR POLYP LESION SNARE TQ 02/09/2008 INGUINAL HERNIA REPAIR HX Right 01/11/2018 LEFT HEART CATH,PERCUTANEOUS 03/14/2020 REPAIR INGUINAL HERNIA Left 05/16/2021 RPR UMBILICAL HERNIA AGE 6 YRS/> INCARCERATED 09/05/2011 umbilical STRESS TEST 02/22/2020 [facility] TYMPANOSTOMY LOCAL/TOPICAL ANESTHESIA Right 2017 Dr. Peace SOCIAL HISTORY Social History Tobacco Use Smoking status: Former Smoker Quit date: 06/24/1967 Years since quittin.6 Smokeless tobacco: Never Used Vaping Use Vaping Use: Never used Substance Use Topics Alcohol use: Yes Alcohol/week: 7.5 standard drinks Types: 3 Cans of Beer (12oz) per week Drug use: No FAMILY HISTORY Problem Relation Age of Onset Arthritis Mother osteo GI Mother diverticultis Osteoporosis Mother Stroke Mother Cancer Father leukemia Heart Father bicuspid aortic valve Coronary Artery Disease Father Heart disease Sister valve replacement Stroke Sister Heart disease Brother Coronary Artery Disease Brother has coronary stents Heart Paternal Grandfather ALLERGIES: ALLERGIES Allergen Reactions Atorvastatin Myalgia MEDICATIONS: albuterol HFA (PROVENTIL HFA, VENTOLIN HFA) 90 mcg/actuation inhaler, Inhale 2 Puffs as instructed every 6 hours as needed for wheezing/shortness of breath. [id number] (CALTRATE 600-D PLUS MINERALS) 600 mg calcium- 800 unit-50 mg tab, Take 1 tablet by mouth once daily. Multivitamin capsule, Take 1 capsule by mouth once daily. Cholecalciferol, Vitamin D3, (VITAMIN D) 25 mcg (1,000 unit) cap, Take 1,000 Units by mouth once daily. Ascorbic Acid (VITAMIN C) 1,000 mg tablet, Take 1,000 mg by mouth once daily. triamcinolone acetonide (NASACORT) 55 mcg nasal inhaler, Use 2 Sprays in the nose once daily. REVIEW OF SYSTEMS: Review of Systems Constitutional: Positive (more content not included)...[facility]08-05-2022 History of Past illness Narrative* Problem Noted Date Resolved Date Sinus bradycardia 02/15/2022 05/24/2022 Dyspnea on exertion 02/06/2022 05/01/2022 Chronic otitis media of right ear 12/03/2018 11/21/2021 Overview: Dr. Td Peace, tympanostomy. Bradycardia 09/05/2015 05/24/2022 Lung nodules 09/05/2015 04/27/2020 Acute bronchitis 07/05/2012 10/12/2014 Other specified disorder of bladder 08/26/2008 03/12/2012 Overview: Frequency. Irritable bladder. UO 76oz/24 hours Benign neoplasm of colon 02/09/2008 020 Internal hemorrhoids without mention of complica tion 02/09/2008 12/09/2008 Hemorrhage of gastrointestinal tract, unspecifie d 02/09/2008 12/09/2008 Hemorrhage of rectum and anus documented as of this encounter (statuses as of 09/11/2022) [facility]08[facility] History of Past illness Narrative* Problem Noted Date Resolved Date Sinus bradycardia 02/15/2022 05/24/2022 Dyspnea on exertion 02/06/2022 05/01/2022 Chronic otitis media of right ear 12/03/2018 11/21/2021 Overview: Dr. Td Peace, tympanostomy. Bradycardia 09/05/2015 05/24/2022 Lung nodules 09/05/2015 04/27/2020 Acute bronchitis 07/05/2012 10/12/2014 Other specified disorder of bladder 08/26/2008 03/12/2012 Overview: Frequency. Irritable bladder. UO 76oz/24 hours Benign neoplasm of colon 02/09/2008 020 Internal hemorrhoids without mention of complica tion 02/09/2008 12/09/2008 Hemorrhage of gastrointestinal tract, unspecifie d 02/09/2008 12/09/2008 Hemorrhage of rectum and anus documented as of this encounter (statuses as of 12/26/2022) [place] [address]-05-2022 History of Past illness Narrative* Problem Noted Date Diagnosed Date Resolved Date Sinus bradycardia 02/15/2022 05/24/2022 Dyspnea on exertion 02/06/2022 05/01/20 Chronic otitis media of right ear 12/03/2018 11/21/2021 Overview: Dr. Td Peace, tympanostomy. Bradycardia 09/05/2015 05/24/2022 Lung nodules 09/05/2015 04/27/2020 Acute bronchitis 07/05/2012 10/12/2014 Other specified disorder of bladder 08/26/2008 03/12/2012 Overview: Frequency. Irritable bladder. UO 76oz/24 hours Benign neoplasm of colon 02/09/2008 Internal hemorrhoids without mention of complication 02/09/2008 12/09/2008 Hemorrhage of gastrointestin al tract, unspecified 02/09/2008 12/09/2008 Hemorrhage of rectum and anus 12/09/2008 documented as of this encounter (statuses as of 05/01/2023) [facility] History of Past illness Narrative* Problem Noted Date Resolved Date Dyspnea on exertion 02/06/2022 05/01/2022 Chronic otitis media of right ear 12/03/2018 11/21/2021 Overview: Dr. Td Peace, tympanostomy. Lung nodules 09/05/2015 04/27/2020 Acute bronchitis 07/05/2012 10/12/2014 Other specified disorder of bladder 08/26/2008 03/12/2012 Overview: Frequency. Irritable bladder. UO 76oz/24 hours Benign neoplasm of colon 02/09/2008 020 Internal hemorrhoids without mention of complica tion 02/09/2008 12/09/2008 Hemorrhage of gastrointestinal tract, unspecifie d 02/09/2008 12/09/2008 Hemorrhage of rectum and anus documented as of this encounter (statuses as of 05/01/2022) [facility] History of Present illness Narrative* Leobardo Pollard MD - 12/06/2021 3:28 PM EDT This note was created using [employer]. Subjective Patient presents with: Cough Montrell Mancuso is a 71 year old male. He was seen for viral cough 11/21. With no relief, Amoxicillin was called in on November 23. He had partial symptomatic improvement, but symptoms were noted again since the antibiotic was completed. He had cough when physically tired, productive cough on arising in the morning, and some fatigue. Symptoms have been persisting now for 3 weeks. He continued to swimand exercise. His CXR and Covid tests were negative. He had no history of asthma or allergies. He was seeing a physician relations specialist for bradycardia per recommendation of Dr. Albarran. Review of Systems Constitutional: Positive for fatigue. Negative for appetite change, chills, diaphoresis, fever and unexpected weight change. HENT: Negative for congestion, ear pain, postnasal drip, rhinorrhea, sinus pressure, sinus pain, sneezing and sore throat. Respiratory: Positive for wheezing. Negative for choking, chest tightness and shortness of breath. Cardiovascular: Negative. Gastrointestinal: Negative. ACTIVE PROBLEM LIST Mixed Hyperlipidemia Bph With Obstruction/Lower Urinary Tract Symptoms Actinic Keratosis Bradycardia Asymptomatic Varicose Veins Vitamin D Deficiency Ashd (Arteriosclerotic Heart Disease) Chronic Bilateral Low Back Pain Without Sciatica Social History Tobacco Use Smoking status: Former Smoker Quit date: 06/24/1967 Years since quittin.4 Smokeless tobacco: Never Used Vaping Use Vaping Use: Never used Substance Use Topics Alcohol use: Yes Alcohol/week: 7.5 standard drinks Types: 3 Cans of Beer (12oz) per week Drug use: No Current Outpatient Medications Medication Sig [id number] (CALTRATE 600-D PLUS MINERALS) 600 mg calcium- 800 unit-50 mg tab Take 1 tablet by mouth once daily. Multivitamin capsule Take 1 capsule by mouth once daily. Cholecalciferol, Vitamin D3, (VITAMIN D) 25 mcg (1,000 unit) cap Take 1,000 Units by mouth once daily. Ascorbic Acid (VITAMIN C) 1,000 mg tablet Take 1,000 mg by mouth once daily. triamcinolone acetonide (NASACORT) 55 mcg nasal inhaler Use 2 Sprays in the nose once daily. ergocalciferol 50,000 unit capsule (VITAMIN D2, DRISDOL) Take 1 capsule by mouth one time a week for 4 doses. No current facility-administered medications for this visit. Objective BP 130/78 (BP Site: Left Arm, BP Position: Sitting, BP Cuff Size: Large Adult) Pulse (!) 44 Temp 36.5 C (97.7 F) (Temporal Artery) Resp 16 Wt 75.8 kg (167 lb) SpO2 98% BMI 26.16 kg/m Physical Exam Constitutional: General: He is not in acute distress. HENT: Right Ear: There is impacted cerumen. Left Ear: Tympanic membrane normal. Nose: No rhinorrhea. Right Turbinates: Swollen and pale. Left Turbinates: Swollen. Right Sinus: No maxillary sinus tenderness or frontal sinus tenderness. Left Sinus: No maxillary sinus tenderness or frontal sinus tenderness. Mouth/Throat: Mouth: Mucous membranes are moist. Pharynx: Oropharynx is clear. Cardiovascular: Rate and Rhythm: Bradycardia present. Heart sounds: No murmur heard. No gallop. Pulmonary: Breath sounds: Examination of the right-upper field reveals rhonchi. Examination of the right-middle field reveals wheezing. Wheezing and rhonchi present. Lymphadenopathy: Cervical: No cervical adenopathy. Neurological: Mental Status: He is alert. Assessment and Plan 1. Bronchitis with bronchospasm - ICD9: 490, ICD10: J20.9 - He had a history of exercise induced wheezing when younger. - ALBUTEROL SULFATE HFA 90 MCG/ACTUATION AEROSOL INHALER. The proper method of use, as well as anticipated side effects, of this inhaler are discussed and demonstrated to the patient. 2. Bradycardia - ICD9: 427.89, ICD10: R00.1 Chronic. To see EP. Leobardo Pollard MD documented in this encounterPark[facility]05-[facility] Miscellaneous Notes* Telephone Encounter - Sindy Jones RN - 12/06/2021 11:26 AM EDT Patient calls and states that he is still coughing and still feels lousy. Patient was put on antibiotics a couple of weeks ago. Patient had felt like he was getting better but now think that he is getting worse. Patent scheduled appointment with provider today. Please review and advise, Sindy Jones RN documented in this encounterPark[facility]05-13-2022 Miscellaneous Notes* Telephone Encounter - Ginna Acevedo LPN - 11/23/2021 3:28 PM EDT Patient's notified and verbalized understanding. Ginna Acevedo LPN * Telephone Encounter - Kathie Son APRN.CNP - 11/23/2021 3:18 PM EDT Start Amoxicillin, call back on Friday or Friday if not feeling any better Kathie Son APRN.TYLER * Telephone Encounter - Betsy Lay RN - 11/23/2021 3:10 PM EDT Pts called in she reports is on day 9 of being sick. States he isn't feeling any better. Afebrile. Has a cough that is worse in mornings and at nights which is a slight decrease from before. He states he has been bringing white to dark yellow sputum. Pt had been taking the Mucinex, stopped this morning because had been having some lower chest discomfort and now it is gone. They states Kathie Son [employer]PER[employer] told them that they would consider giving him antibiotics on day 10-14 if he wasn't feeling any better. Pt states he uses [facility] in [place]. If provider wants to wait until day 10 to see how he feels they will call back in tomorrow morning with an update. If antibiotic ordered please call Pt. documented in this encounterParkview Health [facility]05-11-2022 Instructions* Patient Instructions* Kathie Son APRN.CNP - 11/21/2021 7:08 PM EDT Call office in 3 days if no improvement in symptoms. Call sooner for any worsening symptoms, especially shortness of breath or temperature > 100.5 For cough/mucus: take Mucinex ER 12 hr every 12 hours documented in this encounterParkview Health [facility] History of Present illness Narrative* Kathie Son APRN.CNP - 11/21/2021 6:08 PM EDT This Team Access Model visit is a virtual encounter. It required patient- provider interaction for the medical decision making as documented below. Patient agrees to the visit: Yes Patient Location: [place] CC: Patient presents with: URI HPI: Montrell Mancuso is a 71 year old male who is contacted today for a virtual visit. This is an established patient of Dr. Leobardo Pollard MD. Day 7 of respiratory symptoms. Patient was evaluate in urgent care for this 11/16. Chest x- ray and COVID/flu test was negative. He was feeling worse a few days ago but finally today symptoms seem to be improving. Persistent symptoms includes cough that is now productive and right frontal sinus pressure. He did have chills and felt feverish up until last night but not today. Denies headache, body aches, ear pressure , wheezing, dyspnea, nausea, vomiting and diarrhea. Treatments tried include Guaifenesin/Mucinex with temporary relief of symptoms. History of asthma, frequent episodes of bronchitis, chronic bronchitis, bronchiectasis or COPD: No Smoker: No Seasonal/environmental allergies: No REVIEW OF SYSTEMS See HPI PAST MEDICAL HISTORY Diagnosis Date Actinic keratosis 01/10/2010 Dr. Vanessa Zepeda Acute prostatitis 10/15/2016 PSA elevation ASHD (arteriosclerotic heart disease) 04/27/2020 Dr. Albarran Benign neoplasm of colon BPH with obstruction/lower urinary tract symptoms 06/25/2005 Chronic otitis media of right ear 12/03/2018 Dr. Td Peace, tympanostomy. Hemorrhage of gastrointestinal tract, unspecified Hemorrhage of rectum and anus History of basal cell carcinoma (BCC) of skin 2017 [facility] Hypertrophy of prostate with urinary obstruction and other lower urinary tract symptoms (LUTS) 06/25/2005 Internal hemorrhoids without mention of complication Lung nodules 09/05/2015 Mixed hyperlipidemia Hyperlipidemia Supraventricular premature beats 06/25/2005 Unspecified essential hypertension Essential hypertension Vitamin D deficiency 02/09/2019 PAST SURGICAL HISTORY Procedure Laterality Date CARDIAC CATH 03/15/2020 [facility] 12/30/2017 , [facility] COLONOSCOPY FLX DX W/COLLJ SPEC WHEN PFRMD 12/13/2010 Colonoscopy COLSC FLX W/RMVL OF TUMOR POLYP LESION SNARE TQ 02/09/2008 INGUINAL HERNIA REPAIR HX Right 01/11/2018 REPAIR INGUINAL HERNIA Left 05/16/2021 RPR UMBILICAL HERNIA AGE 5 YRS/> INCARCERATED 09/05/2011 umbilical TYMPANOSTOMY LOCAL/TOPICAL ANESTHESIA Right 2017 Dr. Peace ALLERGIES Patient has no known allergies. MEDICATIONS [id number] (CALTRATE 600-D PLUS MINERALS) 600 mg calcium- 800 unit-50 mg tab Take 1 tablet by mouth once daily. ergocalciferol 50,000 unit capsule (VITAMIN D2, DRISDOL) Take 1 capsule by mouth one time a week for 4 doses. Multivitamin capsule Take 1 capsule by mouth once daily. Cholecalciferol, Vitamin D3, (VITAMIN D) 25 mcg (1,000 unit) cap Take 1,000 Units by mouth once daily. Ascorbic Acid (VITAMIN C) 1,000 mg tablet Take 1,000 mg by mouth once daily. triamcinolone acetonide (NASACORT) 55 mcg nasal inhaler Use 2 Sprays in the nose once daily. FAMILY HISTORY Problem Relation Age of Onset Heart Paternal Grandfather Cancer Father leukemia, Heart Father bicuspid aortic valve Coronary Artery Disease Father age 68 Arthritis Mother osteo GI Mother diverticultis Social History Tobacco Use Smoking status: Former Smoker Quit date: 06/24/1967 Years since quittin.4 Smokeless tobacco: Never Used Vaping Use Vaping Use: Never used Substance Use Topics Alcohol use: Yes Alcohol/week: 7.5 standard drinks Types: 3 Cans of Beer (12oz) per week Drug use: No Exam GENERAL: mildly Ill-appearing, but non-toxic HEENT: no conjunctival injection, pupils equal, moist mucous membranes, oropharynx clear without erythema, sinuses non-tender to self-palpation and no cervical adenopathy by self-palpation PULMONARY: breathing comfortably on room air , no coughing noted and no wheezing noted DATA REVIEWED: Most recent imaging ASSESSMENT/PLAN: 1. Viral URI with cough - ICD9: 465.9, ICD10: J06.9 - Discussed viral etiology and rationale for treatment. - Symptomatic treatment with prn analgesia - Supportive care with fluids and rest - The patient may also use Mucinex ER every 12 hours. - Patient was instructed to call back in 3 days if no improvement and will treat for sinus infection. Call sooner for any worsening, especially if develops high fever or shortness of breath Prescription instructions reviewed with patient as applicable. Potential red flag symptoms discussed with the patient. Reviewed appropriate action plan to take if red flag symptoms occur. Patient agreeable to treatment plan. Kathie Son APRN.CNP documented in this encounterParkview [facility]05-10-2022 Miscellaneous Notes* Telephone Encounter - Vanessa Diane LPN - 11/20/2021 4:22 PM EDT Patient given below recommendations, verbalized understanding. Vanessa Diane LPN * Telephone Encounter - Leobardo Pollard MD - 11/20/2021 4:11 PM EDT Continue symptom care till reassessed tomorrow. Rest, fluids, mucinex DM or similar medication. * Telephone Encounter - Betsy Lay RN - 11/20/2021 8:24 AM EDT Pt wanted to call in and make sure that the previous nurse had made sure that she got across the point that he was getting worse and not better. Pt was scheduled with a VV with Kathie Son [employer] on 11/21/21 @ 600 pm. Told Pt using a humidifier is a good idea if they have one. Pt would like to know if there is anything else you think he should be doing in the meantime. Please call and advise. * Telephone Encounter - Kristy Colvin LPN - 11/20/2021 8:05 AM EDT Patient Sierra calling was seen in urgent care Friday. Was told has viral illness. She thinks his cough is much worse. She said he had low grade fever, coughing up yellow to green-yellow secretions. He is taking tylenol and otc cough syrup. She is asking for antibiotic rx, he [facility]. Please advise documented in this encounterPark[facility]05-06-2022 Instructions* Patient Instructions* Nicole Nogueira APRN.TYLER - 11/16/2021 12:59 PM EDT Cough (primary encounter diagnosis) Suspected covid-19 virus infection You have been diagnosed with an illness caused by a virus. Antibiotics do not cure viral infections. If given when not needed, antibiotics can be harmful. The treatments described below will help youfeel better while your body's own defenses are fighting the virus. General Instructions: Drink extra water and juice. Use a cool mist vaporizer or saline nasal spray to relieve congestion. For Sore throats, use ice chips or sore throat spray; lozenges for older children and adults. Specific Medications: Fever, aches, ear pain: Use medicines according to the package instructions or as directed by your healthcare provider. Stop the medication when the symptoms get better. No follow-ups on file. documented in this encounterParkview Health [facility]05-06-2022 History of Present illness Narrative* Edson Grant RT(R) - 11/16/2021 12:40 PM EDT Radiology Service Progress Note PATIENT NAME: Montrell Mancuso DATE OF SERVICE: November 16, 2021 TIME: 12:46 PM PATIENT IDENTITY VERIFICATION COMPLETED USING TWO (2) IDENTIFIERS: Name and Date of confirmedby patient verbally. FALL SCREENING: Has the patient had 2 falls in the last year or 1 fall with injury or currently using an Ambulatory Assistive Device (Walker, Cane, Wheelchair, Crutches, etc.)? No PATIENT GENDER DATA: Male PATIENT RELEVANT IMPLANT DATA REVIEWED: Not Applicable RADIOLOGY DEPARTMENT: General X-ray: Exam(s) Completed: Chest X-Ray PERIPHERAL IV DATA: Not applicable SIGNED BY: RT Consuelo(R) November 16, 2021 12:46 PM documented in this encounterParkview Health [facility]05-06-2022 History of Present illness Narrative* Nicole Nogueira APRN.[employer] - 11/16/2021 12:12 PM EDT This note was created using [employer]. Subjective Montrell Mancuso is a 71 year old male. 71 year old male with PMH hyperlipidemia, HTN (listed in PMH, but takes no medicines-states that hechanged diet) presents for viral illness. Acute onset 2 1/2 days ago +tickle in throat +fatigue +sore throat +runny nose +cough +body aches Denies CP. Denies SOB. Denies N/V/D Denies skin rash or lesions. Has used Tylenol every 6 hours +exposure to ill contacts at [facility] Has had COVID in past. The history is provided by the patient. No second language tutor was used. Cough This is a new problem. The current episode started more than 2 days ago. The problem occurs constantly. The cough is non-productive. There has been no fever. Associated symptoms include rhinorrhea, sore throat and myalgias. Pertinent negatives include no chest pain, no chills, no sweats, no weight loss, no ear congestion, no ear pain, no headaches, no shortness of breath, no wheezing and no eye redness. Treatments tried: Tylenol. The treatment provided no relief. He is not a smoker. His past medical history does not include bronchitis, pneumonia, bronchiectasis, COPD, emphysema or asthma. PAST MEDICAL HISTORY Diagnosis Date Actinic keratosis 01/10/2010 Dr. Vanessa Zepeda Acute prostatitis 10/15/2016 PSA elevation ASHD (arteriosclerotic heart disease) 04/27/2020 Dr. Albarran Benign neoplasm of colon BPH with obstruction/lower urinary tract symptoms 06/25/2005 Chronic otitis media of right ear 12/03/2018 Dr. Td Peace, tympanostomy. Hemorrhage of gastrointestinal tract, unspecified Hemorrhage of rectum and anus History of basal cell carcinoma (BCC) of skin 2017 [facility] Hypertrophy of prostate with urinary obstruction and other lower urinary tract symptoms (LUTS) 06/25/2005 Internal hemorrhoids without mention of complication Lung nodules 09/05/2015 Mixed hyperlipidemia Hyperlipidemia Supraventricular premature beats 06/25/2005 Unspecified essential hypertension Essential hypertension Vitamin D deficiency 02/09/2019 PAST SURGICAL HISTORY Procedure Laterality Date CARDIAC CATH 03/15/2020 [facility]/30/2017 [facility] COLONOSCOPY FLX DX W/COLLJ SPEC WHEN PFRMD 12/13/2010 Colonoscopy COLSC FLX W/RMVL OF TUMOR POLYP LESION SNARE TQ 02/09/2008 INGUINAL HERNIA REPAIR HX Right 01/11/2018 REPAIR INGUINAL HERNIA Left 05/16/2021 RPR UMBILICAL HERNIA AGE 6 YRS/> INCARCERATED 09/05/2011 umbilical TYMPANOSTOMY LOCAL/TOPICAL ANESTHESIA Right 2017 Dr. Peace ALLERGIES Patient has no known allergies. MEDICATIONS [id number] (CALTRATE 600-D PLUS MINERALS) 600 mg calcium- 800 unit-50 mg tab Take 1 tablet by mouth once daily. Multivitamin capsule Take 1 capsule by mouth once daily. Cholecalciferol, Vitamin D3, (VITAMIN D) 25 mcg (1,000 unit) cap Take 1,000 Units by mouth once daily. triamcinolone acetonide (NASACORT) 55 mcg nasal inhaler Use 2 Sprays in the nose once daily. ergocalciferol 50,000 unit capsule (VITAMIN D2, DRISDOL) Take 1 capsule by mouth one time a week for 4 doses. Ascorbic Acid (VITAMIN C) 1,000 mg tablet Take 1,000 mg by mouth once daily. FAMILY HISTORY Problem Relation Age of Onset Heart Paternal Grandfather Cancer Father leukemia, Heart Father bicuspid aortic valve Coronary Artery Disease Father age 68 Arthritis Mother osteo GI Mother diverticultis Social History Tobacco Use Smoking status: Former Smoker Quit date: 06/24/1967 Years since quittin.4 Smokeless tobacco: Never Used Vaping Use Vaping Use: Never used Substance Use Topics Alcohol use: Yes Alcohol/week: 7.5 standard drinks Types: 3 Cans of Beer (12oz) per week Drug use: No Review of Systems Constitutional: Positive for fatigue and fever. Negative for chills and weight loss. HENT: Positive for congestion, rhinorrhea and sore throat. Negative for ear pain, nosebleeds, postnasal drip, sinus pressure and sinus pain. Eyes: Negative for pain, discharge, redness and itching. Respiratory: Positive for cough. Negative for apnea, chest tightness, shortness of breath and wheezing. Cardiovascular: Negative for chest pain. Gastrointestinal: Negative for abdominal pain, diarrhea, nausea and vomiting. Musculoskeletal: Positive for myalgias. Skin: Negative for color change, pallor, rash and wound. Allergic/Immunologic: Negative for environmental allergies, food allergies and immunocompromised state. Neurological: Negative for dizziness, facial asymmetry and headaches. Hematological: Negative for adenopathy. Does not bruise/bleed easily. Psychiatric/Behavioral: Negative for agitation and behavioral problems. Objective BP 132/78 Pulse 88 Temp 36.6 C (97.8 F) Resp 16 Wt 75.2 kg (165 lb 12.8 oz) SpO2 99% BMI 25.97 kg/m Physical Exam Vitals and nursing note reviewed. Constitutional: General: He is not in acute distress. Appearance: Normal appearance. He is not ill-appearing, toxic-appearing or diaphoretic. HENT: Head: Normocephalic and atraumatic. Right Ear: External ear normal. Left Ear: External ear normal. Nose: Nose normal. No congestion or rhinorrhea. Mouth/Throat: Mouth: Mucous membranes are moist. Pharynx: Oropharynx is clear. No oropharyngeal exudate or posterior oropharyngeal erythema. Eyes: General: Right eye: No discharge. Left eye: No discharge. Extraocular Movements: Extraocular movements intact. Conjunctiva/sclera: Conjunctivae normal. Pupils: Pupils are equal, round, and reactive to light. Cardiovascular: Rate and Rhythm: Normal rate and regular rhythm. Pulses: Normal pulses. Heart sounds: Normal heart sounds. No murmur heard. No friction rub. No gallop. Pulmonary: Effort: Pulmonary effort is normal. No respiratory distress. Breath sounds: Normal breath sounds. No stridor. No wheezing, rhonchi or rales. Chest: Chest wall: No tenderness. Abdominal: General: Abdomen is flat. There is no distension. Palpations: Abdomen is soft. There is no mass. Tenderness: There is no abdominal tenderness. There is no guarding or rebound. Hernia: No hernia is present. Musculoskeletal: General: No swelling, tenderness, deformity or signs of injury. Normal range of motion. Cervical back: Normal range of motion and neck supple. No rigidity or tenderness. Right lower leg: No edema. Left lower leg: No edema. Lymphadenopathy: Cervical: No cervical adenopathy. Skin: General: Skin is warm and dry. Capillary Refill: Capillary refill takes less than 2 seconds. Coloration: Skin is not jaundiced or pale. Findings: No bruising, lesion or rash. Neurological: General: No focal deficit present. Mental Status: He is alert and oriented to person, place, and time. Cranial Nerves: No cranial nerve deficit. Sensory: No sensory deficit. Motor: No weakness. Coordination: Coordination normal. Gait: Gait normal. Deep Tendon Reflexes: Reflexes normal. Psychiatric: Mood and Affect: Mood normal. Behavior: Behavior normal. Thought Content: Thought content normal. Assessment and Plan ASSESSMENT/PLAN: 1. Cough - ICD9: 786.2, ICD10: R05.9 (primary diagnosis) X 2 to 3 days Lungs CTA Hemodynamically stable - COVID WITH FLUA+B, ROUTINE-obtained, pending - XR CHEST 2V FRONTAL/LAT-negative for acute process 2. Viral illness - ICD9: 079.99, ICD10: B34.9 - Discussed viral etiology and rationale for treatment. - Symptomatic treatment with prn analgesia - Supportive care with fluids and rest - The patient may also use OTC cough and cold meds as needed, warm salt water gargles, throat lozenges and/or OTC throat spray as needed and nasal saline gtts and suction prn. - Follow up in 3-5 days if symptoms persist or sooner if worsening of symptoms - COVID WITH FLUA+B, ROUTINE-obtained and pending - XR CHEST 2V FRONTAL/LAT-negative for acute process Nicole Nogueira APRN.TYLER Nogueira APRN.[employer]IC[employer] INTERNSHIP documented in this encounterParkview [facility]04-04-2022 Miscellaneous Notes* Telephone Encounter - Vanessa Diane LPN - 10/15/2021 12:45 PM EDT Patient notified, Montrell has already picked up the prescription for Vitamin D, started 10/13/2021. Labappt scheduled. Vanessa Diane LPN * Telephone Encounter - Leobardo Pollard MD - 10/12/2021 4:47 PM EDT Yes. Take prescription vitamin D once a week for 4 doses, in addition to his usual supplements. Schedule lab in December (vitamin D level). Please call patient. * Telephone Encounter - Angella Barrera RN - 10/12/2021 2:11 PM EDT Patient calls in to check on status of MC message. Patient asking for a return call with provider response d/t not always checking his MC/email. Call back number is [phone]. Angella Barrera RN documented in this encounterParkview [facility]04-02-2022 Miscellaneous Notes* Telephone Encounter - Milka Moreira LPN - 10/13/2021 8:53 AM EDT Being addressed in another encounter. documented in this encounterParkview Health [facility]10-15-2020 History of Present illness Narrative* Marie Church (Janette)Janette - 04/27/2020 4:20 PM EDT Radiology Service Progress Note PATIENT NAME: Montrell Mancuso DATE OF SERVICE: April 27, 2020 TIME: 4:20 PM PATIENT IDENTITY VERIFICATION COMPLETED USING TWO (2) IDENTIFIERS: Name and Date of confirmedby patient verbally. FALL SCREENING: Has the patient had 2 falls in the last year or 1 fall with injury or currently using an Ambulatory Assistive Device (Walker, Cane, Wheelchair, Crutches, etc.)? No PATIENT GENDER DATA: Male PATIENT RELEVANT IMPLANT DATA REVIEWED: Not Applicable RADIOLOGY DEPARTMENT: General X-ray: Exam(s) Completed: Spine X-Ray(s): Lumbar AP / LAT / L5-S1 PERIPHERAL IV DATA: Not applicable SIGNED BY: Janette Kauffman April 27, 2020 4:20 PM documented in this encounterParkview Health [facility]05-23-2019 History of Past illness Narrative* Problem Noted Date Resolved Date Chronic otitis media of right ear 12/03/2018 11/21/2021 Overview: Dr. Td Peace, tympanostomy. Sinus bradycardia 09/05/2015 04/27/2020 Lung nodules 09/05/2015 04/27/2020 Acute bronchitis 07/05/2012 10/12/2014 Other specified disorder of bladder 08/26/2008 03/12/2012 Overview: Frequency. Irritable bladder. UO 76oz/24 hours Benign neoplasm of colon 02/09/2008 020 Internal hemorrhoids without mention of complica tion 02/09/2008 12/09/2008 Hemorrhage of gastrointestinal tract, unspecifie d 02/09/2008 12/09/2008 Hemorrhage of rectum and anus documented as of this encounter (statuses as of 11/21/2021) [facility] of Past illness Narrative* Problem Noted Date Resolved Date Chronic otitis media of right ear 12/03/2018 11/21/2021 Overview: Dr. Td Peace, tympanostomy. Sinus bradycardia 09/05/2015 04/27/2020 Lung nodules 09/05/2015 04/27/2020 Acute bronchitis 07/05/2012 10/12/2014 Other specified disorder of bladder 08/26/2008 03/12/2012 Overview: Frequency. Irritable bladder. UO 76oz/24 hours Benign neoplasm of colon 02/09/2008 020 Internal hemorrhoids without mention of complica tion 02/09/2008 12/09/2008 Hemorrhage of gastrointestinal tract, unspecifie d 02/09/2008 12/09/2008 Hemorrhage of rectum and anus documented as of this encounter (statuses as of 11/23/2021) [facility] of Past illness Narrative* Problem Noted Date Resolved Date Chronic otitis media of right ear 12/03/2018 11/21/2021 Overview: Dr. Td Peace, tympanostomy. Lung nodules 09/05/2015 04/27/2020 Acute bronchitis 07/05/2012 10/12/2014 Other specified disorder of bladder 08/26/2008 03/12/2012 Overview: Frequency. Irritable bladder. UO 76oz/24 hours Benign neoplasm of colon 02/09/2008 020 Internal hemorrhoids without mention of complica tion 02/09/2008 12/09/2008 Hemorrhage of gastrointestinal tract, unspecifie d 02/09/2008 12/09/2008 Hemorrhage of rectum and anus documented as of this encounter (statuses as of 12/06/2021) [facility] of [facility] illness Narrative* Problem Noted Date Resolved Date Chronic otitis media of right ear 12/03/2018 11/21/2021 Overview: Dr. Td Peace, tympanostomy. Lung nodules 09/05/2015 04/27/2020 Acute bronchitis 07/05/2012 10/12/2014 Other specified disorder of bladder 08/26/2008 03/12/2012 Overview: Frequency. Irritable bladder. UO 76oz/24 hours Benign neoplasm of colon 02/09/2008 020 Internal hemorrhoids without mention of complica tion 02/09/2008 12/09/2008 Hemorrhage of gastrointestinal tract, unspecifie d 02/09/2008 12/09/2008 Hemorrhage of rectum and anus documented as of this encounter (statuses as of 12/06/2021) [facility] of [facility] Narrative* Problem Noted Date Resolved Date Chronic otitis media of right ear 12/03/2018 11/21/2021 Overview: Dr. Td Peace, tympanostomy. Lung nodules 09/05/2015 04/27/2020 Acute bronchitis 07/05/2012 10/12/2014 Other specified disorder of bladder 08/26/2008 03/12/2012 Overview: Frequency. Irritable bladder. UO 76oz/24 hours Benign neoplasm of colon 02/09/2008 020 Internal hemorrhoids without mention of complica tion 02/09/2008 12/09/2008 Hemorrhage of gastrointestinal tract, unspecifie d 02/09/2008 12/09/2008 Hemorrhage of rectum and anus documented as of this encounter (statuses as of 12/27/2021) [facility] of [facility] Narrative* Problem Noted Date Resolved Date Chronic otitis media of right ear 12/03/2018 11/21/2021 Overview: Dr. Td Peace, tympanostomy. Lung nodules 09/05/2015 04/27/2020 Acute bronchitis 07/05/2012 10/12/2014 Other specified disorder of bladder 08/26/2008 03/12/2012 Overview: Frequency. Irritable bladder. UO 76oz/24 hours Benign neoplasm of colon 02/09/2008 020 Internal hemorrhoids without mention of complica tion 02/09/2008 12/09/2008 Hemorrhage of gastrointestinal tract, unspecifie d 02/09/2008 12/09/2008 Hemorrhage of rectum and anus documented as of this encounter (statuses as of 03/05/2022) [facility] of [facility] Narrative* Problem Noted Date Resolved Date Chronic otitis media of right ear 12/03/2018 11/21/2021 Overview: Dr. Td Peace, tympanostomy. Lung nodules 09/05/2015 04/27/2020 Acute bronchitis 07/05/2012 10/12/2014 Other specified disorder of bladder 08/26/2008 03/12/2012 Overview: Frequency. Irritable bladder. UO 76oz/24 hours Benign neoplasm of colon 02/09/2008 020 Internal hemorrhoids without mention of complica tion 02/09/2008 12/09/2008 Hemorrhage of gastrointestinal tract, unspecifie d 02/09/2008 12/09/2008 Hemorrhage of rectum and anus documented as of this encounter (statuses as of 03/05/2022) [facility] Narrative* Problem Noted Date Resolved Date Chronic otitis media of right ear 12/03/2018 11/21/2021 Overview: Dr. Td Peace, tympanostomy. Lung nodules 09/05/2015 04/27/2020 Acute bronchitis 07/05/2012 10/12/2014 Other specified disorder of bladder 08/26/2008 03/12/2012 Overview: Frequency. Irritable bladder. UO 76oz/24 hours Benign neoplasm of colon 02/09/2008 020 Internal hemorrhoids without mention of complica tion 02/09/2008 12/09/2008 Hemorrhage of gastrointestinal tract, unspecifie d 02/09/2008 12/09/2008 Hemorrhage of rectum and anus documented as of this encounter (statuses as of 03/13/2022) [facility] Narrative* Problem Noted Date Resolved Date Chronic otitis media of right ear 12/03/2018 11/21/2021 Overview: Dr. Td Peace, tympanostomy. Lung nodules 09/05/2015 04/27/2020 Acute bronchitis 07/05/2012 10/12/2014 Other specified disorder of bladder 08/26/2008 03/12/2012 Overview: Frequency. Irritable bladder. UO 76oz/24 hours Benign neoplasm of colon 02/09/2008 020 Internal hemorrhoids without mention of complica tion 02/09/2008 12/09/2008 Hemorrhage of gastrointestinal tract, unspecifie d 02/09/2008 12/09/2008 Hemorrhage of rectum and anus documented as of this encounter (statuses as of 03/20/2022) [facility] Narrative* Problem Noted Date Resolved Date Chronic otitis media of right ear 12/03/2018 11/21/2021 Overview: Dr. Td Peace, tympanostomy. Lung nodules 09/05/2015 04/27/2020 Acute bronchitis 07/05/2012 10/12/2014 Other specified disorder of bladder 08/26/2008 03/12/2012 Overview: Frequency. Irritable bladder. UO 76oz/24 hours Benign neoplasm of colon 02/09/2008 020 Internal hemorrhoids without mention of complica tion 02/09/2008 12/09/2008 Hemorrhage of gastrointestinal tract, unspecifie d 02/09/2008 12/09/2008 Hemorrhage of rectum and anus documented as of this encounter (statuses as of 04/05/2022) [facility] History of Past illness Narrative* Problem Noted Date Resolved Date Chronic otitis media of right ear 12/03/2018 11/21/2021 Overview: Dr. Td Peace, tympanostomy. Lung nodules 09/05/2015 04/27/2020 Acute bronchitis 07/05/2012 10/12/2014 Other specified disorder of bladder 08/26/2008 03/12/2012 Overview: Frequency. Irritable bladder. UO 76oz/24 hours Benign neoplasm of colon 02/09/2008 020 Internal hemorrhoids without mention of complica tion 02/09/2008 12/09/2008 Hemorrhage of gastrointestinal tract, unspecifie d 02/09/2008 12/09/2008 Hemorrhage of rectum and anus documented as of this encounter (statuses as of 04/08/2022) [facility] History of Past illness Narrative* Problem Noted Date Resolved Date Chronic otitis media of right ear 12/03/2018 11/21/2021 Overview: Dr. Td Peace, tympanostomy. Lung nodules 09/05/2015 04/27/2020 Acute bronchitis 07/05/2012 10/12/2014 Other specified disorder of bladder 08/26/2008 03/12/2012 Overview: Frequency. Irritable bladder. UO 76oz/24 hours Benign neoplasm of colon 02/09/2008 020 Internal hemorrhoids without mention of complica tion 02/09/2008 12/09/2008 Hemorrhage of gastrointestinal tract, unspecifie d 02/09/2008 12/09/2008 Hemorrhage of rectum and anus documented as of this encounter (statuses as of 04/13/2022) [facility] History of Past illness Narrative* Problem Noted Date Resolved Date Chronic otitis media of right ear 12/03/2018 11/21/2021 Overview: Dr. Td Peace, tympanostomy. Lung nodules 09/05/2015 04/27/2020 Acute bronchitis 07/05/2012 10/12/2014 Other specified disorder of bladder 08/26/2008 03/12/2012 Overview: Frequency. Irritable bladder. UO 76oz/24 hours Benign neoplasm of colon 02/09/2008 020 Internal hemorrhoids without mention of complica tion 02/09/2008 12/09/2008 Hemorrhage of gastrointestinal tract, unspecifie d 02/09/2008 12/09/2008 Hemorrhage of rectum and anus documented as of this encounter (statuses as of 04/15/2022) [facility] History of Past illness Narrative* Problem Noted Date Resolved Date Sinus bradycardia 09/05/2015 04/27/2020 Lung nodules 09/05/2015 04/27/2020 Acute bronchitis 07/05/2012 10/12/2014 Other specified disorder of bladder 08/26/2008 03/12/2012 Overview: Frequency. Irritable bladder. UO 76oz/24 hours Benign neoplasm of colon 02/09/2008 020 Internal hemorrhoids without mention of complica tion 02/09/2008 12/09/2008 Hemorrhage of gastrointestinal tract, unspecifie d 02/09/2008 12/09/2008 Hemorrhage of rectum and anus documented as of this encounter (statuses as of 10/13/2021) [facility] History of Past illness Narrative* Problem Noted Date Resolved Date Sinus bradycardia 09/05/2015 04/27/2020 Lung nodules 09/05/2015 04/27/2020 Acute bronchitis 07/05/2012 10/12/2014 Other specified disorder of bladder 08/26/2008 03/12/2012 Overview: Frequency. Irritable bladder. UO 76oz/24 hours Benign neoplasm of colon 02/09/2008 020 Internal hemorrhoids without mention of complica tion 02/09/2008 12/09/2008 Hemorrhage of gastrointestinal tract, unspecifie d 02/09/2008 12/09/2008 Hemorrhage of rectum and anus documented as of this encounter (statuses as of 10/15/2021) [facility] History of Past illness Narrative* Problem Noted Date Resolved Date Sinus bradycardia 09/05/2015 04/27/2020 Lung nodules 09/05/2015 04/27/2020 Acute bronchitis 07/05/2012 10/12/2014 Other specified disorder of bladder 08/26/2008 03/12/2012 Overview: Frequency. Irritable bladder. UO 76oz/24 hours Benign neoplasm of colon 02/09/2008 020 Internal hemorrhoids without mention of complica tion 02/09/2008 12/09/2008 Hemorrhage of gastrointestinal tract, unspecifie d 02/09/2008 12/09/2008 Hemorrhage of rectum and anus documented as of this encounter (statuses as of 11/16/2021) [facility] History of Past illness Narrative* Problem Noted Date Resolved Date Sinus bradycardia 09/05/2015 04/27/2020 Lung nodules 09/05/2015 04/27/2020 Acute bronchitis 07/05/2012 10/12/2014 Other specified disorder of bladder 08/26/2008 03/12/2012 Overview: Frequency. Irritable bladder. UO 76oz/24 hours Benign neoplasm of colon 02/09/2008 020 Internal hemorrhoids without mention of complica tion 02/09/2008 12/09/2008 Hemorrhage of gastrointestinal tract, unspecifie d 02/09/2008 12/09/2008 Hemorrhage of rectum and anus documented as of this encounter (statuses as of 11/20/2021) [facility] Austin Sullivan [facility] November 01, 2023 12:05pm Note Date/Time November 01, 2023 10: 54am [facility] Medical Records Department [address] [place] [address] Emergency Department Summary 11/01/23 MR#: [id number] Acct: [id number] Name: MONTRELL MANCUSO Rep #:[id number] : 1950 73 From: Austin Sullivan MD PCP: Dr. Leobardo Pollard MD Status:R EG ER Location: ED HPI History of Present Illness Chief Complaint: Palpitations Informant: patient Onset/Context/Timing Onset: Days Context: Gradual Onset Timing: Intermittent Current Severity: Gone Maximum Severity: Mild Narrative Narrative: 73-year-old male history of sick sinus syndrome. He has had a pacemaker placed May 2022. He just recently had his pacemaker interrogated on 10/15/2023 and everything was good. And the battery was not 100% with 8 more years of life expectancy of the pacemaker. He states he has been feeling fine. Denies any recent illness. No nausea, vomiting or diarrhea. No fever or chills. No chestpain or melena. States when he is ending in the exertional situation he just does not feel like the pacemaker might be keeping up. He says if he is to walk he does fine but is to walk an incline he gets short of breath. But denies any chest pain. Prior similar symptoms: No Recent Illness/Hospitalization: No PFSH PFSH Medical History Alcohol use Arthritis Asymptomatic peripheral vascular disease Atherosclerotic heart disease of [place] coronary artery without angina pectoris Back pain Bradycardia Cancer Cardiology follow-up encounter Chest pain Constipation Degenerative arthritis Easy bruising Elevated d-dimer Excessive bleeding Fatigue Fatigue GERD (gastroesophageal reflux disease) Heartburn High cholesterol History of echocardiogram History of left heart catheterization (LHC) (~03/14/20) History of stress test Hx of sinus bradycardia Idioventricular rhythm Left inguinal hernia Left inguinal hernia Left inguinal pain Migraine headache Murmur, cardiac Non-smoker Presence of permanent cardiac pacemaker (~05/23/22) Prostate disease Right groin pain Screening for intestinal cancer Sick sinus syndrome Sinus bradycardia Sleep apnea Syncope Wears glasses Home Medications cholecalciferol (vitamin D3) 25 mcg (1,000 unit) tablet 1,000 unit PO DAILY 09/18/20 [History Last Taken Unknown] multivitamin 1 tab PO DAILY 04/05/21 [History Last Taken Unknown] ascorbic acid (vitamin C) 1,000 mg tablet 1 g PO DAILY 05/01/22 [History Last Taken Unknown] calcium carbonate 600 mg PO DAILY 05/01/22 [History Last Taken Unknown] folic acid 400 mcg tablet 0.4 mg PO DAILY 05/01/22 [History Last Taken Unknown] Allergy/AdvReac Type Severity Reaction Status Date / Time atorvastatin AdvReac Severe Severe Verified 11/01/23 10:27 myalgias Family History Father CAD (coronary artery disease) Leukemia Sister CAD (coronary artery disease) Mother Osteoporosis CVA (cerebral vascular accident) Surgical History History of colonoscopy (~12/2017) History of hernia repair History of inguinal hernia repair (~2017) History of umbilical hernia repair (~2011) Hx of colonoscopy S/P placement of cardiac pacemaker Social History Smoking Status: Former smoker how long ago did patient quit smokin + years ago alcohol intake: current alcohol intake frequency: 0-2 drinks per day Alcohol type: wine substance use type: does not use caffeine: Yes Type: coffee Number of servings: 3 ROS ROS ED ROS Narrative Denies recent illness. He has exertional dyspnea at times. Review of Systems ROS Unobtainable: Denies due to encephalopathy Constitutional Constitutional ED: Denies chills or fever(s) Eyes Eyes: Denies blurry vision ENT ENT ED: Denies ear pain Cardiovascular Cardiovascular: Denies chest pain Respiratory/Chest Respiratory/Chest: Reports dyspnea and dyspnea on exertion; Denies cough Gastrointestinal Gastrointestinal: Denies abdominal pain Genitourinary Genitourinary ED: Denies dysuria or hematuria Musculoskeletal Musculoskeletal: Denies arthralgias, back pain, myalgias or neck pain Integumentary Denies abscess or Abrasions Neurologic Neurologic: Denies headache(s) Psychiatric Psychiatric: Denies anxiety or depression Endocrine Endocrinology: Denies cold intolerance Hematologic/Lymphatic Hematologic/Lymphatic: Reports none Allergic/Immunologic Allergic/Immunologic ED: Denies mouth swelling, tongue swelling or urticaria EXAM Physical Exam Narrative Exam Narrative: Well-appearing 73-year-old male. Vital signs are stable afebrile. Pulse ox 100% on room air no signs of hypoxia. H EENT exam normal. Neck nontender no JVD. Lungs clear to auscultation bilaterally. Heart regular rhythm paced at 60. Left-sided pacemaker. Abdomen soft nontender. Normal bowel sounds no peritoneal signs. Moving all 4 extremities. Calves are nontender without edemaor cords. Equal symmetrical radial pulses. Neurologically is awake and alert with no focal motor deficit. Currently he is symptom-free and has a benign normal exam. Const Vital Signs: 11/01/23 10:24 11/01/23 10:24 11/01/23 10:43 Temperature 97.2 F L Temperature Source Temporal Pulse Rate 60 Respiratory Rate 16 Respiratory Effort Normal Blood Pressure 155/54 H Blood Pressure Mean 87 Pulse Ox 100 Oxygen Delivery Method Room Air Room Air Positive well nourished and well developed; Negative for obese, cachectic, contractures or unkempt General Appearance ED: well developed and NAD; Negative for unkempt, cachectic, contractures, cyanotic, diaphoretic or pallor Nutritional Appearance: Negative for cachectic or obese HEENT Reports moist mucous membranes; Denies dry mucous membranes Negative for trauma or tenderness Mouth ED: No dry mucous membranes Mouth: No dry mucous membranes Eyes PERRL and EOMs intact bilaterally General Eye ED: Negative for pale conjunctiva, scleral icterus or other Neck no lymphadenopathy, supple and no JVD General: Negative for tenderness Lymph Lymphatic: Negative for other Chest Wall inspection of chest normal and palpation of chest normal Chest: Negative for other Resp normal respiratory effort and clear to auscultation bilaterally Effort and Inspection: Negative for retractions Auscultation: Negative for rales, rhonchi, wheezes or diminished lung sounds Cardio regular rate, regular rhythm, S1 normal heart sound, S2 normal heart sound and no murmurs Palpation: Negative for palpable S3 or palpable S4 Rate: Negative for bradycardia or tachycardic Rhythm: Negative for abnormal rhythm GI normal to inspection, nondistended, normoactive bowel sounds, non-tender, non-distended and no masses Inspection: Negative for abdominal distention Auscultation: normoactive bowel sounds Palpation: soft; Negative for tender or guarding Back/Spine no CVA tenderness General Back: Negative for CVA tenderness Cervical Spine: Negative for cervical spine tenderness Thoracic Spine / Upper Back: Negative for thoracic spinal tenderness or paraspinal muscle tenderness Lumbar Spine / Lower Back: Negative for lumbar spinal tenderness Extremity normal to inspection General Extremety ED: Negative for edema or tenderness General Extremity: Negative for edema Neuro oriented x3 and CN's II-XII intact bilaterally Sensorium / Orientation: alert; Negative for orientation impaired, lethargic or stuporous Motor Exam: strength 5/5 throughout Psych mental status grossly normal Appearance: Negative for unkempt Attitude: No agitated Mood & Affect: Negative for depressed, anxious or tearful Skin no rashes or lesions noted, no wounds and skin turgor normal General Skin Exam: Negative for jaundice or pallor Lesions: No lesion noted Rashes: No rashes noted Trauma: Negative for abrasion Wounds: Negative for wounds noted MDM MDM MDM Narrative Medical decision making narrative: Well-appearing 73-year-old male with a pacemaker is having some exertional dyspnea. No chest pain. Denies recent illness. Had a recent pacemaker evaluation was unremarkable about 2 to 3 weeks ago. Repeat exam patient is doing well at 12 PM. We went over all his test results. He is comfortable being discharged home. He will follow-up with the [employer] pacemaker personnel and the pacemaker clinic here to see if they can work on adjusting his pacemaker for demand settings when he needs it with exertion. He also knows that that does not improve the problem he may need a stress test but he had one several years ago which was negative. He is not having any chest pain with exertion. History & Record Review Discussion w/independent historian: Patient and Family (Accompanied by his [id number].) Additional record(s) reviewed:: Prior inpatient record, Prior outpatient record,Prior ED visit and Prior labs Lab Data Attestation: I reviewed the patient's lab results. Lab results narrative: CBC normal. White count of 6. H&H is 16 and 48. Platelets 181. Electrolytes unremarkable. Gap 4. Normal BUN and creatinine is 0.86. Glucose 116. Troponin 6. Chest x-ray unremarkable. EKG paced. Labs: Laboratory Results - last 24 hr 11/01/23 10:40 WBC 6.6 RBC 5.20 Hgb 16.3 Hct 48.4 MCV 93.1 MCH 31.3 MCHC 33.7 RDW Std Deviation 42.2 RDW Coeff of Swapnil 12.3 Plt Count 181 MPV 9.5 Immature Gran % (Auto) 0.500 Neut % (Auto) 64.4 Lymph % (Auto) 21.1 [place] % (Auto) 9.9 Eos % (Auto) 3.5 Baso % (Auto) 0.6 Absolute Neuts (auto) 4.2 Absolute Lymphs (auto) 1.38 Nucleated RBC % 0 Sodium 139 Potassium 4.1 Chloride 107 Carbon Dioxide 28.0 Anion Gap 4 L BUN 17 Creatinine 0.86 Estim Creat Clear Calc 75.12 Est GFR (MDRD) Af Amer 112 Est GFR (MDRD) Non-Af 93 BUN/Creatinine Ratio 19.7 Glucose 116 H Calcium 8.9 Troponin I High Sens 6 Radiography Chest X-Ray - ED: 1 View, Read by ED Physician, Read by Radiologist, Heart, Lungs, Mediastinum, Bony Structures, No Acute Disease and Chronic Changes Diagnostic Testing: Clinical Impression(s) from Imaging Studies Chest X-Ray 11/01/23 10:35 IMPRESSION: No radiographic evidence of acute cardiopulmonary disease. Electronically Signed: Emi Bennett MD at 11:17 EDT , Chest x-ray, portable, single view, interpreted by myself and the radiologist shows no acute abnormality. Normal cardiac silhouette. Normal lung peters. Left-sided pacemaker. No effusions. Rhythm Strip Rhythm Strip: paced Rate: 60 Ectopy: None EKG Initial EKG: Attestation: I personally reviewed and interpreted this EKG as follows: Interpretation: Sinus Rhythm and No Acute Injury Pattern Comments: Paced rhythm rate is 60 no acute signs of FL or ischemia. Discharge Plan Triage Chief Complaint: Palpitations ED Provider: Austin Sullivan Dx/Rx/DC Orders Clinical Impression: History of pacemaker, Exertional dyspnea Instructions: ED Dyspnea Prescriptions: No Action cholecalciferol (vitamin D3) 25 mcg (1,000 unit) tablet 1,000 unit PO DAILY multivitamin Tablet 1 tab PO DAILY ascorbic acid (vitamin C) 1,000 mg tablet 1 g PO DAILY calcium carbonate 600 mg calcium (1,500 mg) tablet 600 mg PO DAILY folic acid 400 mcg tablet 0.4 mg PO DAILY Primary Care Provider: Leobardo Pollard Referrals: Ab Oconnor MD [Med Staff - Active Staff] - As soon as possible Leobardo Pollard MD [Primary Care Provider] - Activity Restrictions/Additional Instructions: Your labs, EKG, chest x-ray exam and they were all normal. Call and follow-up with the pacemaker clinic on Friday morning. They may have to adjust your settings so you have a higher heart rate with exertion. That may be the cause of your exertional shortness of breath. If that does not work you may need a stress test. 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 If you start having exertional chest pain you need to return to be reevaluated. Disposition Disposition: Home, Self Care What to do if you have Problems For any increased pain, shortness of breath, bleeding, nausea or vomiting, chestpain, or any unexpected problems, contact your Primary Care Provider. Call [facility] ([phone]) or report to the closest Emergency Room. Call 911 if necessary. 11/01/23 1205 <Electronically signed by Austin Sullivan MD> Cosigner Signature (if applicable): CC: Dr. Leobardo Pollard MD ~ Signed [facility] Work Phone: Evaluation note* Diagnosis Onset Date Resolution Status Left inguinal hernia acute [facility] Work Phone: Evaluation note* Diagnosis Cough- Primary Viral illness Unspecified viral infection, in conditions classified elsewhere and of unspecified site [facility] Diagnosis Viral URI with cough- Primary Acute upper respiratory infections of unspecified site [facility]* Diagnosis Bronchitis with bronchospasm- Primary Bronchitis, not specified as acute or chronic Bradycardia Other specified cardiac dysrhythmias [facility]* Diagnosis Bradycardia- Primary Other specified cardiac dysrhythmias Sinus bradycardia Other specified cardiac dysrhythmias Atrioventricular block Atrioventricular block, unspecified Dyspnea on exertion Other dyspnea and respiratory abnormality Sinus node dysfunction (HCC) Sinoatrial node dysfunction documented in this encounter [facility] noteNo assessment information availableWHocking [facility] Work Phone: Evaluation note* Diagnosis Bradycardia- Primary Other specified cardiac dysrhythmias Sinus bradycardia Other specified cardiac dysrhythmias Atrioventricular block Atrioventricular block, unspecified Bradycardia- Primary Other specified cardiac dysrhythmias Atrioventricular block Atrioventricular block, unspecified Bradycardia Other specified cardiac dysrhythmias Sinus bradycardia Other specified cardiac dysrhythmias Atrioventricular block Atrioventricular block, unspecified Dyspnea on exertion Other dyspnea and respiratory abnormality Sinus node dysfunction (HCC) Sinoatrial node dysfunction [facility]* Diagnosis Bradycardia- Primary Other specified cardiac dysrhythmias Sinus bradycardia Other specified cardiac dysrhythmias Atrioventricular block Atrioventricular block, unspecified documented in this encounter [facility] note* Diagnosis Medicare annual wellness visit, subsequent- Primary Routine general medical examination at a health care facility Asymptomatic peripheral vascular disease (HCC) Peripheral vascular disease, unspecified Sinus node dysfunction (HCC) Sinoatrial node dysfunction documented in this encounter [facility] note* Diagnosis Onset Date Resolution Status Bradycardia acute Atherosclerotic heart diseas e of [place] coronary artery without angina pectoris chronic Murmur, cardiac chronic Bradycardia acute Sick sinus syndrome acute Sinus bradycardia acute S/P placement of cardiac pacemaker acute Sick sinus syndrome acute Atherosclerotic heart diseas e of [place] coronary artery without angina pectoris [facility] Work Phone: Evaluation note* Diagnosis Trachyonychia- Primary Other specified disease of nail Raynaud's disease without gangrene Vitamin D deficiency Unspecified vitamin D deficiency Neuropathic pain Neuralgia, neuritis, and radiculitis, unspecified documented in this encounter [facility] note* Diagnosis Medicare annual wellness visit, subsequent- Primary Routine general medical examination at a health care facility Raynaud's phenomenon without gangrene Easy bruising Other symptoms involving skin and integumentary tissues Mixed hyperlipidemia Vitamin D deficiency Unspecified vitamin D deficiency Screening for prostate cancer Special screening for malignant neoplasm of prostate Sinus node dysfunction (HCC) Sinoatrial node dysfunction [facility]* Diagnosis Elevated PSA- Primary Elevated prostate specific antigen (PSA) documented [facility]* Diagnosis Cough Suspected COVID-19 virus infection [facility]* Diagnosis Chronic bilateral low back pain without sciatica documented [facility]* Diagnosis Gross hematuria- Primary Elevated PSA Elevated prostate specific antigen (PSA) BPH with obstruction/lower urinary tract symptoms Hypertrophy of prostate with urinary obstruction and other lower urinary tract symptoms (LUTS) documented in this encounter [facility]* Diagnosis Acute cough- Primary Hemoptysis Hemoptysis, unspecified Weakness Other malaise and fatigue Acute cough Hemoptysis Hemoptysis, unspecified [facility]* Diagnosis Acute cough Hemoptysis Hemoptysis, unspecified documented [facility]* Diagnosis Viral upper respiratory tract infection- Primary Acute upper respiratory infections of unspecified site Dysfunction of right eustachian tube Dysfunction of Eustachian tube documented in this [facility]* Diagnosis Atherosclerosis of [place] coronary artery of [place] heart with angina pectoris- Primary Sinus bradycardia Other specified cardiac dysrhythmias Presence of cardiac pacemaker Cardiac pacemaker in situ Cardiac murmur Undiagnosed cardiac murmurs [facility]* Diagnosis Atherosclerosis of [place] coronary artery of [place] heart with angina pectoris- Primary Sinus bradycardia Other specified cardiac dysrhythmias Presence of cardiac pacemaker Cardiac pacemaker in situ Cardiac murmur Undiagnosed cardiac murmurs Stented coronary artery- Primary Postsurgical percutaneous transluminal coronary angioplasty status Atherosclerosis of [place] coronary artery of [place] heart with angina pectoris Sinus bradycardia Other specified cardiac dysrhythmias Presence of cardiac pacemaker Cardiac pacemaker in situ S/P drug eluting coronary stent placement Atherosclerosis of [place] coronary artery of [place] heart with angina pectoris Sinus bradycardia Other specified cardiac dysrhythmias Presence of cardiac pacemaker Cardiac pacemaker in situ [facility]* Diagnosis Medicare annual wellness visit, subsequent- Primary Routine general medical examination at a health care facility Screening for depression Encounter for screening examination for other mental health and behavioral disorders Statin myopathy Toxic myopathy Abrasion of right upper extremity, initial encounter Coronary artery disease involving [place] coronary artery of [place] heart without angina pectoris S/P drug eluting coronary stent placement Postsurgical percutaneous transluminal coronary angioplasty status Mixed hyperlipidemia documented [facility] Diagnosis Atherosclerosis of [place] coronary artery of [place] heart with angina pectoris- Primary Sinus bradycardia Other specified cardiac dysrhythmias Presence of cardiac pacemaker Cardiac pacemaker in situ Cardiac murmur Undiagnosed cardiac murmurs Atherosclerosis of [place] coronary artery of [place] heart with angina pectoris- Primary S/P drug eluting coronary stent placement Sinus bradycardia Other specified cardiac dysrhythmias Presence of cardiac pacemaker Cardiac pacemaker in situ [facility] Additional Instructions Your labs, EKG, chest x-ray exam and they were all normal. Call and follow-up with the pacemaker clinic on Friday morning. They may have to adjust your settings so you have a higher heart rate with exertion. That may be the cause of your exertional shortness of breath. If that does not work you may need a stress test. 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 If you start having exertional chest pain you need to return to be reevaluated. [facility] Work Phone: Reason for referral (narrative)* Outpatient Procedure (Routine) - Authorized Specialty Diagnoses / Procedures Referred By Jon santana Referred To [facility] Diagnoses Raynaud's phenomenon without gangrene Procedures PVR ANK PRESS SARBJIT VAS LAB NON-INVAS PHYSIOLOGIC STD EXTREMITY ART 2 LEVEL Leobardo Pollard MD [address] [place] [address] [facility] [place] [address] [place] [address] Referral ID Status Reason Start Date Expiration Date Visits Requested Visits Authorized [id number] Authorized Auto-Generat ed Referral 12/05/2023 12/04/2024 1 1 [facility] for referral (narrative)No reason for referral [facility] Work [facility]: Reason for visit Narrative* Auth/Cert Specialty Diagnoses / Procedures Referred By Jon santana Referred To Contact Diagnoses Atherosclerosis of [place] coronary artery of [place] heart with angina pectoris Sinus bradycardia Presence of cardiac pacemaker Atherosclerosis of [place] coronary artery of [place] heart with angina pectoris [I25.119] Sinus bradycardia [R00.1] Presence of cardiac pacemaker [Z95.0] Procedures KS CATH PLMT L HRT & ARTS W/NJX & ANGIO IMG S&I CORONARY ANGIOGRAM WITH LEFT HEART CATH [facility] [address] [place] [address] [facility] [address] [place] [address] Referral ID Status Reason Start Date Expiration Date Visits Re quested Visits Authorized [id number] 1 1 [facility] Chief Complaint and Reason for Visit Chief Complaint Lump at incision sit e E-ORDER Reason for Visit Left inguinal hernia Chief Complaint Lump at incision sit e E-ORDER Cardiac arrhythmia, unspecified Reason for Visit Left inguinal hernia Chief Complaint Cardiac arrhythmia, unspecified PER VELIA GENERAL ILLNESS Chief Complaint PER VELIA GENERAL ILLNESS CHEST PAIN CHEST PAIN Chief Complaint PER VELIA GENERAL ILLNESS CHEST PAIN CHEST PAIN PER YURI CHAVEZ IMPLANT 11.10.22 PACEMAKER INSERT PACEMAKER INSERT INPATIENT 1st day post implant PPM f/u PACEMAKER INSERT Reason for Visit Bradycardia Atherosclerotic heart disease of [place] coronary artery without angina pectoris Murmur, cardiac Bradycardia Sick sinus syndrome Sinus bradycardia S/P placement of cardiac pacemaker Sick sinus syndrome Atherosclerotic heart disease of [place] coronary artery without angina pectoris Chief Complaint 3 mos remote PPM f/u BRADYCARDIA Reason for Visit Presence of permanen t cardiac pacemaker Sick sinus syndrome Sinus bradycardia Chief Complaint Pacer Check Remote Pacer Check Remote PALPITATIONS Chief Complaint Admit Date Gross hematuria September 01, 2024 3:54pm Pacer Check Remote October 13, 2024 4:01 am INT LAB ORDERS October 28, 2024 12: 37pm OVERDUE FOR ANNUAL IN CLINIC/J[facility] @ 11 2024 10:26am S/P [facility] @ 10:30 December 16, 2024 10:29 am Reason for Visit Admit Date Presence of permanent cardiac pacemaker December 16, 2024 10:29am Sick sinus syndrome December 16, 2024 10:29 am Atherosclerotic heart diseas e of [place] coronary artery without angina pectoris December 16, 2024 10:29am Reason for Visit Admit Date Presence of permanent cardiac pacemaker December 16, 2024 10:26am Sick sinus syndrome December 16, 2024 10:26 am Sinus bradycardia December 16, 2024 10:26 am Presence of permanent cardiac pacemaker December 16, 2024 10:29am Sick sinus syndrome December 16, 2024 10:29 am Atherosclerotic heart diseas e of [place] coronary artery without angina pectoris December 16, 2024 10:29am Chief Complaint Admit Date Gross hematuria September 01, 2024 3:54pm Pacer Check Remote October 13, 2024 4:01 am INT LAB ORDERS October 28, 2024 12: 37pm OVERDUE FOR ANNUAL IN CLINIC/[facility] @ 11 [facility] 2024 10:26am S/P [facility] @ 10:30 December 16, 2024 10:29 am PCI December 20, 2024 1:58p m PCI December 24, 2024 10:1 5am Chief Complaint Admit Date Gross hematuria September 01, 2024 3:54pm Pacer Check Remote October 13, 2024 4:01 am INT LAB ORDERS October 28, 2024 12: 37pm Pacer Check Remote December 16, 2024 9:00a m OVERDUE FOR ANNUAL IN CLINIC/JHR @ 11 [facility] 2024 10:26am S/P [facility] @ 10:30 December 16, 2024 10:29 am PCI December 20, 2024 1:58p m PCI December 27, 2024 10:1 5am Chief Complaint Admit Date Pacer Check Remote October 13, 2024 4:01 am INT LAB ORDERS October 28, 2024 12: 37pm Pacer Check Remote December 16, 2024 9:00a m OVERDUE FOR ANNUAL IN CLINIC/JHR @ 11 [facility] 2024 10:26am S/P [facility] @ 10:30 December 16, 2024 10:29 am PCI December 20, 2024 1:58p m PCI January 10, 2025 10:1 5am Chief Complaint Admit Date Pacer Check Remote October 13, 2024 4:01 am INT LAB ORDERS October 28, 2024 12: 37pm Pacer Check Remote December 16, 2024 9:00a m OVERDUE FOR ANNUAL IN CLINIC/JHR @ 11 [facility] 2024 10:26am S/P [facility] @ 10:30 December 16, 2024 10:29 am PCI December 20, 2024 1:58p m PCI January 10, 2025 10:1 5am Pacer Check Remote January 12, 2025 4:02a m PCI January 12, 2025 7:35a m Family History No Family History Records Found Relationship Condition Age at Onset Recorded Date/T sherrill father Coronary artery disease Unknown Leukemia Unknown sister Coronary artery disease Unknown mother Osteoporosis Unknown Cerebrovascular accident (CVA) Unknown Advance Directives No Advanced Directives Records Found Advance Directive Response Recorded Date/ Time Advance Directives Yes March 8:23am Living Will No May 04 2:36pm Power of Transfer Man No May 04, 2021 2:36pm Advance Directive Response Recorded Date/ Time Name of Medical Power of Transfer Man MATTHEW- March 10, 2022 10:58am Advance Directives Yes March 8:23am Living Will Yes March 10 10:58am Power of Transfer Man Yes March 10 10:58am Advance Directive Response Recorded Date/ Time Name of Medical Power of Transfer Man MATTHEW- March 10, 2022 9:58am Advance Directives on File No Novem 2021 10:33am Name of Medical Power of Transfer Man Matthew Mancuso May 23, 2022 4:03pm Advance Directives No May 11:50am Living Will Yes May 23 4:03pm Power of Transfer Man Yes May 23, 2022 4:03pm Advance Directive Response Recorded Date/ Time Advance Directives No May 12:50pm Living Will Yes May 23 5:03pm Power of Transfer Man Yes May 23, 2022 5:03pm Advance Directive Response Recorded Date/ Time Advance Directives No May 12:50pm Living Will No November 01, 2023 10:24am Power of Transfer Man No October 31 10:24am Advance Directive Response Recorded Date/ Time Advance Directives No May 12:50pm Advance Directive Response Recorded Date/ Time Advance Directives on File No December 20, 2024 2:12pm Living Will Yes December 20, 2024 2 :20pm Do you have a Healthcare Power of Transfer Man? Yes December 20, 2024 2:20pm Advance Directives No May 12:50pm Health Concerns Infection Onset Date Last Indicated Resolved Time COVID-19 Rule-Out 11/16/2021 11/16/2021 Summary Purpose Additional Source Comments Source Comments (unrecognize d section and content) In the event this informatio n is protected by the Federal Confidentiality of Alcohol and Drug Abuse Patient Records regulations: The Federal rules restrict any use of the information to criminally investigate or prosecute any alcohol or drug abuse patient.[facility] the event this information is protected by the Federal Confidentiality of Alcohol and Drug Abuse Patient Records regulations: The Federal rules restrict any use of the information to criminally investigate or prosecute any alcohol or drug abuse patient.[facility] HospitalIn the event this information is protected by the Federal Confidentiality of Alcohol and Drug Abuse Patient Records regulations: The Federal rules restrict any use of the information to criminally investigate or prosecute any alcohol or drug abuse patient.[facility] Hospital[facility] the event this information is protected by the Federal Confidentiality of Alcohol and Drug Abuse Patient Records regulations: The Federal rules restrict any use of the information to criminally investigate or prosecute any alcohol or drug abuse patient.[facility] HospitalIn the event this information is protected by the Federal Confidentiality of Alcohol and Drug Abuse Patient Records regulations: The Federal rules restrict any use of the information to criminally investigate or prosecute any alcohol or drug abuse patient.[facility] HospitalIn the event this information is protected by the Federal Confidentiality of Alcohol and Drug Abuse Patient Records regulations: The Federal rules restrict any use of the information to criminally investigate or prosecute any alcohol or drug abuse patient.[facility] HospitalIn the event this information is protected by the Federal Confidentiality of Alcohol and Drug Abuse Patient Records regulations: The Federal rules restrict any use of the information to criminally investigate or prosecute any alcohol or drug abuse patient.[facility] HospitalIn the event this information is protected by the Federal Confidentiality of Alcohol and Drug Abuse Patient Records regulations: The Federal rules restrict any use of the information to criminally investigate or prosecute any alcohol or drug abuse patient.[facility] HospitalIn the event this information is protected by the Federal Confidentiality of Alcohol and Drug Abuse Patient Records regulations: The Federal rules restrict any use of the information to criminally investigate or prosecute any alcohol or drug abuse patient.[facility] HospitalIn the event this information is protected by the Federal Confidentiality of Alcohol and Drug Abuse Patient Records regulations: The Federal rules restrict any use of the information to criminally investigate or prosecute any alcohol or drug abuse patient.[facility] HospitalIn the event this information is protected by the Federal Confidentiality of Alcohol and Drug Abuse Patient Records regulations: The Federal rules restrict any use of the information to criminally investigate or prosecute any alcohol or drug abuse patient.[facility] HospitalIn the event this information is protected by the Federal Confidentiality of Alcohol and Drug Abuse Patient Records regulations: The Federal rules restrict any use of the information to criminally investigate or prosecute any alcohol or drug abuse patient.[facility] HospitalIn the event this information is protected by the Federal Confidentiality of Alcohol and Drug Abuse Patient Records regulations: The Federal rules restrict any use of the information to criminally investigate or prosecute any alcohol or drug abuse patient.[facility] HospitalIn the event this information is protected by the Federal Confidentiality of Alcohol and Drug Abuse Patient Records regulations: The Federal rules restrict any use of the information to criminally investigate or prosecute any alcohol or drug abuse patient.[facility] HospitalIn the event this information is protected by the Federal Confidentiality of Alcohol and Drug Abuse Patient Records regulations: The Federal rules restrict any use of the information to criminally investigate or prosecute any alcohol or drug abuse patient.[facility] HospitalIn the event this information is protected by the Federal Confidentiality of Alcohol and Drug Abuse Patient Records regulations: The Federal rules restrict any use of the information to criminally investigate or prosecute any alcohol or drug abuse patient.[facility] HospitalIn the event this information is protected by the Federal Confidentiality of Alcohol and Drug Abuse Patient Records regulations: The Federal rules restrict any use of the information to criminally investigate or prosecute any alcohol or drug abuse patient.[facility] HospitalIn the event this information is protected by the Federal Confidentiality of Alcohol and Drug Abuse Patient Records regulations: The Federal rules restrict any use of the information to criminally investigate or prosecute any alcohol or drug abuse patient.[facility] HospitalIn the event this information is protected by the Federal Confidentiality of Alcohol and Drug Abuse Patient Records regulations: The Federal rules restrict any use of the information to criminally investigate or prosecute any alcohol or drug abuse patient.[facility] HospitalIn the event this information is protected by the Federal Confidentiality of Alcohol and Drug Abuse Patient Records regulations: The Federal rules restrict any use of the information to criminally investigate or prosecute any alcohol or drug abuse patient.[facility] HospitalIn the event this information is protected by the Federal Confidentiality of Alcohol and Drug Abuse Patient Records regulations: The Federal rules restrict any use of the information to criminally investigate or prosecute any alcohol or drug abuse patient.[facility] HospitalIn the event this information is protected by the Federal Confidentiality of Alcohol and Drug Abuse Patient Records regulations: The Federal rules restrict any use of the information to criminally investigate or prosecute any alcohol or drug abuse patient.[facility] HospitalIn the event this information is protected by the Federal Confidentiality of Alcohol and Drug Abuse Patient Records regulations: The Federal rules restrict any use of the information to criminally investigate or prosecute any alcohol or drug abuse patient.[facility] HospitalIn the event this information is protected by the Federal Confidentiality of Alcohol and Drug Abuse Patient Records regulations: The Federal rules restrict any use of the information to criminally investigate or prosecute any alcohol or drug abuse patient.[facility] HospitalIn the event this information is protected by the Federal Confidentiality of Alcohol and Drug Abuse Patient Records regulations: The Federal rules restrict any use of the information to criminally investigate or prosecute any alcohol or drug abuse patient.[facility] HospitalIn the event this information is protected by the Federal Confidentiality of Alcohol and Drug Abuse Patient Records regulations: The Federal rules restrict any use of the information to criminally investigate or prosecute any alcohol or drug abuse patient.[facility] HospitalIn the event this information is protected by the Federal Confidentiality of Alcohol and Drug Abuse Patient Records regulations: The Federal rules restrict any use of the information to criminally investigate or prosecute any alcohol or drug abuse patient.[facility] HospitalIn the event this information is protected by the Federal Confidentiality of Alcohol and Drug Abuse Patient Records regulations: The Federal rules restrict any use of the information to criminally investigate or prosecute any alcohol or drug abuse patient.[facility] HospitalIn the event this information is protected by the Federal Confidentiality of Alcohol and Drug Abuse Patient Records regulations: The Federal rules restrict any use of the information to criminally investigate or prosecute any alcohol or drug abuse patient.[facility] HospitalIn the event this information is protected by the Federal Confidentiality of Alcohol and Drug Abuse Patient Records regulations: The Federal rules restrict any use of the information to criminally investigate or prosecute any alcohol or drug abuse patient.[facility] HospitalIn the event this information is protected by the Federal Confidentiality of Alcohol and Drug Abuse Patient Records regulations: The Federal rules restrict any use of the information to criminally investigate or prosecute any alcohol or drug abuse patient.[facility] HospitalIn the event this information is protected by the Federal Confidentiality of Alcohol and Drug Abuse Patient Records regulations: The Federal rules restrict any use of the information to criminally investigate or prosecute any alcohol or drug abuse patient.[facility] HospitalIn the event this information is protected by the Federal Confidentiality of Alcohol and Drug Abuse Patient Records regulations: The Federal rules restrict any use of the information to criminally investigate or prosecute any alcohol or drug abuse patient.[facility] Care Teams (unrecognized sec tion and content) Human Geography Instructor Relationship Specialty Start Date End Date Leobardo Pollard MD [address] [place] [address] PCP - General 04/25/03 Alden Albarran [address] [place] [address] Cardiology 06/26/15 Human Geography Instructor Relationship Specialty Start Date End Date Leobardo Pollard MD [address] [place] [address] PCP - General 04/25/03 Alden Albarran [address] [place] [address] Cardiology 06/26/15 Human Geography Instructor Relationship Specialty Start Date End Date Leobardo Pollard MD [address] [place] [address] PCP - General 04/25/03 Alden Albarran [address] [facility] [address] [place] [address] Cardiology 06/26/15 Human Geography Instructor Relationship Specialty Start Date End Date Leobardo Pollard MD [address] [facility] [address] PCP - General 04/25/03 Alden Albarran [address] [facility] [address] [place] [address] Cardiology 06/26/15 Human Geography Instructor Relationship Specialty Start Date End Date Leobardo Pollard MD [address] [facility] [address] PCP - General 04/25/03 Alden Albarran [address] [facility] [address] [place] [address] Cardiology 06/26/15 Human Geography Instructor Relationship Specialty Start Date End Date Leobardo Pollard MD [address] [facility] [address] PCP - General 04/25/03 Alden Albarran [address] [facility] [address] [place] [address] Cardiology 06/26/15 Human Geography Instructor Relationship Specialty Start Date End Date Leobardo Pollard MD [address] [facility] [address] PCP - General 04/25/03 Alden Albarran [address] [place] [address] Cardiology 06/26/15 Human Geography Instructor Relationship Specialty Start Date End Date Leobardo Pollard MD [address] [place] [address] PCP - General 04/25/03 Alden Albarran [address] [place] [address] Cardiology 06/26/15 Human Geography Instructor Relationship Specialty Start Date End Date Leobardo Pollard MD [address] [place] [address] PCP - General 04/25/03 Alden Albarran [address] [place] [address] Cardiology 06/26/15 Human Geography Instructor Relationship Specialty Start Date End Date Leobardo Pollard MD [address] [place] [address] PCP - General 04/25/03 Alden Albarran [address] [place] [address] Cardiology 06/26/15 Human Geography Instructor Relationship Specialty Start Date End Date Leobardo Pollard MD [address] [place] [address] PCP - General 04/25/03 Alden Albarran [address] [place] [address] Cardiology 06/26/15 Human Geography Instructor Relationship Specialty Start Date End Date Leobardo Pollard MD [address] [facility] [address] PCP - General 04/25/03 Alden Albarran [address] [place] [address] Cardiology 06/26/15 Human Geography Instructor Relationship Specialty Start Date End Date Leobardo Pollard MD [address] [facility] [address] PCP - General 04/25/03 Alden Albarran [address] [place] [address] Cardiology 06/26/15 Human Geography Instructor Relationship Specialty Start Date End Date Leobardo Pollard MD [address] [facility] [address] PCP - General 04/25/03 Alden Albarran [address] [place] [address] Cardiology 06/26/15 Team Status: Active Member Role Status Dates Dr. Graciela Romo MD Family Provider Active Dr. Leobardo Pollard MD Primary Care Provider Active Team Status: Inactive Member Role Status Dates Dr. Leobardo Pollard MD Primary Care Provider Active Nishi Soto Active Dr. Goran Ariza MD Attending Provider, Referring Pro vider Active Team Status: Inactive Member Role Status Dates Dr. Leobardo Pollard MD Primary Care Provider Active Fredy Rosenthal LOGGING CREW SUPERVISOR, LOGGING CREW SUPERVISOR-C Attending Provider, Referring Pro vider Active Human Geography Instructor Relationship Specialty Start Date End Date Leobardo Pollard MD [address] [facility] [address] PCP - General 04/25/03 Alden Albarran [address] [place] [address] Cardiology 06/26/15 Team Status: Inactive Member Role Status Dates Dr. Leobardo Pollard MD Primary Care Provider Active Dr. Goran Ariza MD Attending Provider, Referring Pro vider Active Team Status: Inactive Member Role Status Dates Dr. Leobardo Pollard MD Primary Care Provider Active Dr. Austin Sullivan MD Emergency Provider Active Human Geography Instructor Relationship Specialty Start Date End Date Leobardo Pollard MD [address] [place] [address] PCP - General 04/25/03 Alden Albarran MD [address] [facility] [address] [address] Cardiology 06/26/15 Human Geography Instructor Relationship Specialty Start Date End Date Leobardo Pollard MD [address] [place] [address] PCP - General 04/25/03 Alden Albarran MD [address] [facility] [address] [address] Cardiology 06/26/15 Human Geography Instructor Relationship Specialty Start Date End Date Leobardo Pollard MD [address] [facility] [address] PCP - General 04/25/03 Alden Albarran MD [address] [place] [address] Cardiology 06/26/15 Human Geography Instructor Relationship Specialty Start Date End Date Leobardo Pollard MD [address] [facility] [address] PCP - General 04/25/03 Alden Albarran MD [address] [place] [address] Cardiology 06/26/15 Human Geography Instructor Relationship Specialty Start Date End Date Leobardo Pollard MD [address] [facility] [address] PCP - General 04/25/03 Alden Albarran MD [address] [place] [address] Cardiology 06/26/15 Kathie Moreno, [employer] [address] [place] [address] Software Computer Specialist Internal Medicine 06/21/24 Human Geography Instructor Relationship Specialty Start Date End Date Leobardo Pollard MD [address] [place] [address] PCP - General 04/25/03 Alden Albarran MD [address] [place] [address] Cardiology 06/26/15 Kathie Moreno, [employer] [address] [place] [address] Software Computer Specialist Internal Medicine 06/21/24 Human Geography Instructor Relationship Specialty Start Date End Date Leobardo Pollard MD [address] [place] [address] PCP - General 04/25/03 Alden Albarran MD [address] [place] [address] Cardiology 06/26/15 Kathie Moreno, BATT PACKER.[employer]NS[employer] [address] [place] [address] [facility] Internal Medicine 06/21/24 Human Geography Instructor Relationship Specialty Start Date End Date Leobardo Pollard MD [address] [place] [address] PCP - General 04/25/03 Alden Albarran MD [address] [place] [address] Cardiology 06/26/15 Kathie Moreno, BATT [employer]ER[employer] [address] [place] [address] [facility] Internal Medicine 06/21/24 Human Geography Instructor Relationship Specialty Start Date End Date Leobardo Pollard MD [address] [place] [address] PCP - General 04/25/03 Alden Albarran MD [address] [facility] [place] [address] Cardiology 06/26/15 Kathie Moreno, BATT P[employer]ER[employer] [address] [place] [address] [facility] Internal Medicine 06/21/24 Human Geography Instructor Relationship Specialty Start Date End Date Pollard, Jeffy, MD [address] [facility], [place] [id number] PCP - General 04/25/03 Alden Albarran MD [address] [place] [address] Cardiology 06/26/15 Kathie Moreno, BATT PACKER[employer]NS[employer] [address] [facility] [address] Software Computer Specialist Internal Medicine 06/21/24 Human Geography Instructor Relationship Specialty Start Date End Date Leobardo Pollard MD [address] [place] [address] PCP - General Internal Medicine 11/09/24 Human Geography Instructor Relationship Specialty Start Date End Date Leobardo Pollard MD [address] [place], [place] [address] PCP - General Internal Medicine 11/09/24 Human Geography Instructor Relationship Specialty Start Date End Date Leobardo Pollard MD [address] [place] [address] PCP - General Internal Medicine 11/09/24 Human Geography Instructor Relationship Specialty Start Date End Date Leobardo Pollard MD [address] [place], [place] [address] PCP - General Internal Medicine 11/09/24 Human Geography Instructor Relationship Specialty Start Date End Date Leobardo Pollard MD [address] [place] [address] PCP - General Internal Medicine 11/09/24 Human Geography Instructor Relationship Specialty Start Date End Date Leobardo Pollard MD [address] [place], [place] [address] PCP - General Internal Medicine 11/09/24 Human Geography Instructor Relationship Specialty Start Date End Date Leobardo Pollard MD [address] [place], [place] [id number] PCP - General 04/25/03 Alden Albarran MD [address] [id number] Cardiology 06/26/15 Kathie Moreno, BATT P[employer]ER[employer] [address] [place], [place] [address] Software Computer Specialist Internal Medicine 06/21/24 Team Status: Active Member Role Status Dates Dr. Leobardo Pollard MD Primary Care Provider Active Team Status: Inactive Member Role Status Dates Dr. Leobardo Pollard MD Primary Care Provider Active Start: September 01, 2024 End: September 01, 2024 Dr. Salvador Tejeda MD Attending Provider Active Start: September 01, 2024 End: September 01, 2024 Dr. Salvador Tejeda MD Referring Provider Active Start: September 01, 2024 End: September 01, 2024 Team Status: Inactive Member Role Status Dates Dr. Leobardo Pollard MD Primary Care Provider Active Start: October 13, 2024 End: October 13, 2024 Dr. Goran Ariza MD Attending Provider Active S tart: October 13, 2024 End: October 13, 2024 Dr. Goran Ariza MD Referring Provider Active S tart: October 13, 2024 End: October 13, 2024 Team Status: Inactive Member Role Status Dates Dr. Leobardo Pollard MD Primary Care Provider Active Start: October 28, 2024 End: October 28, 2024 Fredy Rosenthal LOGGING CREW SUPERVISOR, LOGGING CREW SUPERVISOR-C Attending Provider Active S tart: October 28, 2024 End: October 28, 2024 Fredy Rosenthal LOGGING CREW SUPERVISOR, LOGGING CREW SUPERVISOR-C Referring Provider Active S tart: October 28, 2024 End: October 28, 2024 Team Status: Active Member Role Status Dates Dr. Leobardo Pollard MD Primary Care Provider Active Start: December 16, 2024 Dr. Leobardo Pollard MD Referring Provider Active Start: December 16, 2024 Nishi Soto Attending Provider Active Start: 2024 Team Status: Inactive Member Role Status Dates Dr. Leobardo Pollard MD Primary Care Provider Active Start: December 16, 2024 End: December 16, 2024 Dr. Leobardo Pollard MD Referring Provider Active Start: December 16, 2024 End: December 16, 2024 Fredy Rosenthal LOGGING CREW SUPERVISOR, LOGGING CREW SUPERVISOR-C Attending Provider Active S tart: December 16, 2024 End: December 16, 2024 Team Status: Inactive Member Role Status Dates Dr. Leobardo Pollard MD Primary Care Provider Active Start: December 16, 2024 End: December 16, 2024 Dr. Leobardo Pollard MD Referring Provider Active Start: December 16, 2024 End: December 16, 2024 Nishi Soto Attending Provider Active Start: 2024 End: December 16, 2024 Team Status: Inactive Member Role Status Dates Dr. Leobardo Pollard MD Primary Care Provider Active Start: December 20, 2024 End: December 20, 2024 PERCY VILLAREAL Attending Provider Active Star t: December 20, 2024 End: December 20, 2024 PERCY VILLAREAL Referring Provider Active Star t: December 20, 2024 End: December 20, 2024 Team Status: Active Member Role Status Dates Dr. Leobardo Pollard MD Primary Care Provider Active Start: December 24, 2024 PERCY VILLAREAL Attending Provider Active Star t: December 24, 2024 PERCY VILLAREAL Referring Provider Active Star t: December 24, 2024 Team Status: Inactive Member Role Status Dates Dr. Leobardo Plolard MD Primary Care Provider Active Start: December 16, 2024 End: December 16, 2024 Dr. Goran Ariza MD Attending Provider Active S tart: December 16, 2024 End: December 16, 2024 Team Status: Active Member Role Status Dates Dr. Leobardo Pollard MD Primary Care Provider Active Start: December 27, 2024 PERCY VILLAREAL Attending Provider Active Star t: December 27, 2024 PERCY VILLAREAL Referring Provider Active Star t: December 27, 2024 Human Geography Instructor Relationship Specialty Start Date End Date Leobardo Pollard MD [address] [place] [address] PCP - General Internal Medicine 11/09/24 Team Status: Active Member Role/Relationship Status Dates Dr. Leobardo Pollard MD Primary Care Provider Active Team Status: Inactive Member Role/Relationship Status Dates Dr. Leobadro Pollard MD Primary Care Provider Active Start: October 13, 2024 End: October 13, 2024 Dr. Goran Ariza MD Attending Provider Active S tart: October 13, 2024 End: October 13, 2024 Dr. Goran Ariza MD Referring Provider Active S tart: October 13, 2024 End: October 13, 2024 Team Status: Inactive Member Role/Relationship Status Dates Dr. Leobardo Pollard MD Primary Care Provider Active Start: October 28, 2024 End: October 28, 2024 Fredy Rosenthal LOGGING CREW SUPERVISOR, LOGGING CREW SUPERVISOR-C Attending Provider Active S tart: October 28, 2024 End: October 28, 2024 Fredy Rosenthal LOGGING CREW SUPERVISOR, LOGGING CREW SUPERVISOR-C Referring Provider Active S tart: October 28, 2024 End: October 28, 2024 Team Status: Inactive Member Role/Relationship Status Dates Dr. Leobardo Pollard MD Primary Care Provider Active Start: December 16, 2024 End: December 16, 2024 Dr. Goran Ariza MD Attending Provider Active S tart: December 16, 2024 End: December 16, 2024 Team Status: Inactive Member Role/Relationship Status Dates Dr. Leobardo Pollard MD Primary Care Provider Active Start: December 16, 2024 End: December 16, 2024 Dr. Goran Ariza MD Attending Provider Active S tart: December 16, 2024 End: December 16, 2024 Dr. Goran Ariza MD Referring Provider Active S tart: December 16, 2024 End: December 16, 2024 Team Status: Inactive Member Role/Relationship Status Dates Dr. Leobardo Pollard MD Primary Care Provider Active Start: December 16, 2024 End: December 16, 2024 Dr. Leobardo Pollard MD Referring Provider Active Start: December 16, 2024 End: December 16, 2024 Fredy Rosenthal LOGGING CREW SUPERVISOR, LOGGING CREW SUPERVISOR-C Attending Provider Active S tart: December 16, 2024 End: December 16, 2024 Team Status: Inactive Member Role/Relationship Status Dates Dr. Leobardo Pollard MD Primary Care Provider Active Start: December 20, 2024 End: December 20, 2024 PERCY VILLAREAL Attending Provider Active Star t: December 20, 2024 End: December 20, 2024 DIONNAJOSE MOREIRANALISA Referring Provider Active Star t: December 20, 2024 End: December 20, 2024 Team Status: Inactive Member Role/Relationship Status Dates Dr. Leobardo Pollard MD Primary Care Provider Active Start: January 10, 2025 End: January 10, 2025 DIONNAJOSE MOREIRANALISA Attending Provider Active Star t: January 10, 2025 End: January 10, 2025 DIONNA BELNAVIS Referring Provider Active Star t: January 10, 2025 End: January 10, 2025 Team Status: Inactive Member Role/Relationship Status Dates Dr. Leobardo Pollard MD Primary Care Provider Active Start: January 12, 2025 End: January 12, 2025 Dr. Goran Ariza MD Attending Provider Active S tart: January 12, 2025 End: January 12, 2025 Team Status: Active Member Role/Relationship Status Dates Dr. Leobardo Pollard MD Primary Care Provider Active Start: January 12, 2025 DIONNA, BELNALISA Attending Provider Active Star t: January 12, 2025 DOINNA BELNAVIS Referring Provider Active Star t: January 12, 2025 Goals (unrecognized section and content) Goals may be documented in a n alternate sectionGoals may be documented in an alternate sectionGoals may be documented in an alternate sectionGoals may be documented in an alternate sectionGoals may be documented in an alternate sectionGoals may be documented in an alternate sectionGoals may be documented in an alternate sectionGoals may be documented in an alternate sectionGoals may be documented in an alternate sectionGoals may be documented in an alternate sectionGoals may be documented in an alternate sectionGoals may be documented in an alternate section Reason for Visit (unrecogniz ed section and content) Reason Comments Cough Pt denied chest pain , SOB Sore Throat pain rated 2, x3 day s, fatigue Reason Comments Medication Request Appointment Reason Comments URI Reason Comments Patient Update Medication Question Reason Comments Cough Reason Comments Patient Update Reason Comments Treatment Planning Reason Comments Patient Question Reason Comments Preparations For Procedures Reason Comments Cardiology Follow Up PRE OP CLEARANCE & H&P UPDATE Reason Comments Physical Reason Onset Date Comments Population Health Navigation Outreach 09/11/2022 [facility] Out[facility] Reason Onset Date Comments Population Health Navigation Outreach 12/25/2022 [facility] PCSA Reason Comments nail dystrophy Reason Comments Medicare Wellness Exam Recheck Reason Comments Results Reason Comments Radiology XR Reason Comments Review CT results Reason Comments Upper respiratory symptoms Reason Comments Nasal Congestion Cough x 3 days Reason Comments Cough Fatigue Reason Comments New Patient Establishing care. O ccasional dull pain in buttocks and legs. Pain comes and goes while walking. PT states having uncomfortable feeling in chest, light headedness, and SOB while exerting energy. Not consistent. When happens Pt states their pulse fades on left arm. Issues with the hand extremities due to Raynuads. Reason Onset Date Comments Outside Medical Records Request 11/03/2024 Reason Onset Date Comments Results 11/10/2024 Reason Onset Date Comments Results 11/30/2024 Reason Comments Medicare Wellness Exam 4 month follow-up Reason Comments Follow-up (unrecognized sect ion and content) No Status Records FoundNo Status Records FoundNo Status Records FoundNo Status Records FoundNo Status Records Found INFORMATION SOURCE (unrecogn ized section and content) DATE CREATED AUTHOR 04/15/2022 [facility] DATE CREATED AUTHOR AUTHOR'S ORGANIZ ATION 05/03/2023 [facility] DATE CREATED AUTHOR AUTHOR'S ORGANIZ ATION 12/10/2024 [facility] DATE CREATED AUTHOR AUTHOR'S ORGANIZ ATION 01/03/2025 [facility] DATE CREATED AUTHOR AUTHOR'S ORGANIZ ATION 01/25/2025 [facility] Scheduled Active and Recently Administ ered Medications (unrecognized section and content) Medication Order 11/28/2024 11/29/2024 11/30/2024 aspirin chewable tablet 324 mg 324 mg, Oral, ONCE, 1 dose, On Fri11/30/24 at 0630, Patient to receive at least 30 minutes prior to procedure. Instruct patient to chew and not swallow., Pre-op/Pre-Proc 0630 (Canceled Entry - Provider: System Discharge - Comment: Automatically canceled at discontinue of medication order) aspirin chewable tablet 81 mg 81 mg, Oral, DAILY EVERY MORNING, First dose on Fri12/01/24 at 0900, Until Discontinued, Post-op/Post-Proc ticagrelor (BRILINTA) tablet 90 mg 90 mg, Oral, EVERY 12 HOURS, First dose on Fri11/30/24 at 2100, Until Discontinued, Maintenance doses of aspirin above 100mg reduce the effectiveness of ticagrelor and should be avoided. After any initial dose, use with aspirin 81mg per day., Post-op/Post-Proc Continuous Medication Order 11/28/2024 11/29/2024 11/30/2024 Sodium chloride 0.9% IV solution Intravenous, at 100 mL/hr, CONTINUOUS, Starting on Fri11/30/24 at 0630, Until Fri11/30/24 at 1629, Pre-op/Pre-Proc 06 ($$New Bag$$ - Provider: Paula Hess RN) Sodium chloride 0.9% IV solution 3 mL/kg/hr 75.4 kg Dosing weight (226.2 mL/hr), Intravenous, CONTINUOUS, Starting on Fri11/30/24 at 1000, Until Fri11/30/24 at 1259, Administer for [employer] Hydration to Prevent Acute Kidney Injury. , Post-op/Post-Proc 1000 (Rate/Dose Ann ge - Provider: Paula Hess, BRAD) PRN Medication Order 11/28/2024 11/29/2024 11/30/2024 fentaNYL (SUBLIMAZE) injection (CANCELED) Administer over 2 Minutes, NEEDED, Starting on Fri11/30/24 at 0820, Until Fri11/30/24 at 0955, Intra-op/Intra-Proc 0820 (Given - Provid er: Danii Harris RN)0830 (Given - Provider: Karthik Anand RN)0839 (Given - Provider: Karthik Anand RN)0905 (Given - Provider: Karthik Anand RN)0912 (Given - Provider: Karthik Anadn RN)0929 (Given - Provider: Karthik Anand RN)0939 (Given - Provider: Karthik Anand RN) Heparin injection (CANCELED) NEEDED, Starting on 11/30/24 at 0842, Until 11/30/24 at 0955, Intra-op/Intra-Proc 0842 (Given - Provid er: Aries Wise MD - Comment: sheath)0859 (Given - Provider: Karthik Anand RN) iodixanol (VISIPAQUE) injection 320 mg/mL for [facility] IR (CANCELED) NEEDED, Starting on Fri11/30/24 at 0946, Until 11/30/24 at 0955, Intra-op/Intra-Proc 0946 (Given - Provid er: Aries Wise MD - Comment: IC) Lidocaine 2 % injection (CANCELED) NEEDED, Starting on Fri11/30/24 at 0828, Until 11/30/24 at 0955, Intra-op/Intra-Proc 0828 (Given - Provid er: Jabier Hernandez MD) midazolam (VERSED) injection (CANCELED) NEEDED, Starting on e 11/30/24 at 0820, Until 11/30/24 at 0955, Intra-op/Intra-Proc 0820 (Given - Provid er: Danii Harris RN)0830 (Given - Provider: Karthik Anand RN)0839 (Given - Provider: Karthik Anand RN)09 (Given - Provider: Karthik Anand RN)0929 (Given - Provider: Karthik Anand RN)0939 (Given - Provider: Karthik Anand RN) nitroGLYCERIN in NS 0.9% 1mg/ml syringe SOLN (CANCELED) NEEDED, Starting on 11/30/24 at 0925, Until 11/30/24 at 0955, Intra-op/Intra-Proc 0925 (Given - Provid er: DAMIR Prieto - Comment: IC)0934 (Given - Provider: DMAIR Prieto - Comment: IC)0936 (Given - Provider: DAMIR Prieto - Comment: IC)0945 (Given - Provider: DAMIR Prieto - Comment: IC) ticagrelor (BRILINTA) tablet (CANCELED) NEEDED, Starting on Fri11/30/24 at 0902, Until 11/30/24 at 0955, Intra-op/Intra-Proc 0902 (Given - Provid er: Karthik Anand RN) verapamil (ISOPTIN) injection (CANCELED) NEEDED, Starting on Fri11/30/24 at 0842, Until e 11/30/24 at 0955, Intra-op/Intra-Proc 0842 (Given - Provid er: Aries Wise MD) No Frequency Medication Order 11/28/2024 11/29/2024 11/30/2024 aspirin chewable tablet (COMPLETED) 1 dose, Starting on Fri11/30/24 at 0604, Until Fri11/30/24 at 0619, Created by cabinet override 0619 (Given - Provid er: Paula Hess RN) FOR RECORDS PERTAINING TO PATIENTS WHO ARE OR HAVE BEEN ENROLLED IN A CHEMICAL DEPENDENCY/SUBSTANCEABUSE PROGRAM, SOME INFORMATION MAY BE OMITTED. This clinical summary was aggregated from multiple sources. Caution should be exercised in using it in the provision of clinical care. This summary normalizes information from multiple sources, and as a consequence, information in this document may materially change the coding, format and clinical context of patient data. In addition, data may be omitted in some cases. CLINICAL DECISIONS SHOULD BE BASED ON THE PRIMARY CLINICAL RECORDS. [facility]. provides no warranty or guarantee of the accuracy or completeness of information in this document.
[2025-01-28 23:51] LABS: D-Dimer Quantitative (DVT/PE) 0.35 FEU/ug/m (0.27-0.49)
[2025-01-29] VITALS: BP 156/82; PULSE 60; RESP 16; O2SAT 99
[2025-01-29 00:08] LABS: Troponin T High Sens 2 HR 12 ng/L (<=22)
[2025-01-29 01:12] VITALS: BP 150/79; PULSE 60; RESP 13; TEMP 36.7; O2SAT 99
== END 2025-01-29 01:18 | disposition home or self-care (01) ==
PROVIDERS: Emergency Provider Surgery; PCP Internal Medicine; Visit Provider Surgery
DX: M54.2 Cervicalgia (principal); I49.5 Sick sinus syndrome; R00.2 Palpitations; R06.02 Shortness of breath; R42 Dizziness and giddiness; K21.9 Gastro-esophageal reflux disease without esophagitis; I25.10 Atherosclerotic heart disease of native coronary artery without angina pectoris; E78.00 Pure hypercholesterolemia, unspecified; Z95.5 Presence of coronary angioplasty implant and graft; Z95.0 Presence of cardiac pacemaker; Z79.02 Long term (current) use of antithrombotics/antiplatelets; Z79.82 Long term (current) use of aspirin; Z79.899 Other long term (current) drug therapy; Z87.891 Personal history of nicotine dependence
CPT/HCPCS: 71046; 80048; 84484; 85025; 85379; 93005; 99284; A4216

== ENCOUNTER 2025-02-09 09:15 | Outpatient (RCR) | payer MEDICARE, OTHER, SELFPAY ==
[2024-12-20 15:06] VITALS: BMI 25.9
--- NOTE | 2025-01-18 07:45 | PCM.CR.ITP ---
Exercise - Initial Assessment Visit Session #:: 11 Physician Prescribed Exercise Modalities: Treadmill, Schwinn Airdyne AD-7 and SciFit Stepper Nutrition - Initial Assessment Weight Mgt (Other Care) Height: 5 ft 7 in Weight:: 164 lb BMI: 25.7 Psychosocial - Initial Assess Target Goals Target Goals Referral to Behavioral Health PS - Interventions: Yes: Attend Stress Management Classes Patient Health Questionnaire PHQ-9 Screening 30-Day Re-eval Assessment: 1. Little interest or pleasure in doing things: Not at all 2. Feeling down, depressed, or hopeless: Not at all 3. Trouble falling or staying asleep, or sleeping too much: Not at all 4. Feeling tired or having little energy: Several days 5. Poor appetite or overeating: Not at all 6. Feeling bad about yourself -- or that you are a failure or have let yourself or your family down: Not at all 7. Trouble concentrating on things, such as reading the newspaper or watching television: Not at all 8. Moving or speaking so slowly that other people could have noticed. Or the opposite - being so fidgety or restless that you have been moving around a lot more than usual: Not at all 9. Thoughts that you would be better off , or of hurting yourself in some way: Not at all How difficult have these problems made it for you to do your work, take care of things at home, or get along with other people?: Not difficult at all Total Score: 1 Self-Efficacy 6-Item Scale 30-Day Re-eval Assessment: We would like to know how confident you are in doing certain activities. Please select your confidence level for: Fatigue Select Number: 9 Physical Discomfort or Pain Select Number: 9 Emotional Distress Select Number: 9 Other Symptoms or Health Problems Select Number: 8 Different Tasks and Activities Select Number: 10 Medication Select Number: 10 Total Score:: 9 Nutrition Survey Nutrition Survey Instructions Scoring Instructions Exercise - 30-day Assessment Visit Date of Eval: 01/18/25 Session #:: 11 Physician Prescribed Exercise Modalities: Treadmill, Schwinn Airdyne AD-7 and SciFit Stepper Frequency: 3x/week for 12 weeks [36 sessions] Intensity: 60-80% of age predicted maximum heart rate reserve Duration: 30 - 45 minutes Current METSs:: 5.9 Target Heart Rate:: 95-110 Current RPE:: 12-13 Maximum Excercise HR:: 105 Resting Blood Pressure: 124/62 Maximum Exercise Blood Pressure: 148/62 EKG Type: Occas Paced, NSR with rare PVC Outcomes & Goals Goals:: Verbalizes understanding of THR, RPE & goal METS by session 6, Documents in home exercise log/reports 30 min aerobic 5 day/wk by DC, Demonstrates accurate pulse taking by DC and Other additional outcome/goals: see below Intervention & Plan Exercise Program Goals: Instruct on personal THR & RPE, Instruct on MET level & personal MET goal, Show patient to take own pulse /validate performance until accurate, Instruct on home exercise and Other additional plan/int Physical Activity Home Exercise Physical Activity - Home Exercise: Safe Exercise, Warm-up, Self-monitoring, Cool-Down, Home Exercise > 30 min Daily and Sitting Time <3 hours/daily Outcomes & Goals Outcomes/Goals: Demonstrates correct Warm-up/exercise Cool-Down (S3) if = 2.5 METs, Verbalizes symptoms of exercise intolerance by Session 3 (S3), Demonstrate safe equipment use (S3) & follows exercise prescrition (6) and Other: See below Intervention & Plan Plan/Intervention: Instruct warm-up & cool-down if exercising at > 2 METs, Instruct on symptoms of exercise intolerance & actions to take, Instruct & monitor on saf, Assess intial functional capacity & safety risk and Other See below 30-day Reassessments 30 day Reassessments:: Progressing Reassessment Notes & Comments:: RPE explained to pt. Pt is able to demonstrate understanding in his daily sessions. Exercise - 60-day Assessment Physician Prescribed Exercise Modalities: Treadmill, Schwinn Airdyne AD-7 and SciFit Stepper Exercise - 90-day Assessment Physician Prescribed Exercise Modalities: Treadmill, Schwinn Airdyne AD-7 and SciFit Stepper Exercise - Final/Discharge Physician Prescribed Exercise Modalities: Treadmill, Schwinn Airdyne AD-7 and SciFit Stepper Nutrition - 30-Day Assessment Program Goals Nutrition Program Goals Patient has diagnosis of Hyperlipidemia (ICD E78)?: Yes Visit Date of Eval: 01/18/25 Session #:: 11 Cholesterol/Lipids (Other Core Measures) Determine presence & major risk factors that modify LDL goal: Hypertension or hypertensive medication, Low HDL cholesterol <40 mg/dL*, Family history of premature CHD in Male < 55 years: female <65 yearsFa and Age men > 45 years; women >/= 55 years Outcomes/Goals: Pt IDs own risk factors & lifestyle modifications by Session 10, Verbalizes symptoms of angina & response by session 3., Pt independently manages and Other Additional Outcomes/Goals: Intervention/Plan: Advocate for lipid panel cholesterol medication if applicable, Instruct on personal lipid levels & lipid goals/NCEP guidelines, Instruct on cholesterol and Other additional plan/int Referral to dietitian:: No Diabetes (Other Core Measures) Diabetes Type: Not Applicable Weight Mgt (Other Care) Height: 5 ft 7 in Weight:: 164 lb BMI: 25.7 Diagnosis Overweight/Obesity BMI> 30% ICD-10 E66: No Diagnosis High BMI/Morbid Obesity BMI> 35% ICD-10 Z68: No Outcomes/Goals: Pt sets, maintains & shows weight loss goal & trend during rehab and Other additional outcomes/goals Intervention/Plan: Instruct on ideal BMI & set weight loss goal w/patient, Assist pt to ID & incorporate diet changes for weight loss by S9, Refer to Structured Weight Loss program as appropriate, Encourage goal of using 250-300dcal per session for weight loss and Other additional plan/interventions 30 day Reassessments:: Progressing Reassessment Notes & Comments:: Pt has lost 4lbs since starting CR. Healthy Eating Habits Will attend diet classes:: Yes Outcomes/Goals:: Consume diet rich in vegs,fruits,whole grain/high fiber,fish,lean meat, Limit sat/trans fats,cholesterol & added salts & sugars and Other additional outcome/goals: Intervention/Plan:: Assess current eating habits and Other Additional plan/interventions 30-day Reassessments:: Progressing Reassessment Notes & Comments:: Pt is schedule to attend nutrition class. Heart healthy low sodium diet encouraged. Pt has already lost 4 lbs since starting CR. Education Gave educational materials for:: Signs & symptoms of hypoglycemia, Signs & symptoms of hyperglycemia, Relate diabetes to coronary artery disease and Healthy eating Nutrition - 60-Day Assessment Weight Mgt (Other Care) Height: 5 ft 7 in Weight:: 164 lb BMI: 25.7 Core - 30-Day Assessment Visit Date of Eval: 01/18/25 Session #:: 11 Medication Compliance Preventative Medication(s):: Aspirin and Clopidogrel/P2Y12 inhibit H/O mental health issues: depression, anxiety, or addiction?: No Doesn?t believe in the benefits of treatment?: No Believes medications are unnecessary or harmful?: No Has a concern about medication side effects?: No Expresses concern over the cost of medications?: No Outcomes/Goals: Verbalizes medications,desired effect & common side effects @ DC, Pt self-reports following medication regimen, Keeps card in wallet w/medications listed by DC and Other additional outcome/goals: Interventions/plans: Instruct on medication effects & side effects, Review medication list w/patient every two weeks, Instruct importance of taking meds as ordered & assist problem solving and Other additional 30-day Reassessments:: Met Reassessment Notes & Comments:: No med changes at this time. Pt taking meds as prescribed. Tobacco Use Tobacco Use: Non-smoker Hypertension Resting Blood Pressure:: 124/62 [place] [employer] Hypertension Guidelines Peak Exercise Blood Pressure:: 148/62 Outcomes/Goals: Able to verbalize/achieve optimal blood pressure <130/80, Incorporates diet changes & exercise for blood pressure control by DC and Other additional outcomes/goals Interventions/plan: Instruct on optimal blood pressure, hypertension & medications, Instruct on effects of sodium, alcohol, stress, exercise &hypertension and Other additional plan/interventions 30 day Reassessments:: Met Reassessment Notes & Comments:: Pt's BP's are within AHA normal limits on most days. Will continue to monitor and report to physician if necessary. Tobacco Cessation Referral Smoking Cessation Referral:: No Individual Education/Counseling:: No Education Schedule Given:: Yes Psychosocial - 30-Day Assess VIsit Date of Eval: 01/18/25 Session #:: 11 History of previous Mental disease:: No Target Goals Target Goals Psychosocial Test Tool Used:: PHQ-9 Questionnaire phq-9 Severity See PHQ-9 Score: 1 Referral to Behavioral Health PS - Interventions: Yes: Attend Stress Management Classes Outcomes/Goals: See list Psychosocial Outcomes/Goals:: ID's personal stressors & 2 strategies to manage stress by discharge and Other Additional outcome/goals: Intervention/Plan: See List Interventions/Plan:: Assess stressors,coping strategies & signs of derpression on admission, Instruct/assist pt to develop coping & personal stress Mgt strategies, Refer to Behavioral Health if appropriate, Refer to Physician if appropriate, Instruct patient to recognize signs & symptoms of depression, Instruct patient to recog and Other additional plan/intervention 30-day Reassessments: 30 day Reassessments:: Progressing Reassessment Notes & Comments:: Pt dinies any psychosocial issues at this time. Pt will attend stress management class. Psychosocial - 60-Day Assess Target Goals Target Goals Referral to Behavioral Health PS - Interventions: Yes: Attend Stress Management Classes Outcomes/Goals: See list Psychosocial Outcomes/Goals:: ID's personal stressors & 2 strategies to manage stress by discharge and Other Additional outcome/goals: Psychosocial - 90-Day Assess Target Goals Target Goals Referral to Behavioral Health PS - Interventions: Yes: Attend Stress Management Classes Psychosocial - Final Assessmen Target Goals Target Goals Referral to Behavioral Health PS - Interventions: Yes: Attend Stress Management Classes Nutrition - 90-Day Assessment Weight Mgt (Other Care) Height: 5 ft 7 in Weight:: 164 lb BMI: 25.7 Nutrition - Final Assessment Weight Mgt (Other Care) Height: 5 ft 7 in Weight:: 164 lb BMI: 25.7
[2025-01-18 07:50] VITALS: BP 124/62
[2025-01-18 08:01] VITALS: BMI 25.7
[2025-01-18 08:08] VITALS: BP 124/62
== END 2025-02-10 23:59 ==
LOC: CR 09:15
PROVIDERS: PCP Internal Medicine
DX: Z95.5 Presence of coronary angioplasty implant and graft (principal)
CPT/HCPCS: 93798

== ENCOUNTER 2025-03-11 09:15 | Outpatient (RCR) | payer MEDICARE, OTHER, SELFPAY ==
[2025-01-18 08:01] VITALS: BMI 25.7
--- NOTE | 2025-02-17 07:24 | CR.ITP_ITS ---
Exercise - Initial Assessment Physician Prescribed Exercise Modalities: Treadmill, Schwinn Airdyne AD-7 and SciFit Stepper Nutrition - Initial Assessment Weight Mgt (Other Care) Height: 5 ft 7 in Weight:: 165 lb BMI: 25.8 Core - Initial Assessment Hypertension Resting Blood Pressure:: 114/62 [place] [employer] Hypertension Guidelines Psychosocial - Initial Assess Target Goals Target Goals Referral to Behavioral Health PS - Interventions: Yes: Attend Stress Management Classes Patient Health Questionnaire PHQ-9 Screening 60-Day Re-eval Assessment: 1. Little interest or pleasure in doing things: Not at all 2. Feeling down, depressed, or hopeless: Not at all 3. Trouble falling or staying asleep, or sleeping too much: Not at all 4. Feeling tired or having little energy: Several days 5. Poor appetite or overeating: Not at all 6. Feeling bad about yourself -- or that you are a failure or have let yourself or your family down: Not at all 7. Trouble concentrating on things, such as reading the newspaper or watching television: Not at all 8. Moving or speaking so slowly that other people could have noticed. Or the opposite - being so fidgety or restless that you have been moving around a lot more than usual: Not at all 9. Thoughts that you would be better off , or of hurting yourself in some way: Not at all How difficult have these problems made it for you to do your work, take care of things at home, or get along with other people?: Not difficult at all Total Score: 1 Self-Efficacy 6-Item Scale 60-Day Re-eval Assessment: We would like to know how confident you are in doing certain activities. Please select your confidence level for: Fatigue Select Number: 9 Physical Discomfort or Pain Select Number: 9 Emotional Distress Select Number: 9 Other Symptoms or Health Problems Select Number: 8 Different Tasks and Activities Select Number: 9 Medication Select Number: 9 Total Score:: 8 Nutrition Survey Nutrition Survey Instructions Scoring Instructions Exercise - 30-day Assessment Physician Prescribed Exercise Modalities: Treadmill, Schwinn Airdyne AD-7 and SciFit Stepper Exercise - 60-day Assessment Visit Date of Eval: 02/17/25 Session #:: 24 Physician Prescribed Exercise Modalities: Treadmill, Schwinn Airdyne AD-7 and SciFit Stepper Frequency: 3x/week for 12 weeks [36 sessions] Intensity: 60-80% of age predicted maximum heart rate reserve Duration: 30 - 45 minutes Current METSs:: 7 Target Heart Rate:: 95-125 Current RPE:: 12-14 Maximum Excercise HR:: 108 Resting Blood Pressure: 132/72 Maximum Exercise Blood Pressure: 140/68 EKG Type: Paced w/ underlying NSR to ST w/rare PVC Outcomes & Goals Goals:: Verbalizes understanding of THR, RPE & goal METS by session 6, Documents in home exercise log/reports 30 min aerobic 5 day/wk by DC, Demonstrates accurate pulse taking by DC and Other additional outcome/goals: see below Intervention & Plan Exercise Program Goals: Instruct on personal THR & RPE, Instruct on MET level & personal MET goal, Show patient to take own pulse /validate performance until accurate, Instruct on home exercise and Other additional plan/int Physical Activity Home Exercise Physical Activity - Home Exercise: Safe Exercise, Warm-up, Self-monitoring, Cool-Down, Home Exercise > 30 min Daily and Sitting Time <3 hours/daily Outcomes & Goals Outcomes/Goals: Demonstrates correct Warm-up/exercise Cool-Down (S3) if = 2.5 METs, Verbalizes symptoms of exercise intolerance by Session 3 (S3), Demonstrate safe equipment use (S3) & follows exercise prescrition (6) and Other: See below Intervention & Plan Plan/Intervention: Instruct warm-up & cool-down if exercising at > 2 METs, Instruct on symptoms of exercise intolerance & actions to take, Instruct & monitor on saf, Assess intial functional capacity & safety risk and Other See below 30-day Reassessments 30 day Reassessments:: Progressing Reassessment Notes & Comments:: Proper warm up and cool down explained to pt. Pt demonstrates understanding in his daily sessions. Exercise - 90-day Assessment Physician Prescribed Exercise Modalities: Treadmill, Schwinn Airdyne AD-7 and SciFit Stepper Exercise - Final/Discharge Physician Prescribed Exercise Modalities: Treadmill, Schwinn Airdyne AD-7 and SciFit Stepper Nutrition - 30-Day Assessment Weight Mgt (Other Care) Height: 5 ft 7 in Weight:: 165 lb BMI: 25.8 Nutrition - 60-Day Assessment Program Goals Nutrition Program Goals Patient has diagnosis of Hyperlipidemia (ICD E78)?: Yes Visit Date of Eval: 02/17/25 Session #:: 24 Cholesterol/Lipids (Other Core Measures) Determine presence & major risk factors that modify LDL goal: Hypertension or hypertensive medication, Low HDL cholesterol <40 mg/dL*, Family history of premature CHD in Male < 55 years: female <65 yearsFa and Age men > 45 years; women >/= 55 years Outcomes/Goals: Pt IDs own risk factors & lifestyle modifications by Session 10, Verbalizes symptoms of angina & response by session 3., Pt independently manages and Other Additional Outcomes/Goals: Intervention/Plan: Advocate for lipid panel cholesterol medication if applicable, Instruct on personal lipid levels & lipid goals/NCEP guidelines, Instruct on cholesterol and Other additional plan/int Diabetes (Other Core Measures) Diabetes Type: Not Applicable Weight Mgt (Other Care) Height: 5 ft 7 in Weight:: 165 lb BMI: 25.8 Diagnosis Overweight/Obesity BMI> 30% ICD-10 E66: No Diagnosis High BMI/Morbid Obesity BMI> 35% ICD-10 Z68: No Outcomes/Goals: Pt sets, maintains & shows weight loss goal & trend during rehab and Other additional outcomes/goals Intervention/Plan: Instruct on ideal BMI & set weight loss goal w/patient, Assist pt to ID & incorporate diet changes for weight loss by S9, Refer to Structured Weight Loss program as appropriate, Encourage goal of using 250- 300dcal per session for weight loss and Other additional plan/interventions Healthy Eating Habits Will attend diet classes:: Yes Outcomes/Goals:: Consume diet rich in vegs,fruits,whole grain/high fiber,fish,lean meat, Limit sat/trans fats,cholesterol & added salts & sugars and Other additional outcome/goals: Intervention/Plan:: Assess current eating habits and Other Additional plan/interventions 30-day Reassessments:: Progressing Reassessment Notes & Comments:: Pt is at a health weight. Pt is scheduled to attend nutrition classes next week. 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 Education Gave educational materials for:: Signs & symptoms of hypoglycemia, Signs & symptoms of hyperglycemia, Relate diabetes to coronary artery disease and Healthy eating Core - Final Assessment Hypertension Resting Blood Pressure:: 114/62 [place] [employer] Hypertension Guidelines Core - 60-Day Assessment Visit Date of Eval: 02/17/25 Session #:: 24 Medication Compliance Preventative Medication(s):: Aspirin and Clopidogrel/P2Y12 inhibit H/O mental health issues: depression, anxiety, or addiction?: No Doesn?t believe in the benefits of treatment?: No Believes medications are unnecessary or harmful?: No Has a concern about medication side effects?: No Expresses concern over the cost of medications?: No Outcomes/Goals: Verbalizes medications,desired effect & common side effects @ DC, Pt self-reports following medication regimen, Keeps card in wallet w/medications listed by DC and Other additional outcome/goals: Interventions/plans: Instruct on medication effects & side effects, Review medication list w/patient every two weeks, Instruct importance of taking meds as ordered & assist problem solving and Other additional 30-day Reassessments:: Met Reassessment Notes & Comments:: Pt taking meds as prescribed. No med changes to report at this time. Tobacco Use Tobacco Use: Non-smoker Hypertension Resting Blood Pressure:: 132/72 Resting Blood Pressure:: 114/62 [place] [employer] Hypertension Guidelines Peak Exercise Blood Pressure:: 140/68 Outcomes/Goals: Able to verbalize/achieve optimal blood pressure <130/80, Incorporates diet changes & exercise for blood pressure control by DC and Other additional outcomes/goals Interventions/plan: Instruct on optimal blood pressure, hypertension & medications, Instruct on effects of sodium, alcohol, stress, exercise &hypertension and Other additional plan/interventions 30 day Reassessments:: Met Reassessment Notes & Comments:: Pt's BP's are within AHA normal limits on most days. Will continue to monitor and report to pt's physician if necessary. Tobacco Cessation Referral Smoking Cessation Referral:: No Individual Education/Counseling:: No Education Schedule Given:: Yes Psychosocial - 30-Day Assess Target Goals Target Goals Referral to Behavioral Health PS - Interventions: Yes: Attend Stress Management Classes Outcomes/Goals: See list Psychosocial Outcomes/Goals:: ID's personal stressors & 2 strategies to manage stress by discharge and Other Additional outcome/goals: Psychosocial - 60-Day Assess VIsit Date of Eval: 02/17/25 History of previous Mental disease:: No Target Goals Target Goals Psychosocial Test Tool Used:: PHQ-9 Questionnaire phq-9 Severity See PHQ-9 Score: 1 Referral to Behavioral Health PS - Interventions: Yes: Attend Stress Management Classes Outcomes/Goals: See list Psychosocial Outcomes/Goals:: ID's personal stressors & 2 strategies to manage stress by discharge and Other Additional outcome/goals: Intervention/Plan: See List Interventions/Plan:: Assess stressors,coping strategies & signs of derpression on admission, Instruct/assist pt to develop coping & personal stress Mgt strategies, Refer to Behavioral Health if appropriate, Refer to Physician if appropriate, Instruct patient to recognize signs & symptoms of depression, Instruct patient to recog and Other additional plan/intervention 30-day Reassessments: 30 day Reassessments:: Met Reassessment Notes & Comments:: Pt denies any psychosocial issues at this time. Psychosocial - 90-Day Assess Target Goals Target Goals Referral to Behavioral Health PS - Interventions: Yes: Attend Stress Management Classes Psychosocial - Final Assessmen Target Goals Target Goals Referral to Behavioral Health PS - Interventions: Yes: Attend Stress Management Classes Nutrition - 90-Day Assessment Weight Mgt (Other Care) Height: 5 ft 7 in Weight:: 165 lb BMI: 25.8 Nutrition - Final Assessment Weight Mgt (Other Care) Height: 5 ft 7 in Weight:: 165 lb BMI: 25.8
[2025-02-17 07:35] VITALS: BP 132/72; BMI 25.8
[2025-02-17 07:39] VITALS: BP 114/62; BP 132/72
== END 2025-03-13 23:59 ==
LOC: CR 09:15
PROVIDERS: PCP Internal Medicine
DX: Z95.5 Presence of coronary angioplasty implant and graft (principal)
CPT/HCPCS: 93798

== ENCOUNTER 2025-03-30 09:15 | Outpatient (RCR) | payer MEDICARE, OTHER, SELFPAY ==
[2025-02-17 07:35] VITALS: BMI 25.8
--- NOTE | 2025-03-18 08:32 | PCM.CR.ITP ---
Exercise - Initial Assessment Physician Prescribed Exercise Modalities: Treadmill, Schwinn Airdyne AD-7 and SciFit Stepper Nutrition - Initial Assessment Weight Mgt (Other Care) Height: 5 ft 7 in Weight:: 165 lb BMI: 25.8 BMI (Report if calculated above): 25.8 Psychosocial - Initial Assess Target Goals Target Goals Referral to Behavioral Health PS - Interventions: Yes: Attend Stress Management Classes Patient Health Questionnaire PHQ-9 Screening 90-Day Re-eval Assessment: 1. Little interest or pleasure in doing things: Not at all 2. Feeling down, depressed, or hopeless: Not at all 3. Trouble falling or staying asleep, or sleeping too much: Not at all 4. Feeling tired or having little energy: Several days 5. Poor appetite or overeating: Not at all 6. Feeling bad about yourself -- or that you are a failure or have let yourself or your family down: Not at all 7. Trouble concentrating on things, such as reading the newspaper or watching television: Not at all 8. Moving or speaking so slowly that other people could have noticed. Or the opposite - being so fidgety or restless that you have been moving around a lot more than usual: Not at all 9. Thoughts that you would be better off , or of hurting yourself in some way: Not at all How difficult have these problems made it for you to do your work, take care of things at home, or get along with other people?: Not difficult at all Total Score: 1 Self-Efficacy 6-Item Scale 90-Day Re-eval Assessment: We would like to know how confident you are in doing certain activities. Please select your confidence level for: Fatigue Select Number: 9 Physical Discomfort or Pain Select Number: 9 Emotional Distress Select Number: 9 Other Symptoms or Health Problems Select Number: 8 Different Tasks and Activities Select Number: 9 Medication Select Number: 9 Total Score:: 8 Nutrition Survey Nutrition Survey Instructions Scoring Instructions Nutrition Survey Discharge: Have you lost >10 lbs over the past 2 months without trying?: No Are you following a special diet at home for diabetes, low fat, or low salt?: Yes Are you interested in meeting with a dietitian for help understanding your diet?: No Do you eat less than 3 meals a day?: No Do you eat fatty meats (good, sausage, ribs, etc), fried foods, desserts, large amounts of salad dressings, margarine, butter, or cheese most days?: Yes Do you have food allergies? [Enter types in comment field]: No Do you eat in restaurants more than 3 times a week?: No Do you season food with salt, seasoning salt, or garlic salt?: Yes Do you used canned, boxed, frozen meals, or soups, seasoning packets?: No Total Score:: 3 Exercise - 30-day Assessment Physician Prescribed Exercise Modalities: Treadmill, Schwinn Airdyne AD-7 and SciFit Stepper Exercise - 60-day Assessment Physician Prescribed Exercise Modalities: Treadmill, Schwinn Airdyne AD-7 and SciFit Stepper Exercise - 90-day Assessment Visit Date of Eval: 03/18/25 Session #:: 31 Physician Prescribed Exercise Modalities: Treadmill, Schwinn Airdyne AD-7 and SciFit Stepper Frequency: 3x/week for 12 weeks [36 sessions] Intensity: 60-80% of age predicted maximum heart rate reserve Duration: 30 - 45 minutes METs - Progression 0.5-1.0 weekly:: 0.5-1.0 Current METSs:: 6.5 Target Heart Rate:: 95-125 Target RPE 12-16:: 12-16 Current RPE:: 12 Maximum Excercise HR:: 103 Resting Blood Pressure: 118/68 Maximum Exercise Blood Pressure: 148/68 EKG Type: NSR to ST with rare pvcs Current Physical Activity or Exercising minutes: 30-45 Outcomes & Goals Goals:: Verbalizes understanding of THR, RPE & goal METS by session 6, Documents in home exercise log/reports 30 min aerobic 5 day/wk by DC and Demonstrates accurate pulse taking by DC Intervention & Plan Exercise Program Goals: Instruct on personal THR & RPE, Instruct on MET level & personal MET goal, Show patient to take own pulse /validate performance until accurate and Instruct on home exercise 30-day Reassessments 30 day Reassessments:: Met Physical Activity Home Exercise Physical Activity - Home Exercise: Safe Exercise, Warm-up, Self-monitoring, Cool-Down, Home Exercise > 30 min Daily and Sitting Time <3 hours/daily Outcomes & Goals Outcomes/Goals: Demonstrates correct Warm-up/exercise Cool-Down (S3) if = 2.5 METs, Verbalizes symptoms of exercise intolerance by Session 3 (S3) and Demonstrate safe equipment use (S3) & follows exercise prescrition (6) Intervention & Plan Plan/Intervention: Instruct warm-up & cool-down if exercising at > 2 METs, Instruct on symptoms of exercise intolerance & actions to take, Instruct & monitor on saf and Assess intial functional capacity & safety risk 30-day Reassessments 30 day Reassessments:: Met Exercise - Final/Discharge Physician Prescribed Exercise Modalities: Treadmill, Schwinn Airdyne AD-7 and SciFit Stepper Nutrition - 30-Day Assessment Weight Mgt (Other Care) Height: 5 ft 7 in Weight:: 165 lb BMI: 25.8 BMI (Report if calculated above): 25.8 Nutrition - 60-Day Assessment Weight Mgt (Other Care) Height: 5 ft 7 in Weight:: 165 lb BMI: 25.8 BMI (Report if calculated above): 25.8 Core - 90 Day Assessment Visit Date of Eval: 03/18/25 Session #:: 31 Medication Compliance Preventative Medication(s):: Aspirin and Clopidogrel/P2Y12 inhibit H/O mental health issues: depression, anxiety, or addiction?: No Doesn?t believe in the benefits of treatment?: No Believes medications are unnecessary or harmful?: No Has a concern about medication side effects?: No Expresses concern over the cost of medications?: No Outcomes/Goals: Verbalizes medications,desired effect & common side effects @ DC, Pt self-reports following medication regimen and Keeps card in wallet w/medications listed by DC Interventions/plans: Instruct on medication effects & side effects, Review medication list w/patient every two weeks and Instruct importance of taking meds as ordered & assist problem solving 30-day Reassessments:: Met Tobacco Use Tobacco Use: Non-smoker Hypertension Resting Blood Pressure:: 118/68 [place] [employer] Hypertension Guidelines Peak Exercise Blood Pressure:: 148/68 Outcomes/Goals: Able to verbalize/achieve optimal blood pressure <130/80 and Incorporates diet changes & exercise for blood pressure control by DC Interventions/plan: Instruct on optimal blood pressure, hypertension & medications and Instruct on effects of sodium, alcohol, stress, exercise &hypertension 30 day Reassessments:: Met Tobacco Cessation Referral Education Schedule Given:: Yes Psychosocial - 30-Day Assess Target Goals Target Goals Referral to Behavioral Health PS - Interventions: Yes: Attend Stress Management Classes Psychosocial - 60-Day Assess Target Goals Target Goals Referral to Behavioral Health PS - Interventions: Yes: Attend Stress Management Classes Psychosocial - 90-Day Assess VIsit Date of Eval: 03/18/25 Session #:: 31 History of previous Mental disease:: No Target Goals Target Goals Psychosocial Test Tool Used:: PHQ-9 Questionnaire phq-9 Severity See PHQ-9 Score: 1 Referral to Behavioral Health PS - Interventions: Yes: Attend Stress Management Classes Outcomes/Goals: See list Psychosocial Outcomes/Goals:: ID's personal stressors & 2 strategies to manage stress by discharge Intervention/Plan: See List Interventions/Plan:: Assess stressors,coping strategies & signs of derpression on admission, Instruct/assist pt to develop coping & personal stress Mgt strategies, Refer to Behavioral Health if appropriate, Refer to Physician if appropriate and Instruct patient to recognize signs & symptoms of depression 30-day Reassessments: 30 day Reassessments:: Met Reassessment Notes & Comments:: PT voices no psychosocial concerns at this time. Psychosocial - Final Assessmen Target Goals Target Goals Referral to Behavioral Health PS - Interventions: Yes: Attend Stress Management Classes Nutrition - 90-Day Assessment Visit Date of Eval: 03/18/25 Session #:: 31 Cholesterol/Lipids (Other Core Measures) Triglycerides (mg/dL): 103 Total Cholesterol (mg/dL): 143 LDL Cholesterol (mg/dL): 90 HDL Cholesterol (mg/dL): 32 Determine presence & major risk factors that modify LDL goal: Cigarette smoking, Hypertension or hypertensive medication, Low HDL cholesterol <40 mg/dL*, Family history of premature CHD in Male < 55 years: female <65 yearsFa and Age men > 45 years; women >/= 55 years Outcomes/Goals: Pt IDs own risk factors & lifestyle modifications by Session 10, Verbalizes symptoms of angina & response by session 3. 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 to find statin/lipid medication to optimize cholesterol levels Diabetes (Other Core Measures) Diabetes Type: Not Applicable Weight Mgt (Other Care) Height: 5 ft 7 in Weight:: 165 lb BMI: 25.8 BMI (Report if calculated above): 25.8 Diagnosis Overweight/Obesity BMI> 30% ICD-10 E66: No Diagnosis High BMI/Morbid Obesity BMI> 35% ICD-10 Z68: No Outcomes/Goals: Pt sets, maintains & shows weight loss goal & trend during rehab Intervention/Plan: Instruct on ideal BMI & set weight loss goal w/patient, Assist pt to ID & incorporate diet changes for weight loss by S9, Refer to Structured Weight Loss program as appropriate and Encourage goal of using 250-300dcal per session for weight loss 30 day Reassessments:: Met Healthy Eating Habits Will attend diet classes:: Yes Outcomes/Goals:: Consume diet rich in vegs,fruits,whole grain/high fiber,fish,lean meat and Limit sat/trans fats,cholesterol & added salts & sugars Intervention/Plan:: Assess current eating habits 30-day Reassessments:: Met Education Gave educational materials for:: Signs & symptoms of hypoglycemia, Signs & symptoms of hyperglycemia, Relate diabetes to coronary artery disease and Healthy eating Nutrition - Final Assessment Weight Mgt (Other Care) Height: 5 ft 7 in Weight:: 165 lb BMI: 25.8 BMI (Report if calculated above): 25.8
[2025-03-18 08:35] VITALS: BP 118/68
[2025-03-18 08:42] VITALS: BP 118/68; BMI 25.8
== END 2025-04-12 23:59 ==
LOC: CR 09:15
PROVIDERS: PCP Internal Medicine
DX: Z95.5 Presence of coronary angioplasty implant and graft (principal)
CPT/HCPCS: 93798

== ENCOUNTER 2025-05-12 08:00 | Outpatient (RCR) | payer SELFPAY ==
[2025-03-18 08:42] VITALS: BMI 25.8
[2025-04-14 07:28] VITALS: BMI 25.7
== END 2025-05-13 23:59 ==
LOC: CR 08:00
PROVIDERS: PCP Internal Medicine
DX: Z00.00 Encounter for general adult medical examination without abnormal findings (principal)

== ENCOUNTER 2025-06-28 08:00 | Outpatient (RCR) | payer SELFPAY ==
[2025-04-14 07:28] VITALS: BMI 25.7
== END 2025-07-13 23:59 ==
LOC: CR 08:00
PROVIDERS: PCP Internal Medicine
DX: Z00.00 Encounter for general adult medical examination without abnormal findings (principal)